=== PATIENT | male | born 1985 | race Caucasian/White ===

== ENCOUNTER 2025-01-14 17:12 | Emergency (ER) | payer OTHER, SELFPAY ==
--- NOTE | 2025-01-14 17:23 | ED.GENADULT ---
HPI - General Adult General Chief complaint: Abdominal Pain Stated complaint: abd pain Related Data Home Medications ?Medication ?Instructions ?Recorded ?Confirmed famotidine 20 mg tablet 20 mg PO BID 01/15/25 01/16/25 metoprolol succinate 50 mg 50 mg PO DAILY 01/15/25 01/16/25 tablet,extended release 24 hr pantoprazole 40 mg tablet,delayed 40 mg PO DAILY@0630 01/15/25 01/16/25 release allopurinol 300 mg tablet 300 mg PO DAILY 01/16/25 01/16/25 multivitamin 1 tab PO DAILY 01/16/25 01/16/25 Allergies Allergy/AdvReac Type Severity Reaction Status Date / Time cephalexin (From Keflex) Allergy Rash Verified 01/15/25 15:39 [facility] Social History Social History Household Members: None Housing: Apartment Do you presently have visiting nurse or other home services: No Patient Tobacco Use Status: Never used Tobacco service: No Physical Exam ED Vital Signs: BMI result Body Mass Index 24.0 Course Course Course Narrative: This is a rapid medical exam performed by Jazmine Jeffery NP: Additional HPI, ROS, PE not included below will be deferred to primary provider. Patient is a 39-year-old male pmhx alcohol use disorder, cardiomyopathy, pancreatitis, nephrolithiasis, and paroxysmal atrial fibrillation presenting to the ED with complaint of epigastric pain, nausea and vomiting since this morning. States this feels the same as prior episodes of pancreatitis. Denies hematemesis. Plan: Labs, EKG Patient left the emergency department before myself or any of the other clinicians could review or explain physical exam findings, test results, need or lack there of for additional testing, treatment options, or a treatment plan. Medical Decision Making Lab Data 01/14/25 17:47 01/14/25 17:47 Labs: Lab Results 01/14/25 01/14/25 Range/Units 17:47 17:49 WBC 4.9 (4.8-10.8) X10*3/uL RBC 4.56 L (4.60-5.80) X10*6/uL Hgb 14.2 (14.0-18.0) g/dl Hct 41.5 L (42.0-52.0) % MCV 91.0 (80.0-98.0) fL MCH 31.1 (27.0-33.0) pg MCHC 34.2 (31.0-36.0) g/dl RDW 15.9 (11.0-16.0) % Plt Count 197 (160-400) X10*3/uL MPV 10.2 (9.4-12.4) fL Immature Gran % (Auto) 0.2 (0.0-0.4) % Neut % (Auto) 59.5 (45-73) % Lymph % (Auto) 22.9 (20-40) % Clark % (Auto) 13.8 H (2-11) % Eos % (Auto) 1.0 (0-4) % Baso % (Auto) 2.6 H (0-2) % Lymph # (Auto) 1.1 L (1.2-4.9) X10*3/uL Clark # (Auto) 0.7 (0.1-1.2) X10*3/uL Eos # (Auto) 0.1 (0.0-0.4) X10*3/uL Baso # (Auto) 0.1 (0.0-0.2) X10*3/uL Abs Immat Gran (auto) 0.01 (0.00-0.03) X10*3/uL Absolute Neuts (auto) 2.9 (2.0-8.3) x10*3/uL Absolute Nucleated RBC 0.000 (0.0-0.012) X10*3/uL Nucleated RBC % (auto) 0.0 (0.0-0.2) /100WBC PT 9.8 L (10.9-12.4) SEC INR 0.9 (0.9-1.1) Sodium 140 (135-145) mmol/L Potassium 4.0 (3.3-5.1) mmol/L Chloride 101 (96-108) mmol/L Carbon Dioxide 21 L (22-29) mmol/L Anion Gap 22 H (12-20) BUN 11 (9-16) mg/dL Creatinine 0.97 (0.5-1.4) mg/dL Estim Creat Clear Calc 110.0 Estimated GFR > 60 Random Glucose 94 (60-115) mg/dL Lactic Acid 4.0 H* (0.5-2.0) mmol/L Calcium 9.3 (8.4-10.2) mg/dL Magnesium 2.0 (1.6-2.6) mg/dL Total Bilirubin 0.4 (0.0-1.0) mg/dL AST 270 H (5-37) U/L ALT 109 H (0-40) U/L Alkaline Phosphatase 90 (39-117) U/L Troponin I High Sens 5.4 (<3.5-35.0) ng/L Total Protein 7.8 (6.5-8.0) g/dL Albumin 5.1 H (3.5-5.0) g/dL Lipase 82 H (8-78) U/L Urine Color Yellow Urine Appearance Clear Urine pH 5.5 (5.0-9.0) Ur Specific [place] 1.020 (1.005-1.025) Urine Protein Trace (Neg-Trace) mg/dL Urine Glucose (UA) Negative (Negative) mg/dL Urine Ketones 15 (Negative) mg/dL Urine Blood Negative (Negative) Urine Nitrite Negative (Negative) Ur Leukocyte Esterase Negative (Negative) Ethyl Alcohol 219 mg/dL Discharge Plan Discharge Clinical Impression: Abdominal pain Patient Disposition: Left W/O Completing Treatment Prescriptions: No Action metoprolol succinate 50 mg tablet extended release 24 hr 50 mg PO DAILY famotidine 20 mg tablet 20 mg PO BID pantoprazole 40 mg tablet,delayed release (DR/EC) 40 mg PO DAILY@0630 multivitamin Tablet 1 tab PO DAILY allopurinol 300 mg tablet 300 mg PO DAILY Discharge Date/Time: 01/14/25 21:24
[2025-01-14 17:25] VITALS: BP 148/83; PULSE 101; RESP 18; TEMP 36.9; O2SAT 97; BMI 24.0
--- NOTE | 2025-01-14 17:26 | ECG_ITS ---
Test Reason : abd pain Blood Pressure : */* mmHG Vent. Rate : 99 BPM Atrial Rate : 99 BPM P-R Int : 124 ms QRS Dur : 88 ms QT Int : 352 ms P-R-T Axes : 50 -33 -42 degrees QTcB Int : 451 ms Normal sinus rhythm Left axis deviation Minimal voltage criteria for LVH, may be normal variant ( R in aVL ) T wave abnormality, consider lateral ischemia Abnormal ECG No previous ECGs available Referred By: Lyudmila Jeffery Electronically Signed By: Dario Munoz
[2025-01-14 17:56] LABS: MANUAL DIFF FLAG NO
[2025-01-14 17:59] LABS: Appearance Urine Clear; Glucose Urine UA Negative (Negative); PH 5.5 (5.0-9.0); Specific Gravity - Urine 1.020 (1.005-1.025)
[2025-01-14 18:05] LABS: Hematocrit 41.5 % (42.0-52.0); Hemoglobin 14.2 g/dl (14.0-18.0); Imm Gran Abs Auto 0.01 X10*3/uL (0.00-0.03); Imm Gran Pct Auto 0.2 % (0.0-0.4); Lymphocytes Absolute Auto 1.1 X10*3/uL (1.2-4.9); Mean Corpuscular HGB Conc 34.2 g/dl (31.0-36.0); Mean Corpuscular Hemoglobin 31.1 pg (27.0-33.0); Mean Corpuscular Volume 91.0 fL (80.0-98.0); NRBC Abs Auto 0.000 X10*3/uL (0.0-0.012); NRBC Pct Auto 0.0 /100WBC (0.0-0.2); Platelet Count 197 X10*3/uL (160-400); Red Blood Count 4.56 X10*6/uL (4.60-5.80); White Blood Count 4.9 X10*3/uL (4.8-10.8)
[2025-01-14 18:13] LABS: Alanine Aminotransferase 109 U/L (0-40); Albumin Level 5.1 g/dL (3.5-5.0); Alkaline Phosphatase 90 U/L (39-117); Anion Gap 22 (12-20); Aspartate Amino Transferase 270 U/L (5-37); Blood Urea Nitrogen 11 mg/dL (9-16); Calcium 9.3 mg/dL (8.4-10.2); Carbon Dioxide 21 mmol/L (22-29); Chloride 101 mmol/L (96-108); Creatinine Clr Calc Pharmacy 110.0; Estimated Glomerular Filt Rate > 60; INTERNATIONAL NORM RATIO 0.9 (0.9-1.1); Lipase 82 U/L (8-78); Magnesium 2.0 mg/dL (1.6-2.6); Potassium 4.0 mmol/L (3.3-5.1); Prothrombin Time 9.8 SEC (10.9-12.4); Sodium 140 mmol/L (135-145); Total Protein 7.8 g/dL (6.5-8.0)
[2025-01-14 18:20] LABS: Troponin-I High Sensitivity 5.4 ng/L (<3.5-35.0)
[2025-01-14 19:54] LABS: Reflex Lactate? Lactic Acid Added
--- OUTSIDE RECORDS SUMMARY | 2025-01-14 21:14 | XMS_ITS | Encounter Summary ---
Author Organization [facility] Address [address] [place] [address] Phone Care Team Providers Care Executive Director Contract Shop Name Role Phone Danilo Wilson MD Primary Care Provide r Encounter Details Date Type Department Care Team (Late st Contact Info) Description 12/09/2024 Procedure Pass [facility], Ct Scan - [facility] [address] [place] [address] Social History Tobacco Use Types Packs/Day Years Used Date Smoking Tobacco: Former Cigarettes Smokeless Tobacco: Never Alcohol Use Standard Drinks/Week Comments Not Currently 16 (1 standard drink = 0.6 oz pu re alcohol) 1 pint of rum daily Education Answer Date Recorded Are you interested in more education? Not on elie e 01/01/2024 Are you concerned about learning? Not on file 01/01/2024 No 01/01/2024 No 01/01/2024 Food Answer Date Recorded Within the past 6 months we worried whether our food would run out before we got money to buy more. Never True 12/09/2024 Within the past 6 months the food we bought just didn't last and we didn't have enough money to get more. Never True Residential Stability Answer Date Recor ded What is your housing situation today? I have annalee sing 12/09/2024 How many times have you move d in the past 12 months? Zero (I did not move) 12/09/2024 Paying for Meds Answer Date Recorded Do you have trouble paying for medicines? No 12/09/2024 Paying Utility Bills Answer Date Record ed Do you have trouble paying your heating or elect ricity bill? No 12/09/2024 Transportation Answer Date Recorded Has the lack of transportati on kept you from medical appointments or from getting medications? No 12/09/2024 Digital Access Answer Date Recorded No 12/09/2024 Yes 12/09/2024 Do you have reliable internet access at home? Ye s 12/09/2024 Do you have a device (e.g., phone, tablet, computer) with a working camera? Yes 12/09/2024 Intimate Partner Violence Answer Date R ecorded Are you denied basic needs s uch as food, clothing, or medical care? No 12/08/2024 In the past 12 months have y ou been in a relationship with a person who hurts, threatens, or tries to control you? No 12/08/2024 Are you denied basic needs s uch as food, clothing, or medical care? No 12/08/2024 In the past 12 months have y ou been in a relationship with a person who hurts, threatens, or tries to control you? No 12/08/2024 Sex and Gender Information Value Date Recorded Sex Assigned at Male 01/01/2024 1:50 AM EDT Legal Sex Male 10:57 PM EDT Gender Identity Male 01/01/2024 11:43 PM EDT Sexual Orientation Don't know 01/01/2024 12 :27 AM EDT documented as of this encounter Plan of Treatment Not on file documented as of this encounter Visit Diagnoses Not on filedocumented in this encounter Care Teams Executive Director Contract Shop Relationship Specialty Start Date End Date Danilo Wilson MD [address] [facility] [address] [place] [address] PCP - General Family Medicine 05/21/24 documented as of this encounter Additional Source Comments The information contained in this document represents components of the legal health record. It is not the complete legal health record.[facility]
--- OUTSIDE RECORDS SUMMARY | 2025-01-14 21:14 | XMS_ITS | Encounter Summary ---
Author Organization [facility] Address [address] [place] [address] Phone Care Team Providers Care Medium Cycle Salesperson Name Role Phone Danilo Wilson MD Primary Care Provide r Encounter Details Date Type Department Care Team (Late st Contact Info) Description 07/06/2024 Procedure Pass [facility], Ct Scan - [facility] [address] [place] [address] Social History Tobacco Use Types Packs/Day Years Used Date Smoking Tobacco: Former Cigarettes Smokeless Tobacco: Never Alcohol Use Standard Drinks/Week Comments Yes 16 (1 standard drink = 0.6 oz [...] got money to buy more. Never True 01/01/2024 Within the past 6 months the food we bought just didn't last and we didn't have enough money to get more. Never True Residential Stability Answer Date Recor ded What is your housing situation today? I have annalee sing 07/06/2024 How many times have you move d in the past 12 months? Zero (I did not move) 07/06/2024 Paying for Meds Answer Date Recorded Do you have trouble paying for medicines? No 07/06/2024 Paying Utility Bills Answer Date Record ed Do you have trouble paying your heating or elect ricity bill? No 07/06/2024 Transportation Answer Date Recorded Has the lack of transportati on kept you from medical appointments or from getting medications? Yes 01/01/2024 Digital Access Answer Date Recorded No 01/01/2024 Yes 01/01/2024 Do you have reliable internet access at home? Ye s 01/01/2024 Do you have a device (e.g., phone, tablet, computer) with a working camera? Yes 01/01/2024 Intimate Partner Violence Answer Date R ecorded Are you denied basic needs s uch as food, clothing, or medical care? No 07/05/2024 In the past 12 months have y ou been in a relationship with a person who hurts, threatens, or tries to control you? No 07/05/2024 Are you denied basic needs s uch as food, clothing, or medical care? No 07/05/2024 In the past 12 months have y ou been in a relationship with a person who hurts, threatens, or tries to control you? No 07/05/2024 Sex and Gender Information Value Date Recorded Sex Assigned at Male 01/01/2024 1:50 AM EDT Legal Sex Male 10:57 PM EDT Gender Identity Male 01/01/2024 11:43 PM EDT Sexual Orientation Don't know 01/01/2024 12 :27 AM EDT documented as of this encounter Plan of Treatment Not on file documented as of this encounter Visit Diagnoses Not on filedocumented in this encounter Care Teams Medium Cycle Salesperson Relationship Specialty Start Date End Date Danilo Wilson MD [address] [facility] [address] [place] [address] PCP - General Family Medicine 05/21/24 documented as of this encounter Additional Source Comments The information contained in this document represents components of the legal health record. It is not the complete legal health record.[facility]
--- OUTSIDE RECORDS SUMMARY | 2025-01-14 21:14 | XMS_ITS | Encounter Summary ---
Author Organization [facility] Address [address] [place] [address] Phone Care Team Providers Care Senior Tech Manufacturing Engineering Name Role Phone Danilo Wilson MD Primary Care Provide r Encounter Details Date Type Department Care Team (Late st Contact Info) Description 07/06/2024 Procedure Pass [facility], Ct Scan - [facility] [address] [place] [address] Social History Tobacco Use Types Packs/Day Years [...] on filedocumented in this encounter Care Teams Senior Tech Manufacturing Engineering Relationship Specialty Start Date End Date Danilo Wilson MD [address] [facility] [address] [place] [address] PCP - General Family Medicine 05/21/24 documented as of this encounter Additional Source Comments The information contained in this document represents components of the legal health record. It is not the complete legal health record.[facility]
--- OUTSIDE RECORDS SUMMARY | 2025-01-14 21:14 | XMS_ITS | Encounter Summary ---
Author Organization [facility] Address [address] [place] [address] Care Team Providers Care Harbor Tug Captain Name Role Phone Physician, No Pcp Primary Care Provider Unavaila ble Encounter Details Date Type Department Care Team (Late st Contact Info) Description 09/28/2024 Referral Triage [facility] Worker [address] [phone] Meenu Burden Social History Tobacco Use Types Packs/Day Years Used Date Smoking Tobacco: Former Smokeless Tobacco: Never Alcohol Use Standard Drinks/Week Comments Yes 0 (1 standard drink = 0.6 oz pur e alcohol) 1pint rum a day Housing Instability Answer Date Recorde d Are you worried that in the next 2 months you may not have stable housing? No 09/30/2024 Food Access & Nutrition Answer Date Rec orded Do you have access to a vari ety of food including fruits and vegetables? Yes 09/30/2024 Access to Healthcare Answer Date Record ed Within the last 3 months, christian snider many times did you visit the emergency department for your medical care? 1 09/30/2024 Health Literacy Answer Date Recorded How often do you need to hav e someone help you when you read instructions, pamphlets, or other written material from your doctor or pharmacy? Rarely 09/30/2024 Caregiver: How often do you need to have someone help you when you read instructions, pamphlets, or other written material from your doctor or pharmacy? Not on file 09/30/2024 Financial Risk Answer Date Recorded How hard is it for you to pa y for the very basics like food, housing, medical care, and air conditioning / heating? Not very hard 09/30/2024 Transportation Answer Date Recorded Has the lack of transportati on kept you from meetings, work, or from getting things needed for daily living? No Has the lack of transportati on kept you from medical appointments or from getting medications? No 09/30/2024 Social Isolation Answer Date Recorded How often do you feel lonely or isolated from th ose around you? Rarely 09/30/2024 Food Risk Answer Date Recorded Within the past 12 months we worried whether our food would run out before we got money to buy more. Never true 09/30/2024 Within the past 12 months th e food we bought just didn't last and we didn't have money to get more. Never true 09/30/2024 Dependent Care Answer Date Recorded Do you need help finding or paying for care for your loved ones. For example, child care group leader or elderly care for an older adult? No 09/30/2024 Education Answer Date Recorded Do you think completing more education or training, like finishing a GED, going to college, or learning a trade, would be helpful for you? No 09/30/2024 Employment and Income Answer Date Recor ded During the last four weeks, have you been actively looking for work? No 09/30/2024 Living Situation Answer Date Recorded What is your living situation? 0 09/30/2024 Interpersonal Safety Answer Date Record ed Physical Abuse 09/22/2024 Verbal Abuse 09/22/2024 Sex and Gender Information Value Date Recorded Sex Assigned at Not on file Legal Sex Male 7:13 PM EST Gender Identity Not on file Sexual Orientation Not on file documented as of this encounter Functional Status * Are you deaf or do you have serious difficulty hearing? Answer Date of Assessment Author No 09/22/2024 10:59 AM Marielena Kaufman RN * Are you blind or do you have serious difficulty seeing, even when wearing glasses? Answer Date of Assessment Author No 09/22/2024 10:59 AM Marielena Kaufman RN * Do you have serious difficulty walking or climbing stairs? Answer Date of Assessment Author No 09/22/2024 10:59 AM Marielena Kaufman RN * Do you have serious difficulty dressing or bathing? Answer Date of Assessment Author No 09/22/2024 10:59 AM Marielena Kaufman RN * Because of a physical, mental, or emotional condition, do you have serious difficulty doing errandsalone such as visiting the doctor? Answer Date of Assessment Author No 09/22/2024 10:59 AM EDT Marielena Brewer RN documented as of this encounter Mental Status * Because of a physical, mental, or emotional condition, do you have serious difficulty concentrating, remembering, or making decisions? (5 years old or older) Answer Entry Date Author No 09/22/2024 10:59 AM EDT Marielena Brewer RN documented in this encounter Progress Notes * Meenu Burden - 09/28/2024 4:36 PM EDT Referral triage: Assigned to Betty (W) reason for referral was support, unclear what kind of support. Error: Re-assigned to Thalia. Meenu Burden Community Health Worker (CHW) Psychiatric Nurse Practitioner/Regional documented in this encounter Plan of Treatment Not on file documented as of this encounter Visit Diagnoses Not on filedocumented in this encounter Care Teams Harbor Tug Captain Relationship Specialty Start Date End Date Physician, No Pcp PCP - General 09/22/24 documented as of this encounter
--- OUTSIDE RECORDS SUMMARY | 2025-01-14 21:14 | XMS_ITS | Encounter Summary ---
Author Organization [facility] Address [address] [place] [address] Phone Care Team Providers Care Industrial Diamond Polisher Name Role Phone Pcp, Unknown Primary Care Provider Unavailabl e Pcp, Unknown Primary Care Provider Unavailabl e Danilo Wilson MD Primary Care Provide r Encounter Details Date Type Department Care Team (Late st Contact Info) Description 01/01/2024 Procedure Pass [facility], Ct Scan - [facility] [address] [place] [address] Social History Tobacco Use Types Packs/Day Years Used Date Smoking Tobacco: Former Cigarettes Smokeless Tobacco: Never Alcohol Use Standard Drinks/Week Comments Yes 16 (1 standard drink = 0.6 oz pu re alcohol) 1 pt of ru daily Education Answer Date Recorded Are you [...] housing situation today? I have annalee sing 01/01/2024 How many times have you move d in the past 12 months? Zero (I did not move) 01/01/2024 Paying for Meds Answer Date Recorded Do you have trouble paying for medicines? No 01/01/2024 Paying Utility Bills Answer Date Record ed Do you have trouble paying your heating or elect ricity bill? No 01/01/2024 Transportation Answer Date Recorded Has the lack [...] as food, clothing, or medical care? No 01/01/2024 In the past 12 months have y ou been in a relationship with a person who hurts, threatens, or tries to control you? No 01/01/2024 Are you denied basic needs s uch as food, clothing, or medical care? No 01/01/2024 In the past 12 months have y ou been in a relationship with a person who hurts, threatens, or tries to control you? No 01/01/2024 Sex and Gender Information Value Date Recorded Sex Assigned at Male 01/01/2024 1:50 AM EDT Legal Sex Male 10:57 PM EDT Gender Identity Male 01/01/2024 11:43 PM EDT Sexual Orientation Don't know 01/01/2024 12 :27 AM EDT documented as of this encounter Functional Status * Calculated C-SSRS Risk Score (Lifetime/Recent) Answer Date of Assessment Author No Risk Indicated 01/01/2024 10:41 PM EDT Anna Tsang RN * [place] Suicide Severity Rating Scale (Screener/Recent Self-Report) Question Answer Date of Assessment Author 1. Wish to be (Past 1 Month) No 024 10:41 PM EDT Anna Tsang RN 2. Non-Specific Active Suici marisol Thoughts (Past 1 Month) No 01/01/2024 10:41 PM EDT Yeimi Tsang RN 6. Suicidal Behavior (Lifetime) No 10:41 PM EDT Anna Tsang RN documented as of this encounter Plan of Treatment Not on file documented as of this encounter Visit Diagnoses Not on filedocumented in this encounter Care Teams Industrial Diamond Polisher Relationship Specialty Start Date End Date Pcp, Unknown PCP - General 01/01/24 05/14/24 Pcp, Unknown PCP - General 05/15/24 05/20/24 Danilo Wilson MD [address] [address] PCP - General Family Medicine 05/21/24 documented as of this encounter Additional Source Comments The information contained in this document represents components of the legal health record. It is not the complete legal health record.[facility]
--- OUTSIDE RECORDS SUMMARY | 2025-01-14 21:14 | XMS_ITS | Encounter Summary ---
Author Organization [facility] Address [address] [place] [address] Phone Care Team Providers Care Test Puller Name Role Phone Danilo Wilson MD Primary Care Provide r Encounter Details Date Type Department Care Team (Late st Contact Info) Description 10/18/2024 Procedure Pass [facility], Ct Scan - [facility] [address] [place] [address] Social History Tobacco Use Types Packs/Day Years [...] got money to buy more. Never True 10/17/2024 Within the past 6 months the food we bought just didn't last and we didn't have enough money to get more. Never True Residential Stability Answer Date Recor ded What is your housing situation today? I have annalee sing 10/17/2024 How many times have you move d in the past 12 months? Zero (I did not move) 10/17/2024 Paying for Meds Answer Date Recorded Do you have trouble paying for medicines? No 10/17/2024 Paying Utility Bills Answer Date Record ed Do you have trouble paying your heating or elect ricity bill? No 10/17/2024 Transportation Answer Date Recorded Has the lack of transportati on kept you from medical appointments or from getting medications? No 10/17/2024 Digital Access Answer Date Recorded No 10/17/2024 Yes 10/17/2024 Do you have reliable internet access at home? Ye s 10/17/2024 Do you have a device (e.g., phone, tablet, computer) with a working camera? Yes 10/17/2024 Intimate Partner Violence Answer Date R ecorded Are you denied basic needs s uch as food, clothing, or medical care? No 10/17/2024 In the past 12 months have y ou been in a relationship with a person who hurts, threatens, or tries to control you? No 10/17/2024 Are you denied basic needs s uch as food, clothing, or medical care? No 10/17/2024 In the past 12 months have y ou been in a relationship with a person who hurts, threatens, or tries to control you? No 10/17/2024 Sex and Gender Information Value Date Recorded Sex Assigned at Male 01/01/2024 1:50 AM EDT Legal Sex Male 10:57 PM EDT Gender Identity Male 01/01/2024 11:43 PM EDT Sexual Orientation Don't know 01/01/2024 12 :27 AM EDT documented as of this encounter Plan of Treatment Not on file documented as of this encounter Visit Diagnoses Not on filedocumented in this encounter Care Teams Test Puller Relationship Specialty Start Date End Date Danilo Wilson MD [address] [facility] [address] [place] [address] PCP - General Family Medicine 05/21/24 documented as of this encounter Additional Source Comments The information contained in this document represents components of the legal health record. It is not the complete legal health record.[facility]
--- OUTSIDE RECORDS SUMMARY | 2025-01-14 21:14 | XMS_ITS | Encounter Summary ---
Author Organization [facility] Address [address] [place] [address] Phone Care Team Providers Care Metal Furniture Assembler Name Role Phone Danilo Wilson MD Primary Care Provide r Encounter Details Date Type Department Care Team (Late st Contact Info) Description 08/09/2024 Procedure Pass [facility], [facility] Scan - [facility] [address] [place] [address] Social History Tobacco Use Types Packs/Day Years [...] as food, clothing, or medical care? No 08/09/2024 In the past 12 months have y ou been in a relationship with a person who hurts, threatens, or tries to control you? No 08/09/2024 Are you denied basic needs s uch as food, clothing, or medical care? No 08/09/2024 In the past 12 months have y ou been in a relationship with a person who hurts, threatens, or tries to control you? No 08/09/2024 Sex and Gender Information Value Date Recorded Sex Assigned at Male 01/01/2024 1:50 AM EDT Legal Sex Male 10:57 PM EDT Gender Identity Male 01/01/2024 11:43 PM EDT Sexual Orientation Don't know 01/01/2024 12 :27 AM EDT documented as of this encounter Functional Status * Calculated C-SSRS Risk Score (Lifetime/Recent) Answer Date of Assessment Author No Risk Indicated 08/09/2024 8:37 PM EDT Darlene Gomez RN * [place] Suicide Severity Rating Scale (Screener/Recent Self-Report) Question Answer Date of Assessment Author 1. Wish to be (Past 1 Month) No 025 8:37 PM EDT Darlene Maldonado, RN 2. Non-Specific Active Suici marisol Thoughts (Past 1 Month) No 08/09/2024 8:37 PM EDT Darlene Maldonado, RN 6. Suicidal Behavior (Lifetime) No 8:37 PM EDT Darlene Maldonado, RN documented as of this encounter Plan of Treatment Not on file documented as of this encounter Visit Diagnoses Not on filedocumented in this encounter Care Teams Metal Furniture Assembler Relationship Specialty Start Date End Date Danilo Wilson MD [address] [address] PCP - General Family Medicine 05/21/24 documented as of this encounter Additional Source Comments The information contained in this document represents components of the legal health record. It is not the complete legal health record.[facility]
--- OUTSIDE RECORDS SUMMARY | 2025-01-14 21:14 | XMS_ITS | Clinical Summary ---
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 4 Active metoprolol succinate (TOPROL-XL) 50 MG 24 hr tablet Take 50 mg by mouth daily. 4 Active carBAMazepine (TEGRETOL) 200 mg IMMEDIATE release tablet Take 1 tablet (200 mg total) by mouth 2 (two) times a day. 180 tablet 5 03/11/20 25 Active sucralfate (CARAFATE) 1 gram tablet Take 1 tablet (1 g total) by mouth 3 (three) times a day before meals. 270 tablet 5 03/11/20 25 Active pantoprazole (PROTONIX) 40 MG tablet Take 1 tablet (40 mg total) by mouth daily. 90 tablet 5 03/11/20 25 Active oxyCODONE 5 MG immediate release tablet Take 1 tablet (5 mg total) by mouth every 12 (twelve) hours as needed for pain (specific location in comments). Partial fill ok 8 tablet 5 12/16/19 25 Active Problems Problem Noted Date Diagnosed Date Abdominal pain 12/09/2024 Assessment & Plan (12/10/2024 10:11 PM EDT): Patient complains of severe epigastric pain after seizure episode. Given his extensive history of alcohol use, suspect alcohol induced gastritis. Lipase was normal. CT abdomen without acute pathology. Abdominal exam without evidence of acute abdomen. - Advised alcohol cessation - Serial abdominal examination -Continue regular diet but with Carafate 3 times a day before meals -Adding on Maalox as needed -Continuing IV Dilaudid every 3 as needed for severe pain -Tolerating p.o. due to severe epigastric pain. Will change Pepcid to IV Protonix twice daily. N.p.o. overnight for a little bit of bowel rest and IV fluids to maintain hydration. Assessment & Plan (12/09/2024 6:54 AM EDT): Patient complains of severe epigastric pain after seizure episode. Given his extensive history of alcohol use, suspect alcohol induced gastritis. Lipase was normal. CT abdomen without acute pathology. Abdominal exam without evidence of acute abdomen. - Advised alcohol cessation - Serial abdominal examination -Continue regular diet but with Carafate 3 times a day before meals -Continue IV Pepcid 20 mg twice a day -Adding on Maalox as needed -Continuing IV Dilaudid every 3 as needed for severe pain Acute pancreatitis 07/09/2024 Assessment & Plan (07/09/2024 5:15 PM EST): CT imaging for acute pancreatitis - with fat stranding, lipase was only mildly elevated, known alcohol use as risk factor - 07/07 - off IVF, decrease IV opioid dose, cautiously advancing diet Some improvement in abdominal pain. KUB-nonobstructive bowel gas pattern. No acute cardiopulmonary process. - Transition from IV dilaudid to ppo dilaudid 4mg q4h prn. - advance to full liquid diet. -Hold on further IV fluids. Right foot infection 07/07/2024 Assessment & Plan (07/09/2024 5:15 PM EST): On admission patient found to have cellulitis of right foot recurrent. re- started doxycycline, Erythema and swelling markedly improved. Minimal redness with minimal swelling today. - Continue with doxycycline IV for now IV given concern for GI side effects, once he is advance his diet he can resume the oral form. Transition to p.o. Doxy in a.m. and continue for 2 days to complete a 5-day course of treatment. Assessment & Plan (07/08/2024 5:45 PM EST): - does appear there is cellulitis, re-started doxycycline, Erythema and swelling markedly improved. - Continue with doxycycline IV for now IV given concern for GI side effects, once he is advance his diet he can resume the oral form. Assessment & Plan (07/07/2024 1:17 PM EST): - does appear there is cellulitis, re-started doxycycline, for now IV given concern for GI side effects, once he is advance his diet he can resume the oral form Intussusception 07/06/2024 Assessment & Plan (07/09/2024 5:15 PM EST): Seen by the surgical service. repeat CT showed resolution of intussusception Diet was advanced to clear liquids, patient was able to tolerate however complain of some abdominal pain. - Dr. Casas recommends GI follow up outpatient Assessment & Plan (07/08/2024 5:45 PM EST): Seen by the surgical service. repeat CT showed resolution of intussusception Diet was advanced to clear liquids, patient was able to tolerate however complain of some abdominal pain. - Dr. Casas recommends GI follow up outpatient Acute pancreatitis/abdominal pain CT imaging for acute pancreatitis - with fat stranding, lipase was only mildly elevated, known alcohol use as risk factor - 07/07 - off IVF, decrease IV opioid dose, cautiously advancing diet - IVF hydration, IV opioid pain medication, will advance diet as tolerated -KUB ordered today for abdominal pain shows nonobstructive bowel gas pattern. Pain is likely due to mild pancreatitis as noted on CT and with slightly elevated LFTs. - Liquid diet overnight Assessment & Plan (07/07/2024 1:17 PM EST): Seen by the surgical service. repeat CT showed resolution of intussusception - advancing diet - Dr. Casas recommends GI follow up outpatient Assessment & Plan (07/06/2024 3:24 PM EST): Seen by the surgical service. repeat CT showed resolution of intussusception - surgery recommends diet advance but patient with severe nausea and several issues affecting diet tolerance (gastritis, possible pancreatitis, alcohol withdrawal) - cont clear diet - Dr. Casas recommends GI follow up outpatient Assessment & Plan (07/06/2024 5:35 AM EST): 38 y.o M with a hx of alcohol abuse with severe withdrawal and alcoholic cardiomyopathy previous admission in May for intussusception s/p exploratory laparoscopy with running of the small bowel with Dr. Liu, returning today with abdominal pain found once again to have recurrent small bowel intussusception. Abdominal exam at this time is relatively reassuring with only mild tenderness in LUQ. -Admit to medical service given active alcohol intoxication and high risk for withdrawals -Hold on emergent surgical intervention for now. -Repeat CT at 10a.m. Pending CT results and clinical exam will determine need for surgery -Keep NPO -Continue IV hydration and pain medication. -SCDs for DVT prophylaxis. Hold aspirin for now. -The plan has been directly discussed with the medical service. Assessment & Plan (07/06/2024 4:28 AM EST): Seen by the surgical service. Plan is for repeat CT scan later this morning at 10 AM. If the intussusception is failing to improve he may be brought to the OR at that time. We will keep him n.p.o. We will give IV pain medications and IV fluids. Paroxysmal atrial fibrillation 05/19/2024 Assessment & Plan (12/10/2024 10:11 PM EDT): Not on anticoagulation. Continue metoprolol succinate 50 mg daily holding parameters. Assessment & Plan (12/09/2024 6:54 AM EDT): Not on anticoagulation. Continue metoprolol succinate 50 mg daily holding parameters. Assessment & Plan (07/09/2024 5:15 PM EST): Sinus rhythm currently. On aspirin for stroke prophylaxis. Afib, RVR LAST admission Assessment & Plan (07/08/2024 5:45 PM EST): Sinus rhythm currently. On aspirin for stroke prophylaxis. Afib, RVR LAST admission Assessment & Plan (07/07/2024 1:17 PM EST): Sinus rhythm currently. On aspirin for stroke prophylaxis. Afib, RVR LAST admission Assessment & Plan (07/06/2024 3:24 PM EST): Sinus rhythm currently. On aspirin for stroke prophylaxis. Given acute withdrawal and recent RVR last admission and prolonged QTc on EKG and use to medications that can prolong QTc and several risk factors for electrolyte abnormalities - start cardiac monitoring Assessment & Plan (07/06/2024 4:28 AM EST): Sinus rhythm currently. On aspirin for stroke prophylaxis. 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 Patient appears to be euvolemic. 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 Patient appears to be euvolemic. Continue metoprolol Assessment & Plan (07/09/2024 5:15 PM EST): 05/17/24 ECHO LVEF 35% - close monitoring, off IVF now Assessment & Plan (07/08/2024 5:45 PM EST): 05/17/24 ECHO LVEF 35% - close monitoring, off IVF now Assessment & Plan (07/07/2024 1:17 PM EST): 05/17/24 ECHO LVEF 35% - close monitoring, off IVF now Assessment & Plan (07/06/2024 3:24 PM EST): 05/17/24 ECHO LVEF 35% - close monitoring on increased IVF, at risk for volume overload Assessment & Plan (07/06/2024 4:28 AM EST): Will monitor I's and O's. We will need to watch for volume overload. Seizures 05/19/2024 Assessment & Plan (12/10/2024 10:11 PM EDT): Suspect alcohol induced withdrawal seizure but Librium withdrawal may also be contributing. Patient was also taken off Keppra approximately 4 months ago given worsening headaches and was told may proceed with Tegretol instead. Per patient, workup with Dr. Sanders from [facility] neurology has otherwise been unremarkable. -Seizure precautions -Again discussed alcohol cessation -Patient was started on Tegretol in the ED and will continue 200 mg twice daily. Patient will need to make an appoint with Dr. Sanders for further titration and monitoring - EEG is negative for acute seizures. - patient should not operate any heavy machinery or driving until he seizure- free for greater than than 6 months. Assessment & Plan (12/09/2024 6:54 AM EDT): Suspect alcohol induced withdrawal seizure but Librium withdrawal may also be contributing. Patient was also taken off Keppra approximately 4 months ago given worsening headaches and was told may proceed with Tegretol instead. Per patient, workup with Dr. Sanders from [facility] neurology has otherwise been unremarkable. -Seizure precautions -Again discussed alcohol cessation -Patient was started on Tegretol in the ED and will continue 200 mg twice daily. Patient will need to make an appoint with Dr. Sanders for further titration and monitoring - Will obtain EEG - patient should not operate any heavy machinery or driving until he seizure- free for greater than than 6 months. Alcohol dependence with withdrawal 05/16/2024 Assessment & Plan (07/09/2024 5:15 PM EST): History of delirium tremens when he was admitted here in May. Has received about 17 mg/kg phenobarbital load. Patient continues with withdrawal symptoms this morning with CIWA 10. Phenobarbital level is 22.7 Startes on oral phenobarbital 60 mg twice daily with improved symptoms. - s/p IV magnesium -Decrease phenobarbital to 30 mg twice daily - cont vitamin supplementation - encouraging alcohol cessation, he is interested in treatment - consult Assessment & Plan (07/08/2024 5:45 PM EST): History of delirium tremens when he was admitted here in May. Has received about 17 mg/kg phenobarbital load. Patient continues with withdrawal symptoms this morning with CIWA 10. Phenobarbital level is 22.7 -Will start on oral phenobarbital 60 mg twice daily for 4 doses. - s/p IV magnesium - cont vitamin supplementation - encouraging alcohol cessation, he is interested in treatment - consult Assessment & Plan (07/07/2024 1:17 PM EST): History of delirium tremens when he was admitted here in May. Has received about 17 mg/kg phenobarbital load so far Adjunctive medication with antiemetics Acute gastritis - cont PPI CT imaging for acute pancreatitis - with fat stranding, lipase was only mildly elevated, known alcohol use as risk factor - 07/07 - off IVF, decrease IV opioid dose, cautiously advancing diet - IVF hydration, IV opioid pain medication, will advance diet as tolerated - supplement IV magnesium - cont vitamin supplementation - encouraging alcohol cessation, he is interested in treatment - consult Assessment & Plan (07/06/2024 3:24 PM EST): History of delirium tremens when he was admitted here in May. Has received about 15 mg/kg phenobarbital load so far Adjunctive medication with antiemetics Acute gastritis - add PPI CT imaging for acute pancreatitis - with fat stranding, lipase was only mildly elevated, known alcohol use as risk factor - IVF hydration, IV opioid pain medication, will advance diet as tolerated - check magnesium level - IVF - cont vitamin supplementation - encouraging alcohol cessation, he is interested in treatment - consult Assessment & Plan (07/06/2024 4:28 AM EST): Received 200 mg of oral phenobarbital. History of delirium tremens when he was admitted here in May. Will give IV phenobarbital and B vitamins. He expresses a strong desire for alcohol treatment. He is aware of his nonischemic cardiomyopathy and its relation to alcohol consumption. Will place consult to social work. Acute idiopathic gout involving toe of left foot 01/04/2024 Assessment & Plan (01/04/2024 12:20 PM EDT): Left great toe with mild edema, erythema. Consistent with gout, history of this. He was started on prednisone 20 mg to complete 3-day course with today being day 3, notes minimal improvement. We will provide higher dose of prednisone, initiate colchicine. -Colchicine 1.2 mg x 1, Toradol -Colchicine 0.6 mg daily until 48 hours following resolution -Continue allopurinol -Increase prednisone to 40 mg daily with taper -day 3 of course -Empiric PPI in setting of steroid, NSAID, alcohol history Alcohol dependence 01/01/2024 Assessment & Plan (01/04/2024 12:11 PM EDT): Improved symptoms, social work consulted, status post phenobarbital loading. Low CIWA score. -Currently reports being motivated to abstain drinking in future -Declines acamprosate, naltrexone -Social work consult appreciated -He reports he is receptive to AA meetings Nephrolithiasis 01/01/2024 Assessment & Plan (01/04/2024 12:17 PM EDT): CT noted nonobstructing intrarenal calculi without any collecting system dilation. Right greater than left stone burden. He has no hematuria. -Monitor Opioid use disorder 01/01/2024 Assessment & Plan (01/04/2024 12:17 PM EDT): No longer on Suboxone, continue analgesia for acute pancreatitis, tolerating Toradol and as needed narcotic. Resolved Problems Problem Noted Date Diagnosed Date Resolved Date Intussusception 05/16/2024 05/19/2024 Lactic acidosis 05/16/2024 05/19/2024 Alcohol withdrawal seizure w ithout complication 05/16/2024 05/19/2024 Alcohol-induced acute pancre atitis without infection or necrosis 01/01/2024 07/06/2024 Assessment & Plan (01/04/2024 12:16 PM EDT): Alcohol induced pancreatitis, history of 1 other episode in the past. Toxicology screen was positive for cocaine patient denies this, suspect false positive cross-reactivity. Overall his pain has improved, Reports ongoing epigastric pain with radiation across his left flank and to spine. He trialed low-fat diet today, only able to tolerate few bites of eggs before discontinuing. He had increased pain with meal. No nausea or vomiting. Labs are reassuring, previous elevated lipase had down trended. LFTs within normal limits today. He is without leukocytosis or fever. -Change diet back to full liquid for now -Increase IV fluids to 150/h -Scheduled Toradol -As needed oxycodone 5 to 10 mg -Discontinue IV opiates -Education to abstain from alcohol use in the future Encounters Date Type Department Care Team Description 12/09/2024 Procedure [facility], Ct Scan - [address] [address] 12/08/2024 10:41 PM EDT - 12/11/2024 12:49 PM EDT Hospital Encounter [facility] [address] [place] [id number] Toni Thomason, DO [place], MD Louis Mari Eli, MD Yau, Cyrus H, MD Discharge Disposition: Home or Self Care 10/18/2024 Procedure [facility], Ct Scan - [address] [address] 10/17/2024 10:00 PM EDT - 10/18/2024 5:27 AM EDT Emergency [facility] [address] [place] [id number] Toni Thomason DO Discharge Disposition: Home or Self Care from Last 3 Months Family History Medical History Relation Comments No Known Problems Father No Known Problems Mother No Known Problems Sister Relation Status Comments Brother Alive Father Alive Mother Alive Sister Alive Social History Tobacco Use Types Packs/Day Years Used Date Smoking Tobacco: Former Cigarettes Smokeless Tobacco: Never Tobacco Cessation:Counseling Given: Not Answered Alcohol Use Standard Drinks/Week Comments Not Currently [...] Don't know 01/01/2024 12 :27 AM EDT Last Filed Vital Signs Vital Sign Reading Time Taken Comments Blood Pressure 125/77 12/11/2024 9:03 AM EDT Pulse 89 12/11/2024 9:03 AM EDT Temperature 36.6 C (97.9 F) 12/11/2024 9:03 AM EDT Respiratory Rate 18 12/11/2024 9:03 AM EDT Oxygen Saturation 98% 12/11/2024 9:03 AM EDT Inhaled Oxygen Concentration - - Weight 85.4 kg (188 lb 4.8 oz) 12/10/2024 6:31 A M EDT Height 182.9 cm (6') 12/09/2024 6:47 AM EDT Body Mass Index 25.54 12/09/2024 6:47 AM EDT Plan of Treatment Health Maintenance Due Date Last Done Comments Adult Td,Tdap Booster 1983 CARBAMAZEPINE (TEGRETOL) LEVEL 1983 LIPID PANEL 1983 DEPRESSION SCREENING 1995 SMOKING Hx and SMOKELESS TOBACCO SCREENING 10/31/1996 HIV ONE-TIME SCREENING (18-65 YEARS) 10/31/2001 PNEUMOCOCCAL VACCINES (0-49 years) (1 of 2 - PCV) 10/31/2002 COVID-19 VACCINE ( - season) 2024 CREATININE LEVEL 12/11/2025 12/11/2024, 05/2024, 12/08/2024, Additional history exists SCREENING FOR DIABETES 12/12/2027 12/11/2024 HEPATITIS C SCREENING Completed 05/16/2024 HEPATITIS A VACCINES Aged Out No long er eligible based on patient's age to complete this topic HIB VACCINES Aged Out No longer eligi ble based on patient's age to complete this topic MENINGOCOCCAL VACCINES (ACWY) Aged Out No longer eligible based on patient's age to complete this topic MENINGOCOCCAL VACCINES (B) Aged Out N o longer eligible based on patient's age to complete this topic Medical Devices Not on file Procedures Procedure Name Priority Date/Time Associated Diagnosis Comments LFTS (HEPATIC PANEL) Routine 12/11/2024 6:14 AM EDT CBC Routine 12/11/2024 6:14 AM EDT BASIC METABOLIC PANEL Routine 12/11/2024 6:14 AM EDT LIPASE Routine 12/10/2024 5:23 AM EDT CBC Routine 12/10/2024 5:23 AM EDT COMPREHENSIVE METABOLIC PANEL Routine 12/10/2024 5:23 AM EDT EEG Routine 12/09/2024 11:34 AM EDT TROPONIN STAT 12/09/2024 4:04 AM EDT ECG 12-LEAD STAT 12/09/2024 3:[address] ABDOMEN/PELVIS WITH CONTRAST Routine 12/09/2024 2:24 AM EDT URINALYSIS W/REFLEX URINE CULTURE STAT 12/09/2024 12:31 AM EDT TROPONIN Routine 12/08/2024 10:55 PM EDT MAGNESIUM Routine 12/08/2024 10:55 PM EDT LIPASE STAT 12/08/2024 10:55 PM EDT LFTS (HEPATIC PANEL) STAT 12/08/2024 10:55 PM EDT BASIC METABOLIC PANEL STAT 12/08/2024 10:55 PM EDT CBC AND DIFFERENTIAL STAT 12/08/2024 10:[address] ABDOMEN/PELVIS WITH CONTRAST Routine 10/18/2024 1:41 AM EDT TROPONIN STAT 10/18/2024 12:17 AM EDT TROPONIN STAT 10/17/2024 11:21 PM EDT LACTIC ACID (LACTATE) STAT 10/17/2024 11:21 PM EDT LIPASE STAT 10/17/2024 11:21 PM EDT MAGNESIUM STAT 10/17/2024 11:21 PM EDT LFTS (HEPATIC PANEL) STAT 10/17/2024 11:21 PM EDT BASIC METABOLIC PANEL STAT 10/17/2024 11:21 PM EDT CBC AND DIFFERENTIAL STAT 10/17/2024 11:21 PM EDT ECG 12-LEAD STAT 10/17/2024 9:49 PM EDT HEPATITIS C ANTIBODY, QUALITATIVE Routine 05/16/2024 4:34 AM EST from Last 3 Months or Most Recently Relevant to Health Maintenance Results * LFTs (hepatic panel) (12/11/2024 6:14 AM EDT) Only the most recent of3 resultswithin the time period is included. ALKALINE PHOSPHATASE 86 39 - 117 U/L [facility] TOTAL BILIRUBIN 0.5 0.0 - 1.2 mg/dL [facility] DIRECT BILIRUBIN 0.1 0.0 - 0.2 mg/dL [facility] Bilirubin (Indirect) NOT CALCULATED 0 - 1.5 mg/dL [facility] AST 37 0 - 37 U/L [facility] ALT 21 0 - 40 U/L [facility] TOTAL PROTEIN 6.9 6.5 - 8.0 g/dL [facility] ALBUMIN 4.2 3.9 - 4.8 g/dL [facility] GLOBULIN 2.7 1 - 4.8 g/dL [facility] A/G Ratio 1.56 1.00 - 4.80 RATIO [facility] Blood 12/11/2024 6:14 AM EDT 12/11/2024 6:38 AM EDT us Toño Garcia MD LAB BLOOD ORDERABLES Final Resul t [facility] [address] [place] [address] * CBC (12/11/2024 6:14 AM EDT) Only the most recent of2 resultswithin the time period is included. WBC 5.73 4.00 - 11.00 K/uL [facility] RBC 4.73 4.50 - 5.90 M/uL [facility] HGB 14.4 13.5 - 17.5 g/dL [facility] HCT 43.9 41.0 - 53.0 % [facility] PLT 321 150 - 450 K/uL [facility] MCV 92.8 80.0 - 100.0 fL [facility] MCH 30.4 27.0 - 31.0 pg [facility] MCHC 32.8 32.0 - 36.0 g/dL [facility] RDW 13.7 11.5 - 14.5 % [facility] MPV 10.1 8.4 - 12.0 fL [facility] NRBC 0.00 0.00 /100 WBCs [facility] ABSOLUTE NRBC 0.00 0.00 K/uL [facility] Blood 12/11/2024 6:14 AM EDT 12/11/2024 6:38 AM EDT us Toño Garcia MD LAB BLOOD ORDERABLES Final Resul t [facility] [address] [place] [address] * (ABNORMAL) Basic metabolic panel (12/11/2024 6:14 AM EDT) Only the most recent of3 resultswithin the time period is included. SODIUM 138 133 - 146 mmol/L [facility] CHLORIDE 98 96 - 108 mmol/L [facility] POTASSIUM 3.7 3.3 - 5.1 mmol/L [facility] CO2 26 21 - 35 mmol/L [facility] BUN 7 6 - 19 mg/dL [facility] CREATININE 1.00 0.5 - 1.5 mg/dL [facility] GLUCOSE 100(H) 70 - 99 mg/dL [facility] CALCIUM 8.9 8.4 - 10.3 mg/dL [facility] EGFR 97 >59 mL/min/1.7 3m2 [facility] Comment:Estimated glomerular filtration rate calculated using the CKD-EPI refit equation. ANION GAP 18 10 - 20 mmol/L [facility] Blood 12/11/2024 6:14 AM EDT 12/11/2024 6:38 AM EDT us Toño Garcia MD LAB BLOOD ORDERABLES Final Resul t [facility] [address] [place], [place] [id number] * (ABNORMAL) Comprehensive metabolic panel (12/10/2024 5:23 AM EDT) SODIUM 137 133 - 146 mmol/L [facility] POTASSIUM 3.7 3.3 - 5.1 mmol/L [facility] CHLORIDE 98 96 - 108 mmol/L [facility] CO2 27 21 - 35 mmol/L [facility] BUN 13 6 - 19 mg/dL [facility] CREATININE 1.10 0.5 - 1.5 mg/dL [facility] GLUCOSE 80 70 - 99 mg/dL [facility] ALBUMIN 4.2 3.9 - 4.8 g/dL [facility] TOTAL PROTEIN 6.8 6.5 - 8.0 g/dL [facility] CALCIUM 9.1 8.4 - 10.3 mg/dL [facility] ALKALINE PHOSPHATASE 83 39 - 117 U/L [facility] TOTAL BILIRUBIN 0.8 0.0 - 1.2 mg/dL [facility] AST 40(H) 0 - 37 U/L [facility] ALT 23 0 - 40 U/L [facility] GLOBULIN 2.6 1 - 4.8 g/dL [facility] EGFR 86 >59 mL/min/1.[address] [place] [address] Comment:Estimated glomerular filtration rate calculated using the CKD-EPI refit equation. ANION GAP 16 10 - 20 mmol/L [facility] Blood 12/10/2024 5:23 AM EDT 12/10/2024 6:09 AM EDT us Logan [place] MD LAB BLOOD ORDERABLES Final Resu lt Performing Organization Address City/[facility]/ZIP Co de Phone Number [address] [address] * Lipase (12/10/2024 5:23 AM EDT) Only the most recent of3 resultswithin the time period is included. LIPASE 33 16 - 63 U/L [facility] 12/10/2024 5:23 AM EDT 12/10/2024 6:09 AM EDT us Logan [place] MD LAB BLOOD ORDERABLES Final Resu lt Performing Organization Address [facility] Co de Phone Number [address] [phone] * EEG (12/09/2024 11:34 AM EDT) Anatomical Region Laterality Modality EEG Impressions 12/16/2024 12:07 PM EDT This was a normal adult EEG in the awake, drowsy and asleep states. No epileptiform abnormalities were present. No seizures were captured. COMPARISON: EEG of 05/16/2024 reported as: a normal adult EEG in the awake, drowsy and asleep states. No epileptiform abnormalities were present. There was excessive, diffuse, overriding beta activity, consistent with known benzodiazepine and barbiturate use. INDICATION: 39 year old male with a past medical history for severe alcohol use disorder, gout, seizures (?provoked), and new cardiomyopathy EF of 40% (feb 2024) who presented with suspected alcohol induced seizure. EEG to further assess. PERTINENT MEDICATIONS: Carbamazepine and Phenobarbital. Benzodiazepines to cover alcohol withdrawal. METHOD: Standard 10-20 electrode placement, single lead EKG and continuous video. DETAIL: The background was continuous, symmetric, and demonstrated good AP organization. A 10-40 uV, 9-10 Hz, posterior dominant rhythm was detected. Drowsiness was characterized by relative paucity of eye blink artifact, decrease in muscle/motion artifact, vertex waves, and generalized theta/delta slowing. Stage II sleep was seen and characterized by K-complexes and vertex waves. No epileptiform abnormalities were observed. No seizures were captured. Photic stimulation was not performed. Hyperventilation was not performed. EKG: No dysrhythmia at a HR of 60 BPM. Riki HAMMER [facility] Epilepsy Fellow 12/09/24 I ([facility] ) have reviewed the study with the fellow and edited this report. Start Time: 12/09/2024 11:13 AM End Time: 12/09/2024 11:34 AM us Logan Staton MD NEUROLOGY ORDERABLES Final Resu lt * Troponin (12/09/2024 4:04 AM EDT) Only the most recent of4 resultswithin the time period is included. [facility] Troponin-T, HS Gen5 8 0 - 14 ng/L [facility] Blood 12/09/2024 4:04 AM EDT 12/09/2024 4:55 AM EDT us Toni Thomason DO LAB BLOOD ORDERABLES Final Re sult [address] [address] * ECG 12-LEAD (12/09/2024 3:50 AM EDT) Only the most recent of2 resultswithin the time period is included. Pathologist [facility] Ventricular Rate EKG/MIN 81 BPM [facility] Atrial Rate 81 BPM [facility] MA Interval 130 ms [facility] QRS Duration 90 ms [facility] QT Interval 408 ms [facility] QTC Interval 473 ms [facility] P [place] 26 degrees [facility] R Wave [place] -35 degrees [facility] T Wave [place] -24 degrees [facility] 12/09/2024 3:50 AM EDT 12/09/2024 8:59 AM EDT Narrative [facility] - 12/09/2024 8:59 AM EDT Normal sinus rhythm Left axis deviation Nonspecific T wave abnormality Abnormal ECG When compared with ECG of 17-Oct-2024 21:49, No significant change was found Confirmed by Marcos DUKE ([id number]) on 12/09/2024 8:59:39 AM us Toni Thomason DO ECG ORDERABLES Final Result [facility] * CT ABDOMEN/PELVIS WITH CONTRAST (12/09/2024 2:24 AM EDT) Anatomical Region Laterality Modality Abdomen, Pelvis Computed Tomogra phy 12/09/2024 5:22 AM EDT Impressions 12/09/2024 5:26 AM EDT 1. No acute abdominopelvic abnormality. 2. Fatty liver. Narrative 12/09/2024 5:[address] ABDOMEN/PELVIS WITH CONTRAST Reason for exam (per EHR order): * Abdominal pain, acute, nonlocalized TECHNIQUE: Multidetector-row CT of the abdomen and pelvis was performed after administration of intravenous contrast using tailored dose modulation techniques. Images were reconstructed in the axial, coronal, and sagittal planes. COMPARISON: CT ABDOMEN/PELVIS WITH CONTRAST FINDINGS: Lower Chest: Normal. Liver: Diffusely hypoattenuating. Biliary System: Normal. Pancreas: Normal. Spleen: Normal. Adrenal Glands: Normal. Kidneys: Bilateral renal stones. No hydronephrosis. Bowel: Small hiatal hernia. No bowel wall thickening or distention. Normal appendix. Mesentery, Omentum, and Peritoneum: Normal. Pelvic Organs: Normal. Lymph Nodes: Normal. Vasculature: Atherosclerotic calcifications. Retroaortic left renal vein. Bones and Soft Tissues: Multilevel degenerative changes. Procedure Note Jessica Manuel MD - 12/09/2024 CT ABDOMEN/PELVIS WITH CONTRAST Reason for exam (per EHR order): * Abdominal pain, acute, nonlocalized TECHNIQUE: Multidetector-row CT of the abdomen and pelvis was performed afteradministration of intravenous contrast using tailored dose modulationtechniques. Images were reconstructed in the axial, coronal, and sagittalplanes. COMPARISON: CT ABDOMEN/PELVIS WITH CONTRAST FINDINGS: Lower Chest: Normal. Liver: Diffusely hypoattenuating. Biliary System: Normal. Pancreas: Normal. Spleen: Normal. Adrenal Glands: Normal. Kidneys: Bilateral renal stones. No hydronephrosis. Bowel: Small hiatal hernia. No bowel wall thickening or distention. Normalappendix. Mesentery, Omentum, and Peritoneum: Normal. Pelvic Organs: Normal. Lymph Nodes: Normal. Vasculature: Atherosclerotic calcifications. Retroaortic left renalvein. Bones and Soft Tissues: Multilevel degenerative changes. IMPRESSION: 1. No acute abdominopelvic abnormality. 2. Fatty liver. us Toni Thomason DO IMG CT ABD/PELVIS Final Resul t * Urinalysis w/reflex Urine Culture (12/09/2024 12:31 AM EDT) COLOR Yellow Yellow [facility] CLARITY Clear [facility] GLUCOSE Negative Negative [facility] BILI Negative Negative [facility] KETONES Negative Negative [facility] SPECIFIC GRAVITY 1.015 1.005 - 1.030 [facility] BLOOD Negative Negative [facility] PH 6.0 5.0 - 8.0 [facility] Protein-UA Negative Negative [facility] NITRITE Negative Negative [facility] Leukocyte esterase, ur Negative Negative [facility] Urine (Urine) 12/09/2024 12: 31 AM EDT 12/09/2024 12:46 AM EDT us Toni Thomason DO URINE ORDERABLES Final Result [address] [address] * CBC and differential (12/08/2024 10:55 PM EDT) Only the most recent of2 resultswithin the time period is included. WBC 7.52 4.00 - 11.00 K/uL [facility] RBC 5.05 4.50 - 5.90 M/uL [facility] HGB 15.5 13.5 - 17.5 g/dL [facility] HCT 45.2 41.0 - 53.0 % [facility] PLT 418 150 - 450 K/uL [facility] MCV 89.5 80.0 - 100.0 fL [facility] MCH 30.7 27.0 - 31.0 pg [facility] MCHC 34.3 32.0 - 36.0 g/dL [facility] RDW 14.4 11.5 - 14.5 % [facility] MPV 10.0 8.4 - 12.0 fL [facility] NRBC 0.00 0.00 /100 WBCs [facility] ABSOLUTE NRBC 0.00 0.00 K/uL [facility] DIFF METHOD Auto [facility] NEUTS 52.3 48.0 - 76.0 % [facility] LYMPHS 34.6 18.0 - 41.0 % [facility] MONOS 7.0 4.0 - 11.0 % [facility] EOS 4.5 0.0 - 5.0 % [facility] BASOS 1.5 0.0 - 1.5 % [facility] Granulocytes, immature (%) 0.1 0.0 - 0.9 % [facility] ABSOLUTE NEUTS 3.93 1.92 - 7.60 K/uL [facility] ABSOLUTE LYMPHS 2.60 0.72 - 4.10 K/uL [facility] ABSOLUTE MONOS 0.53 0.16 - 1.10 K/uL [facility] ABSOLUTE EOS 0.34 0.00 - 0.50 K/uL [facility] ABSOLUTE BASOS 0.11 0.00 - 0.15 K/uL [facility] Granulocytes, immature 0.01 0.00 - 0.09 K/uL [facility] Blood 12/08/2024 10:5 5 PM EDT 12/08/2024 11:18 PM EDT us Toni Thomason DO LAB BLOOD ORDERABLES Final Re sult [facility] [address] [place] [address] * Magnesium (12/08/2024 10:55 PM EDT) Only the most recent of2 resultswithin the time period is included. MAGNESIUM 2.3 1.6 - 2.6 mg/dL [facility] 12/08/2024 10:5 5 PM EDT 12/08/2024 11:18 PM EDT us Toni Dina Paddy DO LAB BLOOD ORDERABLES Final Re sult [address] [address] * CT ABDOMEN/PELVIS WITH CONTRAST (10/18/2024 1:41 AM EDT) Anatomical Region Laterality Modality Abdomen, Pelvis Computed Tomogra phy 10/18/2024 4:24 AM EDT Impressions 10/18/2024 4:28 AM EDT 1. Hepatic steatosis, with cirrhotic morphology of the liver. 2. Multiple nonobstructing intrarenal calculi bilaterally. Narrative 10/18/2024 4:[address] ABDOMEN/PELVIS WITH CONTRAST Referring clinician's provided indication for this examination in Epic: * Epigastric pain Review of the Electronic Medical Record reveals an additional history of: Chest pain, found down, history of seizure. TECHNIQUE: Multidetector-row CT of the abdomen and pelvis was performed after administration of intravenous contrast using tailored dose modulation techniques. Images were reconstructed in the axial, coronal, and sagittal planes. COMPARISON: CT ABDOMEN/PELVIS WITH CONTRAST FINDINGS: Lower Chest: No consolidation or pleural effusions. Liver: No discrete mass. Hepatic steatosis, with relative enlargement of the left hepatic lobe suggestive of cirrhosis. Biliary: Normal gallbladder. No biliary ductal dilatation. Spleen: No splenomegaly or focal lesions. Pancreas: No masses or ductal dilatation. Adrenal Glands: No nodules. Kidneys/Ureters: No enhancing renal mass or collecting system dilatation. Multiple punctate nonobstructing intrarenal calculi bilaterally. Bowel: No bowel wall thickening or dilatation. Normal appendix. Peritoneum/Retroperitoneum: No pneumoperitoneum or ascites. Lymph Nodes: None enlarged. Pelvic Organs/Bladder: No significant abnormalities. Vessels: No abdominal aortic aneurysm or dissection. The major arterial branches are patent. Retroaortic left renal vein. Atherosclerosis. Bones/Soft Tissues: Degenerative changes of the spine. Procedure Note Lia Stapleton MD - 10/18/2024 CT ABDOMEN/PELVIS WITH CONTRAST Referring clinician's provided indication for this examination in Epic: *Epigastric pain Review of the Electronic Medical Record reveals an additional history of:Chest pain, found down, history of seizure. TECHNIQUE: Multidetector-row CT of the abdomen and pelvis was performedafter administration of intravenous contrast using tailored dosemodulation techniques. Images were reconstructed in the axial, coronal,and sagittal planes. COMPARISON: CT ABDOMEN/PELVIS WITH CONTRAST FINDINGS: Lower Chest: No consolidation or pleural effusions. Liver: No discrete mass. Hepatic steatosis, with relative enlargement ofthe left hepatic lobe suggestive of cirrhosis. Biliary: Normal gallbladder. No biliary ductal dilatation. Spleen: No splenomegaly or focal lesions. Pancreas: No masses or ductal dilatation. Adrenal Glands: No nodules. Kidneys/Ureters: No enhancing renal mass or collecting system dilatation.Multiple punctate nonobstructing intrarenal calculi bilaterally. Bowel: No bowel wall thickening or dilatation. Normal appendix. Peritoneum/Retroperitoneum: No pneumoperitoneum or ascites. Lymph Nodes: None enlarged. Pelvic Organs/Bladder: No significant abnormalities. Vessels: No abdominal aortic aneurysm or dissection. The major arterialbranches are patent. Retroaortic left renal vein. Atherosclerosis. Bones/Soft Tissues: Degenerative changes of the spine. IMPRESSION: 1. Hepatic steatosis, with cirrhotic morphology of the liver. 2. Multiple nonobstructing intrarenal calculi bilaterally. us Toni Thomason DO IMG CT ABD/PELVIS Final Resul t * Lactate (10/17/2024 11:21 PM EDT) LACTATE 2.06 0.50 - 2.20 mmol/L [facility] Blood 10/17/2024 11:2 1 PM EDT 10/17/2024 11:28 PM EDT us Toni Thomason DO LAB BLOOD ORDERABLES Final Re sult [address] [address] * Hepatitis C antibody, qualitative (05/16/2024 4:34 AM EST) HCV NON-REACTIV E NON-REACTI VE [facility] Blood 05/16/2024 4:34 AM EST 05/16/2024 4:41 AM EST us Ninfa Aponte PA-C, MPH LAB BLOOD ORDERABLE S Final Result Performing Organization Address [facility] Co de Phone Number [address] [address] from Last 3 Months or Most Recently Relevant to Health Maintenance Insurance [employer] Member Subscriber Plan / Payer (Ef fective 2023-Present) Name:Armando Mary Relation to Subscriber:Self Name:Armando Mary Payer ID:Not on file Type:Medicaid Address: [place] [id number] [employer] Member Subscriber Plan / Payer (Ef fective 2023-Present) Name:Armando Mary Relation to Subscriber:Self Name:Armando Mary Payer ID:Not on file Type:Medicaid Address: [place] [id number] [place] [address] [employer] Advance Directives For more information, please contact: [phone] (9AM - 5PM [facility], Friday-Friday) Documents on File Type Date Recorded 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 Healthcare Proxy 05/20/2024 3:20 PM Healthcare Proxy 05/19/2024 4:14 PM Health Care Proxy * Full Code (Latest Code Status on File) Date Activated Date Inactivated Comments 12/09/2024 6:26 AM Question Answer Comments Code Status Confirmed With: Patient Code Status Communicated To: Inpatient Attending * Full Code Date Activated Date Inactivated Comments 07/06/2024 4:06 AM 12/09/2024 6:26 AM Question Answer Comments Code Status Confirmed With: Patient * Full Code Date Activated Date Inactivated Comments 05/16/2024 5:09 AM 07/06/2024 4:06 AM Question Answer Comments Code Status Confirmed With: Other (specify below ) Code Discussion Comments: presumed * Full Code Date Activated Date Inactivated Comments 01/01/2024 8:50 AM 05/16/2024 5:09 AM Question Answer Comments Code Status Confirmed With: Patient Code Status Communicated To: Inpatient Attending Healthcare Agents on File Name Relationship Healthcare Agent [facility] Communication Teagan Landis Mother .Primary Health Care Agent (Proxy form on file) Care Teams [place] Trimmer Relationship Specialty Start Date End Date Danilo Wilson MD [address] [address] PCP - General Family Medicine 05/21/24 Additional Source Comments The information contained in this document represents components of the legal health record. It is not the complete legal health record.[facility]
--- OUTSIDE RECORDS SUMMARY | 2025-01-14 21:14 | XMS_ITS | Clinical Summary ---
Author Organization [facility] Address [address] [place] [address] Phone Care Team Providers Care Licensed Nuclear Control Room Operator Name Role Phone Physician, No Pcp Primary Care Provider Unavaila ble Allergies Active Allergy Reactions Criticality Noted Date Comments Cephalexin Rash 09/21/2024 Medications hydrOXYzine HCL (ATARAX) 10 mg tablet Take 1 tablet (10 mg total) by mouth 3 (three) times a day if needed for anxiety. 08/29/2024 Active metoprolol succinate (TOPROL-XL) 50 mg 24 hr tablet Take 1 tablet (50 mg total) by mouth 1 (one) time each day. Active allopurinoL (ZYLOPRIM) 100 mg tablet Take 1 tablet (100 mg total) by mouth 1 (one) time each day. Active topiramate (TOPAMAX) 50 mg tablet 100mg in the morning and 150 mg at night 50 each 09/25/2024 Active Active Problems No known active problems Resolved Problems Problem Noted Date Diagnosed Date Resolved Date Alcohol withdrawal ([facility] V24, [facility] V28) 09/23/19 25 09/25/2024 Surgical History Surgery Date Site/Laterality Comments OTHER SURGICAL HISTORY PROCEDURE: DENIES PREVIOUS SURGERY Medical History Medical History Date Comments Lumbar disc herniation with radiculopathy 2013 DX:Lumbar disc herniation wi th radiculopathy Alcohol abuse 2016 DX:Alcohol abuse Homeless 03/23/2018 DX:Homeless Cardiomyopathy ([facility] V24, [facility] V28) Family History Medical History Relation Name Comments No Known Problems Brother No Known Problems Daughter No Known Problems Father Other: anxiety Mother Autoimmune disease Neg Hx Breast cancer Neg Hx Colon cancer Neg Hx Coronary artery disease Neg Hx Diabetes Neg Hx Heart attack Neg Hx Heart failure Neg Hx Hyperlipidemia Neg Hx Hypertension Neg Hx Mental illness Neg Hx Prostate cancer Neg Hx Sleep apnea Neg Hx Thyroid disease Neg Hx Relation Name Status Comments Brother Alive Daughter Alive Father Alive Maternal Grandfather Alive healthy Maternal Grandmother Alive healthy Mother Alive Sister Alive severe anxiety/ depression, hx psych hospitalization Social History Tobacco Use Types Packs/Day Years [...] Record ed Within the last 3 months, ho w many times did you visit the emergency [...] your loved ones. For example, child care centre director or elderly care for an older adult? [...] on file Sexual Orientation Not on file Obstetrics History Last Filed Vital Signs Vital Sign Reading Time Taken Comments Blood Pressure 106/75 09/25/2024 11:38 AM EDT Pulse 97 09/25/2024 11:38 AM EDT Temperature 36.5 C (97.7 F) 09/25/2024 11:38 AM EDT Respiratory Rate 20 09/25/2024 11:38 AM EDT Oxygen Saturation 97% 09/25/2024 11:38 AM EDT Inhaled Oxygen Concentration - - Weight 81.6 kg (180 lb) 09/21/2024 7:29 PM EDT Height 182.9 cm (6') 09/21/2024 7:29 PM EDT Body Mass Index 24.41 09/21/2024 7:29 PM EDT Plan of Treatment Health Maintenance Due Date Last Done Comments DTaP,Tdap,and Td Vaccines (1 - Tdap) 10/31/2002 Hepatitis A Vaccines (1 of 2 - Risk 2-dose series) 10/31/2002 Hepatitis B Vaccines (1 of 3 - 19+ 3-dose series) 10/31/2002 Pneumococcal Vaccine: Pediatrics (0 to 5 Years) and At-Risk Patients (6 to 49 Years) (1 of 2 - PCV) 10/31/2002 Cholesterol Screening (Lipid Panel) 04/13/2022 HIV Screening 04/13/2022 Depression Screening 05/12/2024 COVID-19 Vaccine ( - season) 2025 Influenza Vaccine (#1) 2025 02/17/2014 Hypertension/CHF/CAD Annual BMP Blood Test 09/25/2025 09/25/2024, 09/23/2024, 09/22/2024, Additional history exists Social Influencers of Health Screening 09/30/2025 09/30/2024 Hepatitis C Screening Completed 05/16/2024 HIB Vaccines Aged Out No longer eligi ble based on patient's age to complete this topic HPV Vaccines Aged Out No longer eligi ble based on patient's age to complete this topic IPV Vaccines Aged Out No longer eligi ble based on patient's age to complete this topic MMR Vaccines Aged Out No longer eligi ble based on patient's age to complete this topic Meningococcal ACWY Vaccine Aged Out N o longer eligible based on patient's age to complete this topic Meningococcal B Vaccine Aged Out No l onger eligible based on patient's age to complete this topic RSV Immunization Patients Under 20 months Aged Out No longer eligible based on patient's age to complete this topic Varicella Vaccines Aged Out No longer eligible based on patient's age to complete this topic Procedures Procedure Name Priority Date/Time Associated Diagnosis Comments BASIC METABOLIC PANEL Routine 09/25/2024 8:35 AM EDT from Last 3 Months or Most Recently Relevant to Health Maintenance Results * (ABNORMAL) Basic metabolic panel (09/25/2024 8:35 AM EDT) Sodium 135 133 - 145 mmol/L LAB CHEMISTRY METHOD 09/25/2024 9:34 AM [facility] Potassium 4.5 3.5 - 5.5 mmol/L LAB CHEMISTRY METHOD 09/25/2024 9:34 AM [facility] Chloride 102 96 - 110 mmol/L LAB CHEMISTRY METHOD 09/25/2024 9:34 AM [facility] CO2 24 21 - 32 mmol/L LAB CHEMISTRY METHOD 09/25/2024 9:34 AM [facility] Anion Gap 9 3 - 11 LAB CHEMISTRY METHOD 09/25/2024 9:34 AM [facility] Glucose 121(H) 70 - 100 mg/dL LAB CHEMISTRY METHOD 09/25/2024 9:34 AM EDT [facility] BUN 9 5 - 25 mg/dL LAB CHEMISTRY METHOD 09/25/2024 9:34 AM EDT [facility] Creatinine 1.13 0.70 - 1.30 mg/dL LAB CHEMISTRY METHOD 09/25/2024 9:34 AM EDT [facility] eGFR 84 >=60 mL/min/1. 73m2 LAB CHEMISTRY METHOD 09/25/2024 9:34 AM EDT [facility] Comment:Calculation based on the Chronic Kidney Disease Epidemiology Collaboration (CKD-EPI) equation refit without adjustment for race. BUN/Creatinine Ratio 8.0 LAB CHEMISTRY METHOD 09/25/2024 9:34 AM EDT [facility] Calcium 9.4 8.5 - 10.5 mg/dL LAB CHEMISTRY METHOD 09/25/2024 9:34 AM [facility] Blood Venous blood specimen / Unknown Venipuncture / Unknown 09/25/2024 8:35 AM EDT 09/25/2024 8:41 AM EDT Gregory Klein MD LAB BLOOD ORDERABLES nal Result [facility] [address] [place] [address], from Last 3 Months or Most Recently Relevant to Health Maintenance Insurance [place] [employer] AD[place]ANTAGE Advance Directives * Full Code - Default (Latest Code Status on File) Date Activated Date Inactivated Comments 09/22/2024 12:02 PM 09/25/2024 4:11 PM This is ord er is used when code status has not been discussed with the patient, or code status is otherwise unknown/unconfirmed To update the patient's code status, place a code status order. Do not modify or discontinue any currently active code status orders. Care Teams Licensed Nuclear Control Room Operator Relationship Specialty Start Date End Date Physician, No Pcp PCP - General 09/22/24
--- OUTSIDE RECORDS SUMMARY | 2025-01-14 21:14 | XMS_ITS | Clinical Summary ---
Author Organization [facility] Address [address] [place] [address] Care Team Providers Care Academic Counselor Name Role Phone Adelaida Appiah MD Primary Care Provider Social History Tobacco Use Types Packs/Day Years Used Date Smoking Tobacco: Never Assessed Sex and Gender Information Value Date Recorded Sex Assigned at Not on file Gender Identity Not on file Sexual Orientation Not on file Plan of Treatment Health Maintenance Due Date Last Done Comments Hepatitis B Vaccines (1 of 3 - 3-dose series) 1983 Hepatitis C Screening 1983 COVID-19 Vaccine (#1) 05/02/1984 Depression Screening 1995 Preventative Health Evaluation 10/31/2001 DTap / Tdap / Td (1 - Tdap) 10/31/2002 Influenza Vaccine (#1) 2025 Pneumococcal Vaccine Aged Out No long er eligible based on patient's age to complete this topic RSV Ped < 20 months Aged Out No longe r eligible based on patient's age to complete this topic Care Teams Academic Counselor Relationship Specialty Start Date End Date Adelaida Appiah MD PCP - General Internal Medicine 10/20/18
--- OUTSIDE RECORDS SUMMARY | 2025-01-14 21:15 | XMS_ITS | Encounter Summary ---
Author Organization [facility] Address [address] [place] [address] Phone Care Team Providers Care Environmental Analyst Name Role Phone Pcp, Unknown Primary Care Provider Danilo Nolasco MD Primary Care Provide r Encounter Details Date Type Department Care Team (Late st Contact Info) Description 05/15/2024 Procedure Pass [facility], Ct Scan - [facility] [address] [place] [address] Social History Tobacco Use Types Packs/Day Years [...] as food, clothing, or medical care? No 05/15/2024 In the past 12 months have y ou been in a relationship with a person who hurts, threatens, or tries to control you? No 05/15/2024 Are you denied basic needs s uch as food, clothing, or medical care? No 05/15/2024 In the past 12 months have y ou been in a relationship with a person who hurts, threatens, or tries to control you? No 05/15/2024 Sex and Gender Information Value Date Recorded Sex Assigned at Male 01/01/2024 1:50 AM EDT Legal Sex Male 10:57 PM EDT Gender Identity Male 01/01/2024 11:43 PM EDT Sexual Orientation Don't know 01/01/2024 12 :27 AM EDT documented as of this encounter Functional Status * Calculated C-SSRS Risk Score (Lifetime/Recent) Answer Date of Assessment Author No Risk Indicated 05/15/2024 7:33 PM Helena Irwin, CHOCO * [place] Suicide Severity Rating Scale (Screener/Recent Self-Report) Question Answer Date of Assessment Author 1. Wish to be (Past 1 Month) No 05/15/2024 7:33 PM Scotty Irwin RN 2. Non-Specific Active Suici marisol Thoughts (Past 1 Month) No 05/15/2024 7:33 PM Dory Irwin, CHOCO 6. Suicidal Behavior (Lifetime) No 7:33 PM Helena Irwin, CHOCO documented as of this encounter Plan of Treatment Not on file documented as of this encounter Visit Diagnoses Not on filedocumented in this encounter Care Teams Environmental Analyst Relationship Specialty Start Date End Date Pcp, Unknown PCP - General 05/15/24 05/20/24 Danilo Wilson MD [address] [address] PCP - General Family Medicine 05/21/24 documented as of this encounter Additional Source Comments The information contained in this document represents components of the legal health record. It is not the complete legal health record.[facility]
--- OUTSIDE RECORDS SUMMARY | 2025-01-14 21:15 | XMS_ITS | Encounter Summary ---
Author Organization [facility] Address [address] [place] [address] Phone Care Team Providers Care Carving Machine Operator Name Role Phone Pcp, Unknown Primary Care Provider Patricia Wilson, Danilo Wisdom MD Primary Care Provide r Encounter Details Date Type Department Care Team (Late st Contact Info) Description 05/17/2024 Procedure Pass [facility] [address] [place] [address] Social History Tobacco Use Types Packs/Day Years [...] on filedocumented in this encounter Care Teams Carving Machine Operator Relationship Specialty Start Date End Date Pcp, Unknown PCP - General 05/15/24 05/20/24 Danilo Wilson MD [address] [facility] [address] [place] [address] PCP - General Family Medicine 05/21/24 documented as of this encounter Additional Source Comments The information contained in this document represents components of the legal health record. It is not the complete legal health record.[facility]
--- OUTSIDE RECORDS SUMMARY | 2025-01-14 21:15 | XMS_ITS | Encounter Summary ---
Author Organization [facility] Address [address] [place] [address] Phone Care Team Providers Care Ornamental Metal Erector Name Role Phone Pcp, Unknown Primary Care Provider Danilo Nolasco MD Primary Care Provide r Encounter Details Date Type Department Care Team (Late st Contact Info) Description 05/15/2024 Procedure Pass [facility], Ct Scan - [facility] [address] [place] [address] Social History Tobacco Use Types Packs/Day Years [...] 05/15/2024 7:33 PM Helena Irwin, CHOCO * [place] Suicide Severity Rating Scale (Screener/Recent Self-Report) Question [...] on filedocumented in this encounter Care Teams Ornamental Metal Erector Relationship Specialty Start Date End Date Pcp, Unknown PCP - General 05/15/24 05/20/24 Danilo Wilson MD [address] [address] PCP - General Family Medicine 05/21/24 documented as of this encounter Additional Source Comments The information contained in this document represents components of the legal health record. It is not the complete legal health record.[facility]
--- OUTSIDE RECORDS SUMMARY | 2025-01-14 21:15 | XMS_ITS | Encounter Summary ---
Author Organization [facility] Address [address] [place] [address] Phone Care Team Providers Care Business Travel Consultant Name Role Phone Pcp, Unknown Primary Care Provider Danilo Nolasco MD Primary Care Provide r Encounter Details Date Type Department Care Team (Late st Contact Info) Description 05/16/2024 Procedure Pass [place] Admitting Dept - Virtual Department [address] [place] [address] Social History Tobacco Use Types Packs/Day Years [...] on filedocumented in this encounter Care Teams Business Travel Consultant Relationship Specialty Start Date End Date Pcp, Unknown PCP - General 05/15/24 05/20/24 Danilo Wilson MD [address] [address] PCP - General Family Medicine 05/21/24 documented as of this encounter Additional Source Comments The information contained in this document represents components of the legal health record. It is not the complete legal health record.[facility]
== END 2025-01-14 21:24 | disposition left against medical advice (07) ==
PROVIDERS: Registered Nurse Emergency; Emergency Provider Emergency Medicine
DX: R10.9 Unspecified abdominal pain (principal)
CPT/HCPCS: 36415; 80053; 80307; 81003; 83605; 83690; 83735; 84484; 85025; 85610; 93005; 99283

== ENCOUNTER → 2025-01-14 17:26 | Outpatient (BNV) | payer OTHER, SELFPAY | PROVIDERS: Emergency Provider Emergency Medicine; Visit Provider Internal Medicine Cardiovascular Disease | DX: R94.31 Abnormal electrocardiogram [ECG] [EKG] (principal); R10.9 Unspecified abdominal pain | CPT/HCPCS: 93010 ==

== ENCOUNTER 2025-01-15 15:32 | Inpatient (IN) | payer OTHER, SELFPAY ==
[2025-01-15] VITALS (7 sets, daily range): BP systolic 108–134; BP diastolic 76–97; PULSE 77–109; RESP 12–20; TEMP 36.7–36.8; O2SAT 95–99; BMI 26.2
--- NOTE | ~2025-01-15 | CT_ITS ---
EXAMINATION: CT HEAD WITHOUT CONTRAST CLINICAL INFORMATION: Dizziness and vertiago COMPARISON: None available. TECHNIQUE: Contiguous axial imaging was performed from the skull base to vertex without intravenous administration of contrast. This CT examination was performed using dose optimization techniques as appropriate, variously including the following: *Automated exposure control *Adjustment of mA and/or kV according to patient size (this includes techniques or standardized protocols for targeted exams where dose is matched to indication/reason for exam; i.e. extremities or head) *Use of iterative reconstruction technique DLP: 776 mGy-cm FINDINGS: No acute intracranial hemorrhage, mass effect, midline shift, hydrocephalus or herniation. Sylvester-white matter differentiation is normal. Posterior cranial fossa contents demonstrated normal position of the cerebellar tonsils. No gross mass effect or acute hemorrhage. Sellar/suprasellar region demonstrated no gross masses. Calcified plaques in the cavernous supracavernous segments both ICAs. Mucosal thickening, paranasal sinuses. Tympanic cavities and mastoid cells are aerated.. CT/CT head/brain wo IV con IMPRESSION: No acute intracranial hemorrhage or acute brain abnormality by CT. Electronically signed by: Tim Diallo MD 01/18/2025 10:34 AM EDT
--- NOTE | ~2025-01-15 | CT_ITS ---
CLINICAL HISTORY: upper abdominal pain ? pancreatitis CT abdomen and pelvis with contrast Comparison: None provided Findings: The lung bases are clear. No gross evidence of pancreatic or peripancreatic edema. No pancreatic duct dilatation. No pseudocyst. The liver is enlarged and markedly hypodense. There are tiny nonobstructive calculi within the bilateral kidneys. Unremarkable spleen and adrenal glands. No calcified gallstones. No bowel obstruction, pneumoperitoneum, or pneumatosis. Pelvic contents unremarkable. Normal appendix. No acute fracture. IMPRESSION: 1. No obvious CT findings of pancreatitis. This does not exclude the possibility of pancreatitis. 2. Hepatomegaly with severe fatty infiltration of the liver. 3. Tiny nonobstructive calculi within the bilateral kidneys. This document has been electronically signed by: Nini Louise MD on 01/15/2025 17:54:17
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
--- NOTE | 2025-01-15 15:35 | ED.GENADULT ---
HPI - General Adult General Chief complaint: Abdominal Pain Stated complaint: abd pain/pancreatitis? here yesterday and left Time Seen by Provider: 01/15/25 16:38 Source: patient Limitations: no limitations History of Present Illness HPI narrative: This is a 39 years old the patient with a history of alcohol abuse presented to the emergency department complaining of upper abdominal pain he was seen yesterday but he did not wait for the provider because the wait was long. He drinks about 1 pt of Rum every day, he feels like he is also withdrawing from alcohol Onset (ago): day(s) Location: abdomen Radiation: non-radiation Severity: moderate Quality: burning Pain Consistency: constant Relieving factors: none Exacerbating factors: none Associated symptoms: denies other symptoms Related Data Allergies Allergy/AdvReac Type Severity Reaction Status Date / Time cephalexin (From Keflex) Allergy Rash Verified 01/15/25 15:39 Review of Systems Constitutional: Constitutional: Reports no additional constitutional complaints ENT: Reports system reviewed and no additional complaints, except as documented Cardiovascular: Cardiovascular: Reports no additional cardiovascular complaints Gastrointestinal: Gastrointestinal: Reports abdominal pain [facility] Past Medical History Attestation statement: The following information was validated with the patient. [facility] Narrative: Alcohol abuse, pancreatitis Social History Social History Advance Directives: No Advance Directives Information Provided: No Physical Exam ED Exam Exam: Mild distress a bit tachycardic heart rate is 109 Vital Signs: Vital Signs - 24 hr 01/15/25 15:35 01/15/25 17:09 01/15/25 18:02 Temperature 98.2 F 98.0 F Pulse Rate 109 H 80 Respiratory Rate 20 17 20 Blood Pressure 131/76 108/77 Pulse Oximetry 96 99 Oxygen Delivery Method Room Air Room Air BMI result Body Mass Index 26.2 Const General: cooperative Nutritional Appearance: average body habitus Orientation/consciousness: patient oriented x3 Limitations: no limitations HENMT Head: Yes normal to inspection General nose exam: Normal external nose present Face and sinus: Yes normal facial exam Mouth: Normal oral and palatal mucosa present Neck Neck: Yes normal visual inspection Chest Chest palpation & inspection: normal inspection of the chest Resp Effort & Inspection: normal respiratory effort Auscultation: clear to auscultation bilaterally Cardio Jugular venous distension: no JVD Rate: regular rate Rhythm: regular rhythm GI Inspection: Yes normal to inspection Palpation (GI): Soft to palpation and Tenderness to palpation present (GI) Auscultation: normal bowel sounds Skin General skin exam: no rashes or lesions noted, elasticity normal and turgor normal Lesions: no lesions Rashes: no rashes Neuro General: patient oriented x3 Course Course Course Narrative: This is a Rapid Medical Examination (RME) performed by Kathy Raymundo PA-C in triage. Full HPI, ROS, assessment and treatment plan per primary provider in the Main ED. Hx: 39-year-old male pmhx alcohol use disorder, cardiomyopathy, pancreatitis, nephrolithiasis, and paroxysmal atrial fibrillation presenting to the ED with complaint of epigastric pain, nausea and vomiting since this morning. States this feels the same as prior episodes of pancreatitis. here yesterday, LWCT d/t long wait times. daily etoh drinker, last drink this am, hx of withdrawal, no seizures. PE/ vitals: uncomfortable appearing Plan: repeat labs Reevaluation(s) Reevaluation #1: Lab reviewed he has a metabolic acidosis with anion gap he is lactic acid is 4.3 but this is a type B lactic acidosis secondary to liver disease Time: 18:15 Medications Administered Discontinued Medications Generic Name Dose Route Start Last Admin Trade Name Freq PRN Reason Stop Dose Admin Diazepam 5 mg 01/15/25 16:44 01/15/25 17:09 Diazepam 10 Mg/2 Ml Cartridge IVPUSH 01/15/25 16:45 5 mg STAT STA Administration Lactated Ringer's 1,000 mls @ 999 mls/hr 01/15/25 16:45 01/15/25 16:56 Lr IV 01/15/25 17:45 999 mls/hr .Q1H1M ROMMEL Administration Iohexol 85 ml 01/15/25 17:14 01/15/25 17:14 Iohexol 350 Mg/Ml 100 Ml Infus..Btl IV 01/15/25 17:15 85 ml ONCE ONE Administration Morphine Sulfate 4 mg 01/15/25 16:50 01/15/25 17:09 Morphine Sulfate 4 Mg/Ml Cartridge IVPUSH 01/15/25 16:51 4 mg ONCE ONE Administration Protocol Medical Decision Making Medical Decision Making MDM Narrative: Patient is here with the abdominal pain we will administer IV fluid we will do ct 18:16 CT shows not acute disease labs reviewed he has a metabolic acidosis with anion gap lactic acidosis this is a type B lactic acidosis, this is due to the liver, no clinical evidence of sepsis he has no fever Differential Diagnosis Differential Diagnoses: The differential diagnosis associated with the presentation includes Acute pancreatitis/gastritis/peptic ulcer disease/alcohol withdrawal Admission/Observation Consideration of admission/observation: Escalation of care including admission/observation considered Consult Healthcare Provider Management of the patient was discussed with: Hospitalist Lab Data MDM Lab Attestation statement: I reviewed the patient's lab results. 01/15/25 15:46 01/15/25 15:46 Labs: Lab Results 01/15/25 01/15/25 01/15/25 Range/Units 15:46 15:47 16:54 WBC 5.9 (4.8-10.8) X10*3/uL RBC 4.68 (4.60-5.80) X10*6/uL Hgb 14.7 (14.0-18.0) g/dl Hct 42.1 (42.0-52.0) % MCV 90.0 (80.0-98.0) fL MCH 31.4 (27.0-33.0) pg MCHC 34.9 (31.0-36.0) g/dl RDW 16.0 (11.0-16.0) % Plt Count 230 (160-400) X10*3/uL MPV 9.7 (9.4-12.4) fL Immature Gran % (Auto) 0.2 (0.0-0.4) % Neut % (Auto) 55.6 (45-73) % Lymph % (Auto) 25.5 (20-40) % [place] % (Auto) 12.3 H (2-11) % Eos % (Auto) 3.2 (0-4) % Baso % (Auto) 3.2 H (0-2) % Lymph # (Auto) 1.5 (1.2-4.9) X10*3/uL [place] # (Auto) 0.7 (0.1-1.2) X10*3/uL Eos # (Auto) 0.2 (0.0-0.4) X10*3/uL Baso # (Auto) 0.2 (0.0-0.2) X10*3/uL Abs Immat Gran (auto) 0.01 (0.00-0.03) X10*3/uL Absolute Neuts (auto) 3.3 (2.0-8.3) x10*3/uL Absolute Nucleated RBC 0.000 (0.0-0.012) X10*3/uL Nucleated RBC % (auto) 0.0 (0.0-0.2) /100WBC Smear Tech's Comments VERIFIED Sodium 140 (135-145) mmol/L Potassium 4.1 (3.3-5.1) mmol/L Chloride 102 (96-108) mmol/L Carbon Dioxide 19 L (22-29) mmol/L Anion Gap 23 H (12-20) BUN 11 (9-16) mg/dL Creatinine 1.09 (0.5-1.4) mg/dL Estim Creat Clear Calc 89.1 Estimated GFR > 60 Random Glucose 81 (60-115) mg/dL Lactic Acid 4.3 H* (0.5-2.0) mmol/L Calcium 9.5 (8.4-10.2) mg/dL Magnesium 2.1 (1.6-2.6) mg/dL Total Bilirubin 0.5 (0.0-1.0) mg/dL AST 260 H (5-37) U/L ALT 109 H (0-40) U/L Alkaline Phosphatase 94 (39-117) U/L Total Protein 8.0 (6.5-8.0) g/dL Albumin 5.3 H (3.5-5.0) g/dL Lipase 125 H (8-78) U/L Urine Color Yellow Urine Appearance Clear Urine pH 6.0 (5.0-9.0) Ur Specific [place] 1.025 (1.005-1.025) Urine Protein 100 (2+) H (Neg-Trace) mg/dL Urine Glucose (UA) Negative (Negative) mg/dL Urine Ketones 40 (Negative) mg/dL Urine Blood Small (1+) H (Negative) Urine Nitrite Negative (Negative) Ur Leukocyte Esterase Negative (Negative) Urine RBC 3-5 H (0-2) /HPF Urine WBC 0-5 (0-5) /HPF Ur Squamous Epith Cells 0-2 (0-2) /HPF Urine Bacteria None Seen (None Seen) Hyaline Casts 0-2 (0-2) /LPF Ethyl Alcohol 306 H* mg/dL Independent Interpretation I performed an independent interpretation of an: CT Scan Interpretation: Not acute disease Radiology Impression Radiologist Impression: eripancreatic edema. No pancreatic duct dilatation. No pseudocyst. The liver is enlarged and markedly hypodense. There are tiny nonobstructive calculi within the bilateral kidneys. Unremarkable spleen and adrenal glands. No calcified gallstones. No bowel obstruction, pneumoperitoneum, or pneumatosis. Pelvic contents unremarkable. Normal appendix. No acute fracture. IMPRESSION: 1. No obvious CT findings of pancreatitis. This does not exclude the possibility of pancreatitis. 2. Hepatomegaly with severe fatty infiltration of the liver. 3. Tiny nonobstructive calculi within the bilateral kidneys. This document has been electronically signed by: Nini Louise MD on 01/15/2025 17:54:17 Dictated By: Nini Louise MD Signed By: <Electronic Chronic Conditions Patient?s care impacted by: Other Alcohol abuse Critical Care Time Critical Care Time Critical Care Time: Yes Total Critical Care Time: 90 Attestation: Administration of IV diazepam also administration of phenobarbital for alcohol withdrawal Discharge Plan Discharge Clinical Impression: Lactic acid acidosis, Metabolic acidosis, increased anion gap, Alcoholism Pancreatitis Qualifiers: Chronicity: acute Pancreatitis type: alcohol induced Acute pancreatitis complication: no infection or necrosis Qualified Code(s): K85.20 - Alcohol induced acute pancreatitis without necrosis or infection Patient Disposition: Admitted As Inpatient Print Language: Wolof
[2025-01-15 15:54] LABS: Hematocrit 42.1 % (42.0-52.0); Hemoglobin 14.7 g/dl (14.0-18.0); Imm Gran Abs Auto 0.01 X10*3/uL (0.00-0.03); Imm Gran Pct Auto 0.2 % (0.0-0.4); Lymphocytes Absolute Auto 1.5 X10*3/uL (1.2-4.9); MANUAL DIFF FLAG SCAN; Mean Corpuscular HGB Conc 34.9 g/dl (31.0-36.0); Mean Corpuscular Hemoglobin 31.4 pg (27.0-33.0); Mean Corpuscular Volume 90.0 fL (80.0-98.0); NRBC Abs Auto 0.000 X10*3/uL (0.0-0.012); NRBC Pct Auto 0.0 /100WBC (0.0-0.2); Platelet Count 230 X10*3/uL (160-400); Red Blood Count 4.68 X10*6/uL (4.60-5.80); SCAN SMEAR FLAG 1; White Blood Count 5.9 X10*3/uL (4.8-10.8)
[2025-01-15 15:59] LABS: Appearance Urine Clear; Glucose Urine UA Negative (Negative); PH 6.0 (5.0-9.0); Specific Gravity - Urine 1.025 (1.005-1.025); UMIC TRIGGER UACC YES
[2025-01-15 16:11] LABS: Alanine Aminotransferase 109 U/L (0-40); Albumin Level 5.3 g/dL (3.5-5.0); Alkaline Phosphatase 94 U/L (39-117); Anion Gap 23 (12-20); Aspartate Amino Transferase 260 U/L (5-37); Blood Urea Nitrogen 11 mg/dL (9-16); Calcium 9.5 mg/dL (8.4-10.2); Carbon Dioxide 19 mmol/L (22-29); Chloride 102 mmol/L (96-108); Creatinine Clr Calc Pharmacy 89.1; Estimated Glomerular Filt Rate > 60; Lipase 125 U/L (8-78); Magnesium 2.1 mg/dL (1.6-2.6); Potassium 4.1 mmol/L (3.3-5.1); Sodium 140 mmol/L (135-145); Total Protein 8.0 g/dL (6.5-8.0)
[2025-01-15] MEDS: Lactated Ringers 1,000 ML 999 ML IV ×3 (16:56→23:30)
--- OUTSIDE RECORDS SUMMARY | 2025-01-15 16:59 | XMS_ITS | Encounter Summary ---
Author Organization [facility] Address [address] [place] [address] Care Team Providers Care Sustainability Officer Name Role Phone Physician, No Pcp Primary Care Provider Unavaila ble Encounter Details Date Type Department Care Team (Late st Contact Info) Description 09/28/2024 Referral Triage [facility] Worker [address] [phone] Meenu Burden Social History Tobacco Use Types [...] care for your loved ones. For example, child's nurse or elderly care for an older adult? [...] Thalia. Meenu Burden Community Health Worker (CHW) Precision Dancer/Regional documented in this encounter Plan of Treatment Not on file documented as of this encounter Visit Diagnoses Not on filedocumented in this encounter Care Teams Sustainability Officer Relationship Specialty Start Date End Date Physician, No Pcp PCP - General 09/22/24 documented as of this encounter
--- OUTSIDE RECORDS SUMMARY | 2025-01-15 16:59 | XMS_ITS | Encounter Summary ---
Author Organization [facility] Address [address] [place] [address] Phone Care Team Providers Care Morgue Librarian Name Role Phone Pcp, Unknown Primary Care Provider Patricia Wilson, Danilo Wisdom MD Primary Care Provide r Encounter Details Date Type Department Care Team (Late st Contact Info) Description 05/17/2024 Procedure Pass [facility] [address] [place] [address] Social History Tobacco Use Types Packs/Day Years [...] on filedocumented in this encounter Care Teams Morgue Librarian Relationship Specialty Start Date End Date Pcp, Unknown PCP - General 05/15/24 05/20/24 Danilo Wilson MD [address] [facility] [place] [address] [place] [address] PCP - General Family Medicine 05/21/24 documented as of this encounter Additional Source Comments The information contained in this document represents components of the legal health record. It is not the complete legal health record.[facility]
--- OUTSIDE RECORDS SUMMARY | 2025-01-15 16:59 | XMS_ITS | Encounter Summary ---
Author Organization [facility] Address [address] [place] [address] Phone Care Team Providers Care Housecalls Nurse Name Role Phone Danilo Wilson MD Primary Care Provide r Encounter Details Date Type Department Care Team (Late st Contact Info) Description 10/18/2024 Procedure Pass [facility], Ct Scan - [facility] [address] [place] [address] Social History Tobacco Use Types Packs/Day Years [...] on filedocumented in this encounter Care Teams Housecalls Nurse Relationship Specialty Start Date End Date Danilo Wilson MD [address] [facility] [address] [place] [address] PCP - General Family Medicine 05/21/24 documented as of this encounter Additional Source Comments The information contained in this document represents components of the legal health record. It is not the complete legal health record.[facility]
--- OUTSIDE RECORDS SUMMARY | 2025-01-15 16:59 | XMS_ITS | Encounter Summary ---
Author Organization [facility] Address [address] [place] [address] Phone Care Team Providers Care Industrial Gas Servicer Supervisor Name Role Phone Danilo Wilson MD Primary Care Provide r Encounter Details Date Type Department Care Team (Late st Contact Info) Description 07/06/2024 Procedure Pass [facility], Ct Scan - [facility] [address] [place] [address] Social History Tobacco Use Types Packs/Day Years [...] filedocumented in this encounter Care Teams Industrial Gas Servicer Supervisor Relationship Specialty Start Date End Date Danilo Wilson MD [address] [facility] [address] [place] [address] PCP - General Family Medicine 05/21/24 documented as of this encounter Additional Source Comments The information contained in this document represents components of the legal health record. It is not the complete legal health record.[facility]
--- OUTSIDE RECORDS SUMMARY | 2025-01-15 16:59 | XMS_ITS | Encounter Summary ---
Author Organization [facility] Address [address] [place] [address] Phone Care Team Providers Care Director Of Mechanical Engineering Name Role Phone Pcp, Unknown Primary Care Provider Danilo Nolasco MD Primary Care Provide r Encounter Details Date Type Department Care Team (Late st Contact Info) Description 05/16/2024 Procedure Pass [place] Admitting Dept - Virtual Department [address] [place] [address] Social History Tobacco Use Types Packs/Day Years [...] on filedocumented in this encounter Care Teams Director Of Mechanical Engineering Relationship Specialty Start Date End Date Pcp, Unknown PCP - General 05/15/24 05/20/24 Danilo Wilson MD [address] [address] PCP - General Family Medicine 05/21/24 documented as of this encounter Additional Source Comments The information contained in this document represents components of the legal health record. It is not the complete legal health record.[facility]
--- OUTSIDE RECORDS SUMMARY | 2025-01-15 16:59 | XMS_ITS | Encounter Summary ---
Author Organization [facility] Address [address] [place] [address] Phone Care Team Providers Care Forest Law And Policy Professor Name Role Phone Danilo Wilson MD Primary Care Provide r Encounter Details Date Type Department Care Team (Late st Contact Info) Description 08/09/2024 Procedure Pass [facility], Ct Scan - [facility] [address] [place] [address] Social History Tobacco Use Types Packs/Day Years [...] 8:37 PM EDT Darlene Gomez RN * [place] Suicide Severity Rating Scale (Screener/Recent Self-Report) Question [...] on filedocumented in this encounter Care Teams Forest Law And Policy Professor Relationship Specialty Start Date End Date Danilo Wilson MD [address] [address] PCP - General Family Medicine 05/21/24 documented as of this encounter Additional Source Comments The information contained in this document represents components of the legal health record. It is not the complete legal health record.[facility]
--- OUTSIDE RECORDS SUMMARY | 2025-01-15 16:59 | XMS_ITS | Encounter Summary ---
Author Organization [facility] Address [address] [place] [address] Phone Care Team Providers Care Health Promotion Manager Name Role Phone Danilo Wilson MD Primary Care Provide r Encounter Details Date Type Department Care Team (Late st Contact Info) Description 12/09/2024 Procedure Pass [facility], Ct Scan - [facility] [address] [place] [address] Social History Tobacco Use Types Packs/Day Years [...] on filedocumented in this encounter Care Teams Health Promotion Manager Relationship Specialty Start Date End Date Danilo Wilson MD [address] [facility] [address] [place] [address] PCP - General Family Medicine 05/21/24 documented as of this encounter Additional Source Comments The information contained in this document represents components of the legal health record. It is not the complete legal health record.[facility]
--- OUTSIDE RECORDS SUMMARY | 2025-01-15 16:59 | XMS_ITS | Clinical Summary ---
Author Organization [facility] Address [address] [place] [address] Phone Care Team Providers Care Sword Swallower Name Role Phone Physician, No Pcp Primary [...] Date Diagnosed Date Resolved Date Alcohol withdrawal ([facility] V24, [facility] V28) 09/23/19 25 09/25/2024 Surgical History Surgery Date Site/Laterality Comments OTHER SURGICAL HISTORY PROCEDURE: DENIES PREVIOUS SURGERY Medical History Medical History Date Comments Lumbar disc herniation with radiculopathy 2013 DX:Lumbar disc herniation wi th radiculopathy Alcohol abuse 2016 DX:Alcohol abuse Homeless 03/23/2018 DX:Homeless Cardiomyopathy ([facility] V24, [facility] V28) Family History Medical History Relation Name [...] for your loved ones. For example, child center assistant or elderly care for an older adult? [...] mmol/L LAB CHEMISTRY METHOD 09/25/2024 9:34 AM [facility] Potassium 4.5 3.5 - 5.5 mmol/L LAB CHEMISTRY METHOD 09/25/2024 9:34 AM [facility] Chloride 102 96 - 110 mmol/L LAB CHEMISTRY METHOD 09/25/2024 9:34 AM [facility] CO2 24 21 - 32 mmol/L LAB CHEMISTRY METHOD 09/25/2024 9:34 AM [facility] Anion Gap 9 3 - 11 LAB CHEMISTRY METHOD 09/25/2024 9:34 AM [facility] Glucose 121(H) 70 - 100 mg/dL LAB CHEMISTRY METHOD 09/25/2024 9:[address] [facility] BUN 9 5 - 25 mg/dL LAB CHEMISTRY METHOD 09/25/2024 9:[address] [facility] Creatinine 1.13 0.70 - 1.30 mg/dL LAB CHEMISTRY METHOD 09/25/2024 9:[address] [facility] eGFR 84 >=60 mL/min/1. 73m2 LAB CHEMISTRY METHOD 09/25/2024 9:[address] [facility] Comment:Calculation based on the Chronic Kidney Disease Epidemiology Collaboration (CKD-EPI) equation refit without adjustment for race. BUN/Creatinine Ratio 8.0 LAB CHEMISTRY METHOD 09/25/2024 9:[address] [facility] Calcium 9.4 8.5 - 10.5 mg/dL LAB CHEMISTRY METHOD 09/25/2024 9:34 AM [facility] Blood Venous blood specimen / Unknown Venipuncture / Unknown 09/25/2024 8:35 AM EDT 09/25/2024 8:41 AM EDT Gregory Klein MD LAB BLOOD ORDERABLES nal Result [facility] [address] [place] [address], from Last 3 Months or Most Recently [...] currently active code status orders. Care Teams Sword Swallower Relationship Specialty Start Date End Date Physician, No Pcp PCP - General 09/22/24
--- OUTSIDE RECORDS SUMMARY | 2025-01-15 16:59 | XMS_ITS | Clinical Summary ---
Author Organization [facility] Address [address] [place] [address] Phone Care Team Providers Care Vegetable Tier Name Role Phone Danilo Wilson MD Primary Care Provide r Allergies Active Allergy Reactions Criticality Noted Date Comments Cephalexin Rash Low 12/31/2023 Medications allopurinol (ZYLOPRIM) 100 MG tablet Take 100 mg by mouth daily. 11/10/2023 Active metoprolol succinate (TOPROL-XL) 50 MG 24 hr tablet Take 50 mg by mouth daily. 04/02/2024 Active carBAMazepine (TEGRETOL) 200 mg IMMEDIATE release tablet Take 1 tablet (200 mg total) by mouth 2 (two) times a day. 180 tablet 12/11/2024 Active sucralfate (CARAFATE) 1 gram tablet Take 1 tablet (1 g total) by mouth 3 (three) times a day before meals. 270 tablet 12/11/2024 Active pantoprazole (PROTONIX) 40 MG tablet Take 1 tablet (40 mg total) by mouth daily. 90 tablet 12/11/2024 5 Active Active Problems Problem Noted Date Diagnosed Date [...] Tegretol instead. Per patient, workup with Dr. aSnders from [facility] neurology has otherwise been unremarkable. -Seizure precautions [...] Per patient, workup with Dr. Sanders from [facility] neurology has otherwise been unremarkable. -Seizure precautions [...] cessation, he is interested in treatment - SW consult Assessment & Plan (07/08/2024 5:45 PM [...] Type Department Care Team Description 12/09/2024 Procedure [facility], Ct Scan - [address] [address] 12/08/2024 10:41 PM EDT - 12/11/2024 12:49 PM EDT Hospital Encounter [facility] [address] [place] [address] Toni Thomason, DO [place], MD Louis Mari Eli, MD Yau, Cyrus H, MD Discharge Disposition: Home or Self Care 10/18/2024 Procedure [facility], Ct Scan - [facility] [address] [place] [address] 10/17/2024 10:00 PM EDT - 10/18/2024 5:27 AM EDT Emergency [facility] [address] [place] [address] Toni Thomason DO Discharge Disposition: Home or [...] your housing situation today? I have annalee millan 12/09/2024 How many times have you move [...] years) (1 of 2 - PCV) 10/31/2002 INFLUENZA VACCINE (#1) 2024 COVID-19 VACCINE (1 - season) 2025 CREATININE LEVEL 12/11/2025 12/11/2024, 05/2024, 12/08/2024, Additional [...] ALKALINE PHOSPHATASE 86 39 - 117 U/L [facility] TOTAL BILIRUBIN 0.5 0.0 - 1.2 mg/dL [facility] DIRECT BILIRUBIN 0.1 0.0 - 0.2 mg/dL [facility] Bilirubin (Indirect) NOT CALCULATED 0 - 1.5 mg/dL [facility] AST 37 0 - 37 U/L [facility] ALT 21 0 - 40 U/L [facility] TOTAL PROTEIN 6.9 6.5 - 8.0 g/dL [facility] ALBUMIN 4.2 3.9 - 4.8 g/dL [facility] GLOBULIN 2.7 1 - 4.8 g/dL [facility] A/G Ratio 1.56 1.00 - 4.80 RATIO [facility] Blood 12/11/2024 6:14 AM EDT 12/11/2024 6:38 AM EDT us Toño Garcia MD LAB BLOOD ORDERABLES Final Resul t [facility] [address] [place] [address] * CBC (12/11/2024 6:14 AM EDT) Only the most recent of2 resultswithin the time period is included. WBC 5.73 4.00 - 11.00 K/uL [facility] RBC 4.73 4.50 - 5.90 M/uL [facility] HGB 14.4 13.5 - 17.5 g/dL [facility] HCT 43.9 41.0 - 53.0 % [facility] PLT 321 150 - 450 K/uL [facility] MCV 92.8 80.0 - 100.0 fL [facility] MCH 30.4 27.0 - 31.0 pg [facility] MCHC 32.8 32.0 - 36.0 g/dL [facility] RDW 13.7 11.5 - 14.5 % [facility] MPV 10.1 8.4 - 12.0 fL [facility] NRBC 0.00 0.00 /100 WBCs [facility] ABSOLUTE NRBC 0.00 0.00 K/uL [facility] Blood 12/11/2024 6:14 AM EDT 12/11/2024 6:38 AM EDT us Toño Garcia MD LAB BLOOD ORDERABLES Final Resul t Performing Organization Address City/State/[facility] Co de Phone Number [address] [address] * (ABNORMAL) Basic metabolic panel (12/11/2024 6:14 AM EDT) Only the most recent of3 resultswithin the time period is included. SODIUM 138 133 - 146 mmol/L [facility] CHLORIDE 98 96 - 108 mmol/L [facility] POTASSIUM 3.7 3.3 - 5.1 mmol/L [facility] CO2 26 21 - 35 mmol/L [facility] BUN 7 6 - 19 mg/dL [facility] CREATININE 1.00 0.5 - 1.5 mg/dL [facility] GLUCOSE 100(H) 70 - 99 mg/dL [facility] CALCIUM 8.9 8.4 - 10.3 mg/dL [facility] EGFR 97 >59 mL/min/1.7 3m2 [facility] Comment:Estimated glomerular filtration rate calculated using the CKD-EPI refit equation. ANION GAP 18 10 - 20 mmol/L [facility] Blood 12/11/2024 6:14 AM EDT 12/11/2024 6:38 AM EDT us Toño Garcia MD LAB BLOOD ORDERABLES Final Resul t [address] [address] * (ABNORMAL) Comprehensive metabolic panel (12/10/2024 5:23 AM EDT) SODIUM 137 133 - 146 mmol/L [facility] POTASSIUM 3.7 3.3 - 5.1 mmol/L [facility] CHLORIDE 98 96 - 108 mmol/L [facility] CO2 27 21 - 35 mmol/L [facility] BUN 13 6 - 19 mg/dL [facility] CREATININE 1.10 0.5 - 1.5 mg/dL [facility] GLUCOSE 80 70 - 99 mg/dL [facility] ALBUMIN 4.2 3.9 - 4.8 g/dL [facility] TOTAL PROTEIN 6.8 6.5 - 8.0 g/dL [facility] CALCIUM 9.1 8.4 - 10.3 mg/dL [facility] ALKALINE PHOSPHATASE 83 39 - 117 U/L [facility] TOTAL BILIRUBIN 0.8 0.0 - 1.2 mg/dL [facility] AST 40(H) 0 - 37 U/L [facility] ALT 23 0 - 40 U/L [facility] GLOBULIN 2.6 1 - 4.8 g/dL [facility] EGFR 86 >59 mL/min/1.7 3m2 [facility] Comment:Estimated glomerular filtration rate calculated using the CKD-EPI refit equation. ANION GAP 16 10 - 20 mmol/L [facility] Blood 12/10/2024 5:23 AM EDT 12/10/2024 6:09 AM EDT us Logan Staton MD LAB BLOOD ORDERABLES Final Resu lt [address] [address] * Lipase (12/10/2024 5:23 AM EDT) Only the most recent of3 resultswithin the time period is included. LIPASE 33 16 - 63 U/L [facility] 12/10/2024 5:23 AM EDT 12/10/2024 6:09 AM EDT Logan Staton MD LAB BLOOD ORDERABLES Final Resu lt [address] [address] * EEG (12/09/2024 11:34 AM EDT) Anatomical [...] a HR of 60 BPM. Riki HAMMER [facility] Epilepsy Fellow 12/09/24 I (AJ ) have reviewed the study with the fellow and edited this report. Start Time: 12/09/2024 11:13 AM End Time: 12/09/2024 11:34 AM us Logan Staton MD NEUROLOGY ORDERABLES Final Resu lt * Troponin (12/09/2024 4:04 AM EDT) Only the most recent of4 resultswithin the time period is included. Troponin-T, HS Gen5 8 0 - 14 ng/L [facility] Blood 12/09/2024 4:04 AM EDT 12/09/2024 4:55 AM EDT us Toni Thomason DO LAB BLOOD ORDERABLES Final Re sult [address] [address] * ECG 12-LEAD (12/09/2024 3:50 AM EDT) Only the most recent of2 resultswithin the time period is included. Ventricular Rate EKG/MIN 81 BPM [facility] Atrial Rate 81 BPM [facility] PA Interval 130 ms [facility] QRS Duration 90 ms [facility] QT Interval 408 ms [facility] QTC Interval 473 ms [facility] P [employer] 26 degrees [facility] R Wave [employer] -35 degrees [facility] T Wave [employer] -24 degrees [facility] 12/09/2024 3:50 AM EDT 12/09/2024 8:59 AM EDT Narrative [facility] - 12/09/2024 8:59 AM EDT Normal sinus rhythm Left axis deviation Nonspecific T wave abnormality Abnormal ECG When compared with ECG of 17-Oct-2024 21:49, No significant change was found Confirmed by Marcos DUKE ([id number]) on 12/09/2024 8:59:39 AM us Toni G Thomason DO ECG ORDERABLES Final Result [facility] [...] (12/09/2024 12:31 AM EDT) COLOR Yellow Yellow [facility] CLARITY Clear [facility] GLUCOSE Negative Negative [facility] BILI Negative Negative [facility] KETONES Negative Negative [facility] SPECIFIC GRAVITY 1.015 1.005 - 1.030 [facility] BLOOD Negative Negative [facility] PH 6.0 5.0 - 8.0 [facility] Protein-UA Negative Negative [facility] NITRITE Negative Negative [facility] Leukocyte esterase, ur Negative Negative [facility] Urine (Urine) 12/09/2024 12: 31 AM EDT 12/09/2024 12:46 AM EDT us Toni Thomason DO URINE ORDERABLES Final Result [address] [address] * CBC and differential (12/08/2024 10:55 PM EDT) Only the most recent of2 resultswithin the time period is included. WBC 7.52 4.00 - 11.00 K/uL [facility] RBC 5.05 4.50 - 5.90 M/uL [facility] HGB 15.5 13.5 - 17.5 g/dL [facility] HCT 45.2 41.0 - 53.0 % [facility] PLT 418 150 - 450 K/uL [facility] MCV 89.5 80.0 - 100.0 fL [facility] MCH 30.7 27.0 - 31.0 pg [facility] MCHC 34.3 32.0 - 36.0 g/dL [facility] RDW 14.4 11.5 - 14.5 % [facility] MPV 10.0 8.4 - 12.0 fL [facility] NRBC 0.00 0.00 /100 WBCs [facility] ABSOLUTE NRBC 0.00 0.00 K/uL [facility] DIFF METHOD Auto [facility] NEUTS 52.3 48.0 - 76.0 % [facility] LYMPHS 34.6 18.0 - 41.0 % [facility] MONOS 7.0 4.0 - 11.0 % [facility] EOS 4.5 0.0 - 5.0 % [facility] BASOS 1.5 0.0 - 1.5 % [facility] Granulocytes, immature (%) 0.1 0.0 - 0.9 % [facility] ABSOLUTE NEUTS 3.93 1.92 - 7.60 K/uL [facility] ABSOLUTE LYMPHS 2.60 0.72 - 4.10 K/uL [facility] ABSOLUTE MONOS 0.53 0.16 - 1.10 K/uL [facility] ABSOLUTE EOS 0.34 0.00 - 0.50 K/uL [facility] ABSOLUTE BASOS 0.11 0.00 - 0.15 K/uL [facility] Granulocytes, immature 0.01 0.00 - 0.09 K/uL [facility] Blood 12/08/2024 10:5 5 PM EDT 12/08/2024 11:18 PM EDT us Toni Thomason DO LAB BLOOD ORDERABLES Final Re sult [facility] [address] [place] [address] * Magnesium (12/08/2024 10:55 PM EDT) Only the most recent of2 resultswithin the time period is included. MAGNESIUM 2.3 1.6 - 2.6 mg/dL [facility] 12/08/2024 10:5 5 PM EDT 12/08/2024 11:18 PM EDT us Toni Thomason DO LAB BLOOD ORDERABLES Final Re sult [facility] [address] [place] [address] * CT ABDOMEN/PELVIS WITH CONTRAST (10/18/2024 1:41 [...] EDT) LACTATE 2.06 0.50 - 2.20 mmol/L [facility] Blood 10/17/2024 11:2 1 PM EDT 10/17/2024 11:28 PM EDT us Toni Thomason DO LAB BLOOD ORDERABLES Final Re sult [address] [address] * Hepatitis C antibody, qualitative (05/16/2024 4:34 AM EST) HCV NON-REACTIV E NON-REACTI VE [facility] Blood 05/16/2024 4:34 AM EST 05/16/2024 4:41 AM EST Ninfa Aponte PA-C, MPH LAB BLOOD ORDERABLE S Final Result [facility] [address] [place] [address] from Last 3 Months or Most Recently Relevant to Health Maintenance Insurance [employer] ACO PARTNERSHIP ACO [employer]IP ACO [facility] ACO PARTNERSHIP ACO HE[employer] PARTNER[employer]IP ACO Advance Directives For more information, please contact: [phone] (9AM - 5PM [place], Friday-Friday) Documents on File Type Date Recorded 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 It is not the complete legal health record.[facility]
--- OUTSIDE RECORDS SUMMARY | 2025-01-15 16:59 | XMS_ITS | Encounter Summary ---
Author Organization [facility] Address [address] [place] [address] Phone Care Team Providers Care Media Relations Associate Name Role Phone Pcp, Unknown Primary Care Provider Danilo Nolasco MD Primary Care Provide r Encounter Details Date Type Department Care Team (Late st Contact Info) Description 05/15/2024 Procedure [facility], Ct Scan - [facility] [address] [place] [address] Social History Tobacco Use Types Packs/Day Years [...] 05/15/2024 7:33 PM Helena Irwin, CHOCO * [place] Suicide Severity Rating Scale (Screener/Recent Self-Report) Question [...] on filedocumented in this encounter Care Teams Media Relations Associate Relationship Specialty Start Date End Date Pcp, Unknown PCP - General 05/15/24 05/20/24 Danilo Wilson MD [address] [address] PCP - General Family Medicine 05/21/24 documented as of this encounter Additional Source Comments The information contained in this document represents components of the legal health record. It is not the complete legal health record.[facility]
--- OUTSIDE RECORDS SUMMARY | 2025-01-15 16:59 | XMS_ITS | Encounter Summary ---
Author Organization [facility] Address [address] [place] [address] Phone Care Team Providers Care Customs Compliance Manager Name Role Phone Pcp, Unknown Primary Care Provider Danilo Nolasco MD Primary Care Provide r Encounter Details Date Type Department Care Team (Late st Contact Info) Description 05/15/2024 Procedure [facility], Ct Scan - [facility] [address] [place] [address] Social History Tobacco Use Types Packs/Day Years [...] 05/15/2024 7:33 PM Helena Irwin, CHOCO * [place] Suicide Severity Rating Scale (Screener/Recent Self-Report) Question [...] on filedocumented in this encounter Care Teams Customs Compliance Manager Relationship Specialty Start Date End Date Pcp, Unknown PCP - General 05/15/24 05/20/24 Danilo Wilson MD [address] [address] PCP - General Family Medicine 05/21/24 documented as of this encounter Additional Source Comments The information contained in this document represents components of the legal health record. It is not the complete legal health record.[facility]
--- OUTSIDE RECORDS SUMMARY | 2025-01-15 16:59 | XMS_ITS | Clinical Summary ---
Author Organization [facility] Address [address] [place] [address] Care Team Providers Care Methods Analyst Data Processing Name Role Phone Adelaida Appiah MD Primary [...] age to complete this topic Care Teams Methods Analyst Data Processing Relationship Specialty Start Date End Date Adelaida Appiah MD PCP - General Internal Medicine 10/20/18
--- OUTSIDE RECORDS SUMMARY | 2025-01-15 16:59 | XMS_ITS | Encounter Summary ---
Author Organization [facility] Address [address] [place] [address] Phone Care Team Providers Care Exhibition Organiser Name Role Phone Pcp, Unknown Primary Care Provider Unavailabl e Pcp, Unknown Primary Care Provider Unavailabl e Danilo Wilson MD Primary Care Provide r Encounter Details Date Type Department Care Team (Late st Contact Info) Description 01/01/2024 Procedure Pass [facility], Ct Scan - [facility] [address] [place] [address] Social History Tobacco Use Types Packs/Day Years [...] 10:41 PM EDT Anna Tsang RN * [place] Suicide Severity Rating Scale (Screener/Recent Self-Report) Question [...] on filedocumented in this encounter Care Teams Exhibition Organiser Relationship Specialty Start Date End Date Pcp, Unknown PCP - General 01/01/24 05/14/24 Pcp, Unknown PCP - General 05/15/24 05/20/24 Danilo Wilson MD [address] [address] PCP - General Family Medicine 05/21/24 documented as of this encounter Additional Source Comments The information contained in this document represents components of the legal health record. It is not the complete legal health record.[facility]
[2025-01-15] MEDS: diazePAM 10 MG/2 ML CARTRIDGE 5 MG IVPUSH (17:09)
[2025-01-15] MEDS: iohexoL 350 MG/ML 100 ML INFUS..BTL 85 ML IV (17:14)
[2025-01-15] MEDS: PHENobarbitaL sodium 130 MG/ML IM ONCE 282 MG IM (18:27)
--- NOTE | 2025-01-15 18:33 | PM.IMHP ---
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 Patient says he drinks a pint of alcohol specially rum every day, patient is tremulous, anxious. He says that he feels nauseous. Denies any new complaint of chest pain or shortness of breath or fever or chills or nausea or vomiting or cough or weakness or numbness. Lab imaging reviewed: CBC seems fine BMP also fine-accept as anion gap of 23, bicarb of 19, pH normal 7.33 CTA abdomen:1. No obvious CT findings of pancreatitis. This does not exclude the possibility of pancreatitis.2. Hepatomegaly with severe fatty infiltration of the liver. 3. Tiny nonobstructive calculi within the bilateral kidneys. ekg: nsr Review of Systems Review of Systems: As above. Yes all other systems are reviewed and are negative [facility] Social History Patient Tobacco Use Status: Tobacco use Unknown Advance Directives: No Advance Directives Information Provided: No Nutrition Risks: No Nutritional Risk Meds Allergies Allergy/AdvReac Type Severity Reaction Status Date / Time cephalexin (From Keflex) Allergy Rash Verified 01/15/25 15:39 Active Medications: Current Medications Acetaminophen (Acetaminophen 325 Mg Tablet) 650 mg PO Q6H PRN PRN Reason: Pain, Mild 1-3,fever,headache Calcium Carbonate (Calcium Carbonate 750 Mg Tab.Chew) 750 mg PO Q4H PRN PRN Reason: Heartburn Folic Acid (Folic Acid 1 Mg Tablet) 1 mg PO DAILY ROMMEL Lactated Ringer's (Lr) 1,000 mls @ 999 mls/hr IV .Q1H1M ROMMEL Stop: 01/15/25 19:15 Last Admin: 01/15/25 18:29 Dose: 999 mls/hr Magnesium Hydroxide (Milk Of Magnesia 30 Ml Oral.Susp) 30 ml PO DAILY PRN PRN Reason: Constipation Melatonin (Melatonin 3 Mg Tablet) 6 mg PO BEDTIME PRN PRN Reason: Insomnia Pharmacy Consult (Consult Rx Etoh Phenob Im/Po) 1 each MISCELLANE ONCE PRN; Protocol PRN Reason: Consult order Phenobarbital (Phenobarbital 15 Mg Tablet) 45 mg PO BID [facility] Stop: 01/17/25 21:01 Phenobarbital (Phenobarbital 30 Mg Tablet) 30 mg PO BID [facility] Stop: 01/19/25 21:01 Phenobarbital (Phenobarbital 15 Mg Tablet) 15 mg PO DAILY [facility] Stop: 01/21/25 09:01 Phenobarbital Sodium (Phenobarbital Sodium 130 Mg/Ml Vial Im Q3hx2) 212 mg IM Q3H [facility] Stop: 01/16/25 01:01 Sodium Chloride (0.9 % Sodium Chloride Flush 3 Ml Syringe) 3 ml IVFLUSH QSHIFT [facility] Thiamine HCl (Thiamine Hcl 100 Mg Tablet) 100 mg PO DAILY [facility] Home Medications ?Medication ?Instructions ?Recorded ?Confirmed ?Last Taken ?Type famotidine 20 mg tablet 20 mg PO BID 01/15/25 01/16/25 01/15/25 09:00 History metoprolol succinate 50 mg 50 mg PO DAILY 01/15/25 01/16/25 01/15/25 09:00 History tablet,extended release 24 hr pantoprazole 40 mg tablet,delayed 40 mg PO DAILY@0630 01/15/25 01/16/25 01/15/25 09:00 History release allopurinol 300 mg tablet 300 mg PO DAILY 01/16/25 01/16/25 01/15/25 09:00 History multivitamin 1 tab PO DAILY 01/16/25 01/16/25 01/15/25 09:00 History Physical Exam Vital Signs and Narrative: Vital Signs: Last Vital Signs Temp 98.0 F 01/15/25 18:02 Pulse 80 01/15/25 18:02 Resp 20 01/15/25 18:02 BP 108/77 01/15/25 18:02 Pulse Ox 99 01/15/25 18:02 O2 Del Method Room Air 01/15/25 18:02 BMI result Body Mass Index 26.2 Appearance: Alert.? Oriented X3.? cvs: rrr, [id number]. res: clear to auscultation ,no rhonchii or wheezing abd: no rebound or guarding ,epigastric discomfort, bs present. ext pulses present , no cyanosis . neuro: axo3 , nonfocal. Results Labs 01/15/25 15:46 01/16/25 04:49 Labs: Laboratory Results - last 24 hr 01/15/25 01/15/25 01/15/25 15:46 15:47 16:54 MCV 90.0 MCH 31.4 MCHC 34.9 RDW 16.0 Plt Count 230 MPV 9.7 Immature Gran % (Auto) 0.2 Neut % (Auto) 55.6 Lymph % (Auto) 25.5 Jenkins % (Auto) 12.3 H Eos % (Auto) 3.2 Baso % (Auto) 3.2 H Lymph # (Auto) 1.5 Jenkins # (Auto) 0.7 Eos # (Auto) 0.2 Baso # (Auto) 0.2 Abs Immat Gran (auto) 0.01 Absolute Neuts (auto) 3.3 Absolute Nucleated RBC 0.000 Nucleated RBC % (auto) 0.0 Smear Tech's Comments VERIFIED Anion Gap 23 H Estim Creat Clear Calc 89.1 Estimated GFR > 60 Random Glucose 81 Lactic Acid 4.3 H* Calcium 9.5 Magnesium 2.1 Total Bilirubin 0.5 AST 260 H ALT 109 H Alkaline Phosphatase 94 Total Protein 8.0 Albumin 5.3 H Lipase 125 H Urine Color Yellow Urine Appearance Clear Urine pH 6.0 Ur Specific [place] 1.025 Urine Protein 100 (2+) H Urine Glucose (UA) Negative Urine Ketones 40 Urine Blood Small (1+) H Urine Nitrite Negative Ur Leukocyte Esterase Negative Urine RBC 3-5 H Urine WBC 0-5 Ur Squamous Epith Cells 0-2 Urine Bacteria None Seen Hyaline Casts 0-2 Ethyl Alcohol 306 H* Imaging Radiologist's Impressions: abd ct: 1. No obvious CT findings of pancreatitis. This does not exclude the possibility of pancreatitis. 2. Hepatomegaly with severe fatty infiltration of the liver. 3. Tiny nonobstructive calculi within the bilateral kidneys. 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 Alcohol withdrawal: Monitor CIWA scale, thiamine folic acid, phenobarb Acute lactic acidosis: Continue to monitor lactic acid, IV fluids, repeat BMP Acute pancreatitis: Lipase somewhat elevated CTA abdomen can not exclude acute pancreatitis Continue IV fluid, IV Dilaudid, antiemetics. DVT prophylaxis subQ Lovenox Cardiomyopathy-start metoprolol once reconciled Gout: Start gout medication once medication reconciled Patient will benefit from 2 midnight stay considering alcohol withdrawal/acute pancreatitis/acute lactic acidosis-need renal function electrolyte monitoring as well as symptoms monitoring for alcohol withdrawal as well as acute pancreatitis. Above management discussed with the patient in detail length he understand and in agreement with the above plan, time spent 70 minute. Patient is full code. Quality Stroke Does the patient have a stroke diagnosis?: No VTE Prior VTE?: No VTE Risk Level:: Medical - moderate - high VTE Device Contraindication: N/A - Device Ordered VTE Drug Contraindication: N/A - Med Ordered
[2025-01-15 19:00] LABS: Reflex Lactate? Lactic Acid Added
[2025-01-15] MEDS: Lactated Ringers 1,000 ML 100 ML IVCONT (19:21)
[2025-01-15 19:22] LABS: VBG HCO3 21 mmol/L (22-26); VBG O2 % Saturation 69.0 %
[2025-01-15 19:29] LABS: Venous Blood Gas Refer to POC result
[2025-01-15 19:41] LABS: ~Lactic Acid-LAB USE ONLY 5.1 mmol/L (0.5-2.0)
[2025-01-15 20:48] LABS: Anion Gap 22 (12-20); Blood Urea Nitrogen 10 mg/dL (9-16); Calcium 8.8 mg/dL (8.4-10.2); Carbon Dioxide 18 mmol/L (22-29); Chloride 103 mmol/L (96-108); Creatinine Clr Calc Pharmacy 117.1; Estimated Glomerular Filt Rate > 60; Potassium 4.1 mmol/L (3.3-5.1); Sodium 139 mmol/L (135-145)
[2025-01-15 21:18] LABS: Reflex Lactate? 2 Y
[2025-01-15] MEDS: PHENobarbitaL sodium 130 MG/ML VIAL IM Q3Hx2 212 MG IM (22:12)
[2025-01-15 22:49] LABS: ~Lactic Acid-LAB USE ONLY 4.7 mmol/L (0.5-2.0)
[2025-01-16] VITALS (10 sets, daily range): BP systolic 111–139; BP diastolic 64–84; PULSE 63–87; RESP 10–20; TEMP 36.6–36.7; O2SAT 92–99; BMI 28.3
[2025-01-16] MEDS: PHENobarbitaL sodium 130 MG/ML VIAL IM Q3Hx2 212 MG IM (02:25)
[2025-01-16] MEDS: Lactated Ringers 1,000 ML 100 ML IVCONT ×3 (02:36→18:50)
[2025-01-16 05:25] LABS: Alanine Aminotransferase 79 U/L (0-40); Albumin Level 4.2 g/dL (3.5-5.0); Alkaline Phosphatase 71 U/L (39-117); Anion Gap 19 (12-20); Aspartate Amino Transferase 163 U/L (5-37); Blood Urea Nitrogen 8 mg/dL (9-16); Calcium 8.6 mg/dL (8.4-10.2); Carbon Dioxide 23 mmol/L (22-29); Chloride 101 mmol/L (96-108); Creatinine Clr Calc Pharmacy 131.3; Estimated Glomerular Filt Rate > 60; Potassium 3.9 mmol/L (3.3-5.1); Sodium 139 mmol/L (135-145); Total Protein 6.3 g/dL (6.5-8.0)
--- NOTE | 2025-01-16 07:47 | PHA.MEDREC ---
Pharmacy Consult ? Medication Reconciliation Pharmacy has completed the medication reconciliation. Spoke to patient at bedside, he states he is not on Carbamazepine or Sucralfate despite filling both last month. Verbally confirmed his other medications.
--- NOTE | 2025-01-16 09:09 | P.PNIM_ITS ---
Subjective Subjective Date of Service: 01/16/25 Interval History: Alcohol withdrawal Review of Systems Patient is still anxious and tremulous Has still nausea but epigastric pain somewhat improving Review of Systems: Yes all other systems are reviewed and are negative Physical Exam 2 Exam: Exam: Appearance: Alert.? Oriented X3.? cvs: rrr, [id number]. res: clear to auscultation ,no rhonchii or wheezing abd: no rebound or guarding ,epigastric discomfort, bs present. ext pulses present , no cyanosis . neuro: axo3 , nonfocal. Vital Signs: Vital Signs: Last Vital Signs Temp 97.9 F 01/16/25 08:05 Pulse 79 01/16/25 08:05 Resp 13 01/16/25 08:05 BP 120/66 01/16/25 08:05 Pulse Ox 98 01/16/25 08:05 O2 Del Method Room Air 01/16/25 08:05 BMI result Body Mass Index 26.2 Objective Data Active Medications Acetaminophen (Acetaminophen 325 Mg Tablet) 650 mg PO Q6H PRN PRN Reason: Pain, Mild 1-3,fever,headache Calcium Carbonate (Calcium Carbonate 750 Mg Tab.Chew) 750 mg PO Q4H PRN PRN Reason: Heartburn Folic Acid (Folic Acid 1 Mg Tablet) 1 mg PO DAILY [facility] Last Admin: 01/15/25 19:21 Dose: 1 mg Documented By: ANASTACIO Hydromorphone HCl (Hydromorphone Hcl 1 Mg/Ml Syringe) 1 mg IVPUSH Q4H [facility]; Protocol Last Admin: 01/16/25 07:17 Dose: 1 mg Documented By: SETH Lactated Ringer's (Lr) 1,000 mls @ 150 mls/hr IVCONT .Q6H40M [facility] Last Admin: 01/16/25 02:36 Dose: 100 mls/hr Documented By: ANASTACIO Magnesium Hydroxide (Milk Of Magnesia 30 Ml Oral.Susp) 30 ml PO DAILY PRN PRN Reason: Constipation Melatonin (Melatonin 3 Mg Tablet) 6 mg PO BEDTIME PRN PRN Reason: Insomnia Ondansetron HCl (Ondansetron Hcl 4 Mg/2 Ml Vial) 4 mg IVPUSH Q6H [facility] Last Admin: 01/16/25 07:17 Dose: 4 mg Documented By: SETH Pantoprazole Sodium (Pantoprazole Sodium 40 Mg/10 Ml Vial) 40 mg IVPUSH DAILY [facility] Last Admin: 01/15/25 18:56 Dose: 40 mg Documented By: ANTON Pharmacy Consult (Consult Rx Etoh Phenob Im/Po) 1 each MISCELLANE ONCE PRN; Protocol PRN Reason: Consult order Phenobarbital (Phenobarbital 15 Mg Tablet) 45 mg PO BID [facility] Stop: 01/17/25 21:01 Phenobarbital (Phenobarbital 30 Mg Tablet) 30 mg PO BID [facility] Stop: 01/19/25 21:01 Phenobarbital (Phenobarbital 15 Mg Tablet) 15 mg PO DAILY [facility] Stop: 01/21/25 09:01 Prochlorperazine Edisylate (Prochlorperazine Edisylate 10 Mg/2 Ml Vial) 5 mg IVPUSH Q6H PRN PRN Reason: Nausea and Vomiting Last Admin: 01/15/25 22:58 Dose: 5 mg Documented By: ANASTACIO Sodium Chloride (0.9 % Sodium Chloride Flush 3 Ml Syringe) 3 ml IVFLUSH QSHIFT [facility] Last Admin: 01/16/25 07:55 Dose: Not Given Documented By: SETH Non-Admin Reason: IV Running Thiamine HCl (Thiamine Hcl 100 Mg Tablet) 100 mg PO DAILY [facility] Last Admin: 01/15/25 19:21 Dose: 100 mg Documented By: ANASTACIO Labs 01/15/25 15:46 01/16/25 04:49 Labs: Laboratory Results - last 24 hr 01/15/25 01/15/25 01/15/25 15:46 15:47 16:54 MCV 90.0 MCH 31.4 MCHC 34.9 RDW 16.0 Plt Count 230 MPV 9.7 Immature Gran % (Auto) 0.2 Neut % (Auto) 55.6 Lymph % (Auto) 25.5 Arthur % (Auto) 12.3 H Eos % (Auto) 3.2 Baso % (Auto) 3.2 H Lymph # (Auto) 1.5 Arthur # (Auto) 0.7 Eos # (Auto) 0.2 Baso # (Auto) 0.2 Abs Immat Gran (auto) 0.01 Absolute Neuts (auto) 3.3 Absolute Nucleated RBC 0.000 Nucleated RBC % (auto) 0.0 Smear Tech's Comments VERIFIED Hold Purple Top VBG pH VBG pCO2 VBG pO2 VBG HCO3 VBG O2 Saturation VBG Base Excess Anion Gap 23 H Estim Creat Clear Calc 89.1 Estimated GFR > 60 Random Glucose 81 Lactic Acid 4.3 H* Lactic Acid F/U @ 2Hr Lactic Acid F/U @ 4Hr Calcium 9.5 Magnesium 2.1 Total Bilirubin 0.5 AST 260 H ALT 109 H Alkaline Phosphatase 94 Total Protein 8.0 Albumin 5.3 H Lipase 125 H Urine Color Yellow Urine Appearance Clear Urine pH 6.0 Ur Specific [place] 1.025 Urine Protein 100 (2+) H Urine Glucose (UA) Negative Urine Ketones 40 Urine Blood Small (1+) H Urine Nitrite Negative Ur Leukocyte Esterase Negative Urine RBC 3-5 H Urine WBC 0-5 Ur Squamous Epith Cells 0-2 Urine Bacteria None Seen Hyaline Casts 0-2 Ethyl Alcohol 306 H* 01/15/25 01/15/25 01/15/25 19:14 19:19 20:20 MCV MCH MCHC RDW Plt Count MPV Immature Gran % (Auto) Neut % (Auto) Lymph % (Auto) Arthur % (Auto) Eos % (Auto) Baso % (Auto) Lymph # (Auto) Arthur # (Auto) Eos # (Auto) Baso # (Auto) Abs Immat Gran (auto) Absolute Neuts (auto) Absolute Nucleated RBC Nucleated RBC % (auto) Smear Tech's Comments Hold Purple Top SEE NOTE VBG pH 7.33 VBG pCO2 40 VBG pO2 49 VBG HCO3 21 L VBG O2 Saturation 69.0 VBG Base Excess -3.7 Anion Gap 22 H Estim Creat Clear Calc 117.1 Estimated GFR > 60 Random Glucose 61 Lactic Acid Lactic Acid F/U @ 2Hr 5.1 H* Lactic Acid F/U @ 4Hr Calcium 8.8 D Magnesium Total Bilirubin AST ALT Alkaline Phosphatase Total Protein Albumin Lipase Urine Color Urine Appearance Urine pH Ur Specific [place] Urine Protein Urine Glucose (UA) Urine Ketones Urine Blood Urine Nitrite Ur Leukocyte Esterase Urine RBC Urine WBC Ur Squamous Epith Cells Urine Bacteria Hyaline Casts Ethyl Alcohol 01/15/25 01/16/25 22:22 04:49 MCV MCH MCHC RDW Plt Count MPV Immature Gran % (Auto) Neut % (Auto) Lymph % (Auto) Arthur % (Auto) Eos % (Auto) Baso % (Auto) Lymph # (Auto) Arthur # (Auto) Eos # (Auto) Baso # (Auto) Abs Immat Gran (auto) Absolute Neuts (auto) Absolute Nucleated RBC Nucleated RBC % (auto) Smear Tech's Comments Hold Purple Top VBG pH VBG pCO2 VBG pO2 VBG HCO3 VBG O2 Saturation VBG Base Excess Anion Gap 19 Estim Creat Clear Calc 131.3 Estimated GFR > 60 Random Glucose 76 Lactic Acid Lactic Acid F/U @ 2Hr Lactic Acid F/U @ 4Hr 4.7 H* Calcium 8.6 Magnesium Total Bilirubin 0.5 AST 163 H ALT 79 H Alkaline Phosphatase 71 Total Protein 6.3 L Albumin 4.2 Lipase Urine Color Urine Appearance Urine pH Ur Specific [place] Urine Protein Urine Glucose (UA) Urine Ketones Urine Blood Urine Nitrite Ur Leukocyte Esterase Urine RBC Urine WBC Ur Squamous Epith Cells Urine Bacteria Hyaline Casts Ethyl Alcohol Assessment and Plan (1) Alcohol abuse with withdrawal: Status: Acute Assessment and Plan: 39 years old the patient with a history of alcohol-cardiomyopathy he says probably due to alcohol on metoprolol, gout on allopurinol-came with alcohol withdrawal, nausea vomiting epigastric discomfort. Alcohol withdrawal: Monitor CIWA scale-last scale 4, thiamine folic acid, phenobarb Acute lactic acidosis: Lactic acid improving with IV fluids, encouraged for p.o. intake, no further trending of lactic acid unless clinically indicated. Acute pancreatitis: Lipase somewhat elevated CTA abdomen can not exclude acute pancreatitis Continue IV fluid, IV Dilaudid, antiemetics. DVT prophylaxis subQ Lovenox Cardiomyopathy-start metoprolol . Gout: Allopurinol. ongoing need for stay considering alcohol withdrawal/acute pancreatitis/acute lactic acidosis-need renal function electrolyte monitoring as well as symptoms monitoring for alcohol withdrawal as well as acute pancreatitis. Quality Stroke Does the patient have a stroke diagnosis?: No VTE Prior VTE?: No VTE Risk Level:: Medical - moderate - high VTE Device Contraindication: N/A - Device Ordered VTE Drug Contraindication: N/A - Med Ordered
[2025-01-16] MEDS: Metoprolol Succinate ER 50 MG TAB.ER.24H PO (11:13)
--- NOTE | 2025-01-16 16:05 | MHC.CM.PN ---
Patient lives in a home alone. Functionally independent. Denies use of DME or services. PCP @ [facility] Patient reports HCP is his mother. Copy requested. +AUD DP: Home self care vs recovery team intervention. Friend to transport. CM will continue to follow.
[2025-01-17] MEDS: Lactated Ringers 1,000 ML 150 ML IVCONT ×3 (01:58→16:09)
[2025-01-17 03:05] VITALS: BP 121/75; PULSE 67; RESP 18; TEMP 36.2; O2SAT 95
[2025-01-17 07:09] VITALS: BP 115/72; PULSE 75; RESP 18; TEMP 36.5; O2SAT 95
[2025-01-17] MEDS: Metoprolol Succinate ER 50 MG TAB.ER.24H PO (09:18)
--- NOTE | 2025-01-17 09:34 | HO.ADDICTCON ---
History of Present Illness Date of Service: 01/17/2025 Chief Complaint: alcohol withdrawals Reason for Consult: AUD Sources of Information: patient interviewed and chart reviewed HPI Narrative: Patient is a 39 year old male with medical history that includes AUD, alcohol related cardiomyopathy and gout. Currently medically admitted with acute alcohol withdrawal and pancreatitis. Seen by informatics scientist over the weekend, and today by t/w in follow up. Patient awake, alert, flat affect, however participating in interview. He reports withdrawal sx are much improved, very mild tremor felt, but not seen. Abdominal discomfort improving, however still on clears for diet. He appears comfortable, no diaphoresis or restlessness noted. Discussed goals in terms of alcohol use following discharge. Patient providing very limited responses. Asked about RADHA, he states he has trialed all 3 medications and did not find any to be effective, however he was also not engaged in any other kind of recovery supports at the time. He states he just sat at home and watched TV . He voiced interest in IOP to informatics scientist, so t/w inquired about potentially starting again since additional recovery supports/structure will be in place. Patient state she has several bottles at home and will start when he goes home. Declines to start while here. Medical Evaluation Reviewed: Yes Review of Systems Constitutional: Reports as per HPI Diagnostics Vital Signs (24Hr): Vital Signs - 24 hr 01/16/25 10:45 01/16/25 12:09 01/16/25 14:50 Temperature Pulse Rate 87 75 73 Respiratory Rate 20 15 12 Blood Pressure 130/84 129/81 111/65 Pulse Oximetry 98 97 94 Oxygen Delivery Method Room Air Room Air Room Air 01/16/25 16:10 01/16/25 17:51 01/16/25 19:21 Temperature 97.9 F 97.8 F Pulse Rate 69 66 69 Respiratory Rate 14 17 18 Blood Pressure 118/76 124/78 123/84 Pulse Oximetry 93 97 92 Oxygen Delivery Method Room Air Room Air Room Air 01/16/25 23:59 01/17/25 03:05 01/17/25 07:09 Temperature 97.9 F 97.1 F 97.7 F Pulse Rate 63 67 75 Respiratory Rate 18 18 18 Blood Pressure 139/73 121/75 115/72 Pulse Oximetry 96 95 95 Oxygen Delivery Method Room Air Room Air Room Air BMI result Body Mass Index 28.3 Labs 01/15/25 15:46 01/16/25 04:49 Labs: Laboratory Results - last 48 hr 01/15/25 01/15/25 01/15/25 15:46 15:47 16:54 WBC 5.9 RBC 4.68 Hgb 14.7 Hct 42.1 MCV 90.0 MCH 31.4 MCHC 34.9 RDW 16.0 Plt Count 230 MPV 9.7 Immature Gran % (Auto) 0.2 Neut % (Auto) 55.6 Lymph % (Auto) 25.5 Martin % (Auto) 12.3 H Eos % (Auto) 3.2 Baso % (Auto) 3.2 H Lymph # (Auto) 1.5 Martin # (Auto) 0.7 Eos # (Auto) 0.2 Baso # (Auto) 0.2 Abs Immat Gran (auto) 0.01 Absolute Neuts (auto) 3.3 Absolute Nucleated RBC 0.000 Nucleated RBC % (auto) 0.0 Smear Tech's Comments VERIFIED Hold Purple Top VBG pH VBG pCO2 VBG pO2 VBG HCO3 VBG O2 Saturation VBG Base Excess Sodium 140 Potassium 4.1 Chloride 102 Carbon Dioxide 19 L Anion Gap 23 H BUN 11 Creatinine 1.09 Estim Creat Clear Calc 89.1 Estimated GFR > 60 Random Glucose 81 Lactic Acid 4.3 H* Lactic Acid F/U @ 2Hr Lactic Acid F/U @ 4Hr Calcium 9.5 Magnesium 2.1 Total Bilirubin 0.5 AST 260 H ALT 109 H Alkaline Phosphatase 94 Total Protein 8.0 Albumin 5.3 H Lipase 125 H Urine Color Yellow Urine Appearance Clear Urine pH 6.0 Ur Specific [place] 1.025 Urine Protein 100 (2+) H Urine Glucose (UA) Negative Urine Ketones 40 Urine Blood Small (1+) H Urine Nitrite Negative Ur Leukocyte Esterase Negative Urine RBC 3-5 H Urine WBC 0-5 Ur Squamous Epith Cells 0-2 Urine Bacteria None Seen Hyaline Casts 0-2 Ethyl Alcohol 306 H* 01/15/25 01/15/25 01/15/25 19:14 19:19 20:20 WBC RBC Hgb Hct MCV MCH MCHC RDW Plt Count MPV Immature Gran % (Auto) Neut % (Auto) Lymph % (Auto) Martin % (Auto) Eos % (Auto) Baso % (Auto) Lymph # (Auto) [place] # (Auto) Eos # (Auto) Baso # (Auto) Abs Immat Gran (auto) Absolute Neuts (auto) Absolute Nucleated RBC Nucleated RBC % (auto) Smear Tech's Comments Hold Purple Top SEE NOTE VBG pH 7.33 VBG pCO2 40 VBG pO2 49 VBG HCO3 21 L VBG O2 Saturation 69.0 VBG Base Excess -3.7 Sodium 139 Potassium 4.1 Chloride 103 Carbon Dioxide 18 L Anion Gap 22 H BUN 10 Creatinine 0.83 Estim Creat Clear Calc 117.1 Estimated GFR > 60 Random Glucose 61 Lactic Acid Lactic Acid F/U @ 2Hr 5.1 H* Lactic Acid F/U @ 4Hr Calcium 8.8 D Magnesium Total Bilirubin AST ALT Alkaline Phosphatase Total Protein Albumin Lipase Urine Color Urine Appearance Urine pH Ur Specific [place] Urine Protein Urine Glucose (UA) Urine Ketones Urine Blood Urine Nitrite Ur Leukocyte Esterase Urine RBC Urine WBC Ur Squamous Epith Cells Urine Bacteria Hyaline Casts Ethyl Alcohol 01/15/25 01/16/25 22:22 04:49 WBC RBC Hgb Hct MCV MCH MCHC RDW Plt Count MPV Immature Gran % (Auto) Neut % (Auto) Lymph % (Auto) [place] % (Auto) Eos % (Auto) Baso % (Auto) Lymph # (Auto) [place] # (Auto) Eos # (Auto) Baso # (Auto) Abs Immat Gran (auto) Absolute Neuts (auto) Absolute Nucleated RBC Nucleated RBC % (auto) Smear Tech's Comments Hold Purple Top VBG pH VBG pCO2 VBG pO2 VBG HCO3 VBG O2 Saturation VBG Base Excess Sodium 139 Potassium 3.9 Chloride 101 Carbon Dioxide 23 Anion Gap 19 BUN 8 L Creatinine 0.74 Estim Creat Clear Calc 131.3 Estimated GFR > 60 Random Glucose 76 Lactic Acid Lactic Acid F/U @ 2Hr Lactic Acid F/U @ 4Hr 4.7 H* Calcium 8.6 Magnesium Total Bilirubin 0.5 AST 163 H ALT 79 H Alkaline Phosphatase 71 Total Protein 6.3 L Albumin 4.2 Lipase Urine Color Urine Appearance Urine pH Ur Specific [place] Urine Protein Urine Glucose (UA) Urine Ketones Urine Blood Urine Nitrite Ur Leukocyte Esterase Urine RBC Urine WBC Ur Squamous Epith Cells Urine Bacteria Hyaline Casts Ethyl Alcohol Mental Status Exam Mental Status Exam Level of Consciousness: Awake, Appropriate and Alert Patient Behavior: Appropriate and Guarded Affect Description: Blunted Speech Pattern: Clear Hallucinations: None Thought Process: Intact Thought Content: positive for Intact Judgement: Fair Medications Medications Current Medications Acetaminophen (Acetaminophen 325 Mg Tablet) 650 mg PO Q6H PRN PRN Reason: Pain, Mild 1-3,fever,headache Allopurinol (Allopurinol 300 Mg Tablet) 300 mg PO DAILY [facility] Last Admin: 01/17/25 09:18 Dose: 300 mg Calcium Carbonate (Calcium Carbonate 750 Mg Tab.Chew) 750 mg PO Q4H PRN PRN Reason: Heartburn Famotidine (Famotidine 20 Mg Tablet) 20 mg PO BID [facility] Last Admin: 01/17/25 09:18 Dose: 20 mg Folic Acid (Folic Acid 1 Mg Tablet) 1 mg PO DAILY [facility] Last Admin: 01/17/25 09:18 Dose: 1 mg Hydromorphone HCl (Hydromorphone Hcl 1 Mg/Ml Syringe) 1 mg IVPUSH Q4H [facility]; Protocol Last Admin: 01/17/25 06:15 Dose: 1 mg Lactated Ringer's (Lr) 1,000 mls @ 150 mls/hr IVCONT .Q6H40M [facility] Last Admin: 01/17/25 09:23 Dose: 150 mls/hr Magnesium Hydroxide (Milk Of Magnesia 30 Ml Oral.Susp) 30 ml PO DAILY PRN PRN Reason: Constipation Melatonin (Melatonin 3 Mg Tablet) 6 mg PO BEDTIME PRN PRN Reason: Insomnia Last Admin: 01/17/25 02:12 Dose: 6 mg Metoprolol Succinate (Metoprolol Succinate Er 50 Mg Tab.Er.24h) 50 mg PO DAILY [facility]; Protocol Last Admin: 01/17/25 09:18 Dose: 50 mg Multivitamins/Vitamin C (Multivitamin Tablet) 1 tab PO DAILY [facility] Last Admin: 01/17/25 09:18 Dose: 1 tab Ondansetron HCl (Ondansetron Hcl 4 Mg/2 Ml Vial) 4 mg IVPUSH Q6H [facility] Last Admin: 01/17/25 06:14 Dose: 4 mg Pantoprazole Sodium (Pantoprazole Sodium 40 Mg/10 Ml Vial) 40 mg IVPUSH DAILY [facility] Last Admin: 01/17/25 09:18 Dose: 40 mg Pharmacy Consult (Consult Rx Etoh Phenob Im/Po) 1 each MISCELLANE ONCE PRN; Protocol PRN Reason: Consult order Phenobarbital (Phenobarbital 15 Mg Tablet) 45 mg PO BID [facility] Stop: 01/17/25 21:01 Last Admin: 01/17/25 09:18 Dose: 45 mg Phenobarbital (Phenobarbital 30 Mg Tablet) 30 mg PO BID [facility] Stop: 01/19/25 21:01 Phenobarbital (Phenobarbital 15 Mg Tablet) 15 mg PO DAILY [facility] Stop: 01/21/25 09:01 Prochlorperazine Edisylate (Prochlorperazine Edisylate 10 Mg/2 Ml Vial) 5 mg IVPUSH Q6H PRN PRN Reason: Nausea and Vomiting Last Admin: 01/15/25 22:58 Dose: 5 mg Sodium Chloride (0.9 % Sodium Chloride Flush 3 Ml Syringe) 3 ml IVFLUSH QSHIFT [facility] Last Admin: 01/17/25 09:18 Dose: Not Given Thiamine HCl (Thiamine Hcl 100 Mg Tablet) 100 mg PO DAILY [facility] Last Admin: 01/17/25 09:18 Dose: 100 mg Allergies Allergies Allergy/AdvReac Type Severity Reaction Status Date / Time cephalexin (From Keflex) Allergy Rash Verified 01/15/25 15:39 Assessment & Plan Assessment & Plan (1) Alcohol use disorder, severe, dependence: Status: Acute Code(s): F10.20 - Alcohol dependence, uncomplicated Assessment and Plan: withdrawal well managed with phenobarbital taper. declined to start RADHA prior to discharge plans to follow up with IOP once home, declined to have informatics scientist assist with referral continue thiamine and folic acid at home no additional follow up indicated at this time Total time managing care of this patient today _25___ minutes. PMFSH Social History Social History Household Members: None Housing: Apartment Do you presently have visiting nurse or other home services: No Patient Tobacco Use Status: Never used Tobacco service: No
[2025-01-17 11:26] VITALS: BP 117/80; PULSE 71; RESP 16; TEMP 36.2; O2SAT 98
[2025-01-17 15:21] VITALS: BP 120/77; PULSE 86; RESP 16; TEMP 36.1; O2SAT 97
--- NOTE | 2025-01-17 15:28 | HO.PM.IMPN ---
Subjective Subjective Date of Service: 01/17/25 Interval History: Alcohol withdrawal, poor historian Review of Systems Says has dizziness/vertigo type symptoms,, blurry vision-unable to elaborate much. But feel blurry with walking, as well as somewhat spinning/stress tremulous Review of Systems: Yes all other systems are reviewed and are negative Physical Exam Exam: Exam: Appearance: Alert.? Oriented X3. cvs: rrr, [id number]. res: clear to auscultation ,no rhonchii or wheezing abd: no rebound or guarding ,nt, bs present. ext pulses present , no cyanosis . neuro:moves all ext , strength/sensation intact has dizziness ,? blurry vision /vertiago -mild nystagmus horizontal Vital Signs: Vital Signs: Last Vital Signs Temp 97.0 F 01/17/25 15:21 Pulse 86 01/17/25 15:21 Resp 16 01/17/25 15:21 BP 120/77 01/17/25 15:21 Pulse Ox 97 01/17/25 15:21 O2 Del Method Room Air 01/17/25 15:21 BMI result Body Mass Index 28.3 Objective Data Active Medications Acetaminophen (Acetaminophen 325 Mg Tablet) 650 mg PO Q6H PRN PRN Reason: Pain, Mild 1-3,fever,headache Allopurinol (Allopurinol 300 Mg Tablet) 300 mg PO DAILY [facility] Last Admin: 01/17/25 09:18 Dose: 300 mg Documented By: GUILLE Calcium Carbonate (Calcium Carbonate 750 Mg Tab.Chew) 750 mg PO Q4H PRN PRN Reason: Heartburn Famotidine (Famotidine 20 Mg Tablet) 20 mg PO BID [facility] Last Admin: 01/17/25 09:18 Dose: 20 mg Documented By: GUILLE Folic Acid (Folic Acid 1 Mg Tablet) 1 mg PO DAILY [facility] Last Admin: 01/17/25 09:18 Dose: 1 mg Documented By: GUILLE Hydromorphone HCl (Hydromorphone Hcl 1 Mg/Ml Syringe) 1 mg IVPUSH Q4H [facility]; Protocol Last Admin: 01/17/25 11:29 Dose: 1 mg Documented By: GUILLE Lactated Ringer's (Lr) 1,000 mls @ 150 mls/hr IVCONT .Q6H40M [facility] Last Admin: 01/17/25 09:23 Dose: 150 mls/hr Documented By: GUILLE Magnesium Hydroxide (Milk Of Magnesia 30 Ml Oral.Susp) 30 ml PO DAILY PRN PRN Reason: Constipation Melatonin (Melatonin 3 Mg Tablet) 6 mg PO BEDTIME PRN PRN Reason: Insomnia Last Admin: 01/17/25 02:12 Dose: 6 mg Documented By: PABLO Metoprolol Succinate (Metoprolol Succinate Er 50 Mg Tab.Er.24h) 50 mg PO DAILY [facility]; Protocol Last Admin: 01/17/25 09:18 Dose: 50 mg Documented By: GUILLE Multivitamins/Vitamin C (Multivitamin Tablet) 1 tab PO DAILY [facility] Last Admin: 01/17/25 09:18 Dose: 1 tab Documented By: GUILLE Ondansetron HCl (Ondansetron Hcl 4 Mg/2 Ml Vial) 4 mg IVPUSH Q6H [facility] Last Admin: 01/17/25 11:29 Dose: 4 mg Documented By: GUILLE Pantoprazole Sodium (Pantoprazole Sodium 40 Mg/10 Ml Vial) 40 mg IVPUSH DAILY [facility] Last Admin: 01/17/25 09:18 Dose: 40 mg Documented By: GUILLE Pharmacy Consult (Consult Rx Etoh Phenob Im/Po) 1 each MISCELLANE ONCE PRN; Protocol PRN Reason: Consult order Phenobarbital (Phenobarbital 15 Mg Tablet) 45 mg PO BID [facility] Stop: 01/17/25 21:01 Last Admin: 01/17/25 09:18 Dose: 45 mg Documented By: GUILLE Phenobarbital (Phenobarbital 30 Mg Tablet) 30 mg PO BID [facility] Stop: 01/19/25 21:01 Phenobarbital (Phenobarbital 15 Mg Tablet) 15 mg PO DAILY [facility] Stop: 01/21/25 09:01 Prochlorperazine Edisylate (Prochlorperazine Edisylate 10 Mg/2 Ml Vial) 5 mg IVPUSH Q6H PRN PRN Reason: Nausea and Vomiting Last Admin: 01/15/25 22:58 Dose: 5 mg Documented By: ANASTACIO Sodium Chloride (0.9 % Sodium Chloride Flush 3 Ml Syringe) 3 ml IVFLUSH QSHIFT [facility] Last Admin: 01/17/25 09:18 Dose: Not Given Documented By: GUILLE Non-Admin Reason: IV Running Thiamine HCl (Thiamine Hcl 100 Mg Tablet) 100 mg PO DAILY [facility] Last Admin: 01/17/25 09:18 Dose: 100 mg Documented By: GUILLE Labs 01/15/25 15:46 01/16/25 04:49 Assessment and Plan (1) Alcohol abuse with withdrawal: Status: Acute Plan 39 years old the patient with a history of alcohol-cardiomyopathy he says probably due to alcohol on metoprolol, gout on allopurinol-came with alcohol withdrawal, nausea vomiting epigastric discomfort. Blurred vistion/dizziness vertiago -unclear etiology (d/d post cericulation cva vs bppv vs orthostasis) will get mri brain, if positive then we need neurology eval. neurochecks check orthostasis moniter closely Alcohol withdrawal: Monitor CIWA scale-last scale 8, thiamine folic acid,added extra dose phenobarb im. Acute lactic acidosis: Lactic acid improving with IV fluids, encouraged for p.o. intake, no further trending of lactic acid unless clinically indicated. Acute pancreatitis: still unable to tolerate po Lipase somewhat elevated CTA abdomen can not exclude acute pancreatitis Continue IV fluid, IV Dilaudid, antiemetics. DVT prophylaxis subQ Lovenox Cardiomyopathy-start metoprolol . Gout: Allopurinol. ongoing need for stay considering alcohol withdrawal/acute pancreatitis/acute lactic acidosis-need renal function electrolyte monitoring as well as symptoms monitoring for alcohol withdrawal as well as acute pancreatitis. Quality Stroke Does the patient have a stroke diagnosis?: No VTE Prior VTE?: No VTE Risk Level:: Medical - moderate - high VTE Device Contraindication: N/A - Device Ordered VTE Drug Contraindication: N/A - Med Ordered
[2025-01-17] MEDS: 0.9 % Sodium Chloride Flush 3 ML SYRINGE IVFLUSH (15:33)
[2025-01-17 20:00] VITALS: BP 113/61; PULSE 98; RESP 18; TEMP 36.4; O2SAT 98
[2025-01-18] VITALS (10 sets, daily range): BP systolic 96–135; BP diastolic 60–79; PULSE 72–117; RESP 16–18; TEMP 36.1–37.2; O2SAT 96–97
[2025-01-18] MEDS: Milk of Magnesia 30 ML ORAL.SUSP PO (06:14)
[2025-01-18] MEDS: Metoprolol Succinate ER 50 MG TAB.ER.24H PO (08:59)
[2025-01-18] MEDS: 0.9 % Sodium Chloride Flush 3 ML SYRINGE IVFLUSH (09:00)
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
--- NOTE | 2025-01-18 11:41 | MHC.CM.PN ---
Addendum entered by Lyudmila Quarles 01/18/25 16:08: Discharge cancelled for today, per hospitalist. Original Note: Pt is medically cleared for discharge home self-care, pt will arrange his own transport home.
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
[2025-01-19] VITALS (7 sets, daily range): BP systolic 110–126; BP diastolic 69–84; PULSE 55–104; RESP 16–20; TEMP 35.8–36.6; O2SAT 93–99
[2025-01-19] MEDS: Metoprolol Succinate ER 50 MG TAB.ER.24H PO (08:06)
--- NOTE | 2025-01-19 13:11 | HO.PM.IMPN ---
Subjective Subjective Date of Service: 01/19/25 Interval History: still shaky Physical Exam Exam: Exam: General: AO X 3, no acute distress Resp: CTA bilateral, no accessory muscles used CVS: S1,S2,RRR GI: soft, non tender, non distended Neuro: motor grossly intact, alert. tremor Psych: appropriate affect, appropriate insight Vital Signs: Vital Signs: Last Vital Signs Temp 97.2 F 01/19/25 11:36 Pulse 95 01/19/25 11:36 Resp 20 01/19/25 11:36 BP 110/74 01/19/25 11:36 Pulse Ox 99 01/19/25 11:36 O2 Del Method Room Air 01/19/25 11:36 BMI result Body Mass Index 28.3 Objective Data Active Medications Acetaminophen (Acetaminophen 325 Mg Tablet) 650 mg PO Q6H PRN PRN Reason: Pain, Mild 1-3,fever,headache Last Admin: 01/18/25 21:10 Dose: 650 mg Documented By: TAYO Allopurinol (Allopurinol 300 Mg Tablet) 300 mg PO DAILY [facility] Last Admin: 01/19/25 08:06 Dose: 300 mg Documented By: APRIL Calcium Carbonate (Calcium Carbonate 750 Mg Tab.Chew) 750 mg PO Q4H PRN PRN Reason: Heartburn Docusate Sodium (Docusate Sodium 100 Mg Capsule) 100 mg PO BID [facility] Last Admin: 01/19/25 08:16 Dose: Not Given Documented By: APRIL Non-Admin Reason: Patient Refused Famotidine (Famotidine 20 Mg Tablet) 20 mg PO BID [facility] Last Admin: 01/19/25 08:06 Dose: 20 mg Documented By: APRIL Folic Acid (Folic Acid 1 Mg Tablet) 1 mg PO DAILY [facility] Last Admin: 01/19/25 08:06 Dose: 1 mg Documented By: APRIL Hydromorphone HCl (Hydromorphone Hcl 0.5 Mg/0.5 Ml Syringe) 0.5 mg IVPUSH Q4H PRN; Protocol PRN Reason: Pain, Severe (Pain Scale 7-10) Last Admin: 01/19/25 08:46 Dose: 0.5 mg Documented By: APRIL Sodium Chloride (Ns) 1,000 mls @ 100 mls/hr IVCONT .Q10H [facility] Last Admin: 01/19/25 08:06 Dose: 100 mls/hr Documented By: APRIL Magnesium Hydroxide (Milk Of Magnesia 30 Ml Oral.Susp) 30 ml PO DAILY PRN PRN Reason: Constipation Last Admin: 01/18/25 06:14 Dose: 30 ml Documented By: ANTELMO Melatonin (Melatonin 3 Mg Tablet) 6 mg PO BEDTIME PRN PRN Reason: Insomnia Last Admin: 01/17/25 02:12 Dose: 6 mg Documented By: PABLO Metoprolol Succinate (Metoprolol Succinate Er 50 Mg Tab.Er.24h) 50 mg PO DAILY [facility]; Protocol Last Admin: 01/19/25 08:06 Dose: 50 mg Documented By: APRIL Multivitamins/Vitamin C (Multivitamin Tablet) 1 tab PO DAILY [facility] Last Admin: 01/19/25 08:06 Dose: 1 tab Documented By: APRIL Pharmacy Consult (Consult Rx Etoh Phenob Im/Po) 1 each MISCELLANE ONCE PRN; Protocol PRN Reason: Consult order Phenobarbital (Phenobarbital 30 Mg Tablet) 30 mg PO BID [facility] Stop: 01/19/25 21:01 Last Admin: 01/19/25 08:07 Dose: 30 mg Documented By: APRIL Phenobarbital (Phenobarbital 15 Mg Tablet) 15 mg PO DAILY [facility] Stop: 01/21/25 09:01 Prochlorperazine Edisylate (Prochlorperazine Edisylate 10 Mg/2 Ml Vial) 5 mg IVPUSH Q6H PRN PRN Reason: Nausea and Vomiting Last Admin: 01/15/25 22:58 Dose: 5 mg Documented By: ANASTACIO Sodium Chloride (0.9 % Sodium Chloride Flush 3 Ml Syringe) 3 ml IVFLUSH QSHIFT [facility] Last Admin: 01/19/25 08:15 Dose: Not Given Documented By: APRIL Non-Admin Reason: IV Running Thiamine HCl (Thiamine Hcl 100 Mg Tablet) 100 mg PO DAILY [facility] Last Admin: 01/19/25 08:06 Dose: 100 mg Documented By: APRIL Labs 01/15/25 15:46 01/16/25 04:49 Assessment and Plan (1) Alcoholism: Status: Acute Plan 39M PMH alcohol dependence, alcohol-induced cardiomyopathy, gout presented with abdominal pain Acute alcoholic pancreatitis IV fluids, pain meds, advance diet as tolerated Alcohol dependence with withdrawal Phenobarbital History of alcohol-induced cardiomyopathy Continue Toprol DVT prophylaxis - lovenox full code reason for continued hospitalization:withdrawal Quality Stroke Does the patient have a stroke diagnosis?: No VTE Prior VTE?: No VTE Risk Level:: Medical - moderate - high VTE Device Contraindication: N/A - Device Ordered VTE Drug Contraindication: N/A - Med Ordered
--- NOTE | 2025-01-19 14:36 | PC.NURSE ---
Patient c/o pain 7 out of 10, provider notified, order for Dilaudid 0.5mg PRN received, medication administered with good affect, patient refused scheduled colace stating he did have bowel movement yesterday 01/18. Patient also c/o he did not get breakfast tray, kitchen was contacted and breakfast tray ordered.
--- NOTE | 2025-01-19 15:53 | MHC.CM.PN ---
EMR reviewed and per MD rounds, pt is not medically cleared for discharge due to management of ETOH withdrawal.
[2025-01-19] MEDS: 0.9 % Sodium Chloride Flush 3 ML SYRINGE IVFLUSH (16:02)
[2025-01-20 03:32] VITALS: BP 128/91; PULSE 80; RESP 18; TEMP 36.3; O2SAT 98
[2025-01-20 07:09] VITALS: BP 111/71; PULSE 80; RESP 20; TEMP 36.3; O2SAT 98
[2025-01-20 07:34] LABS: Hematocrit 41.6 % (42.0-52.0); Hemoglobin 14.1 g/dl (14.0-18.0); Mean Corpuscular HGB Conc 33.9 g/dl (31.0-36.0); Mean Corpuscular Hemoglobin 31.3 pg (27.0-33.0); Mean Corpuscular Volume 92.4 fL (80.0-98.0); NRBC Abs Auto 0.000 X10*3/uL (0.0-0.012); NRBC Pct Auto 0.0 /100WBC (0.0-0.2); Platelet Count 181 X10*3/uL (160-400); Red Blood Count 4.50 X10*6/uL (4.60-5.80); White Blood Count 5.6 X10*3/uL (4.8-10.8)
[2025-01-20] MEDS: Metoprolol Succinate ER 50 MG TAB.ER.24H PO (07:48)
[2025-01-20 07:52] LABS: Anion Gap 13 (12-20); Blood Urea Nitrogen 5 mg/dL (9-16); Calcium 9.0 mg/dL (8.4-10.2); Carbon Dioxide 24 mmol/L (22-29); Chloride 104 mmol/L (96-108); Creatinine Clr Calc Pharmacy 141.4; Estimated Glomerular Filt Rate > 60; Magnesium 2.0 mg/dL (1.6-2.6); Potassium 3.8 mmol/L (3.3-5.1); Sodium 137 mmol/L (135-145)
--- NOTE | 2025-01-20 11:06 | P.PNIM_ITS ---
Subjective Subjective Date of Service: 01/20/25 Interval History: still shaky Physical Exam 2 Exam: Exam: General: AO X 3, no acute distress Resp: CTA bilateral, no accessory muscles used CVS: S1,S2,RRR GI: soft, non tender, non distended Neuro: motor grossly intact, alert. tremor Psych: appropriate affect, appropriate insight Vital Signs: Vital Signs: Last Vital Signs Temp 97.4 F 01/20/25 07:09 Pulse 80 01/20/25 07:09 Resp 20 01/20/25 07:09 BP 111/71 01/20/25 07:09 Pulse Ox 98 01/20/25 07:09 O2 Del Method Room Air 01/20/25 07:09 BMI result Body Mass Index 28.3 Objective Data Active Medications Acetaminophen (Acetaminophen 325 Mg Tablet) 650 mg PO Q6H PRN PRN Reason: Pain, Mild 1-3,fever,headache Last Admin: 01/18/25 21:10 Dose: 650 mg Documented By: TAYO Allopurinol (Allopurinol 300 Mg Tablet) 300 mg PO DAILY [facility] Last Admin: 01/20/25 07:48 Dose: 300 mg Documented By: MIKE Calcium Carbonate (Calcium Carbonate 750 Mg Tab.Chew) 750 mg PO Q4H PRN PRN Reason: Heartburn Docusate Sodium (Docusate Sodium 100 Mg Capsule) 100 mg PO BID [facility] Last Admin: 01/20/25 07:44 Dose: Not Given Documented By: MIKE Non-Admin Reason: Patient Refused Enoxaparin Sodium (Enoxaparin Sodium 40 Mg/0.4 Ml Syringe) 40 mg SUBCUT Q24H [facility] Last Admin: 01/20/25 09:29 Dose: Not Given Documented By: MIKE Non-Admin Reason: Patient Refused Famotidine (Famotidine 20 Mg Tablet) 20 mg PO BID [facility] Last Admin: 01/20/25 07:48 Dose: 20 mg Documented By: MIKE Folic Acid (Folic Acid 1 Mg Tablet) 1 mg PO DAILY [facility] Last Admin: 01/20/25 07:49 Dose: 1 mg Documented By: MIKE Hydromorphone HCl (Hydromorphone Hcl 0.5 Mg/0.5 Ml Syringe) 0.5 mg IVPUSH Q4H PRN; Protocol PRN Reason: Pain, Severe (Pain Scale 7-10) Last Admin: 01/20/25 07:35 Dose: 0.5 mg Documented By: MIKE Sodium Chloride (Ns) 1,000 mls @ 100 mls/hr IVCONT .Q10H [facility] Last Admin: 01/20/25 02:20 Dose: 100 mls/hr Documented By: BRICE Magnesium Hydroxide (Milk Of Magnesia 30 Ml Oral.Susp) 30 ml PO DAILY PRN PRN Reason: Constipation Last Admin: 01/18/25 06:14 Dose: 30 ml Documented By: ANTELMO Melatonin (Melatonin 3 Mg Tablet) 6 mg PO BEDTIME PRN PRN Reason: Insomnia Last Admin: 01/17/25 02:12 Dose: 6 mg Documented By: PABLO Metoprolol Succinate (Metoprolol Succinate Er 50 Mg Tab.Er.24h) 50 mg PO DAILY [facility]; Protocol Last Admin: 01/20/25 07:48 Dose: 50 mg Documented By: MIKE Multivitamins/Vitamin C (Multivitamin Tablet) 1 tab PO DAILY [facility] Last Admin: 01/20/25 07:48 Dose: 1 tab Documented By: MIKE Pantoprazole Sodium (Pantoprazole Sodium 20 Mg Tablet.Dr) 40 mg PO DAILY@0630 [facility] Last Admin: 01/20/25 06:38 Dose: 40 mg Documented By: BRICE Pharmacy Consult (Consult Rx Etoh Phenob Im/Po) 1 each MISCELLANE ONCE PRN; Protocol PRN Reason: Consult order Phenobarbital (Phenobarbital 15 Mg Tablet) 15 mg PO DAILY [facility] Stop: 01/21/25 09:01 Last Admin: 01/20/25 07:48 Dose: 15 mg Documented By: MIKE Prochlorperazine Edisylate (Prochlorperazine Edisylate 10 Mg/2 Ml Vial) 5 mg IVPUSH Q6H PRN PRN Reason: Nausea and Vomiting Last Admin: 01/20/25 07:35 Dose: 5 mg Documented By: MIKE Sodium Chloride (0.9 % Sodium Chloride Flush 3 Ml Syringe) 3 ml IVFLUSH QSHIFT [facility] Last Admin: 01/20/25 07:43 Dose: Not Given Documented By: MIKE Non-Admin Reason: IV Running Thiamine HCl (Thiamine Hcl 100 Mg Tablet) 100 mg PO DAILY [facility] Last Admin: 01/20/25 07:48 Dose: 100 mg Documented By: MIKE Labs 01/20/25 06:42 01/20/25 06:42 Labs: Laboratory Results - last 24 hr 01/20/25 06:42 MCV 92.4 MCH 31.3 MCHC 33.9 RDW 14.9 Plt Count 181 MPV 10.6 Absolute Nucleated RBC 0.000 Nucleated RBC % (auto) 0.0 Anion Gap 13 Estim Creat Clear Calc 141.4 Estimated GFR > 60 Random Glucose 99 Calcium 9.0 Magnesium 2.0 Assessment and Plan (1) Alcoholism: Status: Acute Plan 39M PMH alcohol dependence, alcohol-induced cardiomyopathy, gout presented with abdominal pain Acute alcoholic pancreatitis IV fluids, pain meds, advance diet as tolerated Alcohol dependence with withdrawal Phenobarbital History of alcohol-induced cardiomyopathy Continue Toprol DVT prophylaxis - lovenox full code reason for continued hospitalization:withdrawal Quality Stroke Does the patient have a stroke diagnosis?: No VTE Prior VTE?: No VTE Risk Level:: Medical - moderate - high VTE Device Contraindication: N/A - Device Ordered VTE Drug Contraindication: N/A - Med Ordered
[2025-01-20 11:19] VITALS: BP 109/74; PULSE 84; RESP 20; TEMP 36.2; O2SAT 98
[2025-01-20 15:13] VITALS: BP 118/73; PULSE 82; RESP 20; TEMP 36.4; O2SAT 98
[2025-01-20 20:00] VITALS: BP 112/76; PULSE 73; RESP 17; TEMP 36.6; O2SAT 97
[2025-01-20 23:19] VITALS: BP 112/74; PULSE 69; RESP 16; TEMP 36.2; O2SAT 97
[2025-01-21 03:36] VITALS: BP 106/76; PULSE 65; RESP 16; TEMP 36.6; O2SAT 97
[2025-01-21 06:43] LABS: Hematocrit 43.2 % (42.0-52.0); Hemoglobin 14.4 g/dl (14.0-18.0); Mean Corpuscular HGB Conc 33.3 g/dl (31.0-36.0); Mean Corpuscular Hemoglobin 30.8 pg (27.0-33.0); Mean Corpuscular Volume 92.5 fL (80.0-98.0); NRBC Abs Auto 0.000 X10*3/uL (0.0-0.012); NRBC Pct Auto 0.0 /100WBC (0.0-0.2); Platelet Count 195 X10*3/uL (160-400); Red Blood Count 4.67 X10*6/uL (4.60-5.80); White Blood Count 4.7 X10*3/uL (4.8-10.8)
[2025-01-21 06:55] LABS: Anion Gap 14 (12-20); Blood Urea Nitrogen 4 mg/dL (9-16); Calcium 9.3 mg/dL (8.4-10.2); Carbon Dioxide 25 mmol/L (22-29); Chloride 104 mmol/L (96-108); Creatinine Clr Calc Pharmacy 147.3; Estimated Glomerular Filt Rate > 60; Potassium 3.9 mmol/L (3.3-5.1); Sodium 139 mmol/L (135-145)
[2025-01-21 07:55] VITALS: BP 126/83; PULSE 75; RESP 20; TEMP 36.7; O2SAT 99
[2025-01-21] MEDS: Metoprolol Succinate ER 50 MG TAB.ER.24H PO (08:36)
[2025-01-21] MEDS: 0.9 % Sodium Chloride Flush 3 ML SYRINGE IVFLUSH (08:41)
--- NOTE | 2025-01-21 10:20 | P.DS_ITS ---
DS: Providers Provider Date of Service: 01/21/25 Date of admission: 01/15/25 18:27 Date of discharge: 01/21/25 Primary care physician: Danilo Wilson MD Consults: 01/15/25 18:28 Addiction Medicine Provider Routine Consulting Provider: Addiction Covering Reason for consultation: Alcohol withdrawal Has provider been notified: No DS: Diagnosis Discharge Diagnosis (1) Alcoholism: Status: Acute DS: Summary Hospital Course Hospital Course: from initial hpi: 39 years old the patient with a history of alcohol-cardiomyopathy he says probably due to alcohol on metoprolol, gout on allopurinol, abuse presented to the ed: Because of nausea vomiting and epigastric discomfort. Patient says he drinks a pint of alcohol specially rum every day, patient is tremulous, anxious. He says that he feels nauseous. Denies any new complaint of chest pain or shortness of breath or fever or chills or nausea or vomiting or cough or weakness or numbness. Lab imaging reviewed: CBC seems fine BMP also fine-accept as anion gap of 23, bicarb of 19, pH normal 7.33 CTA abdomen:1. No obvious CT findings of pancreatitis. This does not exclude the possibility of pancreatitis.2. Hepatomegaly with severe fatty infiltration of the liver. 3. Tiny nonobstructive calculi within the bilateral kidneys. ekg: nsr hospital course: Patient was admitted for acute alcoholic pancreatitis. Was given IV fluids and pain meds and diet slowly advanced and is now tolerating solids. For alcohol dependence with withdrawal completed phenobarbital protocol and withdrawal symptoms resolved. For history of alcoholic induced cardiomyopathy was continued on metoprolol. Patient is feeling better and will be discharged home. Time Attestation Discharge Coordination Time (in mins): 35 Quality: Safe Use of Opioids Does Pt have an Active Cancer Diagnosis on the Problem List?: No Quality: Stroke Does the patient have a stroke diagnosis?: No Physical Exam Exam: Exam: General: AO X 3, no acute distress Resp: CTA bilateral, no accessory muscles used CVS: S1,S2,RRR GI: soft, non tender, non distended Neuro: motor grossly intact, alert Psych: appropriate affect, appropriate insight Vital Signs: Vital Signs: Last Vital Signs Temp 98.0 F 01/21/25 07:55 Pulse 75 01/21/25 07:55 Resp 20 01/21/25 07:55 BP 126/83 01/21/25 07:55 Pulse Ox 99 01/21/25 07:55 O2 Del Method Room Air 01/21/25 07:55 BMI result Body Mass Index 28.3 DS: Data Data Completed and Pending Labs on day of discharge: Laboratory Results - last 24 hr 01/21/25 06:19 WBC 4.7 L RBC 4.67 Hgb 14.4 Hct 43.2 MCV 92.5 MCH 30.8 MCHC 33.3 RDW 14.9 Plt Count 195 MPV 10.4 Absolute Nucleated RBC 0.000 Nucleated RBC % (auto) 0.0 Sodium 139 Potassium 3.9 Chloride 104 Carbon Dioxide 25 Anion Gap 14 BUN 4 L Creatinine 0.72 Estim Creat Clear Calc 147.3 Estimated GFR > 60 Random Glucose 100 Calcium 9.3 Discharge Plan Discharge Anticipated Discharge Date/Time: 01/17/25 11:55 Patient Disposition: Home, Self-Care Discharge Diagnosis: alcohol withdrawals Referrals: Physician,None [Physician, Medical] - 1 Week Discharge Medications: New folic acid 1 mg Tablet 1 mg PO DAILY Qty: 90 0RF thiamine mononitrate (vit B1) 100 mg Tablet 100 mg PO DAILY Qty: 90 0RF bisacodyl [Laxative (bisacodyl)] 5 mg tablet,delayed release (DR/EC) 10 mg PO BEDTIME 15 Days Qty: 30 0RF Continued metoprolol succinate 50 mg tablet extended release 24 hr 50 mg PO DAILY famotidine 20 mg tablet 20 mg PO BID pantoprazole 40 mg tablet,delayed release (DR/EC) 40 mg PO DAILY@0630 multivitamin Tablet 1 tab PO DAILY allopurinol 300 mg tablet 300 mg PO DAILY Discharge Orders: Discharge Order (Routine); Ordered 01/21/25 Ordered By: Errol Guzman Diet: Advance to usual diet Activity on Discharge: As tolerated Stand Alone Forms: Patient Portal Discharge page Print Language: Colombian Care Plan Goals: recovery Health Concerns: as above. Plan of Treatment: as above. Assessment: as above.
== END 2025-01-21 11:42 | disposition home or self-care (01) | DRG 282 ==
LOC: HO.ED 18:14 → HO.EDOVER 18:31 → HO.IMC 01-16 17:08
PROVIDERS: Physician Assistant Medical; Admitting Provider Internal Medicine; Emergency Provider Emergency Medicine; PCP Family Medicine; Visit Provider Internal Medicine
DX: K85.20 Alcohol induced acute pancreatitis without necrosis or infection (principal); E87.21 Acute metabolic acidosis; I42.6 Alcoholic cardiomyopathy; Y90.8 Blood alcohol level of 240 mg/100 ml or more; M10.9 Gout, unspecified; F10.239 Alcohol dependence with withdrawal, unspecified; E86.0 Dehydration; Z79.899 Other long term (current) drug therapy
CPT/HCPCS: 36415; 70450; 73130; 74177; 80048; 80053; 80307; 81001; 82803; 83605; 83690; 83735; 85025; 85027; 99285; J0737; J1171; J2270; J2405; J2470; J2560; J3360; J7120; Q9967; S9485

== ENCOUNTER → 2025-01-15 16:43 | Outpatient (BNV) | payer OTHER, SELFPAY | PROVIDERS: Emergency Provider Emergency Medicine; Visit Provider Radiology Diagnostic Radiology | DX: R16.0 Hepatomegaly, not elsewhere classified (principal) | CPT/HCPCS: 74177 ==

== ENCOUNTER 2025-01-15 18:27 | Outpatient (BNV) | payer OTHER, SELFPAY | END 2025-01-18 09:49 | PROVIDERS: Admitting Provider Internal Medicine; Emergency Provider Emergency Medicine; Visit Provider Radiology Diagnostic Radiology | DX: R42 Dizziness and giddiness (principal) | CPT/HCPCS: 70450 ==

== ENCOUNTER 2025-01-15 18:27 | Outpatient (BNV) | payer OTHER, SELFPAY | END 2025-01-17 18:12 | PROVIDERS: Admitting Provider Internal Medicine; Emergency Provider Emergency Medicine; Visit Provider Radiology Diagnostic Radiology | DX: M79.5 Residual foreign body in soft tissue (principal) | CPT/HCPCS: 73130 ==

== ENCOUNTER → 2025-01-15 18:27 | Outpatient (BNV) | payer OTHER, SELFPAY | PROVIDERS: Admitting Provider Internal Medicine; Emergency Provider Emergency Medicine; Visit Provider Nurse Practitioner Psychiatric/Mental Health | DX: F10.20 Alcohol dependence, uncomplicated (principal) | CPT/HCPCS: 99221 ==

== ENCOUNTER → 2025-01-15 18:27 | Outpatient (BNV) | payer OTHER, SELFPAY | PROVIDERS: Admitting Provider Internal Medicine; Emergency Provider Emergency Medicine; Visit Provider Internal Medicine | DX: F10.20 Alcohol dependence, uncomplicated (principal) | CPT/HCPCS: 99222; 99231; 99232 ==

== ENCOUNTER 2025-03-12 15:21 | Inpatient (IN) | payer OTHER, SELFPAY ==
--- OUTSIDE RECORDS SUMMARY | 2025-03-10 23:50 | XMS_ITS | Encounter Summary ---
Author Organization [facility] Address [address] [place] [address] Care Team Providers Care Bearingizer Name Role Phone Physician, Pcp Unknown Primary Care Provider Alice vailable Reason for Visit * Reason Comments Abdominal Pain Encounter Details Date Type Department Care Team (Late st Contact Info) Description 03/10/2025 11:50 PM EDT - 03/11/2025 10:04 AM EDT Emergency [facility] Emergency [address] [place] [address] Jazmín Jones MD [address] [place] [address] Mane Steiner MD [address] [place] [address] Acute alcoholic gastritis without hemorrhage (Primary Dx); Alcohol withdrawal syndrome without complication (CMS/HCC V24, CMS/HCC V28) Discharge Disposition: Home or Self Care Social History Tobacco Use Types Packs/Day Years [...] your loved ones. 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 [...] Date Recorded What is your living situation? Unrecognized valu e 09/30/2024 Interpersonal Safety Answer Date Record ed Physical Abuse Unrecognized value 09/22/2024 Verbal Abuse Unrecognized value 09/22/2024 Sex and Gender Information Value Date Recorded Sex Assigned at Not on file Legal Sex Male 7:13 PM EST Gender Identity Not on file Sexual Orientation Not on file documented as of this encounter Last Filed Vital Signs Vital Sign Reading Time Taken Comments Blood Pressure 138/99 03/11/2025 10:02 AM EDT Pulse 108 03/11/2025 10:02 AM EDT Temperature 36.7 C (98.1 F) 03/11/2025 9:57 AM EDT Respiratory Rate 17 03/11/2025 9:57 AM EDT Oxygen Saturation 91% 03/11/2025 9:57 AM EDT Inhaled Oxygen Concentration - - Weight 81.6 kg (180 lb) 03/11/2025 2:18 AM EDT Height 182.9 cm (6') 03/11/2025 2:18 AM EDT Body Mass Index 24.41 03/11/2025 2:18 AM EDT documented in this encounter Functional Status * Are you deaf or do you have serious difficulty hearing? Answer Date of Assessment Author No 03/11/2025 2:17 AM EDT Octavia Bean RN * Are you blind or do you have serious difficulty seeing, even when wearing glasses? Answer Date of Assessment Author No 03/11/2025 2:17 AM EDT Octavia Bean RN * Do you have serious difficulty walking or climbing stairs? Answer Date of Assessment Author No 03/11/2025 2:17 AM EDT Octavia Bean RN * Do you have serious difficulty dressing or bathing? Answer Date of Assessment Author No 03/11/2025 2:17 AM EDT Octavia Bean RN * Because of a physical, mental, or emotional condition, do you have serious difficulty doing errandsalone such as visiting the doctor? Answer Date of Assessment Author No 03/11/2025 2:17 AM EDT Octavia Bean RN * Calculated C-SSRS Risk Score (Lifetime/Recent) Answer Date of Assessment Author No Risk Indicated 03/10/2025 11:41 PM EDT Emelia Liu RN * Mayes Suicide Severity Rating Scale (Screener/Recent Self-Report) Question Answer Date of Assessment Author 1. Wish to be (Past 1 Month) No 11:41 PM EDT Emelia Arevalo RN documented as of this encounter Mental Status * Because of a physical, mental, or emotional condition, do you have serious difficulty concentrating, remembering, or making decisions? (5 years old or older) Answer Entry Date Author No 03/11/2025 2:17 AM EDT Octavia Bean RN documented in this encounter Discharge Instructions * Discharge Instructions* Mane Steiner MD - 03/11/2025 4:29 AM EDT DIAGNOSIS / RESULTS / PROCEDURES (what was done): You came to the ED for abdominal pain. Your blood work was normal other than an elevated alcohol level. A CAT scan showed inflammation in your stomach and intestines, most likely from your drinking. INSTRUCTIONS (what you need to do): Call your primary care doctor tomorrow to discuss when you should be seen next. Your doctor may want to arrange follow up for your visit today, or may ask to see you at your next scheduled visit. Askyour doctor about help with cutting back on your alcohol use. It is the cause of your symptoms. If you cannot eat or drink, or stop producing urine, return to the ED immediately. If your abdominal pain changes, radiates to the back, or is associated with chest pain or shortness of breath, return to the ED immediately. MEDICATIONS (what you need to take): Zofran ODT 4 mg every 8 hours as needed for nausea Famotidine twice daily * Attachments The following attachments cannot be sent through Care Everywhere. * Gastritis (Georgian) documented in this encounter Medications at Time of Discharge allopurinoL (ZYLOPRIM) 100 mg tablet Take 1 tablet (100 mg total) by mouth 1 (one) time each day. famotidine (PEPCID) 20 mg tablet Take 1 tablet (20 mg total) by mouth 2 (two) times a day for 15 days. 30 tablet 03/11/2025 03/26/2025 hydrOXYzine HCL (ATARAX) 10 mg tablet Take 1 tablet (10 mg total) by mouth 3 (three) times a day if needed for anxiety. 08/29/2024 metoprolol succinate (TOPROL-XL) 50 mg 24 hr tablet Take 1 tablet (50 mg total) by mouth 1 (one) time each day. ondansetron (ZOFRAN) 4 mg tablet Take 1 tablet (4 mg total) by mouth every 6 (six) hours for 3 days. 12 tablet 03/11/2025 03/14/2025 topiramate (TOPAMAX) 50 mg tablet 100mg in the morning and 150 mg at night 50 each 09/25/2024 documented as of this encounter Ordered Prescriptions Prescription Sig Dispense Quantity Refills Last Filled Start Date End Date famotidine (PEPCID) 20 mg tablet Take 1 tablet (20 mg total) by mouth 2 (two) times a day for 15 days. 30 tablet 03/11/2025 03/26/2025 ondansetron (ZOFRAN) 4 mg tablet Take 1 tablet (4 mg total) by mouth every 6 (six) hours for 3 days. 12 tablet 03/11/2025 03/14/2025 documented in this encounter Discharge Disposition Disposition Code Departure Means Destination Comment s Home or Self Care documented in this encounter Progress Notes * Ariel Pope RN - 03/11/2025 8:05 AM EDT Pt unable to maintain consciousness during conversation, continually falling asleep while sitting upright. Pt states it is from the medication. Pt's oxygen desatted to 88%, 2L NC applied to maintain saturation >92%. Currently at 95%. Pt resting with eyes closed. Fall risk band applied for pt safety. * Mane Steiner MD - 03/11/2025 7:51 AM EDT ED Course as of 03/11/25 0923 FriMar 11, 2025 0101 CBC and differential(!) No clinically significant abnormality. No leukocytosis leukopenia acute anemia platelet abnormality. [AW] 0116 Magnesium normal [AW] 0117 Comprehensive metabolic panel(!) No metabolic derangement, no acidemia, no evidence of hepatic or renal injury Mildly elevated AST at 63 [AW] 0117 Lipase(!) Mildly elevated. [AW] 0127 Ethanol(!) Elevated ethanol level [AW] 0749 I, Dr Dawood Steiner, have received signout for this patient from the off-going team. The pertinent portions of the history are this is a 39-year-old male with alcohol use disorder who presents for alcohol intoxication and abdominal pain. Patient treated for alcohol withdrawal, thought to have alcoholic gastritis. At this point the pending portions of the workup are follow-up CT abdomen.. At the time of my evaluation, the patient asleep in bed resting comfortably. [MG] 0922 CT with inflammatory changes consistent with gastroenteritis. Patient will be discharged. [MG] ED Course User Index [AW] DAVID Asencio [MG] Mane Steiner MD Clinical Impressions as of 03/11/25 0923 Acute alcoholic gastritis without hemorrhage Alcohol withdrawal syndrome without complication ([facility] V24, CMS/[facility] V28) Data Unavailable 1. Acute alcoholic gastritis without hemorrhage 2. Alcohol withdrawal syndrome without complication (CMS/[facility] V24, CMS/[facility] V28) Procedures Armando Mary * DAVID Asencio - 03/10/2025 11:52 PM EDT 39-year-old male history of alcohol dependence Daily drinker last drink 11:00 this morning presentsemergency department epigastric pain, nausea and vomiting episodes. Consistent with prior alcoholicpancreatitis. Patient went to [facility] waited in the lobby 3 hours, left there to come here. Limited physical exam performed in medical screening triage: Gen: Alert & Oriented Cardiac: Appears well perfused Lungs: No increased work of breathing, no accessory muscle use Ext: No gross deformity ------- PLAN ------- Plan: Additional evaluation needed to rule out an emergency medical condition. ED * Emelia Arevalo RN - 03/10/2025 11:40 PM EDT Pt states upper/left abd pain x1 day. + vomiting. Hx pancreatitis. * DAVID Asencio - 03/10/2025 11:39 PM EDT HPI Chief Complaint Patient presents with Abdominal Pain Patient 39-year-old homeless male past medical history of cardiomyopathy alcohol abuse Daily drinker presents emergency department for evaluation of abdominal pain with last drink 11 AM this morning,nausea and multiple episodes of vomiting. Patient with previous history of alcoholic pancreatitis. He denies fevers chills hematochezia hematemesis. No tearing abdominal pain. Chest pain shortness ofbreath. 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 Physical Exam ED Triage Vitals Temp Heart Rate Resp BP 03/11/25 0143 03/10/25 2350 03/10/25 23503/10/252349 36.7 ??C (98.1 ??F) (!) 111 16 (!) 124/108 SpO2 Temp Source Heart Rate Source Patient Position 03/10/25 2350 03/11/25 0143 03/10/25 2350 03/10/252349 94 % Oral Monitor Sitting BP Location FiO2 (%) 03/10/252349 -- Right arm Physical Exam Vitals and nursing note reviewed. Constitutional: Appearance: Normal appearance. HENT: Head: Normocephalic and atraumatic. Cardiovascular: Rate and Rhythm: Normal rate and regular rhythm. Pulses: Normal pulses. Heart sounds: Normal heart sounds. Pulmonary: Effort: Pulmonary effort is normal. Breath sounds: Normal breath sounds. Abdominal: Tenderness: There is abdominal tenderness in the epigastric area. There is no right CVA tenderness,left CVA tenderness, guarding or rebound. Musculoskeletal: General: Normal range of motion. Cervical back: Normal range of motion and neck supple. Skin: General: Skin is warm and dry. Capillary Refill: Capillary refill takes less than 2 seconds. Neurological: General: No focal deficit present. Mental Status: He is alert. ED Course & MDM ED Course as of 03/11/25 0436 FriMar 11, 2025 0101 CBC and differential(!) No clinically significant abnormality. No leukocytosis leukopenia acute anemia platelet abnormality. [AW] 0116 Magnesium normal [AW] 0117 Comprehensive metabolic panel(!) No metabolic derangement, no acidemia, no evidence of hepatic or renal injury Mildly elevated AST at 63 [AW] 0117 Lipase(!) Mildly elevated. [AW] 0127 Ethanol(!) Elevated ethanol level [AW] ED Course User Index [AW] DAVID Asencio Clinical Impressions as of 03/11/25 0436 Acute alcoholic gastritis without hemorrhage Alcohol withdrawal syndrome without complication ([facility] V24, [facility] V28) Medical Decision Making Differential diagnosis includes pancreatitis biliary tree pathology gastritis alcoholic gastritis. Patient with mild tachycardia hemodynamically stable he appears not to feel well. Lab work pursued including ethanol level. Overall clinical picture is elevated ethanol level with nausea and vomiting consistent with alcohol gastritis and mild withdrawal. His CIWA was 9 he was given IV Ativan doses, IV morphine for pain, IV antiemetics and IV phenobarb. Patient was given IV fluids. Patient tolerated oral fluids in department. Patient did express some anxiety about discharge home as he fears withdrawal. However he is clinically sober at arrival with mild withdrawal and he has been dosed for alcohol withdrawal in department. He did have a soft nontender abdomen on repeat examimaging considered not pursued as likely low yield. I believe he stable for outpatient trial at this time. Procedures DAVID Asencio 03/11/25 0208 [1] Past Medical History: Diagnosis Date Alcohol abuse 2015 DX:Alcohol abuse Cardiomyopathy ([facility]/HCC V24, CMS/HCC V28) Homeless 03/23/2018 DX:Homeless Lumbar disc herniation with radiculopathy 2013 DX:Lumbar disc herniation with radiculopathy [2] Past Surgical History: Procedure Laterality Date OTHER SURGICAL HISTORY PROCEDURE: DENIES PREVIOUS SURGERY [3] Family History Problem Relation Name Age of Onset Other (Other: anxiety) Mother No Known Problems Father No Known Problems Brother No Known Problems Daughter Hyperlipidemia Neg Hx Diabetes Neg Hx Autoimmune disease Neg Hx Breast cancer Neg Hx Colon cancer Neg Hx Prostate cancer Neg Hx Coronary artery disease Neg Hx Mental illness Neg Hx Heart attack Neg Hx Heart failure Neg Hx Sleep apnea Neg Hx Hypertension Neg Hx Thyroid disease Neg Hx DAVID Asencio 03/11/25 0436 Cosigned by Jazmín Jones MD at 03/11/2025 9:10 PM EDT * Jazmín Jones MD - 03/10/2025 11:39 PM EDT EMERGENCY DEPARTMENT Transition of Care Note Room: 15/ Patient: Armando Mary PCP: Pcp Unknown Physician Patient : 1985 Patient Department: [facility] EM[facility] [address] [facility] [address] Dept: [phone] This patient's care was signed out to me by the offgoing provider. Please see her/his note for further details regarding initial presentation, history of present illness, physical exam, and medical decision making. Sign out: Pt with alcohol intoxication and abdominal pain. Also has mild alcohol withdrawal. He received medications including Ativan, morphine, and phenobarb. Norman improved but prior to discharge hebegan having more abdominal pain. Will plan for further pain control and CT abdomen. See ED course for further care events. Vitals: 03/11/25 0623 BP: 116/82 Pulse: 102 Resp: Temp: SpO2: Jazmín Jones MD 03/11/25 0633 documented in this encounter Plan of Treatment Not on file documented as of this encounter Procedures Procedure Name Priority Date/Time Associated Diagnosis Comments CT ABDOMEN PELVIS W CONTRAST STAT 03/11/2025 8:33 AM EDT CBC WITH AUTO DIFFERENTIAL STAT 03/11/2025 12:14 AM EDT CBC AND DIFFERENTIAL STAT 03/11/2025 12:14 AM EDT MAGNESIUM STAT 03/11/2025 12:14 AM EDT LIPASE STAT 03/11/2025 12:14 AM EDT ETHANOL STAT 03/11/2025 12:14 AM EDT COMPREHENSIVE METABOLIC PANEL STAT 03/11/2025 12:14 AM EDT documented in this encounter Results * CT Abdomen Pelvis w Contrast (03/11/2025 8:33 AM EDT) Anatomical Region Laterality Modality Body Computed Tomogra phy 03/11/2025 9:11 AM EDT Impressions 03/11/2025 9:15 AM EDT Wall thickening at the duodenum and proximal small bowel compatible with an infectious or inflammatory duodenitis/enteritis. No abscess or free air. No CT evidence of pancreatitis. Hepatic steatosis with hepatomegaly. -------- FINAL REPORT -------- Dictated By: MARCELINO JEFFERS Dictated Date: 03/11/2025 09:11 ET Assigned Physician: MARCELINO JEFFERS Reviewed and Electronically Signed By: MARCELINO JEFFERS Signed Date: 03/11/2025 09:15 ET Workstation ID: [id number] Transcribed By: Self Edit Transcribed Date: 03/11/2025 09:11 ET Narrative 03/11/2025 9:15 AM EDT PROCEDURE: CT ABDOMEN/PELVIS INDICATION: Pain TECHNIQUE: CT of the abdomen and pelvis following the intravenous administration of 90cc Isovue 370. Multiplanar reformats. The examination was performed utilizing dose reduction techniques. Total DLP 952 COMPARISON: 09/22/2024 FINDINGS: LOWER THORAX: Bibasilar cysts HEPATOBILIARY: Hepatic steatosis with hepatomegaly. No focal liver lesions. Gallbladder and biliary tree are within normal limits. SPLEEN: No splenomegaly. PANCREAS: No focal mass or ductal dilatation. No peripancreatic edema or fluid collection. ADRENALS: No nodules. KIDNEYS/URETERS: Bilateral nonobstructive renal calculi measuring up to 4 mm. No ureteral calculi or hydronephrosis. No solid renal mass. PELVIC ORGANS/BLADDER: Prostate and bladder are normal PERITONEUM / RETROPERITONEUM: No ascites, fluid collection, or free air. No retroperitoneal lymphadenopathy. VESSELS: Portal vein is patent. Abdominal aorta is normal in size. GI TRACT: Appendix not visualized. No evidence of appendicitis around the cecum. No bowel obstruction. Wall thickening at the duodenum and proximal small bowel.. BONES AND SOFT TISSUES: Soft tissues and bones are within normal limits. Procedure Note Marcelino Jeffers MD - 03/11/2025 PROCEDURE: CT ABDOMEN/PELVIS INDICATION: Pain TECHNIQUE: CT of the abdomen and pelvis following the intravenousadministration of 90cc Isovue 370. Multiplanar reformats. The examinationwas performed utilizing dose reduction techniques. Total DLP 952 COMPARISON: 09/22/2024 FINDINGS: LOWER THORAX: Bibasilar cysts HEPATOBILIARY: Hepatic steatosis with hepatomegaly. No focal liverlesions. Gallbladder and biliary tree are within normal limits. SPLEEN: No splenomegaly. PANCREAS: No focal mass or ductal dilatation. No peripancreatic edema orfluid collection. ADRENALS: No nodules. KIDNEYS/URETERS: Bilateral nonobstructive renal calculi measuring up to 4mm. No ureteral calculi or hydronephrosis. No solid renal mass. PELVIC ORGANS/BLADDER: Prostate and bladder are normal PERITONEUM / RETROPERITONEUM: No ascites, fluid collection, or free air.No retroperitoneal lymphadenopathy. VESSELS: Portal vein is patent. Abdominal aorta is normal in size. GI TRACT: Appendix not visualized. No evidence of appendicitis around thececum. No bowel obstruction. Wall thickening at the duodenum andproximal small bowel.. BONES AND SOFT TISSUES: Soft tissues and bones are within normal limits. IMPRESSION: Wall thickening at the duodenum and proximal small bowel compatible withan infectious or inflammatory duodenitis/enteritis. No abscess or freeair. No CT evidence of pancreatitis. Hepatic steatosis with hepatomegaly. -------- FINAL REPORT -------- Dictated By: MARCELINO JEFFERS Dictated Date: 03/11/2025 09:11 ET Assigned Physician: MARCELINO JEFFERS Reviewed and Electronically Signed By: MARCELINO JEFFERS Signed Date: 03/11/2025 09:15 ET Workstation ID: [id number] Transcribed By: Self Edit Transcribed Date: 03/11/2025 09:11 ET Jazmín Jones MD IMG CT PROCEDURES Final Result * Magnesium (03/11/2025 12:14 AM EDT) [facility] Magnesium 2.1 1.9 - 2.6 mg/dL LAB CHEMISTRY METHOD 03/11/2025 1:[address] [facility] Blood Venous blood specimen / Unknown Venipuncture / Unknown 03/11/2025 12:14 AM EDT 03/11/2025 12:30 AM EDT Jenniffer HERNANDEZ LAB BLOOD ORDERABLES Fin al Result Performing Organization Address City/[facility]/ZIP Co de Phone Number [facility] [address] [place] [address], [place] [phone] * (ABNORMAL) Ethanol (03/11/2025 12:14 AM EDT) [facility] Ethanol Level 291(H) 0 - 10 mg/dL LAB CHEMISTRY METHOD 03/11/2025 1:[address] [facility] Blood Venous blood specimen / Unknown Venipuncture / Unknown 03/11/2025 12:14 AM EDT 03/11/2025 12:30 AM EDT Jenniffer HERNANDEZ LAB BLOOD ORDERABLES Fin al Result [facility] [address] [place] [address], [place] [phone] * (ABNORMAL) CBC auto differential (03/11/2025 12:14 AM EDT) Pathologist [facility] WBC 6.2 4.8 - 10.8 K/[facility] LAB HEMETOLOGY METHOD 03/11/2025 12:[address] [facility] RBC 5.00 4.50 - 5.50 M/[facility] LAB HEMETOLOGY METHOD 03/11/2025 12:58 AM [facility] Hemoglobin 14.9 13.5 - 17.5 g/dL LAB HEMETOLOGY METHOD 03/11/2025 12:58 AM [facility] Hematocrit 44.3 42.0 - 54.0 % LAB HEMETOLOGY METHOD 03/11/2025 12:58 AM [facility] MCV 89.5 79.0 - 98.0 FL LAB HEMETOLOGY METHOD 03/11/2025 12:58 AM [facility] MCH 30.1 27.0 - 32.0 pcg LAB HEMETOLOGY METHOD 03/11/2025 12:58 AM [facility] MCHC 33.6 32.0 - 37.0 g/dL LAB HEMETOLOGY METHOD 03/11/2025 12:58 AM [facility] RDW 15.3(H) 11.0 - 15.0 % LAB HEMETOLOGY METHOD 03/11/2025 12:58 AM [facility] Platelets 338 130 - 400 K/mcL LAB HEMETOLOGY METHOD 03/11/2025 12:58 AM [facility] MPV 9.6 7.0 - 11.0 FL LAB HEMETOLOGY METHOD 03/11/2025 12:58 AM [facility] NRBC 0.0 <1.0 % LAB HEMETOLOGY METHOD 03/11/2025 12:58 AM [facility] NRBC Absolute 0.00 <0.10 K/mcL LAB HEMETOLOGY METHOD 03/11/2025 12:58 AM [facility] Neutrophils Relative 53.9 % LAB HEMETOLOGY METHOD 03/11/2025 12:58 AM [facility] Lymphocytes Relative 30.4 % LAB HEMETOLOGY METHOD 03/11/2025 12:58 AM [facility] Monocytes Relative 5.9 % LAB HEMETOLOGY METHOD 03/11/2025 12:[address] [facility] Eosinophils Relative 7.4 % LAB HEMETOLOGY METHOD 03/11/2025 12:[address] [facility] Basophils Relative 2.2 % LAB HEMETOLOGY METHOD 03/11/2025 12:[address] [facility] Immature Granulocytes Relative 0.2 % LAB HEMETOLOGY METHOD 03/11/2025 12:[address] [facility] Neutrophils Absolute 3.36 1.50 - 7.00 K/mcL LAB HEMETOLOGY METHOD 03/11/2025 12:[address] [facility] Lymphocytes Absolute 1.90 1.00 - 5.00 K/mcL LAB HEMETOLOGY METHOD 03/11/2025 12:[address] [facility] Monocytes Absolute 0.37 0.20 - 1.00 K/mcL LAB HEMETOLOGY METHOD 03/11/2025 12:[address] [facility] Eosinophils Absolute 0.46 0.00 - 0.50 K/mcL LAB HEMETOLOGY METHOD 03/11/2025 12:[address] [facility] Basophils Absolute 0.14 0.00 - 0.20 K/mcL LAB HEMETOLOGY METHOD 03/11/2025 12:[address] [facility] Immature Granulocytes Absolute 0.01 0.00 - 0.03 K/mcL LAB HEMETOLOGY METHOD 03/11/2025 12:[address] [facility] Blood Venous blood specimen / Unknown Venipuncture / Unknown 03/11/2025 12:14 AM EDT 03/11/2025 12:30 AM EDT us Jazmín Jones MD LAB BLOOD ORDERABLES Final Res ult [facility] [address] [place] [address], [place] [phone] * (ABNORMAL) Lipase (03/11/2025 12:14 AM EDT) Pathologist [facility] Lipase 176(H) 13 - 75 unit/L LAB CHEMISTRY METHOD 03/11/2025 1:[address] [facility] Blood Venous blood specimen / Unknown Venipuncture / Unknown 03/11/2025 12:14 AM EDT 03/11/2025 12:30 AM EDT us Jazmín Jones MD LAB BLOOD ORDERABLES Final Res ult [facility] [address] [place] [address], [place] [phone] * (ABNORMAL) Comprehensive metabolic panel (03/11/2025 12:14 AM EDT) [facility] Sodium 141 133 - 145 mmol/L LAB CHEMISTRY METHOD 03/11/2025 1:12 AM [facility] Potassium 4.0 3.5 - 5.5 mmol/L LAB CHEMISTRY METHOD 03/11/2025 1:12 AM [facility] Chloride 102 96 - 110 mmol/L LAB CHEMISTRY METHOD 03/11/2025 1:12 AM [facility] CO2 28 21 - 32 mmol/L LAB CHEMISTRY METHOD 03/11/2025 1:12 AM [facility] Anion Gap 11 3 - 11 LAB CHEMISTRY METHOD 03/11/2025 1:12 AM [facility] Glucose 110(H) 70 - 100 mg/dL LAB CHEMISTRY METHOD 03/11/2025 1:12 AM [facility] BUN 16 5 - 25 mg/dL LAB CHEMISTRY METHOD 03/11/2025 1:12 AM [facility] Creatinine 1.02 0.70 - 1.30 mg/dL LAB CHEMISTRY METHOD 03/11/2025 1:12 AM [facility] eGFR 95 >=60 mL/min/1. 73m2 LAB CHEMISTRY METHOD 03/11/2025 1:12 AM [facility] Comment:Calculation based on the Chronic Kidney Disease Epidemiology Collaboration (CKD-EPI) equation refit without adjustment for race. BUN/Creatinine Ratio 15.7 LAB CHEMISTRY METHOD 03/11/2025 1:12 AM [facility] Calcium 8.9 8.5 - 10.5 mg/dL LAB CHEMISTRY METHOD 03/11/2025 1:12 AM [facility] AST (SGOT) 63(H) 10 - 42 unit/L LAB CHEMISTRY METHOD 03/11/2025 1:12 AM [facility] ALT (SGPT) 40 10 - 60 unit/L LAB CHEMISTRY METHOD 03/11/2025 1:12 AM [facility] Alkaline Phosphatase 102 42 - 121 unit/L LAB CHEMISTRY METHOD 03/11/2025 1:12 AM [facility] Total Protein 7.2 6.0 - 8.0 g/dL LAB CHEMISTRY METHOD 03/11/2025 1:12 AM [facility] Albumin 4.2 3.2 - 5.0 g/dL LAB CHEMISTRY METHOD 03/11/2025 1:12 AM [facility] Total Bilirubin 0.4 0.0 - 1.4 mg/dL LAB CHEMISTRY METHOD 03/11/2025 1:12 AM [facility] Blood Venous blood specimen / Unknown Venipuncture / Unknown 03/11/2025 12:14 AM EDT 03/11/2025 12:30 AM EDT us Jazmín Jones MD LAB BLOOD ORDERABLES Final Res ult [facility] [address] [place] [address], [place] [phone] documented in this encounter Visit Diagnoses Diagnosis Acute alcoholic gastritis without hemorrhage- Primary Alcohol withdrawal syndrome without complication (CMS/HCC V24, CMS/[facility] V28) documented in this encounter Administered Medications Inactive Administered Medications - up to 3 most recent administrations Medication Order MAR Action Action Date Dose Rate Site aluminum-magnesium hydroxide-simethicone (MAALOX) 200-200-20 mg/5 mL suspension 30 mL 30 mL, oral, Once, On Fri03/11/25 at 0941, For 1 dose Given 03/11/2025 9:48 AM EDT 30 mL chlordiazePOXIDE (LIBRIUM) capsule 25 mg 25 mg, oral, Once, On Fri03/11/25 at 0651, For 1 dose Given 03/11/2025 7:52 AM EDT 25 mg famotidine (PF) (PEPCID) injection 20 mg 20 mg, intravenous, Administer over 2 Minutes, Once, On Fri03/11/25 at 0150, For 1 dose Given 03/11/2025 2:08 AM EDT 20 mg HYDROmorphone (DILAUDID) injection 2 mg 2 mg, intravenous, Once, On Fri03/11/25 at 0650, For 1 dose Given 03/11/2025 7:07 AM EDT 2 mg iopamidoL (ISOVUE-370) 370 mg iodine /mL (76 %) injection 90 mL 90 mL, intravenous, Once in imaging, Starting on Fri03/11/25 at 0820, For 1 dose Given 03/11/2025 8:26 AM EDT 90 mL LORazepam (ATIVAN) injection 2 mg 2 mg, intravenous, Once, On Fri03/11/25 at 0150, For 1 dose, Prior to IV use, lorazepam injection should be DILUTED with an equal volume of compatible solution; Rate of administration should NOT exceed 2 mg/min. Given 03/11/2025 2:08 AM EDT 2 mg LORazepam (ATIVAN) injection 2 mg 2 mg, intravenous, Once, On Fri03/11/25 at 0345, For 1 dose, Prior to IV use, lorazepam injection should be DILUTED with an equal volume of compatible solution; Rate of administration should NOT exceed 2 mg/min. Given 03/11/2025 3:58 AM EDT 2 mg metoclopramide (REGLAN) injection 10 mg 10 mg, intravenous, Once, On Fri03/11/25 at 0346, For 1 dose, Doses LESS than or equal to 10 mg can be given IV push undiluted over 1 minute Given 03/11/2025 3:58 AM EDT 10 mg morphine injection 8 mg 8 mg, intravenous, Once, On Fri03/11/25 at 0216, For 1 dose Given 03/11/2025 2:21 AM EDT 8 mg ondansetron ODT (ZOFRAN-ODT) disintegrating tablet 4 mg 4 mg, oral, Once, On Randi 03/10/25 at 2352, For 1 dose Given 03/11/2025 2:09 AM EDT 4 mg PHENobarbital injection 130 mg 130 mg, intravenous, Once, On Fri03/11/25 at 0345, For 1 dose, Administer no faster than 1 mg/kg/minute, to a max of 60 mg/min in adults. Hold dose and notify provider for BP LESS than 90/60, RR LESS than 10 per minute, marked somnolence, pooling of secretions, intoxicated symptoms (ataxia, slurred speech). IV PHENobarbital should only be used in highly supervised settings (e.g. ICU or intermediate/step down etc., with telemetry and frequent vital sign monitoring). Given 03/11/2025 3:58 AM EDT 130 mg sodium chloride 0.9 % bolus 1,000 mL 1,000 mL, intravenous, at 1,000 mL/hr, Administer over 1 Hours, Once, On Fri03/11/25 at 0118, For 1 dose New Bag 03/11/2025 2:08 AM EDT 1,000 mL 1000 mL/hr sodium chloride 0.9 % bolus 1,000 mL 1,000 mL, intravenous, at 1,000 mL/hr, Administer over 1 Hours, Once, On Fri03/11/25 at 0405, For 1 dose New Bag 03/11/2025 4:49 AM EDT 1,000 mL 1000 mL/hr sodium chloride 0.9 % bolus 1,000 mL 1,000 mL, intravenous, at 1,000 mL/hr, Administer over 1 Hours, Once, On Fri03/11/25 at 0632, For 1 dose Rate/Dose Verify 03/11/2025 8:17 AM EDT 1000 mL/hr New Bag 03/11/2025 7:06 AM EDT 1,000 mL 1000 mL/hr sodium chloride 0.9 % flush 10 mL 10 mL, intravenous, Once, On Fri03/11/25 at 0821, For 1 dose Given 03/11/2025 8:26 AM EDT 10 mL sucralfate (CARAFATE) tablet 1 g 1 g, oral, 4 times daily before meals and nightly, First dose on Fri03/11/25 at 1130 documented in this encounter Active and Recently Administered Medications Times are shown in EDT. Scheduled Medication Order 03/09/2025 03/10/2025 03/11/2025 aluminum-magnesium hydroxide-simethicone (MAALOX) 200-200-20 mg/5 mL suspension 30 mL (COMPLETED) 30 mL, oral, Once, On Fri03/11/25 at 0941, For 1 dose 0948 (Given - Provid er: Ariel Pope RN) chlordiazePOXIDE (LIBRIUM) capsule 25 mg (COMPLETED) 25 mg, oral, Once, On Fri03/11/25 at 0651, For 1 dose 0752 (Given - Provid er: Ariel Pope RN - Comment: assumed care 0700) famotidine (PF) (PEPCID) injection 20 mg (COMPLETED) 20 mg, intravenous, Administer over 2 Minutes, Once, On Fri03/11/25 at 0150, For 1 dose 0208 (Given - Provid er: Octavia Bean RN) HYDROmorphone (DILAUDID) injection 2 mg (COMPLETED) 2 mg, intravenous, Once, On Fri03/11/25 at 0650, For 1 dose 0707 (Given - Provid er: Octavia Bean RN) iopamidoL (ISOVUE-370) 370 mg iodine /mL (76 %) injection 90 mL (COMPLETED) 90 mL, intravenous, Once in imaging, Starting on Fri03/11/25 at 0820, For 1 dose 0826 (Given - Provid er: Swati Whitfield) LORazepam (ATIVAN) injection 2 mg (COMPLETED) 2 mg, intravenous, Once, On Fri03/11/25 at 0150, For 1 dose, Prior to IV use, lorazepam injection should be DILUTED with an equal volume of compatible solution; Rate of administration should NOT exceed 2 mg/min. 0208 (Given - Provid er: Octavia Bean RN) LORazepam (ATIVAN) injection 2 mg (COMPLETED) 2 mg, intravenous, Once, On Fri03/11/25 at 0345, For 1 dose, Prior to IV use, lorazepam injection should be DILUTED with an equal volume of compatible solution; Rate of administration should NOT exceed 2 mg/min. 0358 (Given - Provid er: Octavia Bean RN) metoclopramide (REGLAN) injection 10 mg (COMPLETED) 10 mg, intravenous, Once, On Fri03/11/25 at 0346, For 1 dose, Doses LESS than or equal to 10 mg can be given IV push undiluted over 1 minute 0358 (Given - Provid er: Octavia Bean RN) morphine injection 8 mg (COMPLETED) 8 mg, intravenous, Once, On Fri03/11/25 at 0216, For 1 dose 022 (Given - Provid er: Octavia Bean RN) ondansetron ODT (ZOFRAN-ODT) disintegrating tablet 4 mg (COMPLETED) 4 mg, oral, Once, On Randi 03/10/25 at 2352, For 1 dose 020 (Given - Provid er: Octavia Bean RN - Comment: patient just got roomed) PHENobarbital injection 130 mg (COMPLETED) 130 mg, intravenous, Once, On Fri03/11/25 at 0345, For 1 dose, Administer no faster than 1 mg/kg/minute, to a max of 60 mg/min in adults. Hold dose and notify provider for BP LESS than 90/60, RR LESS than 10 per minute, marked somnolence, pooling of secretions, intoxicated symptoms (ataxia, slurred speech). IV PHENobarbital should only be used in highly supervised settings (e.g. ICU or intermediate/step down etc., with telemetry and frequent vital sign monitoring). 0358 (Given - Provid er: Octavia Bean RN) sodium chloride 0.9 % bolus 1,000 mL (COMPLETED) 1,000 mL, intravenous, at 1,000 mL/hr, Administer over 1 Hours, Once, On Fri03/11/25 at 0118, For 1 dose 0208 (New Bag - Prov ider: Octavia Bean RN)0447 (Stopped - Provider: Octavia Bean RN) sodium chloride 0.9 % bolus 1,000 mL (COMPLETED) 1,000 mL, intravenous, at 1,000 mL/hr, Administer over 1 Hours, Once, On Fri03/11/25 at 0405, For 1 dose 0449 (New Bag - Prov ider: Octavia Bean RN)0601 (Stopped - Provider: Octavia Bean RN) sodium chloride 0.9 % bolus 1,000 mL (COMPLETED) 1,000 mL, intravenous, at 1,000 mL/hr, Administer over 1 Hours, Once, On Fri03/11/25 at 0632, For 1 dose 0706 (New Bag - Prov ider: Octavia Bean RN)0817 (Rate/Dose Verify - Provider: Ariel Pope RN)0940 (Stopped - Provider: Ariel Pope RN) sodium chloride 0.9 % flush 10 mL (COMPLETED) 10 mL, intravenous, Once, On Fri03/11/25 at 0821, For 1 dose 0826 (Given - Provid er: Swati Whitfield) sucralfate (CARAFATE) tablet 1 g 1 g, oral, 4 times daily before meals and nightly, First dose on Fri03/11/25 at 1130 1130 (Canceled Entry - Provider: Automatic Discharge Provider - Comment: Automatically canceled at discontinue of medication order) documented in this encounter Orders Medications Ordered That William ht Not Have Been Administered Count Last Ordered Date First Ordered Date morphine injection 4 mg 1 03/11/2025 sucralfate (CARAFATE) tablet 1 g 1 03/11/20 famotidine (PEPCID) tablet 20 mg 1 03/10/20 Nursing Count Last Ordered Date First Orde red Date NURSING GENERAL ASSESSMENTS AND INTERVENTIONS 1 03/11/2025 IV Count Last Ordered Date First Orde red Date INSERT PERIPHERAL IV 1 03/11/2025 documented in this encounter Care Teams Bearingizer Relationship Specialty Start Date End Date Physician, Pcp Unknown PCP - General 03/11/25 documented as of this encounter
--- OUTSIDE RECORDS SUMMARY | 2025-03-11 08:50 | XMS_ITS | Continuity of Care Document ---
Author Organization [facility] ter Address [address] [place] [id number]- Care Team Providers Care Ice Bag Assembler Name Role Phone Danilo Wilson MD [id number] Date[facility]s): [facility] - 03/11/[address] [address]- Discharge Disposition: A-D/C Walkout Attending Physician: Not on Staff, Attending MD Admitting Physician: Not on Staff, Admitting MD Referring Physician: Not on Staff, Referring MD Encounter Type: Disch ES Allergies, Adverse Reactions, Alerts Substance Criticality Severity Reaction Reaction Severity Status cephalexin Rash Active Medications allopurinol 100 mg oral tablet 100 mg, 1, tablet, By Mouth, Daily, # 30 tablet, Refills 0, Maintenance, 10/22/24 11:40:00 PM EDT, Partial fill upon patient request if the prescription is for a schedule II opioid drug. Start Date: 10/22/24 Status: Ordered Medication Dispense Status: Completed Quantity: 30.0 Unit: tablet Total Allowed Fills: 1 Fills Dispensed: 0 famotidine 20 mg oral tablet 20 mg, 1, tablet, By Mouth, 2 times a day, # 60 tablet, Refills 0, Tot. Refills 0, Maintenance, 12/21/24 2:15:00 AM EDT, Route to Pharmacy Electronically, [facility]/pharmacy #[id number], Partial fill upon patientrequest if the prescription is for a schedule II opioid drug., 183, cm, 12/20/24 22:49:00 EDT, Height, 82, kg, 12/20/24 22:49:00 EDT, Dry Weight Start Date: 12/21/24 Stop Date: 01/20/25 Status: Ordered Medication Dispense Status: Completed Quantity: 60.0 Unit: tablet Total Allowed Fills: 1 Fills Dispensed: 0 HydrOXYzine HCL Tablet = 25 mg, By Mouth, 3 times a day, 0 Refills, Maintenance, 10/23/24 7:26:00 AM EDT, Partial fill uponpatient request if the prescription is for a schedule II opioid drug. Start Date: 10/23/24 Status: Ordered Medication Dispense Status: Completed Total Allowed Fills: 1 Fills Dispensed: 0 metoprolol 50 mg oral tablet, extended release 50 mg, 1, tablet, By Mouth, Daily, # 90 tablet, Refills 3, Tot. Refills 3, Maintenance, 04/02/24 4:14:00 PM EST, Route to Pharmacy Electronically, [facility]/pharmacy #[id number], Partial fill upon patient request if the prescription is for a schedule II opioid drug., 182, cm, 04/02/24 15:43:00 EST, Height, 77.8, kg, 03/19/24 23:01:00 EST, Dry Weight Start Date: 04/02/24 Status: Ordered Medication Dispense Status: Completed Quantity: 90.0 Unit: tablet Total Allowed Fills: 4 Fills Dispensed: 0 pantoprazole 40 mg oral delayed release tablet 1 tablet = 40 mg, By Mouth, Daily, # 30 tablet, 0 Refills, Maintenance, 02/03/25 11:14:00 PM EDT, ECTablet Start Date: 02/03/25 Status: Ordered Medication Dispense Status: Completed Quantity: 30.0 Unit: tablet Total Allowed Fills: 1 Fills Dispensed: 0 VITAMIN B1 100 MG TABS VITAMIN B1 100 MG TABS, 0 Refills, Maintenance, 02/03/25 11:14:00 PM EDT Start Date: 02/03/25 Status: Ordered Medication Dispense Status: Completed Total Allowed Fills: 1 Fills Dispensed: 0 Mental Status Mental Status Assessment Assessment Assessment Component Result Effecti ve Date Sofía coma score total 15 Body weight 91 03/10/25 Scale weight (physic al object) Patient/family stated 03/10/25 Body height 183 03/10/25 Mental Status Assessment Assessment Assessment Component Result Effecti ve Date [place] coma score total 15 Problem List Condition Confirmation Course Effective Dates Status H ealth Status Informant Cardiomyopathy Confirmed Active Gout Confirmed Active History of intussusception Confirmed Active History of pancreatitis Confirmed Active Hydronephrosis, right Confirmed Active Hypertension Confirmed Active Nephrolithiasis Confirmed Active Paroxysmal A-fib Confirmed Active Alcohol use disorder, severe, dependence Confirmed Active Vital Signs Most recent to oldest [Reference Range]: 1 2 Height 183 cm (03/10/25 10:37 PM) 183 cm (03/10/25 10:23 PM) Weight 91 kg (03/10/25 10:37 PM) 91 kg (03/10/25 10:23 PM) Oxygen Saturation [94-100 %] 95 % (03/10/25 10:23 PM) Pulse Rate [55-90 bpm] 111 bpm *H* (03/10/25 10:23 PM) Body Mass Index [18.5-24.99 kg/m2] 27.17 kg/m2 *H* (03/10/25 10:23 PM) Blood Pressure [90-138/55-84 mm Hg] 135/ 96mm Hg (03/10/25 10:23 PM) Respiratory Rate [16-30 br/min] 18 br/mi n (03/10/25 10:23 PM) Temperature [96.8-100.4 DegF] 98.3 DegF (03/10/25 10:23 PM) Mode of Delivery (Oxygen) Room air (03/10/25 10:23 PM) Blood pressure sites Arm, left (03/10/25 10:23 PM) Temperature Route Oral (03/10/25 10:23 PM) Weight Obtained Via Patient/family state d (03/10/25 10:37 PM) Social History Social History Type Response Smoking Status Former smoker, quit more than 30 days ago entered on: 02/03/25 Sex Male Sex Representation Male (finding) Status N/A EKG study * Event Display: ECG 12-Lead Authored Date: Please click on pdf link to open report * Event Display: ECG 12-Lead Authored Date: Ventricular Rate: 110 BPM Atrial Rate: 110 BPM P-R Interval: 128 ms QRS Duration: 88 ms Q-T Interval: 366 ms QTC Calculation(Bazett): 495 ms P [place]: 56 degrees R [place]: -42 degrees T [place]: 9 degrees Sinus tachycardia Left axis deviation QTcB > 480 msec Abnormal ECG When compared with ECG of 03-Feb-2025 15:01, No significant change was found Confirmed by YAMILET CHO MD ([id number]) on 03/11/2025 7:53:20 AM Leroy: YAMILET CHO MD Patient Care team information Care Team Personnel Name: Danilo Wilson MD Position: S Physician - Primary Care Member Role: PCP Address: [address] [place] [address] Telecom: Name: Yazmin RN, Gay Evans Position: S RN Member Role: Primary Care Nurse Name: Ruthy Alvarado RN Position: S RN Member Role: Primary Care Nurse Name: Gladys Morse RN Position: S RN Member Role: Primary Care Nurse Name: Daniel Crow RN Position: [facility] RN Member Role: Primary Care Nurse Name: Juliano Mace RN Position: S RN Member Role: Primary Care Nurse Name: Chelsi RNBalta Position: [facility] RN Member Role: Primary Care Nurse Name: Sun Lantigua RN Position: [facility] RN Member Role: Primary Care Nurse Name: Gloria Dueñas RN Position: [facility] ED RN W/OE and Tasks Member Role: Primary Care Nurse Name: Charles Martin RN Position: [facility] RN Member Role: Primary Care Nurse Name: Milady Robertson RN Position: [facility] RN Member Role: Primary Care Nurse Name: Katia Dasilva RN Position: [facility] RN Member Role: Primary Care Nurse Name: Mookie Aldridge RN Position: [facility] RN Member Role: Primary Care Nurse Name: Ashlee Darby RN Position: S RN Member Role: Primary Care Nurse Name: Demetrice Holt RN Position: S RN Member Role: Primary Care Nurse Name: Candace Dodge RN Position: [facility] RN Member Role: Primary Care Nurse Name: Gina Nicholson RN Position: S RN Member Role: Primary Care Nurse Name: Marcial Mccann RN Position: S RN Member Role: Primary Care Nurse Name: Brianda Baltazar RN Position: S RN Member Role: Primary Care Nurse Care Team Related Persons Name: VINCENT STEELE Name: LAURY FRIAS Insurance Providers Guarantor name: YAMILET DUPREE [facility] Plan Information #: 1 Payer: [employer] Payer Identifier: NA Member Number: [id number] Group Number: [id number] Subscriber Identifier: [id number] Relationship to Subscriber: self Coverage Type: Self-pay (Includes applicants for insurance and Medicaid applicants) Coverage Verification Date: NA Telecom: NA Address: NA
--- NOTE | ~2025-03-12 | CT_ITS ---
CLINICAL HISTORY: epigastric pain, ? pancreatitis CT abdomen and pelvis with contrast Comparison: CT - CT ABDOMEN PELVIS W IV CON - 03/12/25 19:[address]/SR - CT ABDOMEN PELVIS W IV CON - 01/15/25 16:57 EDT Findings: No consolidation or effusion. Gallbladder is within normal limits. Multiple nonobstructing bilateral renal calculi, less than 5 mm in diameter. Solid organs are otherwise normal in appearance. No bowel obstruction, pneumoperitoneum, or pneumatosis. Multiple mildly prominent subcentimeter mesenteric lymph nodes. Pelvic contents unremarkable. Appendix is not seen. The bones are intact. IMPRESSION: 1. Findings consistent with mesenteric adenitis in the appropriate clinical setting. 2. Hepatic steatosis. 3. Nonobstructing bilateral renal calculi. This document has been electronically signed by: Sage Vásquez MD on 03/12/2025 20:08:54
[2025-03-12 15:43] VITALS: BP 124/74; PULSE 113; RESP 18; TEMP 36.6; O2SAT 95; BMI 25.4
--- NOTE | 2025-03-12 15:44 | ED.ABDPAIN ---
HPI - Abdominal Pain General Chief Complaint: Abdominal Pain Stated Complaint: Abd pain/vomiting/headache Time Seen by Provider: 03/12/25 18:45 History of Present Illness ED Provider: Daniel KAT narrative: The patient is an alcoholic. 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 He was admitted to this hospital 2 months ago because of alcoholism and abdominal pain. There was a question of possible pancreatitis. His lipase level was 125. His CT scan did not show obvious findings of pancreatitis. Nevertheless he was in the hospital for 6 days. The patient says that after leaving the hospital he has returned to working alcohol. Two days ago he started to experience epigastric pain again that is similar to the pain that he had when he was hospitalized here in January. He also says he has had nausea and vomiting and he comes to the emergency room because of his abdominal pain, nausea, and vomiting and generally feeling unwell. No fevers. Related Data Home Medications ?Medication ?Instructions ?Recorded ?Confirmed famotidine 20 mg tablet 20 mg PO BID 01/15/25 01/16/25 metoprolol succinate 50 mg 50 mg PO DAILY 01/15/25 01/16/25 tablet,extended release 24 hr pantoprazole 40 mg tablet,delayed 40 mg PO DAILY@0630 01/15/25 01/16/25 release allopurinol 300 mg tablet 300 mg PO DAILY 01/16/25 01/16/25 multivitamin 1 tab PO DAILY 01/16/25 01/16/25 Previous Rx's ?Medication ?Instructions ?Recorded folic acid 1 mg tablet 1 mg PO DAILY #90 tabs 01/17/25 thiamine mononitrate (vit B1) 100 100 mg PO DAILY #90 tabs 01/17/25 mg tablet bisacodyl 5 mg tablet,delayed 10 mg (2 x 5 mg) PO BEDTIME 15 01/18/25 release (Laxative (bisacodyl)) days #30 tabs Allergies Allergy/AdvReac Type Severity Reaction Status Date / Time cephalexin (From Keflex) Allergy Rash Verified 03/12/25 15:44 Review of Systems Review of Systems Yes all other systems are reviewed and are negative [facility] Social History Social History Household Members: None Housing: Apartment Do you presently have visiting nurse or other home services: No Alcohol intake: current Alcohol intake frequency: 3 or more drinks per day Alcohol type: hard liquor Patient Tobacco Use Status: Never used Tobacco Smoked in Last 30 Days: No Use of substances other than those prescribed or required for medical reasons: No Advance Directives: No Advance Directives Information Provided: No Do you have a plan to hurt others: No Plan service: No Physical Exam ED Vital Signs: Vital Signs - 24 hr 03/12/25 15:43 03/12/25 19:15 03/12/25 20:47 Temperature 97.9 F 98 F Pulse Rate 113 H 94 79 Respiratory Rate 18 16 10 L Blood Pressure 124/74 124/87 108/66 Pulse Oximetry 95 98 98 Oxygen Delivery Method Room Air Room Air Room Air 03/12/25 22:34 03/13/25 01:05 EDT 03/13/25 06:34 Temperature 97.7 F 97.7 F Pulse Rate 79 88 98 Respiratory Rate 14 14 18 Blood Pressure 123/86 126/88 110/79 Pulse Oximetry 98 94 98 Oxygen Delivery Method Room Air Room Air Room Air BMI result Body Mass Index 25.4 Const Other: The patient is a somewhat unkempt looking, slightly pale looking 39-year-old. He was awake and alert. He did not appear in obvious distress although he looked fatigued. HENMT Other: The face is symmetrical. ?Mucous membranes moist. Eyes Other: Pupils are round equal, conjunctivae are clear, extraocular movements intact Neck Neck: Yes normal visual inspection and Yes full ROM Resp Effort & Inspection: normal respiratory effort Auscultation: clear to auscultation bilaterally Cardio Rate: regular rate Rhythm: regular rhythm Heart sounds: S1 normal heart sound present and S2 normal heart sound present GI Other: There is some epigastric tenderness. There was no rebound or guarding. Skin Other: Skin is pale and dry Neuro Other: When the patient is awake and alert. His mental status seems clear. He was not significantly tremulous. Cranial nerves 2 through 12 are intact. He moves his extremities symmetrically and appropriately. He has normal strength, sensation, and coordination in his extremities. Extrem Other: No peripheral edema Course Course Course Narrative: This is a Rapid Medical Exam performed in triage by Tamara Samano PA-C. Full HPI, ROS and PE to be performed by primary ED provider. 39 yo M w/PMHx ETOH use d/o, pancreatitis, presenting to the ED c/o upper abdominal pain, nausea & vomiting x today. Admits he is a daily drinker, last drink a few hours ago. Denies hx withdrawal seizures - but does experience hallucinations PE: abdomen soft w/epigastric tenderness Plan: Labs, UA, Recovery Medical Decision Making Medical Decision Making [facility] Narrative: The patient is a 39-year-old male with a history of alcoholism who apparently has a history of an alcohol-related cardiomyopathy. He was admitted to the hospital 2 months ago with a question of possible alcoholic pancreatitis although his lipase was never higher than [address] scan did not show any changes consistent with pancreatitis. Since that hospitalization he returned to alcohol use and comes to the emergency room complaining of 2 days of abdominal pain similar to the pain that he had when he was admitted here in January. He has primarily epigastric pain. Today his lipase is 93. He has an unremarkable CBC with a white count of 6.8 and an unremarkable differential. He is not anemic. A CT of his abdomen and pelvis today again does not demonstrate any radiographic evidence of pancreatitis. His amylase is normal today. The patient was treated with IV morphine for pain. Also IV droperidol. He was also given IV pantoprazole. Given that he really does not have a lot of significant evidence that he might have pancreatitis I suspect that he is probably more likely having alcoholic gastritis. His ethanol level today is 306. I do not feel he was showing any definite signs of alcohol withdrawal. The a care team/recovery team consult was placed and the patient was seen by a member of the care team. When the patient has spoke to the care steam shovel operator however the patient seemed to think that he will be medically admitted and therefore no further action was taken. Given that the patient is not showing any definite signs of pancreatitis and given that he is not showing significant tremulousness or vital signs consistent with significant alcohol withdrawal I do not feel there is an indication for medical hospitalization. I spoke to the patient about this. Given this development the patient is willing to consider possible inpatient detox. The patient will therefore be kept in the emergency room to speak with the recovery team in the morning. In the meantime he was given 100 mg of chlordiazepoxide and he was also given a dose of liquid sucralfate. The patient will be placed in physician observation for further recommendation by the care team in hopes of placing the patient in a detox facility later today. However if he does develop significant alcohol withdrawal he might require medical hospitalization tonight. I received patient as a sign-out from Dr. Sanchez. Pending cost recovery technician evaluation. Patient's on re-evaluation stated that he is in alcohol withdrawal. CIWA score of 9. We will plan to give patient IV Valium and started on phenobarbital protocol. Patient will be admitted to the hospital for alcohol withdrawal. He is interested in us assisting with his symptoms management from alcohol withdrawal. Differential Diagnosis Differential Diagnoses: The differential diagnosis associated with the presentation includes Alcohol withdrawal, pancreatitis, alcoholic gastritis Lab Data MDM Lab Attestation statement: I reviewed the patient's lab results. 03/12/25 16:05 03/12/25 16:05 Labs: Lab Results 03/12/25 03/12/25 Range/Units 16:05 22:34 WBC 6.8 (4.8-10.8) X10*3/uL RBC 4.99 (4.60-5.80) X10*6/uL Hgb 14.9 (14.0-18.0) g/dl Hct 44.7 (42.0-52.0) % MCV 89.6 (80.0-98.0) fL MCH 29.9 (27.0-33.0) pg MCHC 33.3 (31.0-36.0) g/dl RDW 15.4 (11.0-16.0) % Plt Count 265 D (160-400) X10*3/uL MPV 9.1 L (9.4-12.4) fL Immature Gran % (Auto) 0.1 (0.0-0.4) % Neut % (Auto) 67.8 (45-73) % Lymph % (Auto) 21.8 (20-40) % [place] % (Auto) 5.2 (2-11) % Eos % (Auto) 3.6 (0-4) % Baso % (Auto) 1.5 (0-2) % Lymph # (Auto) 1.5 (1.2-4.9) X10*3/uL [place] # (Auto) 0.4 (0.1-1.2) X10*3/uL Eos # (Auto) 0.2 (0.0-0.4) X10*3/uL Baso # (Auto) 0.1 (0.0-0.2) X10*3/uL Abs Immat Gran (auto) 0.01 (0.00-0.03) X10*3/uL Absolute Neuts (auto) 4.6 (2.0-8.3) x10*3/uL Absolute Nucleated RBC 0.000 (0.0-0.012) X10*3/uL Nucleated RBC % (auto) 0.0 (0.0-0.2) /100WBC Sodium 142 (135-145) mmol/L Potassium 3.9 (3.3-5.1) mmol/L Chloride 104 (96-108) mmol/L Carbon Dioxide 27 (22-29) mmol/L Anion Gap 15 (12-20) BUN 9 (9-16) mg/dL Creatinine 0.91 (0.5-1.4) mg/dL Estim Creat Clear Calc 117.2 Estimated GFR > 60 Random Glucose 124 H (60-115) mg/dL Calcium 9.0 (8.4-10.2) mg/dL Magnesium 2.2 (1.6-2.6) mg/dL Total Bilirubin 0.3 (0.0-1.0) mg/dL Direct Bilirubin 0.1 (0.0-0.5) mg/dL AST 126 H (5-37) U/L ALT 39 (0-40) U/L Alkaline Phosphatase 96 (39-117) U/L Total Protein 7.2 (6.5-8.0) g/dL Albumin 4.8 (3.5-5.0) g/dL Amylase 32 (28-100) U/L Lipase 93 H (8-78) U/L Urine Color Yellow Urine Appearance Clear Urine pH 7.0 (5.0-9.0) Ur Specific [place] 1.025 (1.005-1.025) Urine Protein Negative (Neg-Trace) mg/dL Urine Glucose (UA) Negative (Negative) mg/dL Urine Ketones Negative (Negative) mg/dL Urine Blood Negative (Negative) Urine Nitrite Negative (Negative) Ur Leukocyte Esterase Negative (Negative) Urine Opiates Screen POSITIVE H (Not Detect) Ur Buprenorphine Scrn Not Detected (Not Detect) ng/mL Ur Oxycodone Screen Not Detected (Not Detect) ng/mL Urine Methadone Screen Not Detected (Not Detect) ng/mL Urine Fentanyl Screen Not Detected (Not Detect) Ur Barbiturates Screen POSITIVE H (Not Detect) Ur Phencyclidine Scrn Not Detected (Not Detect) Ur Amphetamines Screen Not Detected (Not Detect) U Benzodiazepines Scrn POSITIVE H (Not Detect) Urine Cocaine Screen Not Detected (Not Detect) U Marijuana (THC) Screen Not Detected (Not Detect) Ethyl Alcohol 306 H* mg/dL Independent Interpretation I performed an independent interpretation of an: CT Scan Radiology Impression Discussion of test interpretation with radiology: I have reviewed the radiologist's reading. Medications Administered Discontinued Medications Generic Name Dose Route Start Last Admin Trade Name Freq PRN Reason Stop Dose Admin Chlordiazepoxide HCl 100 mg 03/13/25 00:57 03/13/25 01:03 EDT Chlordiazepoxide Hcl 25 Mg Capsule PO 03/13/25 00:58 100 mg ONCE ONE Administration Droperidol 1.25 mg 03/12/25 18:53 03/12/25 19:13 Droperidol 5 Mg/2 Ml Vial IVPUSH 03/12/25 18:54 1.25 mg ONCE ONE Administration Lactated Ringer's 1,000 mls @ 999 mls/hr 03/12/25 19:00 03/12/25 20:28 Lr IV 03/12/25 20:00 Infused .Q1H1M ROMMEL Infusion Lactated Ringer's 1,000 mls @ 999 mls/hr 03/12/25 20:45 03/12/25 22:05 Lr IV 03/12/25 21:45 Infused .Q1H1M ROMMEL Infusion Iohexol 100 ml 03/12/25 19:30 03/12/25 19:30 Iohexol 350 Mg/Ml 100 Ml Infus..Btl IV 03/12/25 19:31 85 ml ONCE ONE Administration Morphine Sulfate 5 mg 03/12/25 18:53 03/12/25 19:13 Morphine Sulfate 10 Mg/Ml Cartridge IVPUSH 03/12/25 18:54 5 mg ONCE ONE Administration Protocol Pantoprazole Sodium 40 mg 03/12/25 18:54 03/12/25 19:13 Pantoprazole Sodium 40 Mg/10 Ml Vial IVPUSH 03/12/25 18:55 40 mg ONCE ONE Administration Sucralfate 1 gm 03/13/25 00:59 03/13/25 01:43 EDT Sucralfate Oral Suspension 1 Gm/10 Ml Oral.Susp PO 03/13/25 01:00 EST 1 gm ONCE ONE Administration Discharge Plan Discharge Clinical Impression: Alcoholic gastritis, Alcohol intoxication, Alcohol use disorder, Alcohol withdrawal Patient Disposition: Admitted As Inpatient Print Language: Chilean
[2025-03-12 16:10] LABS: MANUAL DIFF FLAG NO
[2025-03-12 16:11] LABS: Hematocrit 44.7 % (42.0-52.0); Hemoglobin 14.9 g/dl (14.0-18.0); Imm Gran Abs Auto 0.01 X10*3/uL (0.00-0.03); Imm Gran Pct Auto 0.1 % (0.0-0.4); Lymphocytes Absolute Auto 1.5 X10*3/uL (1.2-4.9); Mean Corpuscular HGB Conc 33.3 g/dl (31.0-36.0); Mean Corpuscular Hemoglobin 29.9 pg (27.0-33.0); Mean Corpuscular Volume 89.6 fL (80.0-98.0); NRBC Abs Auto 0.000 X10*3/uL (0.0-0.012); NRBC Pct Auto 0.0 /100WBC (0.0-0.2); Platelet Count 265 X10*3/uL (160-400); Red Blood Count 4.99 X10*6/uL (4.60-5.80); White Blood Count 6.8 X10*3/uL (4.8-10.8)
[2025-03-12 16:29] LABS: Alanine Aminotransferase 39 U/L (0-40); Albumin Level 4.8 g/dL (3.5-5.0); Alkaline Phosphatase 96 U/L (39-117); Anion Gap 15 (12-20); Aspartate Amino Transferase 126 U/L (5-37); Blood Urea Nitrogen 9 mg/dL (9-16); Calcium 9.0 mg/dL (8.4-10.2); Carbon Dioxide 27 mmol/L (22-29); Chloride 104 mmol/L (96-108); Creatinine Clr Calc Pharmacy 117.2; Estimated Glomerular Filt Rate > 60; Lipase 93 U/L (8-78); Magnesium 2.2 mg/dL (1.6-2.6); Potassium 3.9 mmol/L (3.3-5.1); Sodium 142 mmol/L (135-145); Total Protein 7.2 g/dL (6.5-8.0)
--- OUTSIDE RECORDS SUMMARY | 2025-03-12 18:38 | XMS_ITS | Encounter Summary ---
Author Organization [facility] Address [address] [place] [address] Phone Care Team Providers Care Dairy Supplies Sales Representative Name Role Phone Pcp, Unknown Primary Care Provider Unavailabl e Pcp, Unknown Primary Care Provider Unavailabl e Danilo Wilson MD Primary Care Provide r Encounter Details Date Type Department Care Team (Late st Contact Info) Description 01/01/2024 Procedure Pass [facility], Ct Scan - [facility] [address] [place] [address] Social History Tobacco Use Types Packs/Day Years [...] 10:41 PM EDT Anna Tsang RN * Sullivan Suicide Severity Rating Scale (Screener/Recent Self-Report) Question [...] on filedocumented in this encounter Care Teams Dairy Supplies Sales Representative Relationship Specialty Start Date End Date Pcp, Unknown PCP - General 01/01/24 05/14/24 Pcp, Unknown PCP - General 05/15/24 05/20/24 Danilo Wilson MD [address] [address] PCP - General Family Medicine 05/21/24 documented as of this encounter Additional Source Comments The information contained in this document represents components of the legal health record. It is not the complete legal health record.[facility]
--- OUTSIDE RECORDS SUMMARY | 2025-03-12 18:38 | XMS_ITS | Clinical Summary ---
Author Organization [facility] Address [address] [place] [address] Care Team Providers Care Emergency Medical Technician Basic Name Role Phone Adelaida Appiah MD Primary [...] age to complete this topic Care Teams Emergency Medical Technician Basic Relationship Specialty Start Date End Date Adelaida Appiah MD PCP - General Internal Medicine 10/20/18
--- OUTSIDE RECORDS SUMMARY | 2025-03-12 18:39 | XMS_ITS | Encounter Summary ---
Author Organization [facility] Address [address] [place] [address] Phone Care Team Providers Care Farm Contractor Name Role Phone Danilo Wilson MD Primary Care Provide r Encounter Details Date Type Department Care Team (Late st Contact Info) Description 12/09/2024 Procedure Pass [facility], Ct Scan - [facility] [address] [place] [address] Social History Tobacco Use Types Packs/Day Years [...] on filedocumented in this encounter Care Teams Farm Contractor Relationship Specialty Start Date End Date Danilo Wilson MD [address] [facility] [address] [place] [address] PCP - General Family Medicine 05/21/24 documented as of this encounter Additional Source Comments The information contained in this document represents components of the legal health record. It is not the complete legal health record.[facility]
--- OUTSIDE RECORDS SUMMARY | 2025-03-12 18:39 | XMS_ITS | Clinical Summary ---
Author Organization [facility] Address [address] [place] [address] Phone Care Team Providers Care Video Technician Name Role Phone Danilo Wilson MD Primary [...] a day before meals. 270 tablet 12/11/2024 pantoprazole (PROTONIX) 40 MG tablet Take 1 tablet (40 mg total) by mouth daily. 90 tablet 12/11/2024 Active Problems Problem Noted Date Diagnosed Date [...] Tegretol instead. Per patient, workup with Dr. Sandesr from [facility] neurology has otherwise been unremarkable. -Seizure precautions [...] Per patient, workup with Dr. Sanders from [facility] neurology has otherwise been unremarkable. -Seizure precautions [...] Encounters Date Type Department Care Team Description 12/08/2024 10:41 PM EDT - 12/11/2024 12:49 PM EDT Hospital Encounter [facility] [address] [place] [address] Toni Thomason DO Wong, Sing Wai, MD McKenna-Weiss, Eli, MD Yau, Cyrus H, MD Discharge Disposition: Home or Self Care from [...] VACCINE (#1) 2024 COVID-19 VACCINE (1 - 2024- season) 2025 CREATININE LEVEL 12/11/2025 12/11/2024, 05/2024, [...] METABOLIC PANEL Routine 12/10/2024 5:23 AM EDT HEPATITIS C ANTIBODY, QUALITATIVE Routine 05/16/2024 4:34 AM EST from Last 3 Months or Most Recently Relevant to Health Maintenance Results * LFTs (hepatic panel) (12/11/2024 6:14 AM EDT) ALKALINE PHOSPHATASE 86 39 - 117 U/L [facility] TOTAL BILIRUBIN 0.5 0.0 - 1.2 mg/dL [facility] DIRECT BILIRUBIN 0.1 0.0 - 0.2 mg/dL [facility] Bilirubin (Indirect) NOT CALCULATED 0 - 1.5 mg/dL [facility] AST 37 0 - 37 U/L [facility] ALT 21 0 - 40 U/L [facility] TOTAL PROTEIN 6.9 6.5 - 8.0 g/dL [facility] ALBUMIN 4.2 3.9 - 4.8 g/dL [facility] GLOBULIN 2.7 1 - 4.8 g/dL [facility] A/G Ratio 1.56 1.00 - 4.80 RATIO [facility] Blood 12/11/2024 6:14 AM EDT 12/11/2024 6:38 AM EDT us Toño Garcia MD LAB BLOOD ORDERABLES Final Resul t [address] [address] * CBC (12/11/2024 6:14 AM EDT) Only the most recent of2 resultswithin the time period is included. WBC 5.73 4.00 - 11.00 K/uL [facility] RBC 4.73 4.50 - 5.90 M/uL [facility] HGB 14.4 13.5 - 17.5 g/dL [facility] HCT 43.9 41.0 - 53.0 % [facility] PLT 321 150 - 450 K/uL [facility] MCV 92.8 80.0 - 100.0 fL [facility] MCH 30.4 27.0 - 31.0 pg [facility] MCHC 32.8 32.0 - 36.0 g/dL [facility] RDW 13.7 11.5 - 14.5 % [facility] MPV 10.1 8.4 - 12.0 fL [facility] NRBC 0.00 0.00 /100 WBCs [facility] ABSOLUTE NRBC 0.00 0.00 K/uL [facility] Blood 12/11/2024 6:14 AM EDT 12/11/2024 6:38 AM EDT us Toño Garcia MD LAB BLOOD ORDERABLES Final Resul t [address] [address] * (ABNORMAL) Basic metabolic panel (12/11/2024 6:14 AM EDT) SODIUM 138 133 - 146 mmol/L [facility] CHLORIDE 98 96 - 108 mmol/L [facility] POTASSIUM 3.7 3.3 - 5.1 mmol/L [facility] CO2 26 21 - 35 mmol/L [facility] BUN 7 6 - 19 mg/dL [facility] CREATININE 1.00 0.5 - 1.5 mg/dL [facility] GLUCOSE 100(H) 70 - 99 mg/dL [facility] CALCIUM 8.9 8.4 - 10.3 mg/dL [facility] EGFR 97 >59 mL/min/1.7 3m2 [facility] Comment:Estimated glomerular filtration rate calculated using the CKD-EPI refit equation. ANION GAP 18 10 - 20 mmol/L [facility] Blood 12/11/2024 6:14 AM EDT 12/11/2024 6:38 AM EDT us Toño Garcia MD LAB BLOOD ORDERABLES Final Resul t Performing Organization Address City/[facility]/ZIP Co de Phone Number [address] [address] * (ABNORMAL) Comprehensive metabolic panel (12/10/2024 5:23 AM EDT) SODIUM 137 133 - 146 mmol/L [facility] POTASSIUM 3.7 3.3 - 5.1 mmol/L [facility] CHLORIDE 98 96 - 108 mmol/L [facility] CO2 27 21 - 35 mmol/L [facility] BUN 13 6 - 19 mg/dL [facility] CREATININE 1.10 0.5 - 1.5 mg/dL [facility] GLUCOSE 80 70 - 99 mg/dL [facility] ALBUMIN 4.2 3.9 - 4.8 g/dL [facility] TOTAL PROTEIN 6.8 6.5 - 8.0 g/dL [facility] CALCIUM 9.1 8.4 - 10.3 mg/dL [facility] ALKALINE PHOSPHATASE 83 39 - 117 U/L [facility] TOTAL BILIRUBIN 0.8 0.0 - 1.2 mg/dL [facility] AST 40(H) 0 - 37 U/L [facility] ALT 23 0 - 40 U/L [facility] GLOBULIN 2.6 1 - 4.8 g/dL [facility] EGFR 86 >59 mL/min/1.7 3m2 [facility] Comment:Estimated glomerular filtration rate calculated using the CKD-EPI refit equation. ANION GAP 16 10 - 20 mmol/L [facility] Blood 12/10/2024 5:23 AM EDT 12/10/2024 6:09 AM EDT us Logan Staton MD LAB BLOOD ORDERABLES Final Resu lt Performing Organization Address City/[facility]/ZIP Co de Phone Number [address] [address] * Lipase (12/10/2024 5:23 AM EDT) LIPASE 33 16 - 63 U/L [facility] 12/10/2024 5:23 AM EDT 12/10/2024 6:09 AM EDT us Logan Staton MD LAB BLOOD ORDERABLES Final Resu lt Performing Organization Address City/[facility]/ZIP Co de Phone Number [address] [address] * Hepatitis C antibody, qualitative (05/16/2024 4:34 AM EST) HCV NON-REACTIV E NON-REACTI VE [facility] Blood 05/16/2024 4:34 AM EST 05/16/2024 4:41 AM EST us Ninfa Aponte PA-C, MPH LAB BLOOD ORDERABLE S Final Result [address] [address] from Last 3 Months or Most Recently Relevant to Health Maintenance Insurance [employer] ACO Member Subscriber Plan / Payer (Ef fective 2023-Present) Name:Armando Mary Relation to Subscriber:Self Name:Armando Mary Payer ID:Not on file Type:Medicaid Address: [place] [id number] PARTNERSHIP ACO PARTNERSHIP ACO PARTNERSHIP ACO Advance Directives For more information, please contact: [phone] (9AM - 5PM [facility], Friday-Friday) Documents on File Type Date Recorded Patient Technology Infusion Specialist Expl anation Healthcare Proxy 05/20/2024 3:20 PM [...] Agents on File Name Relationship Healthcare Agent Relationshi p Communication Teaagn Landis Mother .Primary Health Care Agent (Proxy form on file) Care Teams Video Technician Relationship Specialty Start Date End Date Danilo Wilson [facility] [address] [address] PCP - General Family Medicine 05/21/24 Additional Source Comments The information contained in this document represents components of the legal health record. It is not the complete legal health record.[facility]
--- OUTSIDE RECORDS SUMMARY | 2025-03-12 18:39 | XMS_ITS | Encounter Summary ---
Author Organization [facility] [place] [address] Care Team Providers Care [facility] Name Role Phone Physician, Pcp Unknown Primary Care Provider Alice vailable Encounter Details Date Type Department Care Team ([facility] st Contact Info) Description 09/28/2024 Referral Triage [facility] Worker Program [address] [place] [phone] Meenu Burden Social History Tobacco Use Types [...] for your loved ones. For example, child caregiver private home or elderly care for an older adult? [...] 09/22/2024 10:59 AM EDT Marielena Brewer RN * Because of a physical, mental, [...] Thalia. Meenu Burden Community Health Worker (CHW) Weigher Bulker/Regional documented in this encounter Plan of Treatment Not on file documented as of this encounter Visit Diagnoses Not on filedocumented in this encounter Care Teams [facility] Relationship Specialty Start Date End Date Physician, Pcp Unknown PCP - General 03/11/25 documented as of this encounter
--- OUTSIDE RECORDS SUMMARY | 2025-03-12 18:39 | XMS_ITS | Encounter Summary ---
Author Organization Located [facility] Address [address] [place] [address] Phone Care Team Providers Care Converter Supervisor Name Role Phone Danilo Wilson MD Primary Care Provide r Encounter Details Date Type Department Care Team (Late st Contact Info) Description 10/18/2024 Procedure Pass [facility], Ct Scan - [facility] [address] [place] [address] Social History Tobacco Use Types Packs/Day Years [...] on filedocumented in this encounter Care Teams Converter Supervisor Relationship Specialty Start Date End Date Danilo Wilson MD [address] [facility] [address] [place] [address] PCP - General Family Medicine 05/21/24 documented as of this encounter Additional Source Comments The information contained in this document represents components of the legal health record. It is not the complete legal health record.[facility]
--- OUTSIDE RECORDS SUMMARY | 2025-03-12 18:39 | XMS_ITS | Encounter Summary ---
Author Organization [facility] Address [address] [place] [address] Phone Care Team Providers Care Cook Apprentice Name Role Phone Pcp, Unknown Primary Care Provider Danilo Nolasco MD Primary Care Provide r Encounter Details Date Type Department Care Team (Late st Contact Info) Description 05/15/2024 Procedure Pass [facility], Ct Scan - [facility] [address] [place] [address] Social History Tobacco Use Types Packs/Day Years [...] 05/15/2024 7:33 PM Helena Irwin, CHOCO * [place] Suicide Severity Rating Scale (Screener/Recent Self-Report) Question [...] on filedocumented in this encounter Care Teams Cook Apprentice Relationship Specialty Start Date End Date Pcp, Unknown PCP - General 05/15/24 05/20/24 Danilo Wilson MD [address] [address] PCP - General Family Medicine 05/21/24 documented as of this encounter Additional Source Comments The information contained in this document represents components of the legal health record. It is not the complete legal health record.[facility]
--- OUTSIDE RECORDS SUMMARY | 2025-03-12 18:39 | XMS_ITS | Clinical Summary ---
Author Organization [facility] Address [address] [place] [address] Phone Care Team Providers Care Protective Signal Operations Supervisor Name Role Phone Physician, Pcp Unknown Primary Care Provider Alice vailable Allergies Active Allergy Reactions Criticality Noted Date [...] mg at night 50 each 09/25/2024 Active ondansetron (ZOFRAN) 4 mg tablet Take 1 tablet (4 mg total) by mouth every 6 (six) hours for 3 days. 12 tablet 03/11/2025 5 Active famotidine (PEPCID) 20 mg tablet Take 1 tablet (20 mg total) by mouth 2 (two) times a day for 15 days. 30 tablet 03/11/2025 5 Active Active Problems No known active problems Resolved Problems Problem Noted Date Diagnosed Date Resolved Date Alcohol withdrawal (CMS/HCC V24, CMS/HCC V28) 09/23/19 25 09/25/2024 Encounters Date Type Department Care Team Description 03/10/2025 11:50 PM EDT - 03/11/2025 10:04 AM EDT Emergency [facility] Emergency [address] [place] [address] Jazmín Jones MD Goebel, Mathew, MD Acute alcoholic gastritis without hemorrhage (Primary Dx); Alcohol withdrawal syndrome without complication ([facility] V24, [facility] V28) Discharge Disposition: Home or Self Care from Last 3 Months Surgical History Surgery Date Site/Laterality Comments OTHER SURGICAL HISTORY PROCEDURE: DENIES PREVIOUS SURGERY Medical History Medical History Date Comments Lumbar disc herniation with radiculopathy 2013 DX:Lumbar disc herniation wi th radiculopathy Alcohol abuse 2015 DX:Alcohol abuse Homeless 03/23/2018 DX:Homeless Cardiomyopathy ([facility] V24, [facility] V28) Family History Medical History Relation Name [...] for your loved ones. For example, child protection specialist or elderly care for an older adult? [...] Mass Index 24.41 03/11/2025 2:18 AM EDT Plan of Treatment Health Maintenance Due Date Last Done Comments DTaP,Tdap,and Td Vaccines (1 - Tdap) 10/31/2002 Hepatitis A Vaccines (1 of 2 - Risk 2-dose series) 10/31/2002 Hepatitis B Vaccines (1 of 3 - 19+ 3-dose series) 10/31/2002 Pneumococcal Vaccine: Pediatrics (0 to 5 Years) and At-Risk Patients (6 to 49 Years) (1 of 2 - PCV) 10/31/2002 HPV Vaccines (1 - 3-dose SCDM series) 10/31/2010 Cholesterol Screening (Lipid Panel) 04/13/2022 HIV Screening 04/13/2022 Depression Screening 05/12/2024 COVID-19 Vaccine ( season) 2025 Influenza Vaccine (#1) 2025 02/17/2014 Social Influencers of Health Screening 09/30/2025 09/30/2024 Hypertension/CHF/CAD Annual BMP Blood Test 03/11/2026 03/11/2025, 12/10/2024, 09/25/2024, Additional history exists RSV Immunization Adult Patients (1 - 1-dose 75+ series) 10/31/2058 Hepatitis C Screening Completed 05/16/2024 HIB Vaccines [...] W CONTRAST STAT 03/11/2025 8:33 AM EDT MAGNESIUM STAT 03/11/2025 12:14 AM EDT ETHANOL STAT 03/11/2025 12:14 AM EDT CBC WITH AUTO DIFFERENTIAL STAT 03/11/2025 12:14 AM EDT LIPASE STAT 03/11/2025 12:14 AM EDT COMPREHENSIVE METABOLIC PANEL STAT 03/11/2025 12:14 AM EDT CBC AND DIFFERENTIAL STAT 03/11/2025 12:14 AM EDT from Last 3 Months Results * CT Abdomen Pelvis w Contrast [...] hepatomegaly. -------- FINAL REPORT -------- Dictated By: NOEL JEFFERS Dictated Date: 03/11/2025 09:11 ET Assigned Physician: NOEL JEFFERS Reviewed and Electronically Signed By: NOEL JEFFERS Signed Date: 03/11/2025 09:15 ET Workstation ID: [id number] Transcribed By: Self Edit Transcribed Date: 03/11/2025 [...] bones are within normal limits. Procedure Note Noel Jeffers MD - 03/11/2025 PROCEDURE: CT ABDOMEN/PELVIS [...] hepatomegaly. -------- FINAL REPORT -------- Dictated By: NOEL JEFFERS Dictated Date: 03/11/2025 09:11 ET Assigned Physician: NOEL JEFFERS Reviewed and Electronically Signed By: NOEL JEFFERS Signed Date: 03/11/2025 09:15 ET Workstation ID: [id number] Transcribed By: Self Edit Transcribed Date: 03/11/2025 09:11 ET Jazmín Jones MD IMG CT PROCEDURES Final Result * (ABNORMAL) CBC auto differential (03/11/2025 12:14 AM EDT) [facility] WBC 6.2 4.8 - 10.8 K/mcL LAB HEMETOLOGY METHOD 03/11/2025 12:58 AM EDT [facility] RBC 5.00 4.50 - 5.50 M/mcL LAB HEMETOLOGY METHOD 03/11/2025 12:58 [facility] Hemoglobin 14.9 13.5 - 17.5 g/dL LAB HEMETOLOGY METHOD 03/11/2025 12:58 AM [facility] Hematocrit 44.3 42.0 - 54.0 % LAB HEMETOLOGY METHOD 03/11/2025 12:58 AM [facility] MCV 89.5 79.0 - 98.0 FL LAB HEMETOLOGY METHOD 03/11/2025 12:58 AM [facility] MCH 30.1 27.0 - 32.0 pcg LAB HEMETOLOGY METHOD 03/11/2025 12:58 AM [facility] MCHC 33.6 32.0 - 37.0 g/dL LAB HEMETOLOGY METHOD 03/11/2025 12:58 AM [facility] RDW 15.3(H) 11.0 - 15.0 % LAB HEMETOLOGY METHOD 03/11/2025 12:58 AM [facility] Platelets 338 130 - 400 K/mcL LAB HEMETOLOGY METHOD 03/11/2025 12:58 AM [facility] MPV 9.6 7.0 - 11.0 FL LAB HEMETOLOGY METHOD 03/11/2025 12:58 AM [facility] NRBC 0.0 <1.0 % LAB HEMETOLOGY METHOD 03/11/2025 12:58 AM [facility] NRBC Absolute 0.00 <0.10 K/mcL LAB HEMETOLOGY METHOD 03/11/2025 12:58 AM [facility] Neutrophils Relative 53.9 % LAB HEMETOLOGY METHOD 03/11/2025 12:58 AM [facility] Lymphocytes Relative 30.4 % LAB HEMETOLOGY METHOD 03/11/2025 12:58 AM [facility] Monocytes Relative 5.9 % LAB HEMETOLOGY METHOD 03/11/2025 12:58 AM [facility] Eosinophils Relative 7.4 % LAB HEMETOLOGY METHOD 03/11/2025 12:58 AM [facility] Basophils Relative 2.2 % LAB HEMETOLOGY METHOD 03/11/2025 12:58 AM [facility] Immature Granulocytes Relative 0.2 % LAB HEMETOLOGY METHOD 03/11/2025 12:58 AM [facility] Neutrophils Absolute 3.36 1.50 - 7.00 K/mcL LAB HEMETOLOGY METHOD 03/11/2025 12:58 AM [facility] Lymphocytes Absolute 1.90 1.00 - 5.00 K/mcL LAB HEMETOLOGY METHOD 03/11/2025 12:58 AM [facility] Monocytes Absolute 0.37 0.20 - 1.00 K/mcL LAB HEMETOLOGY METHOD 03/11/2025 12:58 AM [facility] Eosinophils Absolute 0.46 0.00 - 0.50 K/mcL LAB HEMETOLOGY METHOD 03/11/2025 12:58 AM [facility] Basophils Absolute 0.14 0.00 - 0.20 K/[facility] LAB HEMETOLOGY METHOD 03/11/2025 12:58 AM EDT [facility] Immature Granulocytes Absolute 0.01 0.00 - 0.03 K/[facility] LAB HEMETOLOGY METHOD 03/11/2025 12:58 AM EDT [facility] Blood Venous blood specimen / Unknown Venipuncture / Unknown 03/11/2025 12:14 AM EDT 03/11/2025 12:30 AM EDT Jazmín Jones MD LAB BLOOD ORDERABLES Final Res ult Performing Organization Address [facility]/ZIP Co de Phone Number [facility] [address] [place] [address], [place] [phone] * Magnesium (03/11/2025 12:14 AM EDT) Magnesium 2.1 1.9 - 2.6 mg/dL LAB CHEMISTRY METHOD 03/11/2025 1:07 AM EDT [facility] Blood Venous blood specimen / Unknown Venipuncture / Unknown 03/11/2025 12:14 AM EDT 03/11/2025 12:30 AM EDT Jenniffer HERNANDEZ LAB BLOOD ORDERABLES Fin al Result Performing Organization Address [facility]/ZIP Co de Phone Number [facility] [address] [place] [address], [place] [phone] * (ABNORMAL) Lipase (03/11/2025 12:14 AM EDT) Lipase 176(H) 13 - 75 unit/L LAB CHEMISTRY METHOD 03/11/2025 1:12 AM EDT [facility] Blood Venous blood specimen / Unknown Venipuncture / Unknown 03/11/2025 12:14 AM EDT 03/11/2025 12:30 AM EDT Jazmín Jones MD LAB BLOOD ORDERABLES Final Res ult Performing Organization Address City/[facility]/ZIP Co de Phone Number [facility] [address] [place] [address], [place] [phone] * (ABNORMAL) Ethanol (03/11/2025 12:14 AM EDT) [facility] Ethanol Level 291(H) 0 - 10 mg/dL LAB CHEMISTRY METHOD 03/11/2025 1:26 AM EDT [facility] Blood Venous blood specimen / Unknown Venipuncture / Unknown 03/11/2025 12:14 AM EDT 03/11/2025 12:30 AM EDT Jenniffer HERNANDEZ LAB BLOOD ORDERABLES Fin al Result Performing Organization Address [facility]/ZIP Co de Phone Number [facility] [address] [place] [address], [place] [phone] * (ABNORMAL) Comprehensive metabolic panel (03/11/2025 12:14 AM EDT) [facility] Sodium 141 133 - 145 mmol/L LAB CHEMISTRY METHOD 03/11/2025 1:12 AM [facility] Potassium 4.0 3.5 - 5.5 mmol/L LAB CHEMISTRY METHOD 03/11/2025 1:12 AM [facility] Chloride 102 96 - 110 mmol/L LAB CHEMISTRY METHOD 03/11/2025 1:12 AM [facility] CO2 28 21 - 32 mmol/L LAB CHEMISTRY METHOD 03/11/2025 1:12 AM [facility] Anion Gap 11 3 - 11 LAB CHEMISTRY METHOD 03/11/2025 1:12 AM [facility] Glucose 110(H) 70 - 100 mg/dL LAB CHEMISTRY METHOD 03/11/2025 1:12 AM [facility] BUN 16 5 - 25 mg/dL LAB CHEMISTRY METHOD 03/11/2025 1:12 AM [facility] Creatinine 1.02 0.70 - 1.30 mg/dL LAB CHEMISTRY METHOD 03/11/2025 1:12 AM [facility] eGFR 95 >=60 mL/min/1. 73m2 LAB CHEMISTRY METHOD 03/11/2025 1:12 AM [facility] Comment:Calculation based on the Chronic Kidney Disease Epidemiology Collaboration (CKD-EPI) equation refit without adjustment for race. BUN/Creatinine Ratio 15.7 LAB CHEMISTRY METHOD 03/11/2025 1:12 AM [facility] Calcium 8.9 8.5 - 10.5 mg/dL LAB CHEMISTRY METHOD 03/11/2025 1:12 AM [facility] AST (SGOT) 63(H) 10 - 42 unit/L LAB CHEMISTRY METHOD 03/11/2025 1:12 AM [facility] ALT (SGPT) 40 10 - 60 unit/L LAB CHEMISTRY METHOD 03/11/2025 1:12 AM [facility] Alkaline Phosphatase 102 42 - 121 unit/L LAB CHEMISTRY METHOD 03/11/2025 1:12 AM [facility] Total Protein 7.2 6.0 - 8.0 g/dL LAB CHEMISTRY METHOD 03/11/2025 1:12 AM [facility] Albumin 4.2 3.2 - 5.0 g/dL LAB CHEMISTRY METHOD 03/11/2025 1:12 AM [facility] Total Bilirubin 0.4 0.0 - 1.4 mg/dL LAB CHEMISTRY METHOD 03/11/2025 1:12 AM [facility] Blood Venous blood specimen / Unknown Venipuncture / Unknown 03/11/2025 12:14 AM EDT 03/11/2025 12:30 AM EDT us Jazmín Jones MD LAB BLOOD ORDERABLES Final Res ult [facility] [address] [place] [address], from Last 3 Months Insurance [employer] [address] [place] [address] Advance Directives * Full Code - Default [...] currently active code status orders. Care Teams Protective Signal Operations Supervisor Relationship Specialty Start Date End Date Physician, Pcp Unknown PCP - General 03/11/25
--- OUTSIDE RECORDS SUMMARY | 2025-03-12 18:39 | XMS_ITS | Encounter Summary ---
Author Organization [facility] Address [address] [place] [address] Phone Care Team Providers Care Motorcycle Police Officer Name Role Phone Pcp, Unknown Primary Care Provider Danilo Nolasco MD Primary Care Provide r Encounter Details Date Type Department Care Team (Late st Contact Info) Description 05/15/2024 Procedure Pass [facility], Ct Scan - [facility] [address] [place] [address] Social History Tobacco Use Types Packs/Day Years [...] 05/15/2024 7:33 PM Helena Irwin, CHOCO * [place] Suicide Severity Rating Scale (Screener/Recent Self-Report) Question [...] on filedocumented in this encounter Care Teams Motorcycle Police Officer Relationship Specialty Start Date End Date Pcp, Unknown PCP - General 05/15/24 05/20/24 Danilo Wilson MD [address] [address] PCP - General Family Medicine 05/21/24 documented as of this encounter Additional Source Comments The information contained in this document represents components of the legal health record. It is not the complete legal health record.[facility]
--- OUTSIDE RECORDS SUMMARY | 2025-03-12 18:39 | XMS_ITS | Encounter Summary ---
Author Organization [facility] Address [address] [place] [address] Phone Care Team Providers Care Consular Officer Name Role Phone Danilo Wilson MD Primary Care Provide r Encounter Details Date Type Department Care Team (Late st Contact Info) Description 07/06/2024 Procedure Pass [facility], Ct Scan - [facility] [address] [place] [address] Social History Tobacco Use Types Packs/Day Years [...] on filedocumented in this encounter Care Teams Consular Officer Relationship Specialty Start Date End Date Danilo Wilson MD [address] [facility] [address] [place] [address] PCP - General Family Medicine 05/21/24 documented as of this encounter Additional Source Comments The information contained in this document represents components of the legal health record. It is not the complete legal health record.[facility]
--- OUTSIDE RECORDS SUMMARY | 2025-03-12 18:39 | XMS_ITS | Encounter Summary ---
Author Organization [facility] Address [address] [place] [address] Phone Care Team Providers Care Special Projects Coordinator Name Role Phone Pcp, Unknown Primary Care Provider Danilo Nolasco MD Primary Care Provide r Encounter Details Date Type Department Care Team (Late st Contact Info) Description 05/16/2024 Procedure Pass [place] Admitting Dept - Virtual Department [address] [place] [address] Social History Tobacco Use Types Packs/Day Years [...] on filedocumented in this encounter Care Teams Special Projects Coordinator Relationship Specialty Start Date End Date Pcp, Unknown PCP - General 05/15/24 05/20/24 Danilo Wilson MD [address] [address] PCP - General Family Medicine 05/21/24 documented as of this encounter Additional Source Comments The information contained in this document represents components of the legal health record. It is not the complete legal health record.[facility]
--- OUTSIDE RECORDS SUMMARY | 2025-03-12 18:39 | XMS_ITS | Encounter Summary ---
Author Organization [facility] Address [address] [place] [address] Phone Care Team Providers Care Commodities Trader Name Role Phone Danilo Wilson MD Primary Care Provide r Encounter Details Date Type Department Care Team (Late st Contact Info) Description 08/09/2024 Procedure Pass [facility], Ct Scan - [facility] [address] [place] [address] Social History Tobacco Use Types Packs/Day Years [...] 8:37 PM EDT Darlene Gomez RN * [place] Suicide Severity Rating Scale (Screener/Recent Self-Report) Question [...] on filedocumented in this encounter Care Teams Commodities Trader Relationship Specialty Start Date End Date Danilo Wilson MD [address] [address] PCP - General Family Medicine 05/21/24 documented as of this encounter Additional Source Comments The information contained in this document represents components of the legal health record. It is not the complete legal health record.[facility]
--- OUTSIDE RECORDS SUMMARY | 2025-03-12 18:39 | XMS_ITS | Encounter Summary ---
Author Organization [facility] Address [address] [place] [address] Phone Care Team Providers Care Lodging House Keeper Name Role Phone Danilo Wilson MD Primary Care Provide r Encounter Details Date Type Department Care Team (Late st Contact Info) Description 07/06/2024 Procedure Pass [facility], Ct Scan - [facility] [address] [place] [address] Social History Tobacco Use Types Packs/Day Years [...] on filedocumented in this encounter Care Teams Lodging House Keeper Relationship Specialty Start Date End Date Danilo Wilson MD [address] [facility] [address] [place] [address] PCP - General Family Medicine 05/21/24 documented as of this encounter Additional Source Comments The information contained in this document represents components of the legal health record. It is not the complete legal health record.[facility]
--- OUTSIDE RECORDS SUMMARY | 2025-03-12 18:39 | XMS_ITS | Encounter Summary ---
Author Organization [facility] Address [address] [place] [address] Phone Care Team Providers Care Machine Operator Slitter Technician Name Role Phone Pcp, Unknown Primary Care Provider Patricia Wilson, Danilo Wisdom MD Primary Care Provide r Encounter Details Date Type Department Care Team (Late st Contact Info) Description 05/17/2024 Procedure Pass [facility] [address] [place] [address] Social History Tobacco Use Types Packs/Day Years [...] on filedocumented in this encounter Care Teams Machine Operator Slitter Technician Relationship Specialty Start Date End Date Pcp, Unknown PCP - General 05/15/24 05/20/24 Danilo Wilson MD [address] [facility] [address] [place] [address] PCP - General Family Medicine 05/21/24 documented as of this encounter Additional Source Comments The information contained in this document represents components of the legal health record. It is not the complete legal health record.[facility]
[2025-03-12] MEDS: Lactated Ringers 1,000 ML 999 ML IV ×2 (19:14→20:46)
[2025-03-12 19:15] VITALS: BP 124/87; PULSE 94; RESP 16; TEMP 36.6; O2SAT 98
[2025-03-12] MEDS: iohexoL 350 MG/ML 100 ML INFUS..BTL IV (19:30)
[2025-03-12 20:33] LABS: Amylase 32 U/L (28-100)
[2025-03-12 20:47] VITALS: BP 108/66; PULSE 79; RESP 10; O2SAT 98
[2025-03-12 22:34] VITALS: BP 123/86; PULSE 79; RESP 14; O2SAT 98
[2025-03-12 22:43] LABS: Appearance Urine Clear; Glucose Urine UA Negative (Negative); PH 7.0 (5.0-9.0); Specific Gravity - Urine 1.025 (1.005-1.025)
[2025-03-12 22:53] LABS: Cannabinoid Screen Urine Not Detected (Not Detect)
--- NOTE | 2025-03-12 23:10 | PC.NURSE ---
Assumed care of this Pt at 2300.
[2025-03-13] VITALS (15 sets, daily range): BP systolic 110–141; BP diastolic 65–99; PULSE 67–108; RESP 11–22; TEMP 36.5–36.8; O2SAT 94–99
[2025-03-13] MEDS: Sucralfate Oral Suspension 1 GM/10 ML ORAL.SUSP PO (01:43)
--- NOTE | 2025-03-13 06:41 | PC.NURSE ---
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 Dr. Holley made aware. Pending verification for meds.
[2025-03-13] MEDS: diazePAM 10 MG/2 ML CARTRIDGE 5 MG IVPUSH (06:56)
[2025-03-13] MEDS: Lactated Ringers 1,000 ML 100 ML IVCONT ×2 (07:19→16:44)
[2025-03-13] MEDS: PHENobarbitaL sodium 130 MG/ML IM ONCE 310 MG IM (07:36)
--- NOTE | 2025-03-13 07:36 | P.HPHOSP_ITS ---
History of Present Illness Date of Service: 03/13/25 Chief Complaint: Alcohol withdrawal 39-year-old male with a history of alcohol abuse last admitted 01/15/2025 through 01/21/2025 presents with alcohol withdrawal symptoms and abdominal pain. Patient states he has been drinking 1 pt of rum a day sometimes more. Last drink was 24 hours ago. He also notes a history of cardiomyopathy related to his alcohol consumption. He states he follows with facility attendant at [facility] and takes metoprolol daily. He states he has been compliant with this medication. He also has a history of gout for which he takes allopurinol without issue. He was observed in the ER and set to be discharged however he began to withdrawal with a CIWA score of 9. Phenobarb protocol was instituted and admission requested Review of Systems 2 Review of Systems: Denies chest pain Denies shortness of breath Denies nausea vomiting diarrhea Denies fever chills PMFSH Social History Household Members: None Housing: Apartment Do you presently have visiting nurse or other home services: No Alcohol intake: current Alcohol intake frequency: 3 or more drinks per day Alcohol type: hard liquor Patient Tobacco Use Status: Never used Tobacco Smoked in Last 30 Days: No Use of substances other than those prescribed or required for medical reasons: No Advance Directives: No Advance Directives Information Provided: No Do you have a plan to hurt others: No Plan service: No Meds Allergies Allergy/AdvReac Type Severity Reaction Status Date / Time cephalexin (From Keflex) Allergy Rash Verified 03/12/25 15:44 Active Medications: Current Medications Acetaminophen (Acetaminophen 325 Mg Tablet) 650 mg PO Q6H PRN PRN Reason: Pain, Mild 1-3,fever,headache Calcium Carbonate (Calcium Carbonate 750 Mg Tab.Chew) 750 mg PO Q4H PRN PRN Reason: Heartburn Enoxaparin Sodium (Enoxaparin Sodium 40 Mg/0.4 Ml Syringe) 40 mg SUBCUT Q24H [facility] Lactated Ringer's (Lr) 1,000 mls @ 100 mls/hr IVCONT .Q10H [facility] Last Admin: 03/13/25 07:19 Dose: 100 mls/hr Magnesium Hydroxide (Milk Of Magnesia 30 Ml Oral.Susp) 30 ml PO DAILY PRN PRN Reason: Constipation Melatonin (Melatonin 3 Mg Tablet) 6 mg PO BEDTIME PRN PRN Reason: Insomnia Metoprolol Succinate (Metoprolol Succinate Er 25 Mg Tab.Er.24h) 25 mg PO DAILY [facility]; Protocol Morphine Sulfate (Morphine Sulfate 4 Mg/Ml Cartridge) 4 mg IVPUSH Q4H PRN; Protocol PRN Reason: Pain, Severe (Pain Scale 7-10) Ondansetron HCl (Ondansetron Hcl 4 Mg/2 Ml Vial) 4 mg IVPUSH Q8H PRN PRN Reason: Nausea and Vomiting Pantoprazole Sodium (Pantoprazole Sodium 40 Mg/10 Ml Vial) 40 mg IVPUSH BID@0630,1630 [facility] Pharmacy Consult (Consult Rx Etoh Phenob Im/Po) 1 each MISCELLANE ONCE PRN; Protocol PRN Reason: Consult order Phenobarbital (Phenobarbital 30 Mg Tablet) 60 mg PO BID [facility]; Protocol Stop: 03/15/25 09:01 Phenobarbital (Phenobarbital 30 Mg Tablet) 30 mg PO BID [facility]; Protocol Stop: 03/17/25 09:01 Phenobarbital (Phenobarbital 30 Mg Tablet) 30 mg PO DAILY [facility]; Protocol Stop: 03/19/25 09:01 Phenobarbital Sodium (Phenobarbital Sodium 130 Mg/Ml Im Once) 310 mg IM ONCE ONE; Protocol Stop: 03/13/25 08:01 Phenobarbital Sodium (Phenobarbital Sodium 130 Mg/Ml Vial Im Q3hx2) 233 mg IM Q3H [facility]; Protocol Stop: 03/13/25 14:01 Sodium Chloride (0.9 % Sodium Chloride Flush 3 Ml Syringe) 3 ml [facility]USH [facility] Home Medications ?Medication ?Instructions ?Recorded ?Confirmed ?Last Taken ?Type famotidine 20 mg tablet 20 mg PO BID 01/15/2501/15/25 09:00 History metoprolol succinate 50 mg 50 mg PO DAILY 01/15/2512/0301/15/25 09:00 History tablet,extended release 24 hr pantoprazole 40 mg tablet,delayed 40 mg PO DAILY@0630 01/15/25 01/16/25 01/15/25 09:00 History release allopurinol 300 mg tablet 300 mg PO DAILY 01/16/2512/0301/15/25 09:00 History multivitamin 1 tab PO DAILY 01/16/25 09/12/0301/15/25 09:00 History Physical Exam 2 Vital Signs and Narrative: Vital Signs: Last Vital Signs Temp 97.7 F 03/13/25 06:34 Pulse 98 03/13/25 06:34 Resp 18 03/13/25 06:34 BP 110/79 03/13/25 06:34 Pulse Ox 98 03/13/25 06:34 O2 Del Method Room Air 03/13/25 06:34 BMI result Body Mass Index 25.4 Const: Other: Awake alert tremulous Resp: Other: Clear to auscultation bilaterally no rales rhonchi or wheezes Cardio: Other: No S4; positive S1-S2; no S3 murmurs rubs or gallops GI: Other: Soft nontender nondistended normoactive bowel sounds Neuro: Other: Cranial nerves 2-12 grossly intact as tested. Motor is 5/5 all extremities. Sensation is intact. Cognition appropriate. Gait not observed Extrem: Other: No edema bilaterally Results Labs 03/12/25 16:05 03/12/25 16:05 Labs: Laboratory Results - last 24 hr 03/12/25 03/12/25 16:05 22:34 MCV 89.6 MCH 29.9 MCHC 33.3 RDW 15.4 Plt Count 265 D MPV 9.1 L Immature Gran % (Auto) 0.1 Neut % (Auto) 67.8 Lymph % (Auto) 21.8 [place] % (Auto) 5.2 Eos % (Auto) 3.6 Baso % (Auto) 1.5 Lymph # (Auto) 1.5 [place] # (Auto) 0.4 Eos # (Auto) 0.2 Baso # (Auto) 0.1 Abs Immat Gran (auto) 0.01 Absolute Neuts (auto) 4.6 Absolute Nucleated RBC 0.000 Nucleated RBC % (auto) 0.0 Anion Gap 15 Estim Creat Clear Calc 117.2 Estimated GFR > 60 Random Glucose 124 H Calcium 9.0 Magnesium 2.2 Total Bilirubin 0.3 Direct Bilirubin 0.1 AST 126 H ALT 39 Alkaline Phosphatase 96 Total Protein 7.2 Albumin 4.8 Amylase 32 Lipase 93 H Urine Color Yellow Urine Appearance Clear Urine pH 7.0 Ur Specific Beason 1.025 Urine Protein Negative Urine Glucose (UA) Negative Urine Ketones Negative Urine Blood Negative Urine Nitrite Negative Ur Leukocyte Esterase Negative Urine Opiates Screen POSITIVE H Ur Buprenorphine Scrn Not Detected Ur Oxycodone Screen Not Detected Urine Methadone Screen Not Detected Urine Fentanyl Screen Not Detected Ur Barbiturates Screen POSITIVE H Ur Phencyclidine Scrn Not Detected Ur Amphetamines Screen Not Detected U Benzodiazepines Scrn POSITIVE H Urine Cocaine Screen Not Detected U Marijuana (THC) Screen Not Detected Ethyl Alcohol 306 H* Assessment and Plan (1) Alcohol abuse with withdrawal: Status: Acute (2) Alcoholic gastritis: Qualifiers: Chronicity: acute Gastritis bleeding: without bleeding Qualified Code(s): K29.20 - Alcoholic gastritis without bleeding Status: Acute (3) Alcoholic cardiomyopathy: Status: Acute Plan 39-year-old male with longstanding history of alcohol abuse consuming 1 pt of liquor per day presents with a desire to detox. Admission alcohol was 306. Originally he was observed in the ER however began to feel poorly and CIWA score was counted at 9. Phenobarb protocol was initiated and admission requested 1. Alcohol withdrawal -phenobarb protocol as outlined -supplemental IV Valium as clinically indicated -observe on CIWA scale -addiction Medicine consult when appropriate 2. Alcoholic gastritis (minimal elevation in lipase) -IV pantoprazole -clear liquid diet; advance as tolerated -no CTA evidence of pancreatitis 3. Alcoholic cardiomyopathy -start metoprolol 25 mg daily -had recent echo at [facility] 3 months ago; we will attempt to recover results 4. Gout -no acute issues at this time -continue allopurinol Full code Lovenox Patient will require a minimum of 2 nights inpatient stay going forward to treat acute alcohol withdrawal with phenobarb and supplemental Valium IV. This can not be achieved in a lesser acute setting Quality Stroke Does the patient have a stroke diagnosis?: No VTE Prior VTE?: No VTE Risk Level:: Medical - moderate - high VTE Device Contraindication: Treatment Not Indicated VTE Drug Contraindication: N/A - Med Ordered
--- NOTE | 2025-03-13 08:34 | PHA.MEDREC ---
Pharmacy Consult ? Medication Reconciliation Pharmacy has completed the medication reconciliation. Spoke with patient, patient stated he is no longer on folic acid, carbamazepine, sucralfate or multivitamins. He also stated he takes his Vitamin B1 as needed .
[2025-03-13] MEDS: Metoprolol Succinate ER 25 MG TAB.ER.24H PO (09:03)
[2025-03-13] MEDS: PHENobarbitaL sodium 130 MG/ML VIAL IM Q3Hx2 233 MG IM ×2 (11:10→14:28)
[2025-03-13] MEDS: oxyCODONE HCl Immed Release 5 MG TABLET 10 MG PO ×3 (11:24→21:38)
--- NOTE | 2025-03-13 16:47 | HO.NURTONUR ---
PER MD: 39-year-old male with a history of alcohol abuse last admitted 01/15/2025 through 01/21/2025 presents with alcohol withdrawal symptoms and abdominal pain. Patient states he has been drinking 1 pt of rum a day sometimes more. Last drink was 24 hours ago. He also notes a history of cardiomyopathy related to his alcohol consumption. He states he follows with mold yard crane operator at [facility] and takes metoprolol daily. He states he has been compliant with this medication. He also has a history of gout for which he takes allopurinol without issue. He was observed in the ER and set to be discharged however he began to withdrawal with a CIWA score of 9. Phenobarb protocol was instituted and admission requested PER RN: Admit: alcohol withdrawals, acute gastritis Alert and oriented, independent, ambulatory IV: 20G in left AC Meds: LR 100mL/hr Pheno protocol PRN meds morphine and oxy for pain (ABD) CIWA Q 4 hours Clear liquid diet VSS No vomiting today
--- NOTE | 2025-03-13 18:23 | PC.NURSE ---
Provider notified in increase in CIWA, pt alert and oriented, VSS. Itching all over body with no rash, dry heaves/nausea, ABD pain, shaky. Awaiting orders
[2025-03-13] MEDS: diazePAM 10 MG/2 ML CARTRIDGE IVPUSH (18:32)
--- NOTE | 2025-03-13 21:43 | PC.NURSE ---
pt experiencing auditory hallucinations, hearing music playing in his room. this RN heard no music
[2025-03-14] VITALS (9 sets, daily range): BP systolic 102–126; BP diastolic 67–87; PULSE 65–78; RESP 10–20; TEMP 36.1–36.8; O2SAT 96–99; BMI 26.5
[2025-03-14] MEDS: Lactated Ringers 1,000 ML 100 ML IVCONT ×2 (02:56→15:29)
--- NOTE | 2025-03-14 02:56 | PC.NURSE ---
pt resting comfortably at this time w/ eyes closed. breathing even and unlabored. no apparent distress noted. call vila w/in reach
[2025-03-14 03:51] LABS: MANUAL DIFF FLAG NO
[2025-03-14 03:52] LABS: Hematocrit 36.5 % (42.0-52.0); Hemoglobin 12.2 g/dl (14.0-18.0); Imm Gran Abs Auto 0.02 X10*3/uL (0.00-0.03); Imm Gran Pct Auto 0.4 % (0.0-0.4); Lymphocytes Absolute Auto 0.9 X10*3/uL (1.2-4.9); Mean Corpuscular HGB Conc 33.4 g/dl (31.0-36.0); Mean Corpuscular Hemoglobin 30.3 pg (27.0-33.0); Mean Corpuscular Volume 90.8 fL (80.0-98.0); NRBC Abs Auto 0.000 X10*3/uL (0.0-0.012); NRBC Pct Auto 0.0 /100WBC (0.0-0.2); Platelet Count 149 X10*3/uL (160-400); Red Blood Count 4.02 X10*6/uL (4.60-5.80); White Blood Count 5.7 X10*3/uL (4.8-10.8)
[2025-03-14 04:12] LABS: Alanine Aminotransferase 27 U/L (0-40); Albumin Level 3.9 g/dL (3.5-5.0); Alkaline Phosphatase 68 U/L (39-117); Anion Gap 13 (12-20); Aspartate Amino Transferase 88 U/L (5-37); Blood Urea Nitrogen 7 mg/dL (9-16); Calcium 8.4 mg/dL (8.4-10.2); Carbon Dioxide 26 mmol/L (22-29); Chloride 100 mmol/L (96-108); Creatinine Clr Calc Pharmacy 140.3; Estimated Glomerular Filt Rate > 60; Potassium 3.1 mmol/L (3.3-5.1); Sodium 136 mmol/L (135-145); Total Protein 5.9 g/dL (6.5-8.0)
[2025-03-14] MEDS: Metoprolol Succinate ER 25 MG TAB.ER.24H PO (08:00)
--- NOTE | 2025-03-14 08:17 | PC.NURSE ---
Pt is caox4, he reports he feels generally unwell but is ok on the detox stuff he reports his ab discomfort is 3/10 and is tolerable right now. he has refused lovenox injection, this rn explained to him the risk of blot clot formation while he is in bed, he reports he refuses this in the past. He appears to be ambulatory and reporistions himself in bed freely, i will report this refusal to hospitalist.
--- NOTE | 2025-03-14 09:30 | MHC.CM.PN ---
Home self care vs Recovery Team intervention is a tentative plan; CM has initiated and will follow for dc planning. Patient lives alone and has a Friend who can transport at dc. Patient's Mother/Teagan is the HCP and PCP is Dr. Danilo Wilson.
[2025-03-14] MEDS: 0.9 % Sodium Chloride Flush 3 ML SYRINGE IVFLUSH ×2 (10:41→21:48)
--- NOTE | 2025-03-14 11:58 | P.PNIM_ITS ---
Subjective Subjective Date of Service: 03/14/25 Interval History: No acute issues overnight. No seizures Review of Systems Denies chest pain Denies shortness of breath Denies nausea vomiting diarrhea Denies fever chills Physical Exam 2 Vital Signs: Vital Signs: Last Vital Signs Temp 97.9 F 03/14/25 06:31 Pulse 78 03/14/25 08:00 Resp 13 03/14/25 08:00 BP 117/77 03/14/25 08:00 Pulse Ox 96 03/14/25 08:00 O2 Del Method Room Air 03/14/25 08:00 BMI result Body Mass Index 25.4 Const: Other: Awake alert tremulous Resp: Other: Clear to auscultation bilaterally no rales rhonchi or wheezes Cardio: Other: No S4; positive S1-S2; no S3 murmurs rubs or gallops GI: Other: Soft nontender nondistended normoactive bowel sounds Neuro: Other: Cranial nerves 2-12 grossly intact as tested. Motor is 5/5 all extremities. Sensation is intact. Cognition appropriate. Gait not observed Extrem: Other: No edema bilaterally Objective Data Active Medications Acetaminophen (Acetaminophen 325 Mg Tablet) 650 mg PO Q6H PRN PRN Reason: Pain, Mild 1-3,fever,headache Calcium Carbonate (Calcium Carbonate 750 Mg Tab.Chew) 750 mg PO Q4H PRN PRN Reason: Heartburn Last Admin: 03/13/25 09:03 Dose: 750 mg Documented By: RAGHAV Diazepam (Diazepam 10 Mg/2 Ml Cartridge) 10 mg IVPUSH Q8H PRN PRN Reason: anxiety/restlessness Last Admin: 03/13/25 18:32 Dose: 10 mg Documented By: KENDAL Diazepam (Diazepam 10 Mg/2 Ml Cartridge) 10 mg IVPUSH Q4H PRN PRN Reason: anxiety/restlessness Enoxaparin Sodium (Enoxaparin Sodium 40 Mg/0.4 Ml Syringe) 40 mg SUBCUT Q24H [facility] Last Admin: 03/14/25 08:01 Dose: Not Given Documented By: DAVID Non-Admin Reason: Patient Refused Lactated Ringer's (Lr) 1,000 mls @ 100 mls/hr IVCONT .Q10H [facility] Last Admin: 03/14/25 02:56 Dose: 100 mls/hr Documented By: ANA M Magnesium Hydroxide (Milk Of Magnesia 30 Ml Oral.Susp) 30 ml PO DAILY PRN PRN Reason: Constipation Melatonin (Melatonin 3 Mg Tablet) 6 mg PO BEDTIME PRN PRN Reason: Insomnia Metoprolol Succinate (Metoprolol Succinate Er 25 Mg Tab.Er.24h) 25 mg PO DAILY [facility]; Protocol Last Admin: 03/14/25 08:00 Dose: 25 mg Documented By: DAVID Morphine Sulfate (Morphine Sulfate 4 Mg/Ml Cartridge) 4 mg IVPUSH Q4H PRN; Protocol PRN Reason: Pain, Severe (Pain Scale 7-10) Last Admin: 03/14/25 10:40 Dose: 4 mg Documented By: DAVID Ondansetron HCl (Ondansetron Hcl 4 Mg/2 Ml Vial) 4 mg IVPUSH Q8H PRN PRN Reason: Nausea and Vomiting Last Admin: 03/14/25 06:36 Dose: 4 mg Documented By: ANA M Oxycodone HCl (Oxycodone Hcl Immed Release 5 Mg Tablet) 10 mg PO Q4H PRN PRN Reason: Pain, Moderate(Pain Scale 4-6) Last Admin: 03/13/25 21:38 Dose: 10 mg Documented By: ANA M Pantoprazole Sodium (Pantoprazole Sodium 40 Mg/10 Ml Vial) 40 mg IVPUSH BID@0630,1630 [facility] Last Admin: 03/14/25 06:42 Dose: 40 mg Documented By: ANA M Pharmacy Consult (Consult Rx Etoh Phenob Im/Po) 1 each MISCELLANE ONCE PRN; Protocol PRN Reason: Consult order Phenobarbital (Phenobarbital 30 Mg Tablet) 60 mg PO BID [facility]; Protocol Stop: 03/15/25 09:01 Last Admin: 03/14/25 08:01 Dose: 60 mg Documented By: DAVID Phenobarbital (Phenobarbital 30 Mg Tablet) 30 mg PO BID [facility]; Protocol Stop: 03/17/25 09:01 Phenobarbital (Phenobarbital 30 Mg Tablet) 30 mg PO DAILY [facility]; Protocol Stop: 03/19/25 09:01 Sodium Chloride (0.9 % Sodium Chloride Flush 3 Ml Syringe) 3 ml IVFLUSH [facility] Last Admin: 03/14/25 10:41 Dose: 3 ml Documented By: DAVID Labs 03/14/25 03:39 03/14/25 03:39 Labs: Laboratory Results - last 24 hr 03/14/25 03:39 MCV 90.8 MCH 30.3 MCHC 33.4 RDW 14.6 Plt Count 149 L D MPV 10.5 Immature Gran % (Auto) 0.4 Neut % (Auto) 68.8 Lymph % (Auto) 15.9 L [place] % (Auto) 9.3 Eos % (Auto) 4.9 H Baso % (Auto) 0.7 Lymph # (Auto) 0.9 L [place] # (Auto) 0.5 Eos # (Auto) 0.3 Baso # (Auto) 0.0 Abs Immat Gran (auto) 0.02 Absolute Neuts (auto) 3.9 Absolute Nucleated RBC 0.000 Nucleated RBC % (auto) 0.0 Anion Gap 13 Estim Creat Clear Calc 140.3 Estimated GFR > 60 Random Glucose 132 H Calcium 8.4 D Total Bilirubin 0.4 AST 88 H ALT 27 Alkaline Phosphatase 68 Total Protein 5.9 L Albumin 3.9 Assessment and Plan (1) Alcohol withdrawal: Status: Acute Plan 39-year-old male with longstanding history of alcohol abuse consuming 1 pt of liquor per day presents with a desire to detox. Admission alcohol was 306. Originally he was observed in the ER however began to feel poorly and CIWA score was counted at 9. Phenobarb protocol was initiated and admission requested 1. Alcohol withdrawal -phenobarb protocol as outlined -supplemental IV Valium as clinically indicated -observe on CIWA scale -addiction Medicine consult 2. Alcoholic gastritis (minimal elevation in lipase) -IV pantoprazole -clear liquid diet; advance as tolerated -no CTA evidence of pancreatitis 3. Alcoholic cardiomyopathy -start metoprolol 25 mg daily -had recent echo at [facility] 3 months ago; we will attempt to recover results 4. Gout -no acute issues at this time -continue allopurinol Full code Lovenox Patient will require a minimum of 2 nights inpatient stay going forward to treat acute alcohol withdrawal with phenobarb and supplemental Valium IV. This can not be achieved in a lesser acute setting Quality Stroke Does the patient have a stroke diagnosis?: No VTE Prior VTE?: No VTE Risk Level:: Medical - moderate - high VTE Device Contraindication: Treatment Not Indicated VTE Drug Contraindication: N/A - Med Ordered
[2025-03-14] MEDS: diazePAM 10 MG/2 ML CARTRIDGE IVPUSH (15:42)
--- NOTE | 2025-03-14 20:15 | PC.NURSE ---
Pt refusing bed alarm. Educated pt on protocol and withdrawing from ETOH, pt still reufsing at this time. Encouraged pt to ask for assistance
[2025-03-15] MEDS: Lactated Ringers 1,000 ML 100 ML IVCONT (00:57)
[2025-03-15 07:27] VITALS: BP 134/83; PULSE 66; RESP 18; TEMP 37; O2SAT 97
[2025-03-15] MEDS: Metoprolol Succinate ER 25 MG TAB.ER.24H PO (08:30)
[2025-03-15 10:32] LABS: Hematocrit 41.8 % (42.0-52.0); Hemoglobin 13.9 g/dl (14.0-18.0); Mean Corpuscular HGB Conc 33.3 g/dl (31.0-36.0); Mean Corpuscular Hemoglobin 30.2 pg (27.0-33.0); Mean Corpuscular Volume 90.7 fL (80.0-98.0); NRBC Abs Auto 0.000 X10*3/uL (0.0-0.012); NRBC Pct Auto 0.0 /100WBC (0.0-0.2); Platelet Count 163 X10*3/uL (160-400); Red Blood Count 4.61 X10*6/uL (4.60-5.80); White Blood Count 5.1 X10*3/uL (4.8-10.8)
[2025-03-15 10:55] LABS: Alanine Aminotransferase 34 U/L (0-40); Albumin Level 4.0 g/dL (3.5-5.0); Alkaline Phosphatase 83 U/L (39-117); Anion Gap 10 (12-20); Aspartate Amino Transferase 82 U/L (5-37); Blood Urea Nitrogen 5 mg/dL (9-16); Calcium 9.0 mg/dL (8.4-10.2); Carbon Dioxide 28 mmol/L (22-29); Chloride 103 mmol/L (96-108); Creatinine Clr Calc Pharmacy 125.5; Estimated Glomerular Filt Rate > 60; Potassium 4.0 mmol/L (3.3-5.1); Sodium 137 mmol/L (135-145); Total Protein 6.3 g/dL (6.5-8.0)
[2025-03-15] MEDS: Potassium Chloride Packet 20 MEQ PACKET 40 MEQ PO (11:01)
[2025-03-15 11:04] VITALS: BP 108/70; PULSE 85; RESP 18; TEMP 36.6; O2SAT 95
--- NOTE | 2025-03-15 13:16 | HO.ADDICTCON ---
History of Present Illness Date of Service: 03/15/2025 Chief Complaint: Alcohol withdrawal syndrome Reason for Consult: AUD-acute withdrawal Sources of Information: patient interviewed and chart reviewed HPI Narrative: Patient is a 39 year old male with medical history that includes AUD, alcohol related cardiomyopathy and gout. Currently medically admitted with acute alcohol withdrawal. Known to t/w and ACS via previous admission 01/2025. Seen by pattern data operator day prior. Notes reviewed He reports withdrawal much improved and he feels ready to go home. Discussed plan and goals related to drinking once discharged he reports that he wishes to abstain from aclohol and has already completed intake with IOP and has been accepted pending discharge from hospital He is engaged with a men's swim coach and says he speaks to her daily. He declines any RADHA. He appears comfortable. No tremor noted. no restlessness or diaphoresis. Mild gi sx-- still a little nauseous Medical Evaluation Reviewed: Yes Review of Systems Constitutional: Reports as per HPI and Reports no additional constitutional complaints Diagnostics Vital Signs (24Hr): Vital Signs - 24 hr 03/14/25 15:34 03/14/25 16:09 03/14/25 20:00 Temperature 98.1 F 98.2 F 97.5 F Pulse Rate 71 77 77 Respiratory Rate 16 12 20 Blood Pressure 119/80 119/80 126/87 Pulse Oximetry 99 98 96 Oxygen Delivery Method Room Air Room Air Room Air 03/14/25 23:44 03/15/25 07:27 03/15/25 11:04 Temperature 97.0 F 98.6 F 97.8 F Pulse Rate 65 66 85 Respiratory Rate 18 18 18 Blood Pressure 102/67 134/83 108/70 Pulse Oximetry 96 97 95 Oxygen Delivery Method Room Air Room Air Room Air BMI result Body Mass Index 26.5 Labs 03/15/25 10:15 03/15/25 10:15 Labs: Laboratory Results - last 48 hr 03/14/25 03/15/25 03:39 10:15 WBC 5.7 5.1 RBC 4.02 L 4.61 Hgb 12.2 L 13.9 L Hct 36.5 L 41.8 L MCV 90.8 90.7 MCH 30.3 30.2 MCHC 33.4 33.3 RDW 14.6 14.4 Plt Count 149 L D 163 MPV 10.5 9.8 Immature Gran % (Auto) 0.4 Neut % (Auto) 68.8 Lymph % (Auto) 15.9 L [place] % (Auto) 9.3 Eos % (Auto) 4.9 H Baso % (Auto) 0.7 Lymph # (Auto) 0.9 L [place] # (Auto) 0.5 Eos # (Auto) 0.3 Baso # (Auto) 0.0 Abs Immat Gran (auto) 0.02 Absolute Neuts (auto) 3.9 Absolute Nucleated RBC 0.000 0.000 Nucleated RBC % (auto) 0.0 0.0 Sodium 136 137 Potassium 3.1 L D 4.0 D Chloride 100 103 Carbon Dioxide 26 28 Anion Gap 13 10 L BUN 7 L 5 L Creatinine 0.76 0.85 Estim Creat Clear Calc 140.3 125.5 Estimated GFR > 60 > 60 Random Glucose 132 H 150 H Calcium 8.4 D 9.0 D Total Bilirubin 0.4 0.4 AST 88 H 82 H ALT 27 34 Alkaline Phosphatase 68 83 Total Protein 5.9 L 6.3 L Albumin 3.9 4.0 Mental Status Exam Mental Status Exam Level of Consciousness: Awake, Appropriate and Alert Patient Behavior: Appropriate and Cooperative Affect Description: Flat Speech Pattern: Clear Thought Process: Intact Thought Content: positive for Intact Judgement: Good Medications Medications Current Medications Acetaminophen (Acetaminophen 325 Mg Tablet) 650 mg PO Q6H PRN PRN Reason: Pain, Mild 1-3,fever,headache Last Admin: 03/15/25 05:28 Dose: 650 mg Allopurinol (Allopurinol 300 Mg Tablet) 300 mg PO DAILY [facility] Last Admin: 03/15/25 11:02 Dose: 300 mg Calcium Carbonate (Calcium Carbonate 750 Mg Tab.Chew) 750 mg PO Q4H PRN PRN Reason: Heartburn Last Admin: 03/13/25 09:03 Dose: 750 mg Diazepam (Diazepam 10 Mg/2 Ml Cartridge) 10 mg IVPUSH Q4H PRN PRN Reason: anxiety/restlessness Last Admin: 03/14/25 15:42 Dose: 10 mg Enoxaparin Sodium (Enoxaparin Sodium 40 Mg/0.4 Ml Syringe) 40 mg SUBCUT Q24H [facility] Last Admin: 03/15/25 08:30 Dose: Not Given Folic Acid (Folic Acid 1 Mg Tablet) 1 mg PO DAILY [facility] Last Admin: 03/15/25 11:02 Dose: 1 mg Magnesium Hydroxide (Milk Of Magnesia 30 Ml Oral.Susp) 30 ml PO DAILY PRN PRN Reason: Constipation Melatonin (Melatonin 3 Mg Tablet) 6 mg PO BEDTIME PRN PRN Reason: Insomnia Metoprolol Succinate (Metoprolol Succinate Er 25 Mg Tab.Er.24h) 25 mg PO DAILY [facility]; Protocol Last Admin: 03/15/25 08:30 Dose: 25 mg Olanzapine (Olanzapine 5 Mg Tablet) 5 mg PO BID PRN PRN Reason: agitation Omeprazole (Omeprazole 20 Mg Capsule.Dr) 20 mg PO DAILY@0630 [facility] Ondansetron HCl (Ondansetron Hcl 4 Mg/2 Ml Vial) 4 mg IVPUSH Q8H PRN PRN Reason: Nausea and Vomiting Last Admin: 03/15/25 08:36 Dose: 4 mg Pharmacy Consult (Consult Rx Etoh Phenob Im/Po) 1 each MISCELLANE ONCE PRN; Protocol PRN Reason: Consult order Phenobarbital (Phenobarbital 30 Mg Tablet) 30 mg PO BID [facility]; Protocol Stop: 03/17/25 09:01 Phenobarbital (Phenobarbital 30 Mg Tablet) 30 mg PO DAILY [facility]; Protocol Stop: 03/19/25 09:01 Pyridoxine HCl (Pyridoxine Hcl (Vitamin B6) 50 Mg Tablet) 50 mg PO DAILY [facility] Last Admin: 03/15/25 11:02 Dose: 50 mg Sodium Chloride (0.9 % Sodium Chloride Flush 3 Ml Syringe) 3 ml IVFLUSH QSHIFT [facility] Last Admin: 03/15/25 08:30 Dose: Not Given Thiamine HCl (Thiamine Hcl 100 Mg Tablet) 100 mg PO DAILY [facility] Last Admin: 03/15/25 11:02 Dose: 100 mg Allergies Allergies Allergy/AdvReac Type Severity Reaction Status Date / Time cephalexin (From Keflex) Allergy Rash Verified 03/12/25 15:44 Assessment & Plan Assessment & Plan (1) Alcohol use disorder, severe, dependence: Status: Acute Code(s): F10.20 - Alcohol dependence, uncomplicated Assessment and Plan: withdrawal sx much improved. mild tremor noted. continue thiamine and folic acid at home discussed plan following discharge--patient has completed intake with [facility], also in contact with Inspector And Clipper t/w helped patient download meeting finder joseph on his phone, and showed him how to use it and find both in person and zoom meetings for AA declined RADHA or follow up AUD provider appt--plans to attend IOP no additional follow up indicated at this time Total time managing care of this patient today __30__ minutes. [facility] Social History Social History Household Members: None Housing: Apartment Do you presently have visiting nurse or other home services: No Alcohol intake: current Alcohol intake frequency: 3 or more drinks per day Alcohol type: hard liquor Patient Tobacco Use Status: Never used Tobacco service: No
--- NOTE | 2025-03-15 14:43 | MHC.CM.PN ---
Addendum entered by Kiya Bradley 03/15/25 14:52: A [employer] has been set up for 3PM to transport Patient to home, per RN's request. Original Note: Patient has been medically cleared for dc to home today, self care.
--- NOTE | 2025-03-15 14:44 | PM.DS ---
DS: Providers Provider Date of Service: 03/15/25 Date of admission: 03/13/25 06:45 Date of discharge: 03/15/25 Primary care physician: Danilo Wilson MD Consults: 03/12/25 15:44 ED Recovery Team Consult Stat Comment: Reason for consultation: etoh abuse, wants detox 03/14/25 11:57 Addiction Medicine Provider Routine Consulting Provider: Addiction Covering Reason for consultation: etoh DS: Diagnosis Discharge Diagnosis (1) Alcohol use disorder, severe, dependence: Status: Acute DS: Summary Hospital Course Hospital Course: 39-year-old male with longstanding history of alcohol abuse consuming 1 pt of liquor per day presents with a desire to detox. Admission alcohol was 306. Originally he was observed in the ER however began to feel poorly and CIWA score was counted at 9. Phenobarb protocol was initiated and admission requested 1. Alcohol withdrawal -phenobarb protocol ciwa low no withdrawal sx addiction consulted, no RADHA per pt as he refused discharged on supplements 2. Alcoholic gastritis (minimal elevation in lipase) CT abdomen -ve for pancreatitis showed mesenteric adenitis likely reactive in the absence of leucocytosis and fever cont protonix diet as tolerated 3. 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 Gout -no acute issues at this time -continue allopurinol Time Attestation Discharge Coordination Time (in mins): 40 mins Quality: Safe Use of Opioids Does Pt have an Active Cancer Diagnosis on the Problem List?: No Quality: Stroke Does the patient have a stroke diagnosis?: No Physical Exam Vital Signs: Vital Signs: Last Vital Signs Temp 97.8 F 03/15/25 11:04 Pulse 85 03/15/25 11:04 Resp 18 03/15/25 11:04 BP 108/70 03/15/25 11:04 Pulse Ox 95 03/15/25 11:04 O2 Del Method Room Air 03/15/25 11:04 BMI result Body Mass Index 26.5 DS: Data Data Completed and Pending Completed studies during hospitalization [Text1]: Procedures Detoxification Services for Substance Abuse Treatment (01/15/25) Labs on day of discharge: Laboratory Results - last 24 hr 03/15/25 10:15 WBC 5.1 RBC 4.61 Hgb 13.9 L Hct 41.8 L MCV 90.7 MCH 30.2 MCHC 33.3 RDW 14.4 Plt Count 163 MPV 9.8 Absolute Nucleated RBC 0.000 Nucleated RBC % (auto) 0.0 Sodium 137 Potassium 4.0 D Chloride 103 Carbon Dioxide 28 Anion Gap 10 L BUN 5 L Creatinine 0.85 Estim Creat Clear Calc 125.5 Estimated GFR > 60 Random Glucose 150 H Calcium 9.0 D Total Bilirubin 0.4 AST 82 H ALT 34 Alkaline Phosphatase 83 Total Protein 6.3 L Albumin 4.0 Discharge Plan Discharge Anticipated Discharge Date/Time: 03/15/25 14:28 Patient Disposition: Home, Self-Care Discharge Diagnosis: alcohol withdrawal alcoholic gastritis Gout Referrals: Danilo Wilson MD [Primary Care Provider, Medical] - 1 Week Discharge Medications: New pyridoxine (vitamin B6) 50 mg Tablet 50 mg PO DAILY 30 Days Qty: 30 0RF folic acid 1 mg Tablet 1 mg PO DAILY 30 Days Qty: 30 0RF Continued metoprolol succinate 50 mg tablet extended release 24 hr 50 mg PO DAILY famotidine 20 mg tablet 20 mg PO BID pantoprazole 40 mg tablet,delayed release (DR/EC) 40 mg PO DAILY@0630 allopurinol 300 mg tablet 300 mg PO DAILY ondansetron HCl 4 mg tablet 4 mg PO Q6H PRN (Reason: Nausea And Vomiting) olanzapine 5 mg tablet 5 mg PO BID PRN (Reason: agitation) thiamine mononitrate (vit B1) 100 mg tablet 100 mg PO DAILY Discharge Orders: Discharge Order (Routine); Ordered 03/15/25 Ordered By: Celia Rodriguez Activity on Discharge: As tolerated Stand Alone Forms: Patient Portal Discharge page Print Language: [place] Care Plan Goals: Pt was admitted with alcohol withdrawal sx and abdominal pain. He was placed on phenobarb ciwa. At the time of dc pt did not have withdrawal sx. He also had epigastric pain likely due to gartritis. He was seen by addiction. Health Concerns: see above Plan of Treatment: see above Assessment: see above
== END 2025-03-15 14:52 | disposition home or self-care (01) | DRG 241 ==
LOC: HO.ED 03-13 06:47 → HO.EDOVER 03-13 06:54 → HO.IMC 03-14 17:48
PROVIDERS: Emergency Medicine; Hospitalist; Physician Assistant; Admitting Provider Internal Medicine; Emergency Provider Student in an Organized Health Care Education/Training Program; PCP Family Medicine; Visit Provider Hospitalist
DX: K29.20 Alcoholic gastritis without bleeding (principal); I42.6 Alcoholic cardiomyopathy; M10.9 Gout, unspecified; F10.239 Alcohol dependence with withdrawal, unspecified; F10.229 Alcohol dependence with intoxication, unspecified; Y90.8 Blood alcohol level of 240 mg/100 ml or more; Z79.899 Other long term (current) drug therapy
CPT/HCPCS: 36415; 74177; 80048; 80053; 80076; 80307; 81003; 82150; 83690; 83735; 85025; 85027; 99285; J1790; J2270; J2405; J2470; J2560; J3360; J7120; Q9967; S9485

== ENCOUNTER → 2025-03-12 18:54 | Outpatient (BNV) | payer OTHER, SELFPAY | PROVIDERS: Emergency Provider Emergency Medicine; PCP Family Medicine; Visit Provider Radiology Diagnostic Radiology | DX: K76.0 Fatty (change of) liver, not elsewhere classified (principal); N20.0 Calculus of kidney | CPT/HCPCS: 74177 ==

== ENCOUNTER → 2025-03-13 06:45 | Outpatient (BNV) | payer OTHER, SELFPAY | PROVIDERS: Admitting Provider Internal Medicine; Emergency Provider Student in an Organized Health Care Education/Training Program; PCP Family Medicine; Visit Provider Nurse Practitioner Psychiatric/Mental Health | DX: F10.20 Alcohol dependence, uncomplicated (principal) | CPT/HCPCS: 99221 ==

== ENCOUNTER → 2025-03-13 06:45 | Outpatient (BNV) | payer OTHER, SELFPAY | PROVIDERS: Admitting Provider Internal Medicine; Emergency Provider Student in an Organized Health Care Education/Training Program; PCP Family Medicine; Visit Provider Hospitalist | DX: F10.930 Alcohol use, unspecified with withdrawal, uncomplicated (principal) | CPT/HCPCS: 99223; 99233; 99239 ==

== ENCOUNTER 2025-04-03 17:31 | Inpatient (IN) | payer OTHER, SELFPAY ==
--- NOTE | ~2025-04-03 | CT_ITS ---
CLINICAL HISTORY: ? pancreatitis CT abdomen and pelvis without contrast Comparison: CT/REG/SR - CT ABDOMEN PELVIS W IV CON - 03/12/25 19:25 EDT Findings: The lung bases are clear. Hepatic steatosis. Left renal interpolar region 1mm, right renal lower pole 1 mm, 2mm, 3mm, interpolar region 4mm, upper pole 4mm non obstruction nephroliths. No bowel obstruction, pneumoperitoneum, or pneumatosis. Mild calcified atheresclerotic disease of the abdominal aorta. Pelvic contents unremarkable. Normal appendix. The bones are intact. Mild osteopenia. IMPRESSION: 1. Hepatic steatosis. 2. Multiple small non-obstructing nephroliths in both kidneys, largest 4 mm. 3. Mild calcified atherosclerotic disease of the abdominal aorta. 4. No acute intraabdominal or pelvic findings. 5. No CT evidence of acute pancreatitis. Clinical correlation suggested. This document has been electronically signed by: Zhou Starr MD on 04/04/2025 19:01:14
[2025-04-03 17:36] VITALS: BP 133/100; PULSE 119; RESP 18; TEMP 36.7; O2SAT 95; BMI 27.5
--- NOTE | 2025-04-03 17:40 | ED_ITS ---
HPI - General Adult General Chief complaint: Psychiatric Symptoms Stated complaint: SI Time Seen by Provider: 04/03/25 17:52 Source: patient Mode of arrival: ambulatory Limitations: no limitations History of Present Illness ED Provider: Winnie Diego APRN HPI narrative: 39-year-old male with a past medical history of cardiomyopathy, chronic pancreatitis, gout, anxiety, depression and alcohol use who presents the ER with complaints of several weeks of feeling depressed and suicidal with no plan. No homicidal ideations. No auditory or visual hallucinations. Patient reports he has a lot of family drama going on. He denies drug use. He does not smoke. He does drink alcohol daily. He drinks 1 pt of rum daily. His last drink was today at 17:00. He has had alcohol withdrawal before requiring admission. He denies any history of alcoholic seizures. He has also had abdominal pain central stabbing and tight for the last 2 days with nausea no vomiting. He denies diarrhea or constipation. No urinary complaints. No fevers or chills. Feels similar to his previous episodes of pancreatitis. Patient reports that he had been on Zoloft which is prescribed by Adelaida Appiah which he stopped 1 year ago. He does not currently have a psychiatrist or a therapist Related Data Home Medications ?Medication ?Instructions ?Recorded ?Confirmed famotidine 20 mg tablet 20 mg PO BID 01/15/25 metoprolol succinate 50 mg 50 mg PO DAILY 01/15/2507/06 tablet,extended release 24 hr pantoprazole 40 mg tablet,delayed 40 mg PO DAILY@0630 01/15/25 03/13/25 release allopurinol 300 mg tablet 300 mg PO DAILY 01/16/2507/06 olanzapine 5 mg tablet 5 mg PO BID PRN agitation 03/13/25 ondansetron HCl 4 mg tablet 4 mg PO Q6H PRN Nausea And Vomiting 03/13/25 03/13/25 thiamine mononitrate (vit B1) 100 100 mg PO DAILY 07/0603/13/25 mg tablet Previous Rx's ?Medication ?Instructions ?Recorded folic acid 1 mg tablet 1 mg PO DAILY 30 days #30 ta bs 03/15/25 pyridoxine (vitamin B6) 50 mg 50 mg PO DAILY 30 days # 30 tabs 03/15/25 tablet Allergies Allergy/AdvReac Type Severity Reaction Status Date / Time cephalexin (From Keflex) Allergy Rash Verified 04/03/25 17:37 Review of Systems 2 Review of Systems: Yes all other systems are reviewed and are negative Constitutional: Constitutional: Reports no additional constitutional complaints, Denies body ache(s), Denies chills, Denies fever(s), Denies headache(s) and Denies weakness Eyes: Eyes: Reports no additional eye complaints and Denies change in vision ENT: Reports system reviewed and no additional complaints, except as documented, Denies dizziness, Denies headache(s), Denies nasal congestion, Denies nasal discharge and Denies neck pain Cardiovascular: Cardiovascular: Reports no additional cardiovascular complaints, Denies chest pain, Denies leg edema and Denies dyspnea Respiratory: Respiratory: Reports no additional respiratory complaints, Denies cough and Denies dyspnea Gastrointestinal: Gastrointestinal: Reports no additional gastrointestinal complaints, Denies abdominal pain, Denies diarrhea, Denies nausea and Denies vomiting Genitourinary: Genitourinary: Denies urinary incontinence Musculoskeletal: Musculoskeletal: Reports no additional musculoskeletal complaints, Denies back pain, Denies arthralgias, Denies joint swelling, Denies neck pain, Denies numbness and Denies tingling Integumentary/Breasts: Skin/Breast: Reports system reviewed and no additional complaints, except as docu and Denies rash Neurologic: Reports system reviewed and no additional complaints, except as documented, Denies Abnormal speech present, Denies dizziness, Denies headache(s), Denies numbness, Denies tingling and Denies weakness Psychiatric: Psychiatric: Reports anxiety, Reports depression, Denies visual hallucinations, Denies hallucinations, Denies tactile hallucinations, Denies homicidal ideation and Reports suicidal ideation [facility] Past Medical History Attestation statement: The following information was validated with the patient. Source: old records reviewed and nursing notes reviewed Medical History Alcoholic cardiomyopathy Social History Social History Household Members: None Housing: Apartment Do you presently have visiting nurse or other home services: No Alcohol intake: current Alcohol intake frequency: 3 or more drinks per day Alcohol type: hard liquor Patient Tobacco Use Status: Never used Tobacco Advance Directives: No Advance Directives Information Provided: No service: No Physical Exam ED Vital Signs: Vital Signs - 24 hr 04/03/25 17:36 04/03/25 22:36 04/04/25 00:00 Temperature 98.1 F 98.3 F 97.9 F Pulse Rate 119 H 111 H 97 Respiratory Rate 18 20 20 Blood Pressure 133/100 H 129/86 119/86 Pulse Oximetry 95 96 95 Oxygen Delivery Method Nasal Cannula Room Air Room Air 04/04/25 02:00 04/04/25 04:00 04/04/25 06:00 Temperature 98.1 F Pulse Rate 95 Respiratory Rate 18 18 20 Blood Pressure 141/92 H Pulse Oximetry 95 Oxygen Delivery Method Room Air BMI result Body Mass Index 27.5 Const General: cooperative, healthy appearing, comfortable and no acute distress Orientation/consciousness: patient oriented x3 Limitations: no limitations HENMT Head: Yes normal to inspection Ears: hearing grossly normal bilaterally General nose exam: Normal external nose present Face and sinus: Yes normal facial exam Mouth: Normal oral and palatal mucosa present Throat: Yes posterior oropharynx normal Eyes General: appearance normal, both eyes and all related structures Pupils: Equal, round and reactive pupils present Neck Neck: Yes normal visual inspection Chest Chest palpation & inspection: normal inspection of the chest Resp Effort & Inspection: normal respiratory effort Auscultation: clear to auscultation bilaterally Cardio Rate: regular rate Rhythm: regular rhythm Peripheral pulses: Peripheral pulses 2+ throughout GI Inspection: Yes normal to inspection Palpation (GI): Soft to palpation, Tenderness to palpation present (GI) (mild diffuse) with no rebound tenderness and no guarding Auscultation: normal bowel sounds Back/Spine/Pelvis Thoracic/Lumbar Spine: thoracic and lumbar spine normal to inspection Skin General skin exam: no rashes or lesions noted Neuro General: patient oriented x3, no focal motor deficits and normal sensation to monofilament Cranial nerves: Yes CN's II-XII intact bilaterally and Yes Equal, round and reactive pupils present Cognition (Neuro): normal cognition Speech: No Abnormal speech present Gait exam (Neuro): Normal gait present Motor exam (neuro): 5/5 motor strength present throughout Extrem General: Yes normal to inspection Course Course Course Narrative: Rapid medical examination performed in triage by Florida Pereira PA-C: Patient is a 39 year old assigned male at presenting to the emergency department with suicidal ideation. Detailed physical exam and review of systems are deferred to the bottle inspector. EKG and labs ordered. veterinary epidemiologist made aware. Reevaluation(s) Reevaluation #1: 2014-Labs are unremarkable with the exception of elevated ethanol level. Doubt acute pancreatitis with normal lipase. patient can be seen when he is clinically sober. Placed in physician obs pending crisis consultation. Reevaluation #2: Pt was signed out to me at [address] Calderón seen by crisis cleared by crisis. On reexam still very shaky Time: 08:13 Medications Administered Discontinued Medications Generic Name Dose Route Start Last Admin Trade Name Freq PRN Reason Stop Dose Admin Hydroxyzine HCl 25 mg 04/03/25 20:42 04/03/25 20:46 Hydroxyzine Hcl 25 Mg Tablet PO 04/03/25 20:43 25 mg ONCE ONE Administration Phenobarbital Sodium 283 mg 04/03/25 19:00 04/03/25 19:24 Phenobarbital Sodium 130 Mg/Ml Im Once IM 04/03/25 19:01 283 mg ONCE ONE Administration Phenobarbital Sodium 210 mg 04/03/25 22:00 04/04/25 00:49 Phenobarbital Sodium 130 Mg/Ml Vial Im Q3hx2 IM 04/04/25 01:01 210 mg Q3H ROMMEL Administration Medical Decision Making Medical Decision Making [facility] Narrative: 39-year-old male with a past medical history of cardiomyopathy, chronic pancreatitis, gout, anxiety, depression and alcohol use who presents the ER with complaints of several weeks of feeling depressed and suicidal with no plan. No homicidal ideations. No auditory or visual hallucinations. Patient reports he has a lot of family drama going on. He denies drug use. He does not smoke. He does drink alcohol daily. He drinks 1 pt of rum daily. His last drink was today at 17:00. He has had alcohol withdrawal before requiring admission. He denies any history of alcoholic seizures. He has also had abdominal pain central stabbing and tight for the last 2 days with nausea no vomiting. He denies diarrhea or constipation. No urinary complaints. No fevers or chills. Feels similar to his previous episodes of pancreatitis. Patient reports that he had been on Zoloft which is prescribed by Adelaida Appiah which he stopped 1 year ago. He does not currently have a psychiatrist or a therapist no concern for acute ingestion or trauma. Vitals are stable. Patient does have some mild diffuse abdominal tenderness with no rebound or guarding. Will obtain labs including MARK. Patient will have see was scheduled and I will order phenobarbital protocol for him will need a care team consult once he is medically clear Differential Diagnosis Differential Diagnoses: The differential diagnosis associated with the presentation includes depression, alcohol abuse Admission/Observation Consideration of admission/observation: Escalation of care including admission/observation considered Lab Data MDM Lab Attestation statement: I reviewed the patient's lab results. 04/03/25 18:29 04/03/25 18:29 Labs: Lab Results 04/03/25 Range/Units 18:29 WBC 4.7 L (4.8-10.8) X10*3/uL RBC 4.62 (4.60-5.80) X10*6/uL Hgb 14.1 (14.0-18.0) g/dl Hct 41.1 L (42.0-52.0) % MCV 89.0 (80.0-98.0) fL MCH 30.5 (27.0-33.0) pg MCHC 34.3 (31.0-36.0) g/dl RDW 14.5 (11.0-16.0) % Plt Count 366 D (160-400) X10*3/uL MPV 9.0 L (9.4-12.4) fL Immature Gran % (Auto) 0.2 (0.0-0.4) % Neut % (Auto) 47.3 (45-73) % Lymph % (Auto) 36.0 (20-40) % Kings % (Auto) 10.1 (2-11) % Eos % (Auto) 3.6 (0-4) % Baso % (Auto) 2.8 H (0-2) % Lymph # (Auto) 1.7 (1.2-4.9) X10*3/uL Kings # (Auto) 0.5 (0.1-1.2) X10*3/uL Eos # (Auto) 0.2 (0.0-0.4) X10*3/uL Baso # (Auto) 0.1 (0.0-0.2) X10*3/uL Abs Immat Gran (auto) 0.01 (0.00-0.03) X10*3/uL Absolute Neuts (auto) 2.2 (2.0-8.3) x10*3/uL Absolute Nucleated RBC 0.000 (0.0-0.012) X10*3/uL Nucleated RBC % (auto) 0.0 (0.0-0.2) /100WBC Sodium 144 (135-145) mmol/L Potassium 4.2 (3.3-5.1) mmol/L Chloride 104 (96-108) mmol/L Carbon Dioxide 26 (22-29) mmol/L Anion Gap 18 (12-20) BUN 9 (9-16) mg/dL Creatinine 1.12 (0.5-1.4) mg/dL Estim Creat Clear Calc 86.7 Estimated GFR > 60 Random Glucose 107 (60-115) mg/dL Calcium 8.9 (8.4-10.2) mg/dL Total Bilirubin 0.2 (0.0-1.0) mg/dL AST 71 H (5-37) U/L ALT 32 (0-40) U/L Alkaline Phosphatase 89 (39-117) U/L Total Protein 7.3 (6.5-8.0) g/dL Albumin 4.7 (3.5-5.0) g/dL Lipase 66 (8-78) U/L Urine Color Yellow Urine Appearance Clear Urine pH 6.5 (5.0-9.0) Ur Specific [place] 1.020 (1.005-1.025) Urine Protein 30 (1+) H (Neg-Trace) mg/dL Urine Glucose (UA) Negative (Negative) mg/dL Urine Ketones 15 (Negative) mg/dL Urine Blood Negative (Negative) Urine Nitrite Negative (Negative) Ur Leukocyte Esterase Negative (Negative) Urine RBC 3-5 H (0-2) /HPF Urine WBC 0-5 (0-5) /HPF Ur Squamous Epith Cells 0-2 (0-2) /HPF Urine Bacteria None Seen (None Seen) Hyaline Casts 0-2 (0-2) /LPF Salicylates < 5.0 L (15-30) mg/dL Urine Opiates Screen Not Detected (Not Detect) Ur Buprenorphine Scrn Not Detected (Not Detect) ng/mL Ur Oxycodone Screen Not Detected (Not Detect) ng/mL Urine Methadone Screen Not Detected (Not Detect) ng/mL Urine Fentanyl Screen Not Detected (Not Detect) Acetaminophen < 3 (<30) mcg/mL Ur Barbiturates Screen POSITIVE H (Not Detect) Ur Phencyclidine Scrn Not Detected (Not Detect) Ur Amphetamines Screen Not Detected (Not Detect) U Benzodiazepines Scrn POSITIVE H (Not Detect) Urine Cocaine Screen Not Detected (Not Detect) U Marijuana (THC) Screen Not Detected (Not Detect) Ethyl Alcohol 392 H* mg/dL COVID-19 (CANDACE) Negative (Negative) COVID-19 Clin Com See Note Independent Historian Clinical information obtained from an independent historian. History obtained from or confirmed by: Friend Discharge Plan Discharge Clinical Impression: Depression, Alcohol use disorder Prescriptions: No Action metoprolol succinate 50 mg tablet extended release 24 hr 50 mg PO DAILY famotidine 20 mg tablet 20 mg PO BID pantoprazole 40 mg tablet,delayed release (DR/EC) 40 mg PO DAILY@0630 allopurinol 300 mg tablet 300 mg PO DAILY ondansetron HCl 4 mg tablet 4 mg PO Q6H PRN (Reason: Nausea And Vomiting) olanzapine 5 mg tablet 5 mg PO BID PRN (Reason: agitation) thiamine mononitrate (vit B1) 100 mg tablet 100 mg PO DAILY pyridoxine (vitamin B6) 50 mg Tablet 50 mg PO DAILY 30 Days Qty: 30 0RF folic acid 1 mg Tablet 1 mg PO DAILY 30 Days Qty: 30 0RF Interventions: [place]-Suicide Risk Severity Scale Last Done: 04/03/25 18:12 Print Language: Lithuanian
--- NOTE | 2025-04-03 17:41 | ECG_ITS ---
Test Reason : MEDICAL CLEARANCE Blood Pressure : */* mmHG Vent. Rate : 105 BPM Atrial Rate : 105 BPM P-R Int : 142 ms QRS Dur : 92 ms QT Int : 364 ms P-R-T Axes : 55 -42 -17 degrees QTcB Int : 481 ms Sinus tachycardia Left axis deviation Abnormal ECG When compared with ECG of 14-Jan-2025 17:42, No significant change was found Referred By: [place] Pereira Electronically Signed By: Dario Munoz
[2025-04-03 18:39] LABS: MANUAL DIFF FLAG NO
--- OUTSIDE RECORDS SUMMARY | 2025-04-03 18:40 | XMS_ITS | Encounter Summary ---
Author Organization [facility] Address [address] [place] [address] Phone Care Team Providers Care Wood Cabinet Finisher Name Role Phone Pcp, Unknown Primary Care Provider Patricia Wilson, Danilo Wisdom MD Primary Care Provide r Encounter Details Date Type Department Care Team (Late st Contact Info) Description 05/15/2024 Procedure [facility], Ct Scan - [facility] [address] [place] [address] Social History Tobacco Use Types Packs/Day Years [...] 05/15/2024 7:33 PM Helena Irwin, CHOCO * [facility] [facility] Suicide Severity Rating Scale (Screener/Recent Self-Report) Question Answer Date of Assessment Author 1. Wish to be (Past 1 Month) No 025 7:33 PM Helena Irwin, CHOCO 2. Non-Specific Active Suici marisol Thoughts (Past 1 Month) No 05/15/2024 7:33 PM Dory Irwin, CHOCO 6. Suicidal Behavior (Lifetime) No 7:33 PM Helena Irwin, CHOCO documented as of this encounter Plan of Treatment Not on file documented as of this encounter Visit Diagnoses Not on filedocumented in this encounter Care Teams Wood Cabinet Finisher Relationship Specialty Start Date End Date Pcp, Unknown PCP - General 05/15/24 05/20/24 Danilo Wilson MD [address] [address] PCP - General Family Medicine 05/21/24 documented as of this encounter Additional Source Comments The information contained in this document represents components of the legal health record. It is not the complete legal health record.[facility]
--- OUTSIDE RECORDS SUMMARY | 2025-04-03 18:40 | XMS_ITS | Encounter Summary ---
Author Organization [facility] Address [address] [place] [address] Phone Care Team Providers Care Aluminum Pourer Name Role Phone Danilo Wilson MD Primary Care Provide r Encounter Details Date Type Department Care Team (Late st Contact Info) Description 07/06/2024 Procedure Pass [facility], Ct Scan - [facility] [address] [place] [address] Social History Tobacco Use Types Packs/Day Years [...] on filedocumented in this encounter Care Teams Aluminum Pourer Relationship Specialty Start Date End Date Danilo Wilson MD [address] [facility] [address] [place] [address] PCP - General Family Medicine 05/21/24 documented as of this encounter Additional Source Comments The information contained in this document represents components of the legal health record. It is not the complete legal health record.[facility]
--- OUTSIDE RECORDS SUMMARY | 2025-04-03 18:40 | XMS_ITS | Encounter Summary ---
Author Organization [facility] [place] [address] Care Team Providers Care Hand Ii Tube Bender Name Role Phone Physician, Pcp Unknown Primary Care Provider Alice vailable Encounter Details Date Type Department Care Team ([facility] st Contact Info) Description 09/28/2024 Referral Triage [facility] [address] [place] [phone] Meenu Burden Social History Tobacco Use Types [...] for your loved ones. For example, child and youth program assistant or elderly care for an older [...] Thalia. Meenu Burden Community Health Worker (CHW) Steel Turner/Regional documented in this encounter Plan of Treatment Not on file documented as of this encounter Visit Diagnoses Not on filedocumented in this encounter Care Teams Hand Ii Tube Bender Relationship Specialty Start Date End Date Physician, Pcp Unknown PCP - General 03/11/25 documented as of this encounter
--- OUTSIDE RECORDS SUMMARY | 2025-04-03 18:40 | XMS_ITS | Encounter Summary ---
Author Organization [facility] Address [address] [place] [address] Phone Care Team Providers Care Head Start Director Name Role Phone Danilo Wilson MD Primary Care Provide r Encounter Details Date Type Department Care Team (Late st Contact Info) Description 08/09/2024 Procedure Pass [facility], Ct Scan - [facility] [address] [place] [address] Social History Tobacco Use Types Packs/Day Years [...] 8:37 PM EDT Darlene Gomez RN * [place] Suicide Severity Rating Scale (Screener/Recent Self-Report) Question [...] on filedocumented in this encounter Care Teams Head Start Director Relationship Specialty Start Date End Date Danilo Wilson MD [address] [address] PCP - General Family Medicine 05/21/24 documented as of this encounter Additional Source Comments The information contained in this document represents components of the legal health record. It is not the complete legal health record.[facility]
--- OUTSIDE RECORDS SUMMARY | 2025-04-03 18:40 | XMS_ITS | Encounter Summary ---
Author Organization [facility] Address [address] [place] [address] Phone Care Team Providers Care Bit Tripoler Name Role Phone Danilo Wilson MD Primary Care Provide r Encounter Details Date Type Department Care Team (Late st Contact Info) Description 10/18/2024 Procedure Pass [facility], Ct Scan - [facility] [address] [place] [address] Social History Tobacco Use Types Packs/Day Years [...] on filedocumented in this encounter Care Teams Bit Tripoler Relationship Specialty Start Date End Date Danilo Wilson MD [address] [facility] [address] [place] [address] PCP - General Family Medicine 05/21/24 documented as of this encounter Additional Source Comments The information contained in this document represents components of the legal health record. It is not the complete legal health record.[facility]
--- OUTSIDE RECORDS SUMMARY | 2025-04-03 18:40 | XMS_ITS | Encounter Summary ---
Author Organization [facility] Address [address] [place] [address] Phone Care Team Providers Care Infantry Officer Name Role Phone Pcp, Unknown Primary Care Provider Patricia Wilson, Danilo Wisdom MD Primary Care Provide r Encounter Details Date Type Department Care Team (Late st Contact Info) Description 05/15/2024 Procedure Pass [facility], [facility] [address] [place] [address] Social History Tobacco Use Types Packs/Day Years [...] 05/15/2024 7:33 PM Helena Irwin, CHOCO * [place] Suicide Severity Rating Scale (Screener/Recent Self-Report) Question [...] on filedocumented in this encounter Care Teams Infantry Officer Relationship Specialty Start Date End Date Pcp, Unknown PCP - General 05/15/24 05/20/24 Danilo Wilson MD [address] [address] PCP - General Family Medicine 05/21/24 documented as of this encounter Additional Source Comments The information contained in this document represents components of the legal health record. It is not the complete legal health record.[facility]
--- OUTSIDE RECORDS SUMMARY | 2025-04-03 18:40 | XMS_ITS | Encounter Summary ---
Author Organization [facility] Address [address] [place] [address] Phone Care Team Providers Care Block Press Operator Name Role Phone Danilo Wilson MD Primary Care Provide r Encounter Details Date Type Department Care Team (Late st Contact Info) Description 12/09/2024 Procedure Pass [facility], Ct Scan - [facility] [address] [place] [address] Social History Tobacco Use Types Packs/Day Years [...] on filedocumented in this encounter Care Teams Block Press Operator Relationship Specialty Start Date End Date Danilo Wilson MD [address] [facility] [address] [place] [address] PCP - General Family Medicine 05/21/24 documented as of this encounter Additional Source Comments The information contained in this document represents components of the legal health record. It is not the complete legal health record.[facility]
--- OUTSIDE RECORDS SUMMARY | 2025-04-03 18:40 | XMS_ITS | Encounter Summary ---
Author Organization [facility] Address [address] [place] [address] Phone Care Team Providers Care Bean Sprout Laborer Name Role Phone Pcp, Unknown Primary Care Provider Danilo Nolasco MD Primary Care Provide r Encounter Details Date Type Department Care Team (Late st Contact Info) Description 05/16/2024 Procedure Pass [place] Admitting Dept - Virtual Department [address] [place] [address] Social History Tobacco Use Types Packs/Day Years [...] on filedocumented in this encounter Care Teams Bean Sprout Laborer Relationship Specialty Start Date End Date Pcp, Unknown PCP - General 05/15/24 05/20/24 Danilo Wilson MD [address] [address] PCP - General Family Medicine 05/21/24 documented as of this encounter Additional Source Comments The information contained in this document represents components of the legal health record. It is not the complete legal health record.[facility]
--- OUTSIDE RECORDS SUMMARY | 2025-04-03 18:40 | XMS_ITS | Encounter Summary ---
Author Organization [facility] Address [address] [place] [address] Phone Care Team Providers Care Fleet Driver Name Role Phone Pcp, Unknown Primary Care Provider Patricia Wilson, Danilo Wisdom MD Primary Care Provide r Encounter Details Date Type Department Care Team (Late st Contact Info) Description 05/17/2024 Procedure Pass [facility] [address] [place] [address] Social History Tobacco Use Types Packs/Day Years [...] on filedocumented in this encounter Care Teams Fleet Driver Relationship Specialty Start Date End Date Pcp, Unknown PCP - General 05/15/24 05/20/24 Danilo Wilson MD [address] [facility] [address] [place] [address] PCP - General Family Medicine 05/21/24 documented as of this encounter Additional Source Comments The information contained in this document represents components of the legal health record. It is not the complete legal health record.[facility]
--- OUTSIDE RECORDS SUMMARY | 2025-04-03 18:40 | XMS_ITS | Encounter Summary ---
Author Organization [facility] Address [address] [place] [address] Phone Care Team Providers Care Cableway Operator Name Role Phone Danilo Wilson MD Primary Care Provide r Encounter Details Date Type Department Care Team (Late st Contact Info) Description 07/06/2024 Procedure Pass [facility], Ct Scan - [facility] [address] [place] [address] Social History Tobacco Use Types Packs/Day Years [...] on filedocumented in this encounter Care Teams Cableway Operator Relationship Specialty Start Date End Date Danilo Wilson MD [address] [facility] [address] [place] [address] PCP - General Family Medicine 05/21/24 documented as of this encounter Additional Source Comments The information contained in this document represents components of the legal health record. It is not the complete legal health record.[facility]
--- OUTSIDE RECORDS SUMMARY | 2025-04-03 18:40 | XMS_ITS | Clinical Summary ---
Author Organization [facility] Address [address] [place] [address] Phone Care Team Providers Care Floor Press Operator Name Role Phone Danilo Wilson [...] Per patient, workup with Dr. Sanders from [facility] neurology has otherwise been unremarkable. -Seizure [...] Per patient, workup with Dr. Sanders from [facility] neurology has otherwise been unremarkable. -Seizure [...] abstain from alcohol use in the future Family History Medical History Relation Comments No [...] Last Done Comments Adult Td,Tdap Booster 1983 LIPID PANEL 1983 DEPRESSION SCREENING 1995 SMOKING Hx and SMOKELESS TOBACCO SCREENING 10/31/1996 HIV ONE-TIME SCREENING (18-65 YEARS) 10/31/2001 PNEUMOCOCCAL VACCINES (0-49 years) (1 of 2 - PCV) 10/31/2002 INFLUENZA VACCINE (#1) 2024 COVID-19 VACCINE (1 - 2024- season) 2025 CREATININE LEVEL 12/11/2025 12/11/2024, 05/2024, 12/08/2024, Additional history exists SCREENING FOR DIABETES 12/12/2027 12/11/2024 HEPATITIS C SCREENING Completed 05/16/2024, 025 HEPATITIS A VACCINES Aged Out No long [...] Date/Time Associated Diagnosis Comments BASIC METABOLIC PANEL (BMP) Routine 12/11/2024 6:14 AM EDT HEPATITIS C ANTIBODY, QUALITATIVE Routine 05/16/2024 4:34 AM EST from Last 3 Months or Most Recently Relevant to Health Maintenance Results * (ABNORMAL) Basic metabolic panel (12/11/2024 6:14 AM EDT) SODIUM 138 133 - 146 mmol/L [facility] CHLORIDE 98 96 - 108 mmol/L [facility] POTASSIUM 3.7 3.3 - 5.1 mmol/L [facility] CO2 26 21 - 35 mmol/L [facility] BUN 7 6 - 19 mg/dL [facility] CREATININE 1.00 0.5 - 1.5 mg/dL [facility] GLUCOSE 100(H) 70 - 99 mg/dL [facility] CALCIUM 8.9 8.4 - 10.3 mg/dL [facility] EGFR 97 >59 mL/min/1.7 3m2 [facility] Comment:Estimated glomerular filtration rate calculated using the CKD-EPI refit equation. ANION GAP 18 10 - 20 mmol/L [facility] Blood 12/11/2024 6:14 AM EDT 12/11/2024 6:38 AM EDT us Toño Garcia MD LAB BLOOD BKR ORDERABLES Final R esult [facility] [address] [place] [address] * Hepatitis C antibody, qualitative (05/16/2024 4:34 AM EST) HCV NON-REACTIV E NON-REACTI VE [facility] Blood 05/16/2024 4:34 AM EST 05/16/2024 4:41 AM EST Ninfa Aponte PA-C, MPH LAB BLOOD BKR ORDER [place] Final Result [address] [address] from Last 3 Months or Most Recently Relevant to Health Maintenance Insurance [employer] PARTNER[employer]IP ACO ACO ACO Advance Directives For more information, please contact: [phone] (9AM - 5PM [place], Friday-Friday) Documents on File Type Date Recorded Patient Project Specialist Expl anation Healthcare Proxy 05/20/2024 3:20 [...] Agents on File Name Relationship Healthcare Agent [facility] p Communication Teagan Landis Mother .Primary Health Care Agent (Proxy form on file) Care Teams Floor Press Operator Relationship Specialty Start Date End Date Danilo Wilson MD [address] [facility] [address] [place] [address] PCP - General Family Medicine 05/21/24 Additional Source Comments The information contained in this document represents components of the legal health record. It is not the complete legal health record.[facility]
--- OUTSIDE RECORDS SUMMARY | 2025-04-03 18:40 | XMS_ITS | Clinical Summary ---
Author Organization [facility] Address [address] [place] [address] Phone Care Team Providers Care Career Specialist Name Role Phone Physician, Pcp Unknown Primary [...] hours for 3 days. 12 tablet 03/11/2025 03/14/20 25 famotidine (PEPCID) 20 mg tablet Take 1 tablet (20 mg total) by mouth 2 (two) times a day for 15 days. 30 tablet 03/11/2025 03/26/20 25 Active Problems No known active problems Resolved Problems Problem Noted Date Diagnosed Date Resolved Date Alcohol withdrawal (CMS/HCC V24, CMS/HCC V28) 09/23/19 25 09/25/2024 Encounters Date Type Department Care Team Description 03/10/2025 11:50 PM EDT - 03/11/2025 10:04 AM EDT Emergency [facility] Emergency [address] [place] [address] Jazmín Jones MD Goebel, Mathew, MD Acute alcoholic gastritis without hemorrhage (Primary Dx); Alcohol withdrawal syndrome without complication [place] [place] [facility] [place] Discharge Disposition: Home or Self Care from Last 3 Months Surgical History Surgery Date Site/Laterality Comments OTHER SURGICAL HISTORY PROCEDURE: DENIES PREVIOUS SURGERY Medical History Medical History Date Comments Lumbar disc herniation with radiculopathy 2013 DX:Lumbar disc herniation wi th radiculopathy Alcohol abuse 2015 DX:Alcohol abuse Homeless 03/23/2018 DX:Homeless Cardiomyopathy [place] [place] [facility] [place] Family History Medical History Relation Name [...] for your loved ones. For example, child development teacher or elderly care for an older adult? [...] Signed Date: 03/11/2025 09:15 ET Workstation ID: [id number] Transcribed By: Self Edit Transcribed Date: 03/11/2025 [...] Signed Date: 03/11/2025 09:15 ET Workstation ID: [id number] Transcribed By: Self Edit Transcribed Date: 03/11/2025 09:11 ET Jazmín Jones MD IMG CT PROCEDURES Final Result * (ABNORMAL) CBC auto differential (03/11/2025 12:14 AM EDT) [facility] WBC 6.2 4.8 - 10.8 K/mcL LAB HEMETOLOGY METHOD 03/11/2025 12:58 AM EDT [facility] RBC 5.00 4.50 - 5.50 M/mcL LAB HEMETOLOGY METHOD 03/11/2025 12:58 [facility] Hemoglobin 14.9 13.5 - 17.5 g/dL LAB HEMETOLOGY METHOD 03/11/2025 12:58 AM [facility] Hematocrit 44.3 42.0 - 54.0 % LAB HEMETOLOGY METHOD 03/11/2025 12:58 AM [facility] MCV 89.5 79.0 - 98.0 FL LAB HEMETOLOGY METHOD 03/11/2025 12:58 AM [facility] MCH 30.1 27.0 - 32.0 pcg LAB HEMETOLOGY METHOD 03/11/2025 12:58 AM [facility] MCHC 33.6 32.0 - 37.0 g/dL LAB HEMETOLOGY METHOD 03/11/2025 12:58 AM [facility] RDW 15.3(H) 11.0 - 15.0 % LAB HEMETOLOGY METHOD 03/11/2025 12:58 AM [facility] Platelets 338 130 - 400 K/mcL LAB HEMETOLOGY METHOD 03/11/2025 12:58 AM EDT [facility] MPV 9.6 7.0 - 11.0 FL LAB HEMETOLOGY METHOD 03/11/2025 12:58 AM [facility] NRBC 0.0 <1.0 % LAB HEMETOLOGY METHOD 03/11/2025 12:58 AM [facility] NRBC Absolute 0.00 <0.10 K/mcL LAB HEMETOLOGY METHOD 03/11/2025 12:58 AM [facility] Neutrophils Relative 53.9 % LAB HEMETOLOGY METHOD 03/11/2025 12:58 AM [facility] Lymphocytes Relative 30.4 % LAB HEMETOLOGY METHOD 03/11/2025 12:58 AM [facility] Monocytes Relative 5.9 % LAB HEMETOLOGY METHOD 03/11/2025 12:58 AM [facility] Eosinophils Relative 7.4 % LAB HEMETOLOGY METHOD 03/11/2025 12:58 AM [facility] Basophils Relative 2.2 % LAB HEMETOLOGY METHOD 03/11/2025 12:58 AM [facility] Immature Granulocytes Relative 0.2 % LAB HEMETOLOGY METHOD 03/11/2025 12:58 AM [facility] Neutrophils Absolute 3.36 1.50 - 7.00 K/mcL LAB HEMETOLOGY METHOD 03/11/2025 12:58 AM [facility] Lymphocytes Absolute 1.90 1.00 - 5.00 K/mcL LAB HEMETOLOGY METHOD 03/11/2025 12:58 AM [facility] Monocytes Absolute 0.37 0.20 - 1.00 K/mcL LAB HEMETOLOGY METHOD 03/11/2025 12:58 AM [facility] Eosinophils Absolute 0.46 0.00 - 0.50 K/mcL LAB HEMETOLOGY METHOD 03/11/2025 12:58 AM [facility] Basophils Absolute 0.14 0.00 - 0.20 K/[facility] LAB HEMETOLOGY METHOD 03/11/2025 12:58 AM EDT [facility] Immature Granulocytes Absolute 0.01 0.00 - 0.03 K/[facility] LAB HEMETOLOGY METHOD 03/11/2025 12:58 AM EDT [facility] Blood Venous blood specimen / Unknown Venipuncture / Unknown 03/11/2025 12:14 AM EDT 03/11/2025 12:30 AM EDT Jazmín Jones MD LAB BLOOD ORDERABLES Final Res ult Performing Organization Address [facility]/ZIP Co de Phone Number [facility] [address] [place] [address], [place] [phone] * Magnesium (03/11/2025 12:14 AM EDT) Magnesium 2.1 1.9 - 2.6 mg/dL LAB CHEMISTRY METHOD 03/11/2025 1:07 AM EDT [facility] Blood Venous blood specimen / Unknown Venipuncture / Unknown 03/11/2025 12:14 AM EDT 03/11/2025 12:30 AM EDT Jenniffer HERNANDEZ LAB BLOOD ORDERABLES Fin al Result Performing Organization Address [facility]/ZIP Co de Phone Number [facility] [address] [place] [address], [place] [phone] * (ABNORMAL) Lipase (03/11/2025 12:14 AM EDT) Lipase 176(H) 13 - 75 unit/L LAB CHEMISTRY METHOD 03/11/2025 1:12 AM EDT [facility] Blood Venous blood specimen / Unknown Venipuncture / Unknown 03/11/2025 12:14 AM EDT 03/11/2025 12:30 AM EDT us Jazmín Jones MD LAB BLOOD ORDERABLES Final Res ult [facility] [address] [place] [address], [place] [phone] * (ABNORMAL) Ethanol (03/11/2025 12:14 AM EDT) Pathologist [facility] Ethanol Level 291(H) 0 - 10 mg/dL LAB CHEMISTRY METHOD 03/11/2025 1:26 AM EDT [facility] Blood Venous blood specimen / Unknown Venipuncture / Unknown 03/11/2025 12:14 AM EDT 03/11/2025 12:30 AM EDT Jenniffer HERNANDEZ LAB BLOOD ORDERABLES Fin al Result Performing Organization Address [facility]/ZIP Co de Phone Number [facility] [address] [place] [address], [place] [phone] * (ABNORMAL) Comprehensive metabolic panel (03/11/2025 12:14 AM EDT) [facility] Sodium 141 133 - 145 mmol/L LAB CHEMISTRY METHOD 03/11/2025 1:12 AM T [facility] Potassium 4.0 3.5 - 5.5 mmol/L LAB CHEMISTRY METHOD 03/11/2025 1:12 AM T [facility] Chloride 102 96 - 110 mmol/L LAB CHEMISTRY METHOD 03/11/2025 1:12 AM [facility] CO2 28 21 - 32 mmol/L LAB CHEMISTRY METHOD 03/11/2025 1:12 AM [facility] Anion Gap 11 3 - 11 LAB CHEMISTRY METHOD 03/11/2025 1:12 AM [facility] Glucose 110(H) 70 - 100 mg/dL LAB CHEMISTRY METHOD 03/11/2025 1:12 AM [facility] BUN 16 5 - 25 mg/dL LAB CHEMISTRY METHOD 03/11/2025 1:12 AM [facility] Creatinine 1.02 0.70 - 1.30 mg/dL LAB CHEMISTRY METHOD 03/11/2025 1:12 AM [facility] eGFR 95 >=60 mL/min/1. 73m2 LAB CHEMISTRY METHOD 03/11/2025 1:12 AM [facility] Comment:Calculation based on the Chronic Kidney Disease Epidemiology Collaboration (CKD-EPI) equation refit without adjustment for race. BUN/Creatinine Ratio 15.7 LAB CHEMISTRY METHOD 03/11/2025 1:12 AM [facility] Calcium 8.9 8.5 - 10.5 mg/dL LAB CHEMISTRY METHOD 03/11/2025 1:12 AM [facility] AST (SGOT) 63(H) 10 - 42 unit/L LAB CHEMISTRY METHOD 03/11/2025 1:12 AM [facility] ALT (SGPT) 40 10 - 60 unit/L LAB CHEMISTRY METHOD 03/11/2025 1:12 AM [facility] Alkaline Phosphatase 102 42 - 121 unit/L LAB CHEMISTRY METHOD 03/11/2025 1:12 AM [facility] Total Protein 7.2 6.0 - 8.0 g/dL LAB CHEMISTRY METHOD 03/11/2025 1:12 AM [facility] Albumin 4.2 3.2 - 5.0 g/dL LAB CHEMISTRY METHOD 03/11/2025 1:12 AM [facility] Total Bilirubin 0.4 0.0 - 1.4 mg/dL LAB CHEMISTRY METHOD 03/11/2025 1:12 AM [facility] Blood Venous blood specimen / Unknown Venipuncture / Unknown 03/11/2025 12:14 AM EDT 03/11/2025 12:30 AM EDT us Jazmín Jones MD LAB BLOOD ORDERABLES Final Res ult [facility] [address] [place] [address], [place] [phone] from Last 3 Months Insurance [employer] [place] [employer] [address] [place] [address] Advance Directives * Full Code - Default [...] currently active code status orders. Care Teams Career Specialist Relationship Specialty Start Date End Date Physician, Pcp Unknown PCP - General 03/11/25
--- OUTSIDE RECORDS SUMMARY | 2025-04-03 18:40 | XMS_ITS | Encounter Summary ---
Author Organization [facility] Address [address] [place] [address] Phone Care Team Providers Care Bridge Game Director Name Role Phone Pcp, Unknown Primary Care Provider Unavailabl e Pcp, Unknown Primary Care Provider Unavailabl e Danilo Wilson MD Primary Care Provide r Encounter Details Date Type Department Care Team (Late st Contact Info) Description 01/01/2024 Procedure Pass [facility], Ct Scan - [facility] [address] [place] [address] Social History Tobacco Use Types Packs/Day Years [...] 10:41 PM EDT Anna Tsang RN * [place] Suicide Severity Rating Scale (Screener/Recent Self-Report) Question [...] on filedocumented in this encounter Care Teams Bridge Game Director Relationship Specialty Start Date End Date Pcp, Unknown PCP - General 01/01/24 05/14/24 Pcp, Unknown PCP - General 05/15/24 05/20/24 Danilo Wilson MD [address] [address] PCP - General Family Medicine 05/21/24 documented as of this encounter Additional Source Comments The information contained in this document represents components of the legal health record. It is not the complete legal health record.[facility]
--- OUTSIDE RECORDS SUMMARY | 2025-04-03 18:40 | XMS_ITS | Clinical Summary ---
Author Organization [facility] Address [address] [place] [address] Care Team Providers Care Director Translational Name Role Phone Adelaida Appiah MD Primary [...] age to complete this topic Care Teams Director Translational Relationship Specialty Start Date End Date Adelaida Appiah MD PCP - General Internal Medicine 10/20/18
[2025-04-03 18:42] LABS: Hematocrit 41.1 % (42.0-52.0); Hemoglobin 14.1 g/dl (14.0-18.0); Imm Gran Abs Auto 0.01 X10*3/uL (0.00-0.03); Imm Gran Pct Auto 0.2 % (0.0-0.4); Lymphocytes Absolute Auto 1.7 X10*3/uL (1.2-4.9); Mean Corpuscular HGB Conc 34.3 g/dl (31.0-36.0); Mean Corpuscular Hemoglobin 30.5 pg (27.0-33.0); Mean Corpuscular Volume 89.0 fL (80.0-98.0); NRBC Abs Auto 0.000 X10*3/uL (0.0-0.012); NRBC Pct Auto 0.0 /100WBC (0.0-0.2); Platelet Count 366 X10*3/uL (160-400); Red Blood Count 4.62 X10*6/uL (4.60-5.80); White Blood Count 4.7 X10*3/uL (4.8-10.8)
[2025-04-03 18:43] LABS: Appearance Urine Clear; Glucose Urine UA Negative (Negative); PH 6.5 (5.0-9.0); Specific Gravity - Urine 1.020 (1.005-1.025); UMIC TRIGGER UA YES
[2025-04-03 18:51] LABS: Cannabinoid Screen Urine Not Detected (Not Detect)
[2025-04-03 18:57] LABS: COVID-19 Test Negative (Negative); IDNOW Serial# 55D5AD1C
[2025-04-03 19:01] LABS: Alanine Aminotransferase 32 U/L (0-40); Albumin Level 4.7 g/dL (3.5-5.0); Alkaline Phosphatase 89 U/L (39-117); Anion Gap 18 (12-20); Aspartate Amino Transferase 71 U/L (5-37); Blood Urea Nitrogen 9 mg/dL (9-16); Calcium 8.9 mg/dL (8.4-10.2); Carbon Dioxide 26 mmol/L (22-29); Chloride 104 mmol/L (96-108); Creatinine Clr Calc Pharmacy 86.7; Estimated Glomerular Filt Rate > 60; Lipase 66 U/L (8-78); Potassium 4.2 mmol/L (3.3-5.1); Sodium 144 mmol/L (135-145); Total Protein 7.3 g/dL (6.5-8.0)
[2025-04-03 19:03] LABS: Acetaminophen LAB < 3 mcg/mL (<30); Salicylate < 5.0 mg/dL (15-30)
--- NOTE | 2025-04-03 19:15 | PC.NURSE ---
@approximately this time, pt noted to be increasingly anxious, requesting medication for anxiety. Provider Nicole Diego made aware, order for loading phenobarb dose IM and updated CIWA given
[2025-04-03] MEDS: PHENobarbitaL sodium 130 MG/ML IM ONCE 283 MG IM (19:24)
--- NOTE | 2025-04-03 19:30 | PC.NURSE ---
@approximately this time pt medicated per MAR, pt states he is still increasingly anxious, CIWA complete and provider Nicole Diego made aware
--- NOTE | 2025-04-03 20:35 | PC.NURSE ---
@this time pt noted to still be anxious post loading dose of phenobarb IM given, provider Nicole Diego made aware, order for Atarax PO given
[2025-04-03] MEDS: PHENobarbitaL sodium 130 MG/ML VIAL IM Q3Hx2 210 MG IM (21:43)
--- NOTE | 2025-04-03 21:50 | PC.NURSE ---
pt medicated per JUL, pt coinues to state he is anxious, stating I feel very anxious like I am ready to run out of here pt educated that he has gotten PO anxiety medication in combination w/ phenobarbital IM, pt stated Valium works best for his anxiety, provider Tio Saldaña made aware
[2025-04-03 22:36] VITALS: BP 129/86; PULSE 111; RESP 20; TEMP 36.8; O2SAT 96
--- NOTE | 2025-04-03 22:37 | PC.NURSE ---
at this time pt stated to driver service technician that he is still increasingly anxious and noted to be tearful, provider Tio Saldaña made aware
[2025-04-04] VITALS: BP 119/86; PULSE 97; RESP 20; TEMP 36.6; O2SAT 95
[2025-04-04] MEDS: PHENobarbitaL sodium 130 MG/ML VIAL IM Q3Hx2 210 MG IM (00:49)
--- NOTE | 2025-04-04 00:49 | PC.NURSE ---
pt noted to be laying supine, eyes closed, respirations even and unlabored, medicated per MAR at this time
[2025-04-04 02:00] VITALS: RESP 18
[2025-04-04 04:00] VITALS: RESP 18
[2025-04-04 06:00] VITALS: BP 141/92; PULSE 95; RESP 20; TEMP 36.7; O2SAT 95
--- NOTE | 2025-04-04 07:20 | PC.NURSE ---
pt currently sleeping, rr equal/non labored, vitals previously stable, 1:1 sitter, pt awaiting to see care team, call vila within reach, plan of care ongoing
--- NOTE | 2025-04-04 08:27 | MHC.CARE ---
Pt does not meet the criteria for a higher level of care or present as an imminent risk. He is declining detox and all substance use resources at this time. Pt will D/C. ED provider in agreement.
--- NOTE | 2025-04-04 08:35 | PC.NURSE ---
this nurse took over patient care at 7am- patient a&ox3, rr equal/non labored, vss, pt ciwa 8- provider notified, pt medicated with scheduled med per order, per request of provider IV inserted pt started on fluids, was then medicated for nausea, headache/abd pain and withdrawal symptoms. pt has had 1:1 sitter through the night- the care team did an eval pt denying si/hi and states he is having withdrawals not SI/HI- provider aware, charge nurse notified and sitter has been dc'd. call vila within reach, plan of care ongoing
--- NOTE | 2025-04-04 10:16 | PM.IMHP ---
History of Present Illness Date of Service: 04/04/25 Chief Complaint: Alcohol withdrawal 39-year-old man presented to the ER with complaints of alcohol withdrawal. He reports depression and feeling suicidal. He reports that when he goes through detox he has hallucinations but has never had a seizure. He reports increased stress in the family more recently. He drinks about a pt of rum every day. He did report some central abdominal pain, lipase 66. He denied fever, chills, nausea, vomiting, diarrhea. Patient was started on phenobarbital protocol, given Librium, Zofran, Valium in the ER. He will be admitted for further management and treatment of acute alcohol withdrawal and likely pancreatitis. Review of Systems Review of Systems: Denies any recent fever chills or decrease in appetite respiratory denies any shortness of breath or cough cardiovascular denied chest pain gastrointestinal denies any dysphagia abdominal pain nausea vomiting or diarrhea genitourinary denies any dysuria frequency or hematuria musculoskeletal denies any joint pain or swelling neuropsych denies any weakness or seizures all other systems reviewed are negative [facility] Medical History (Updated 04/04/25 @ 10:20 by Glenny Loyola NP) Alcoholic gastritis Depression Gout Alcoholic cardiomyopathy Social History Household Members: None Housing: Apartment Do you presently have visiting nurse or other home services: No Alcohol intake: current Alcohol intake frequency: 3 or more drinks per day Alcohol type: hard liquor Patient Tobacco Use Status: Former Tobacco user Currently Displaying Signs/Symptoms of Drug Intoxication Withdrawal: No Have you been hit, kicked, punched, or otherwise hurt by someone within the past year? If so, by whom?: No Do you feel safe in your current relationship?: No Current Relationship Is there a partner from a previous relationship who is making you feel unsafe now?: No Are you made to feel afraid or neglected: No Advance Directives: No Advance Directives Information Provided: No Do you have a plan to hurt others: No Plan Recently lost weight without trying: No Nutrition Risks: No Nutritional Risk service: No Meds Allergies Allergy/AdvReac Type Severity Reaction Status Date / Time cephalexin (From Keflex) Allergy Rash Verified 04/03/25 17:37 Active Medications: Current Medications Acetaminophen (Acetaminophen 325 Mg Tablet) 650 mg PO Q6H PRN PRN Reason: Pain, Mild 1-3,fever,headache Calcium Carbonate (Calcium Carbonate 750 Mg Tab.Chew) 750 mg PO Q4H PRN PRN Reason: Heartburn Enoxaparin Sodium (Enoxaparin Sodium 40 Mg/0.4 Ml Syringe) 40 mg SUBCUT Q24H [facility] Folic Acid (Folic Acid 1 Mg Tablet) 1 mg PO DAILY [facility] Lactated Ringer's (Lr) 1,000 mls @ 125 mls/hr IVCONT .Q8H [facility] Thiamine HCl 100 mg/ Sodium (Chloride) 101 mls @ 202 mls/hr IV DAILY [facility] Magnesium Hydroxide (Milk Of Magnesia 30 Ml Oral.Susp) 30 ml PO DAILY PRN PRN Reason: Constipation Melatonin (Melatonin 3 Mg Tablet) 6 mg PO BEDTIME PRN PRN Reason: Insomnia Multivitamins/Vitamin C (Multivitamin Tablet) 1 tab PO DAILY [facility] Ondansetron HCl (Ondansetron Hcl 4 Mg/2 Ml Vial) 4 mg IVPUSH Q8H PRN PRN Reason: Nausea and Vomiting Pharmacy Consult (Consult Rx Etoh Phenob Im/Po) 1 each MISCELLANE ONCE PRN; Protocol PRN Reason: Consult order Phenobarbital (Phenobarbital 15 Mg Tablet) 45 mg PO BID [facility] Stop: 04/05/25 21:01 Last Admin: 04/04/25 08:13 Dose: 45 mg Phenobarbital (Phenobarbital 30 Mg Tablet) 30 mg PO BID [facility] Stop: 04/07/25 21:01 Phenobarbital (Phenobarbital 30 Mg Tablet) 30 mg PO DAILY [facility] Stop: 04/09/25 09:01 Sodium Chloride (0.9 % Sodium Chloride Flush 3 Ml Syringe) 3 ml IVFLUSH QSHIFT [facility] Home Medications ?Medication ?Instructions ?Recorded ?Confirmed ?Last Taken ?Type metoprolol succinate 50 mg 50 mg PO DAILY 01/15/25 04/04/25 04/03/25 History tablet,extended release 24 hr pantoprazole 40 mg tablet,delayed 40 mg PO DAILY@0630 01/15/25 04/04/25 04/03/25 History release allopurinol 300 mg tablet 300 mg PO DAILY 01/16/25 04/04/25 04/03/25 History ondansetron HCl 4 mg tablet 4 mg PO Q6H PRN Nausea And Vomiting 03/13/25 04/04/25 Unknown History famotidine 20 mg tablet 20 mg PO BID 04/04/25 04/04/25 04/03/25 History Physical Exam Vital Signs and Narrative: Vital Signs: Last Vital Signs Temp 98.1 F 04/04/25 06:00 Pulse 95 04/04/25 06:00 Resp 20 04/04/25 06:00 BP 141/92 H 04/04/25 06:00 Pulse Ox 95 04/04/25 06:00 O2 Del Method Room Air 04/04/25 06:00 BMI result Body Mass Index 27.5 Appearing in no acute distress head is normocephalic atraumatic eyes pupils are PERRLA sclera is anicteric mouth throat mucous membranes are intact and moist neck is supple no lymphadenopathy, no JVD noted lung sounds are clear to auscultation heart regular rate rhythm, clear S1, S2 positive bowel sounds, abdomen is soft, nontender neuro patient is alert x3, no focal deficits, tremulous Results Labs 04/03/25 18:29 04/03/25 18:29 Labs: Laboratory Results - last 24 hr 04/03/25 18:29 MCV 89.0 MCH 30.5 MCHC 34.3 RDW 14.5 Plt Count 366 D MPV 9.0 L Immature Gran % (Auto) 0.2 Neut % (Auto) 47.3 Lymph % (Auto) 36.0 Elbert % (Auto) 10.1 Eos % (Auto) 3.6 Baso % (Auto) 2.8 H Lymph # (Auto) 1.7 Elbert # (Auto) 0.5 Eos # (Auto) 0.2 Baso # (Auto) 0.1 Abs Immat Gran (auto) 0.01 Absolute Neuts (auto) 2.2 Absolute Nucleated RBC 0.000 Nucleated RBC % (auto) 0.0 Anion Gap 18 Estim Creat Clear Calc 86.7 Estimated GFR > 60 Random Glucose 107 Calcium 8.9 Total Bilirubin 0.2 AST 71 H ALT 32 Alkaline Phosphatase 89 Total Protein 7.3 Albumin 4.7 Lipase 66 Urine Color Yellow Urine Appearance Clear Urine pH 6.5 Ur Specific Mckittrick 1.020 Urine Protein 30 (1+) H Urine Glucose (UA) Negative Urine Ketones 15 Urine Blood Negative Urine Nitrite Negative Ur Leukocyte Esterase Negative Urine RBC 3-5 H Urine WBC 0-5 Ur Squamous Epith Cells 0-2 Urine Bacteria None Seen Hyaline Casts 0-2 Salicylates < 5.0 L Urine Opiates Screen Not Detected Ur Buprenorphine Scrn Not Detected Ur Oxycodone Screen Not Detected Urine Methadone Screen Not Detected Urine Fentanyl Screen Not Detected Acetaminophen < 3 Ur Barbiturates Screen POSITIVE H Ur Phencyclidine Scrn Not Detected Ur Amphetamines Screen Not Detected U Benzodiazepines Scrn POSITIVE H Urine Cocaine Screen Not Detected U Marijuana (THC) Screen Not Detected Ethyl Alcohol 392 H* COVID-19 ([facility]) Negative COVID-19 Clin Com See Note Assessment and Plan (1) Alcoholism: Status: Acute Plan 39-year-old man admitted for alcohol intoxication and withdrawal Alcohol intoxication and withdrawal Elevated CIWA scale, started on phenobarbital with high risk for withdrawal History of hallucinations and encephalopathy, started on IV thiamine IV fluids Addiction Medicine consultation Multivitamin, folic acid Add protein to diet, encourage oral intake Abdominal pain, likely pancreatitis Lipase 66 Patient reports abdominal pain similar to previous episodes of pancreatitis Abdominal CT ordered Pain management IV fluids History of alcoholic cardiomyopathy Continue beta-fede History of alcoholic gastritis Continue PPI DVT prophylaxis Lovenox Full code Quality Stroke Does the patient have a stroke diagnosis?: No VTE Prior VTE?: No VTE Risk Level:: Medical - moderate - high VTE Device Contraindication: Treatment Not Indicated VTE Drug Contraindication: N/A - Med Ordered
--- NOTE | 2025-04-04 10:35 | PHA.MEDREC ---
Pharmacy Consult ? Medication Reconciliation Pharmacy has completed the medication reconciliation. Spoke with pt and he confirmed his medications. 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
[2025-04-04] MEDS: Thiamine HCL 100 MG in 0.9 % Sodium Chloride 100 ML 202 MG IV (10:49)
[2025-04-04] MEDS: Lactated Ringers 1,000 ML 125 ML IVCONT ×2 (10:49→19:57)
--- NOTE | 2025-04-04 10:51 | PHA.MEDREC ---
Addendum entered by Stephen Goyal RPh 04/04/25 11:01: MED REC REVIEWED BY [facility] Original Note: Pharmacy Consult ? Medication Reconciliation Pharmacy has completed the medication reconciliation. 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
--- NOTE | 2025-04-04 10:51 | PC.NURSE ---
patient a&ox3, radiographer cardiac catheterization nsr to sinus tach when he wakes, ivf started per order, pt medicated per order- pt refused lovenox as he dislikes needles and didnt want another one. pt stating he continues to feel shakey and also has c/o 8/10 abdominal pain, will notify hospitalist, call vila within reach, plan of care ongoing
[2025-04-04 12:39] VITALS: BMI 27.5
--- NOTE | 2025-04-04 12:51 | HO.NURTONUR ---
patient came in from home for anxiety/depression with ETOH, has been cleared by care team- no sitter needed he is being admitted for ETOH withdrawal- etoh was 392 upon arrival to the ED., rr equal/non labored, pt has c/o 8-9/10 abd pain- workup benign. CIWAs have been 7, 8 mostly for tremors, nausea, headache. He has had phenobarb protocol with an extra IM dose this morning, Librium 50mg and IV fluids. pt ambulates with stby assist due to his tremors.
[2025-04-04 15:49] VITALS: BP 123/88; PULSE 78; RESP 14; TEMP 36.8; O2SAT 95
[2025-04-04] MEDS: diazePAM 10 MG/2 ML CARTRIDGE 5 MG IVPUSH (15:52)
[2025-04-04] MEDS: Metoprolol Succinate ER 50 MG TAB.ER.24H PO (16:42)
[2025-04-04 19:55] VITALS: BP 134/88; PULSE 116; RESP 17; TEMP 36.7; O2SAT 96
--- NOTE | 2025-04-05 | ECG_ITS ---
Test Reason : abd pain, ? chest pain Blood Pressure : */* mmHG Vent. Rate : 71 BPM Atrial Rate : 71 BPM P-R Int : 136 ms QRS Dur : 80 ms QT Int : 436 ms P-R-T Axes : 45 -39 -45 degrees QTcB Int : 473 ms Normal sinus rhythm Left axis deviation Minimal voltage criteria for LVH, may be normal variant ( R in aVL ) ST & T wave abnormality, consider inferior ischemia ST & T wave abnormality, consider anterolateral ischemia Prolonged QT Abnormal ECG When compared with ECG of 03-Apr-2025 18:40, T wave inversion now evident in Anterior leads Referred By: Radha Díaz Electronically Signed By: Dario Munoz
[2025-04-05 00:10] VITALS: PULSE 87
[2025-04-05 03:42] VITALS: BP 119/75; PULSE 70; RESP 16; TEMP 36.1; O2SAT 95
[2025-04-05] MEDS: Lactated Ringers 1,000 ML 125 ML IVCONT ×3 (03:42→21:17)
[2025-04-05 06:05] LABS: Hematocrit 38.3 % (42.0-52.0); Hemoglobin 13.0 g/dl (14.0-18.0); Mean Corpuscular HGB Conc 33.9 g/dl (31.0-36.0); Mean Corpuscular Hemoglobin 30.5 pg (27.0-33.0); Mean Corpuscular Volume 89.9 fL (80.0-98.0); NRBC Abs Auto 0.000 X10*3/uL (0.0-0.012); NRBC Pct Auto 0.0 /100WBC (0.0-0.2); Platelet Count 303 X10*3/uL (160-400); Red Blood Count 4.26 X10*6/uL (4.60-5.80); White Blood Count 6.7 X10*3/uL (4.8-10.8)
[2025-04-05 06:31] LABS: Anion Gap 13 (12-20); Blood Urea Nitrogen 5 mg/dL (9-16); Calcium 9.6 mg/dL (8.4-10.2); Carbon Dioxide 28 mmol/L (22-29); Chloride 101 mmol/L (96-108); Creatinine Clr Calc Pharmacy 111.7; Estimated Glomerular Filt Rate > 60; Magnesium 1.7 mg/dL (1.6-2.6); Potassium 3.3 mmol/L (3.3-5.1); Sodium 139 mmol/L (135-145)
[2025-04-05] MEDS: Thiamine HCL 100 MG in 0.9 % Sodium Chloride 100 ML 202 MG IV (07:17)
[2025-04-05] MEDS: Metoprolol Succinate ER 50 MG TAB.ER.24H PO (07:35)
[2025-04-05 07:36] VITALS: BP 131/80; PULSE 88; RESP 16; TEMP 36.4; O2SAT 95
--- NOTE | 2025-04-05 09:49 | MHC.CM.PN ---
[place] at the [facility] where she will return pt may need help with tranaportaion
--- NOTE | 2025-04-05 09:56 | MHC.CM.PN ---
pt lives alone has no services may need transpport home pt to see addction medicine
--- NOTE | 2025-04-05 12:20 | MHC.RECOVRN ---
Consult received by Addiction Medicine for pt with alcohol use. Intention was to offer recovery education, support, and resources. On approach pt was resting with eyes closed. In no apparent distress, respirations even and unlabored. No diaphoresis or restlessness noted. Pt was allowed to continue to rest. ACS team to revisit pt this afternoon to complete recovery/Bh assessment.
--- NOTE | 2025-04-05 13:30 | P.PNIM_ITS ---
Subjective Subjective Date of Service: 04/05/25 Interval History: Patient reports suffering with poor sleep last night Eating and drinking well. Reports suffering with headaches, some tremulousness, diaphoresis. No visual or auditory hallucinations Review of Systems Review of Systems: Yes all other systems are reviewed and are negative Physical Exam 2 Exam: Exam: General: A&O x3, oriented to time place person and situation, comfortable, no pain Cardiac: S1, S2 auscultated with no S3/4, no MRG. Well perfused. Respiratory: Normal breath sounds auscultated throughout all lung zones, without wheezing, rales. Normal rate. GI/ : No abdominal pain on palpation, no masses or distentions. MSK: Normal ambulation without pain at bony prominences or musculature Neurological: Normal neurological examination on overview, without obvious CN II-XII abnormalities. Vital Signs: Vital Signs: Last Vital Signs Temp 97.5 F 04/05/25 07:36 Pulse 88 04/05/25 07:36 Resp 16 04/05/25 07:36 BP 131/80 04/05/25 07:36 Pulse Ox 95 04/05/25 07:36 O2 Del Method Room Air 04/05/25 07:36 BMI result Body Mass Index 27.5 Objective Data Active Medications Acetaminophen (Acetaminophen 325 Mg Tablet) 650 mg PO Q6H PRN PRN Reason: Pain, Mild 1-3,fever,headache Calcium Carbonate (Calcium Carbonate 750 Mg Tab.Chew) 750 mg PO Q4H PRN PRN Reason: Heartburn Enoxaparin Sodium (Enoxaparin Sodium 40 Mg/0.4 Ml Syringe) 40 mg SUBCUT Q24H [facility] Last Admin: 04/05/25 10:11 Dose: Not Given Documented By: JACQUE Non-Admin Reason: Patient Refused Folic Acid (Folic Acid 1 Mg Tablet) 1 mg PO DAILY [facility] Last Admin: 04/05/25 07:16 Dose: 1 mg Documented By: JACQUE Hydromorphone HCl (Hydromorphone Hcl 1 Mg/Ml Syringe) 0.5 mg IVPUSH Q3H PRN; Protocol PRN Reason: Pain, Severe (Pain Scale 7-10) Last Admin: 04/05/25 07:35 Dose: 0.5 mg Documented By: JACQUE Lactated Ringer's (Lr) 1,000 mls @ 125 mls/hr IVCONT .Q8H [facility] Last Admin: 04/05/25 03:42 Dose: 125 mls/hr Documented By: ELIECER Thiamine HCl 100 mg/ Sodium (Chloride) 101 mls @ 202 mls/hr IV DAILY [facility] Last Infusion: 04/05/25 08:52 Dose: Infused Documented By: JACQUE Magnesium Hydroxide (Milk Of Magnesia 30 Ml Oral.Susp) 30 ml PO DAILY PRN PRN Reason: Constipation Melatonin (Melatonin 3 Mg Tablet) 6 mg PO BEDTIME PRN PRN Reason: Insomnia Metoprolol Succinate (Metoprolol Succinate Er 50 Mg Tab.Er.24h) 50 mg PO DAILY [facility]; Protocol Last Admin: 04/05/25 07:35 Dose: 50 mg Documented By: JACQUE Multivitamins/Vitamin C (Multivitamin Tablet) 1 tab PO DAILY [facility] Last Admin: 04/05/25 07:16 Dose: 1 tab Documented By: JACQUE Omeprazole (Omeprazole 20 Mg Capsule.Dr) 20 mg PO DAILY@0630 [facility] Last Admin: 04/05/25 06:15 Dose: 20 mg Documented By: ELIECER Ondansetron HCl (Ondansetron Hcl 4 Mg/2 Ml Vial) 4 mg IVPUSH Q8H PRN PRN Reason: Nausea and Vomiting Last Admin: 04/05/25 03:51 Dose: 4 mg Documented By: ELIECER Pharmacy Consult (Consult Rx Etoh Phenob Im/Po) 1 each MISCELLANE ONCE PRN; Protocol PRN Reason: Consult order Phenobarbital (Phenobarbital 15 Mg Tablet) 45 mg PO BID [facility] Stop: 04/05/25 21:01 Last Admin: 04/05/25 07:16 Dose: 45 mg Documented By: JACQUE Phenobarbital (Phenobarbital 30 Mg Tablet) 30 mg PO BID [facility] Stop: 04/07/25 21:01 Phenobarbital (Phenobarbital 30 Mg Tablet) 30 mg PO DAILY [facility] Stop: 04/09/25 09:01 Sodium Chloride (0.9 % Sodium Chloride Flush 3 Ml Syringe) 3 ml IVFLUSH QSHIFT [facility] Last Admin: 04/05/25 07:22 Dose: Not Given Documented By: JACQUE Non-Admin Reason: IV Running Labs 04/05/25 05:10 04/05/25 05:10 Labs: Laboratory Results - last 24 hr 04/05/25 05:10 MCV 89.9 MCH 30.5 MCHC 33.9 RDW 13.8 Plt Count 303 MPV 9.6 Absolute Nucleated RBC 0.000 Nucleated RBC % (auto) 0.0 Anion Gap 13 Estim Creat Clear Calc 111.7 Estimated GFR > 60 Random Glucose 94 Calcium 9.6 D Magnesium 1.7 Assessment and Plan (1) Alcoholism: Status: Acute (2) Alcohol use disorder, severe, dependence: Status: Acute (3) Alcohol withdrawal: Status: Acute (4) Lactic acid acidosis: Status: Acute (5) Metabolic acidosis, increased anion gap: Status: Acute (6) Pancreatitis: Status: Acute Plan 39-year-old male with a background history of ETOH abuse, alcoholic gastritis, depression, gout, 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 ETOH abuse ETOH intoxication ETOH withdrawal Elevated CIWA scale, started on phenobarbital with high risk for withdrawal History of hallucinations and encephalopathy, started on IV thiamine IV fluids Addiction Medicine consultation Multivitamin, folic acid Add protein to diet, encourage oral intake Acute interstitial alcoholic pancreatitis without necrosis Lipase 66 Patient reports abdominal pain similar to previous episodes of pancreatitis Abdominal CT ordered Pain management IV fluids History of alcoholic gastritis Continue PPI History of alcoholic cardiomyopathy Continue beta-fede Continue IV thiamine [employer] - VTE: Enoxaparin - CODE STATUS: Full code - DIET: Regular Total time managing care of this patient today: 35 minutes. Quality Stroke Does the patient have a stroke diagnosis?: No VTE Prior VTE?: No VTE Risk Level:: Medical - moderate - high VTE Device Contraindication: Treatment Not Indicated VTE Drug Contraindication: N/A - Med Ordered
[2025-04-05 15:27] VITALS: BP 123/81; PULSE 79; RESP 18; TEMP 36.4; O2SAT 97
--- NOTE | 2025-04-05 17:11 | MHC.RECOVRN ---
Consult received by Addiction Medicine for pt admitted with depression, SI, alcohol intoxication, and pancreatitis.? On approach pt is extremely guarded w/ poor eye contact. He denies current withdrawal symptoms and reports minimal abdominal pain at this time.? Pt reports attending numerous ATS [facility] facilities, trialing several medications for AUD, and is currently utilizing a investment recovery technician, all with little reported effect.? Provided pt with education and written resources including information on inpatient and outpatient treatment, RADHA, harm reduction, recovery coaching, and pathways to recovery which he declined, despite his goal to remain abstinent from alcohol, because nothing has worked Pt was encouraged to pursue sobriety and to reach out to Recovery Team for any additional support and was provided TWs contact information. ACS team available as needed.
[2025-04-05 19:35] VITALS: BP 134/83; PULSE 71; RESP 18; TEMP 36.2; O2SAT 97
--- NOTE | 2025-04-05 20:48 | PC.NURSE ---
Patient complains of upper middle abdominal 9/10 pain that is unrelieved by his prn dilaudid. Patient says it is sharp pain. [facility] notified. Orders received for labs to be drawn, ECG, and a one time dose of dilaudid.
[2025-04-05 21:25] LABS: Alanine Aminotransferase 35 U/L (0-40); Albumin Level 4.3 g/dL (3.5-5.0); Alkaline Phosphatase 80 U/L (39-117); Anion Gap 13 (12-20); Aspartate Amino Transferase 91 U/L (5-37); Blood Urea Nitrogen 3 mg/dL (9-16); Calcium 9.4 mg/dL (8.4-10.2); Carbon Dioxide 25 mmol/L (22-29); Chloride 102 mmol/L (96-108); Creatinine Clr Calc Pharmacy 124.6; Estimated Glomerular Filt Rate > 60; Lipase 45 U/L (8-78); Potassium 3.9 mmol/L (3.3-5.1); Sodium 136 mmol/L (135-145); Total Protein 6.6 g/dL (6.5-8.0)
[2025-04-05 21:32] LABS: Troponin-I High Sensitivity < 2.7 ng/L (<3.5-35.0)
--- NOTE | 2025-04-05 21:37 | PM.EVENT ---
Event Note Date of Service: 04/05/25 Event Note: Nursing notified this technical document writer that patient was experiencing severe abdominal pain in the midepigastric area. Patient is here for alcohol withdrawal with no evidence of pancreatitis and lipase is currently normal. Patient had received Dilaudid earlier with minimal effect. EKG and labs have been ordered. Patient will now be NPO and IV fluids are running. Dilaudid 1 mg IV x1. Soon after this report patient started experiencing severe withdrawal symptoms with a CIWA score of 15. Patient will receive 1 dose of IM phenobarbital 130 mg. This plan was reviewed with pharmacist as appropriate. EKG unchanged from previous EKGs and troponin less than 2.7. Electrolytes stable and lipase is 45. Time Spent With Patient Time: Total time managing care of this patient today ____ minutes.
[2025-04-06 03:05] VITALS: BP 118/79; PULSE 66; RESP 14; TEMP 36.2; O2SAT 95
[2025-04-06] MEDS: Lactated Ringers 1,000 ML 125 ML IVCONT (05:17)
[2025-04-06 07:45] VITALS: BP 128/76; PULSE 76; RESP 16; TEMP 36.6; O2SAT 97
[2025-04-06] MEDS: Metoprolol Succinate ER 50 MG TAB.ER.24H PO (08:32)
[2025-04-06] MEDS: Thiamine HCL 100 MG in 0.9 % Sodium Chloride 100 ML 202 MG IV (08:33)
--- NOTE | 2025-04-06 11:50 | HO.ADDICT_ITS ---
History of Present Illness Date of Service: 04/06/2025 Chief Complaint: alcohol intoxication and withdrawal Reason for Consult: AUD Sources of Information: patient interviewed and chart reviewed HPI Narrative: Patient is a 39 year old male with AUD, admitted with acute alcohol withdrawal. Reported drinking approx a pint of rum daily. ETOH level in ED 392. He presented to the ED reporting worsening depression and passive suicidal ideation, however declined referrals to ATS, or outpatient services. Known to t/w via previous admissions. Patient seen in room 358. He is awake, alert, engaged in interview. Flat affect. He reports that he continues to drink daily. He verbalizes not wanting to continue going through this anymore , however also hesitant to seek additional supports. Provided supportive listening and gently challenged patient when appropriate- such as I took all the meds, but I still drank with them . Reminded patient that medications can be more beneficial when paired with additional recovery supports, especially in very early recovery. In terms of withdrawal-patient still slightly tremulous, reporting abdominal pain, denies n/v Required extra dose phenobarbital last evening due to elevated CIWA score Labs reviewed Medical Evaluation Reviewed: Yes Review of Systems Constitutional: Reports as per HPI Psychiatric: Reports anxiety, Reports depression, Reports hopelessness, Reports anhedonia and Denies suicidal ideation Diagnostics Vital Signs (24Hr): Vital Signs - 24 hr 04/05/25 15:27 04/05/25 19:35 04/06/25 03:05 Temperature 97.5 F 97.1 F 97.2 F Pulse Rate 79 71 66 Respiratory Rate 18 18 14 Blood Pressure 123/81 134/83 118/79 Pulse Oximetry 97 97 95 Oxygen Delivery Method Room Air Room Air Room Air 04/06/25 07:45 Temperature 97.9 F Pulse Rate 76 Respiratory Rate 16 Blood Pressure 128/76 Pulse Oximetry 97 Oxygen Delivery Method Room Air BMI result Body Mass Index 27.5 Labs 04/05/25 05:10 04/05/25 21:04 Labs: Laboratory Results - last 48 hr 04/05/25 04/05/25 05:10 21:04 WBC 6.7 RBC 4.26 L Hgb 13.0 L Hct 38.3 L MCV 89.9 MCH 30.5 MCHC 33.9 RDW 13.8 Plt Count 303 MPV 9.6 Absolute Nucleated RBC 0.000 Nucleated RBC % (auto) 0.0 Hold Purple Top SEE NOTE Sodium 139 136 Potassium 3.3 D 3.9 Chloride 101 102 Carbon Dioxide 28 25 Anion Gap 13 13 BUN 5 L 3 L Creatinine 0.87 0.78 Estim Creat Clear Calc 111.7 124.6 Estimated GFR > 60 > 60 Random Glucose 94 89 Lactic Acid 0.7 Calcium 9.6 D 9.4 Magnesium 1.7 Total Bilirubin 0.5 AST 91 H ALT 35 Alkaline Phosphatase 80 Troponin I High Sens < 2.7 D Total Protein 6.6 Albumin 4.3 Lipase 45 Mental Status Exam Mental Status Exam Level of Consciousness: Awake and Alert Patient Behavior: Appropriate and Cooperative Affect Description: Flat Speech Pattern: Clear Thought Process: Intact Thought Content: positive for Intact and positive for [place] Depressive Symptoms: Isolating-Friends/Family Judgement: Fair Medications Medications Current Medications Acetaminophen (Acetaminophen 325 Mg Tablet) 650 mg PO Q6H PRN PRN Reason: Pain, Mild 1-3,fever,headache Calcium Carbonate (Calcium Carbonate 750 Mg Tab.Chew) 750 mg PO Q4H PRN PRN Reason: Heartburn Enoxaparin Sodium (Enoxaparin Sodium 40 Mg/0.4 Ml Syringe) 40 mg SUBCUT Q24H [facility] Last Admin: 04/06/25 10:34 Dose: Not Given Folic Acid (Folic Acid 1 Mg Tablet) 1 mg PO DAILY [facility] Last Admin: 04/06/25 08:31 Dose: 1 mg Hydromorphone HCl (Hydromorphone Hcl 1 Mg/Ml Syringe) 0.5 mg IVPUSH Q3H PRN; Protocol PRN Reason: Pain, Severe (Pain Scale 7-10) Last Admin: 04/06/25 08:31 Dose: 0.5 mg Thiamine HCl 100 mg/ Sodium (Chloride) 101 mls @ 202 mls/hr IV DAILY [facility] Last Infusion: 04/06/25 09:04 Dose: Infused Magnesium Hydroxide (Milk Of Magnesia 30 Ml Oral.Susp) 30 ml PO DAILY PRN PRN Reason: Constipation Melatonin (Melatonin 3 Mg Tablet) 6 mg PO BEDTIME PRN PRN Reason: Insomnia Metoprolol Succinate (Metoprolol Succinate Er 50 Mg Tab.Er.24h) 50 mg PO DAILY [facility]; Protocol Last Admin: 04/06/25 08:32 Dose: 50 mg Multivitamins/Vitamin C (Multivitamin Tablet) 1 tab PO DAILY [facility] Last Admin: 04/06/25 08:32 Dose: 1 tab Omeprazole (Omeprazole 20 Mg Capsule.Dr) 20 mg PO DAILY@0630 [facility] Last Admin: 04/06/25 05:51 Dose: 20 mg Ondansetron HCl (Ondansetron Hcl 4 Mg/2 Ml Vial) 4 mg IVPUSH Q8H PRN PRN Reason: Nausea and Vomiting Last Admin: 04/05/25 03:51 Dose: 4 mg Pharmacy Consult (Consult Rx Etoh Phenob Im/Po) 1 each MISCELLANE ONCE PRN; Protocol PRN Reason: Consult order Phenobarbital (Phenobarbital 30 Mg Tablet) 30 mg PO BID [facility] Stop: 04/07/25 21:01 Last Admin: 04/06/25 08:31 Dose: 30 mg Phenobarbital (Phenobarbital 30 Mg Tablet) 30 mg PO DAILY [facility] Stop: 04/09/25 09:01 Sodium Chloride (0.9 % Sodium Chloride Flush 3 Ml Syringe) 3 ml IVFLUSH QSHIFT [facility] Last Admin: 04/06/25 08:32 Dose: Not Given Allergies Allergies Allergy/AdvReac Type Severity Reaction Status Date / Time cephalexin (From Keflex) Allergy Rash Verified 04/03/25 17:37 Assessment & Plan Assessment & Plan (1) Alcohol use disorder, severe, dependence: Status: Acute Code(s): F10.20 - Alcohol dependence, uncomplicated Assessment and Plan: * acute withdrawal--phenobarbital taper in place * discussed plan following discharge--including restarting RADHA, PHP and engaging more with recovery supports * may benfit from restarting zoloft--he mentioned at admission previously being prescribed this medication. --will check in about this * access rn to follow up and provide additional support and resources as requested by patient Total time managing care of this patient today __40__ minutes. [facility] Past Medical History Medical History (Updated 04/04/25 @ 10:20 by Glenny Loyola NP) Alcoholic gastritis Depression Gout Alcoholic cardiomyopathy Social History Social History Household Members: None Housing: Apartment Do you presently have visiting nurse or other home services: No Alcohol intake: current Alcohol intake frequency: 3 or more drinks per day Alcohol type: hard liquor Patient Tobacco Use Status: Former Tobacco user Currently Displaying Signs/Symptoms of Drug Intoxication Withdrawal: No Have you been hit, kicked, punched, or otherwise hurt by someone within the past year? If so, by whom?: No Do you feel safe in your current relationship?: No Current Relationship Is there a partner from a previous relationship who is making you feel unsafe now?: No Are you made to feel afraid or neglected: No Advance Directives: No Advance Directives Information Provided: No Do you have a plan to hurt others: No Plan Recently lost weight without trying: No Nutrition Risks: No Nutritional Risk service: No
--- NOTE | 2025-04-06 12:37 | P.PNIM_ITS ---
Subjective Subjective Date of Service: 04/06/25 Interval History: Overnight events reviewed - required 1 extra dose of IM phenobarbital 130mg Reporting some mental fogginess, fatigability and intermittent tremulousness with movement and picking up objects. No visual or auditory hallucinations reported by patient. Persistent abdominal pain, however improved as compared to yesterday Review of Systems Review of Systems: Yes all other systems are reviewed and are negative Physical Exam 2 Exam: Exam: General: A&O x3, oriented to time place person and situation, comfortable, no pain Cardiac: S1, S2 auscultated with no S3/4, no MRG. Well perfused. Respiratory: Normal breath sounds auscultated throughout all lung zones, without wheezing, rales. Normal rate. GI/ : Tenderness to palpation of the epigastrium and umbilical region on light and deep palpation, without hepatosplenomegaly, no ecchymosis, normal bowel sounds throughout without abdominal bruits. No jaundice or scleral icterus MSK: Normal ambulation without pain at bony prominences or musculature Neurological: Normal neurological examination on overview, without obvious CN II-XII abnormalities. Vital Signs: Vital Signs: Last Vital Signs Temp 97.9 F 04/06/25 07:45 Pulse 76 04/06/25 07:45 Resp 16 04/06/25 07:45 BP 128/76 04/06/25 07:45 Pulse Ox 97 04/06/25 07:45 O2 Del Method Room Air 04/06/25 07:45 BMI result Body Mass Index 27.5 Objective Data Active Medications Acetaminophen (Acetaminophen 325 Mg Tablet) 650 mg PO Q6H PRN PRN Reason: Pain, Mild 1-3,fever,headache Calcium Carbonate (Calcium Carbonate 750 Mg Tab.Chew) 750 mg PO Q4H PRN PRN Reason: Heartburn Enoxaparin Sodium (Enoxaparin Sodium 40 Mg/0.4 Ml Syringe) 40 mg SUBCUT Q24H [facility] Last Admin: 04/06/25 10:34 Dose: Not Given Documented By: JACEK Non-Admin Reason: Patient Refused Folic Acid (Folic Acid 1 Mg Tablet) 1 mg PO DAILY [facility] Last Admin: 04/06/25 08:31 Dose: 1 mg Documented By: JACEK Hydromorphone HCl (Hydromorphone Hcl 1 Mg/Ml Syringe) 0.5 mg IVPUSH Q3H PRN; Protocol PRN Reason: Pain, Severe (Pain Scale 7-10) Last Admin: 04/06/25 08:31 Dose: 0.5 mg Documented By: JACEK Thiamine HCl 100 mg/ Sodium (Chloride) 101 mls @ 202 mls/hr IV DAILY [facility] Last Infusion: 04/06/25 09:04 Dose: Infused Documented By: JACEK Magnesium Hydroxide (Milk Of Magnesia 30 Ml Oral.Susp) 30 ml PO DAILY PRN PRN Reason: Constipation Melatonin (Melatonin 3 Mg Tablet) 6 mg PO BEDTIME PRN PRN Reason: Insomnia Metoprolol Succinate (Metoprolol Succinate Er 50 Mg Tab.Er.24h) 50 mg PO DAILY [facility]; Protocol Last Admin: 04/06/25 08:32 Dose: 50 mg Documented By: JACEK Multivitamins/Vitamin C (Multivitamin Tablet) 1 tab PO DAILY [facility] Last Admin: 04/06/25 08:32 Dose: 1 tab Documented By: JACEK Omeprazole (Omeprazole 20 Mg Capsule.) 20 mg PO DAILY@0630 [facility] Last Admin: 04/06/25 05:51 Dose: 20 mg Documented By: MANUELITO Ondansetron HCl (Ondansetron Hcl 4 Mg/2 Ml Vial) 4 mg IVPUSH Q8H PRN PRN Reason: Nausea and Vomiting Last Admin: 04/05/25 03:51 Dose: 4 mg Documented By: ELIECER Pharmacy Consult (Consult Rx Etoh Phenob Im/Po) 1 each MISCELLANE ONCE PRN; Protocol PRN Reason: Consult order Phenobarbital (Phenobarbital 30 Mg Tablet) 30 mg PO BID [facility] Stop: 04/07/25 21:01 Last Admin: 04/06/25 08:31 Dose: 30 mg Documented By: JACEK Phenobarbital (Phenobarbital 30 Mg Tablet) 30 mg PO DAILY [facility] Stop: 04/09/25 09:01 Sodium Chloride (0.9 % Sodium Chloride Flush 3 Ml Syringe) 3 ml IVFLUSH QSHIFT [facility] Last Admin: 04/06/25 08:32 Dose: Not Given Documented By: JACEK Non-Admin Reason: IV Running Labs 04/05/25 05:10 04/05/25 21:04 Labs: Laboratory Results - last 24 hr 04/05/25 21:04 Hold Purple Top SEE NOTE Anion Gap 13 Estim Creat Clear Calc 124.6 Estimated GFR > 60 Random Glucose 89 Lactic Acid 0.7 Calcium 9.4 Total Bilirubin 0.5 AST 91 H ALT 35 Alkaline Phosphatase 80 Troponin I High Sens < 2.7 D Total Protein 6.6 Albumin 4.3 Lipase 45 Assessment and Plan (1) Alcoholism: Status: Acute (2) Alcohol use disorder, severe, dependence: Status: Acute (3) Alcohol withdrawal: Status: Acute (4) Pancreatitis: Status: Acute (5) Lactic acid acidosis: Status: Acute (6) Metabolic acidosis, increased anion gap: Status: Acute Plan 39-year-old male with a background history of ETOH abuse, alcoholic gastritis, depression, gout, 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 ETOH abuse ETOH intoxication ETOH withdrawal Elevated CIWA scale, started on phenobarbital with high risk for withdrawal History of hallucinations and encephalopathy, started on IV thiamine IV fluids Addiction Medicine consultation Multivitamin, folic acid Add protein to diet, encourage oral intake Acute interstitial alcoholic pancreatitis without necrosis Lipase 66 Patient reports abdominal pain similar to previous episodes of pancreatitis Abdominal CT ordered Pain management IV fluids History of alcoholic gastritis Continue PPI History of alcoholic cardiomyopathy Continue beta-fede Continue IV thiamine QUALITY METRICS - VTE: Enoxaparin - CODE STATUS: Full code - DIET: Regular Total time managing care of this patient today: 35 minutes. Quality Stroke Does the patient have a stroke diagnosis?: No VTE Prior VTE?: No VTE Risk Level:: Medical - moderate - high VTE Device Contraindication: Treatment Not Indicated VTE Drug Contraindication: N/A - Med Ordered
--- NOTE | 2025-04-06 14:34 | MHC.CM.PN ---
per rounds pt not ready for dc dc expected in 1 to 2 days
--- NOTE | 2025-04-06 15:32 | MHC.RECOVRN ---
Met with pt in 358- to offer continued support related to AUD. On approach pt is sitting in bed, watching TV. He remained flat and guarded through out interview and reports mild abdominal pain. He denies withdrawal symptoms and none observed. Pt states he wants to remain abstinent from alcohol, however, he remains ambivalent about pursing recovery as nothing has worked before. 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 Pt also reports he stopped taking sertraline due to sedation but feels it was helpful and is agreeable to restarting. Pt was instructed it may be more helpful to take the medication at night. Information relayed to Addiction Medicine Provider. ACS team available as needed for ongoing support.
[2025-04-06 15:35] VITALS: BP 119/80; PULSE 103; RESP 18; TEMP 36.7; O2SAT 96
[2025-04-06 18:56] VITALS: BP 134/86; PULSE 85; RESP 18; TEMP 36.6; O2SAT 97
[2025-04-06] MEDS: 0.9 % Sodium Chloride Flush 3 ML SYRINGE IVFLUSH (19:54)
[2025-04-07 03:47] VITALS: BP 116/74; PULSE 72; RESP 14; TEMP 36; O2SAT 96
[2025-04-07 07:32] VITALS: BP 118/74; PULSE 105; RESP 16; TEMP 36.2; O2SAT 96
[2025-04-07] MEDS: oxyCODONE HCl Immed Release 5 MG TABLET PO (08:05)
[2025-04-07] MEDS: Metoprolol Succinate ER 50 MG TAB.ER.24H PO (08:05)
[2025-04-07] MEDS: Thiamine HCL 100 MG in 0.9 % Sodium Chloride 100 ML 202 MG IV (08:07)
[2025-04-07 09:45] LABS: Anion Gap 16 (12-20); Blood Urea Nitrogen < 3 mg/dL (9-16); Calcium 9.6 mg/dL (8.4-10.2); Carbon Dioxide 24 mmol/L (22-29); Chloride 101 mmol/L (96-108); Creatinine Clr Calc Pharmacy 135.0; Estimated Glomerular Filt Rate > 60; Potassium 3.5 mmol/L (3.3-5.1); Sodium 137 mmol/L (135-145)
--- NOTE | 2025-04-07 11:40 | HO.PM.IMPN ---
Subjective Subjective Date of Service: 04/07/25 Interval History: Reporting pain at the rpigastrium postprandially Patient eager to be dischargd, however understands that he can not eat p.o.. Discussed in depth with the patient, and agreeable to remain inpatient and complete treatment. Review of Systems Review of Systems: Yes all other systems are reviewed and are negative Physical Exam Exam: Exam: General: A&O x3, oriented to time place person and situation, comfortable, no pain Cardiac: S1, S2 auscultated with no S3/4, no MRG. Well perfused. Respiratory: Normal breath sounds auscultated throughout all lung zones, without wheezing, rales. Normal rate. GI/ : Tenderness to palpation of the epigastrium and umbilical region on light and deep palpation, without hepatosplenomegaly, no ecchymosis, normal bowel sounds throughout without abdominal bruits. No jaundice or scleral icterus MSK: Normal ambulation without pain at bony prominences or musculature Neurological: Normal neurological examination on overview, without obvious CN II-XII abnormalities. Vital Signs: Vital Signs: Last Vital Signs Temp 97.1 F 04/07/25 07:32 Pulse 105 H 04/07/25 07:32 Resp 16 04/07/25 07:32 BP 118/74 04/07/25 07:32 Pulse Ox 96 04/07/25 07:32 O2 Del Method Room Air 04/07/25 07:32 BMI result Body Mass Index 27.5 Objective Data Active Medications Acetaminophen (Acetaminophen 325 Mg Tablet) 650 mg PO Q6H PRN PRN Reason: Pain, Mild 1-3,fever,headache Calcium Carbonate (Calcium Carbonate 750 Mg Tab.Chew) 750 mg PO Q4H PRN PRN Reason: Heartburn Enoxaparin Sodium (Enoxaparin Sodium 40 Mg/0.4 Ml Syringe) 40 mg SUBCUT Q24H [facility] Last Admin: 04/07/25 09:14 Dose: Not Given Documented By: JACEK Non-Admin Reason: Patient Refused Folic Acid (Folic Acid 1 Mg Tablet) 1 mg PO DAILY [facility] Last Admin: 04/07/25 08:05 Dose: 1 mg Documented By: JACEK Hydromorphone HCl (Hydromorphone Hcl 1 Mg/Ml Syringe) 0.5 mg IVPUSH Q3H PRN; Protocol PRN Reason: Pain, Severe (Pain Scale 7-10) Last Admin: 04/06/25 23:53 Dose: 0.5 mg Documented By: MANUELITO Thiamine HCl 100 mg/ Sodium (Chloride) 101 mls @ 202 mls/hr IV DAILY [facility] Last Infusion: 04/07/25 08:42 Dose: Infused Documented By: JACEK Magnesium Hydroxide (Milk Of Magnesia 30 Ml Oral.Susp) 30 ml PO DAILY PRN PRN Reason: Constipation Melatonin (Melatonin 3 Mg Tablet) 6 mg PO BEDTIME PRN PRN Reason: Insomnia Metoprolol Succinate (Metoprolol Succinate Er 50 Mg Tab.Er.24h) 50 mg PO DAILY [facility]; Protocol Last Admin: 04/07/25 08:05 Dose: 50 mg Documented By: JACEK Multivitamins/Vitamin C (Multivitamin Tablet) 1 tab PO DAILY [facility] Last Admin: 04/07/25 08:05 Dose: 1 tab Documented By: JACEK Omeprazole (Omeprazole 20 Mg Capsule.Dr) 20 mg PO DAILY@0630 [facility] Last Admin: 04/07/25 06:08 Dose: 20 mg Documented By: MANUELITO Ondansetron HCl (Ondansetron Hcl 4 Mg/2 Ml Vial) 4 mg IVPUSH Q8H PRN PRN Reason: Nausea and Vomiting Last Admin: 04/05/25 03:51 Dose: 4 mg Documented By: ELIECER Oxycodone HCl (Oxycodone Hcl Immed Release 5 Mg Tablet) 5 mg PO Q4H PRN PRN Reason: Pain, Severe (Pain Scale 7-10) Last Admin: 04/07/25 08:05 Dose: 5 mg Documented By: JACEK Pharmacy Consult (Consult Rx Etoh Phenob Im/Po) 1 each MISCELLANE ONCE PRN; Protocol PRN Reason: Consult order Phenobarbital (Phenobarbital 30 Mg Tablet) 30 mg PO BID [facility] Stop: 04/07/25 21:01 Last Admin: 04/07/25 08:05 Dose: 30 mg Documented By: JACEK Phenobarbital (Phenobarbital 30 Mg Tablet) 30 mg PO DAILY [facility] Stop: 04/09/25 09:01 Sodium Chloride (0.9 % Sodium Chloride Flush 3 Ml Syringe) [facility] Last Admin: 04/07/25 08:45 Dose: Not Given Documented By: JACEK Non-Admin Reason: IV Running Labs 04/05/25 05:10 04/07/25 08:52 Labs: Laboratory Results - last 24 hr 04/07/25 08:52 Hold Purple Top SEE NOTE Anion Gap 16 Estim Creat Clear Calc 135.0 Estimated GFR > 60 Random Glucose 111 Calcium 9.6 Assessment and Plan (1) Alcoholism: Status: Acute (2) Alcohol use disorder, severe, dependence: Status: Acute (3) Alcohol withdrawal: Status: Acute (4) Pancreatitis: Status: Acute (5) Lactic acid acidosis: Status: Acute (6) Metabolic acidosis, increased anion gap: Status: Acute Plan 39-year-old male with a background history of ETOH abuse, alcoholic gastritis, depression, gout, 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 ETOH abuse ETOH intoxication ETOH withdrawal Elevated CIWA scale, started on phenobarbital with high risk for withdrawal History of hallucinations and encephalopathy, started on IV thiamine IV fluids Addiction Medicine consultation Multivitamin, folic acid Add protein to diet, encourage oral intake Acute interstitial alcoholic pancreatitis without necrosis Lipase mildly elevated Patient reports abdominal pain similar to previous episodes of pancreatitis Abdominal CT ordered Pain management IV fluids History of alcoholic gastritis Continue PPI History of alcoholic cardiomyopathy Continue beta-fede Continue IV thiamine [facility] - VTE: Enoxaparin - CODE STATUS: Full code - DIET: Regular Total time managing care of this patient today: 35 minutes. Quality Stroke Does the patient have a stroke diagnosis?: No VTE Prior VTE?: No VTE Risk Level:: Medical - moderate - high VTE Device Contraindication: Treatment Not Indicated VTE Drug Contraindication: N/A - Med Ordered
[2025-04-07 15:34] VITALS: BP 113/82; PULSE 80; RESP 18; TEMP 36.3; O2SAT 96
[2025-04-07 19:56] VITALS: BP 122/80; PULSE 98; RESP 18; TEMP 36.6; O2SAT 97
[2025-04-07] MEDS: 0.9 % Sodium Chloride Flush 3 ML SYRINGE IVFLUSH (20:52)
[2025-04-08 03:34] VITALS: BP 117/71; PULSE 88; RESP 16; TEMP 36.2; O2SAT 95
[2025-04-08 06:34] LABS: Anion Gap 15 (12-20); Blood Urea Nitrogen 3 mg/dL (9-16); Calcium 9.5 mg/dL (8.4-10.2); Carbon Dioxide 25 mmol/L (22-29); Chloride 103 mmol/L (96-108); Creatinine Clr Calc Pharmacy 127.9; Estimated Glomerular Filt Rate > 60; Potassium 3.3 mmol/L (3.3-5.1); Sodium 140 mmol/L (135-145)
[2025-04-08 07:40] VITALS: BP 103/73; PULSE 88; RESP 16; TEMP 36.2; O2SAT 97
[2025-04-08] MEDS: Thiamine HCL 100 MG in 0.9 % Sodium Chloride 100 ML 202 MG IV (08:15)
[2025-04-08] MEDS: 0.9 % Sodium Chloride Flush 3 ML SYRINGE IVFLUSH (08:20)
[2025-04-08 09:01] VITALS: BP 112/71; PULSE 112
[2025-04-08] MEDS: Metoprolol Succinate ER 50 MG TAB.ER.24H PO (09:01)
--- NOTE | 2025-04-08 11:41 | HO.PM.IMPN ---
Subjective Subjective Date of Service: 04/08/25 Interval History: Some abdominal pain. Attempting to intake p.o., with some limitations 2/2 pancreatitis Able to tolerate some of the clear liquid diet-encouraged to not excessively eat. Collaborating with the patient for optimal route for discharge home. Planning possible DC tomorrow if can tolerate at least 25% of meals. Review of Systems Review of Systems: Yes all other systems are reviewed and are negative Physical Exam Exam: Exam: General: A&O x3, oriented to time place person and situation, comfortable, no pain Cardiac: S1, S2 auscultated with no S3/4, no MRG. Well perfused. Respiratory: Normal breath sounds auscultated throughout all lung zones, without wheezing, rales. Normal rate. GI/ : Tenderness to palpation of the epigastrium and umbilical region on light and deep palpation, without hepatosplenomegaly, no ecchymosis, normal bowel sounds throughout without abdominal bruits. No jaundice or scleral icterus MSK: Normal ambulation without pain at bony prominences or musculature Neurological: Normal neurological examination on overview, without obvious CN II-XII abnormalities. Vital Signs: Vital Signs: Last Vital Signs Temp 97.1 F 04/08/25 07:40 Pulse 112 H 04/08/25 09:01 Resp 16 04/08/25 07:40 BP 112/71 04/08/25 09:01 Pulse Ox 97 04/08/25 07:40 O2 Del Method Room Air 04/08/25 07:40 BMI result Body Mass Index 27.5 Objective Data Active Medications Acetaminophen (Acetaminophen 325 Mg Tablet) 650 mg PO Q6H PRN PRN Reason: Pain, Mild 1-3,fever,headache Calcium Carbonate (Calcium Carbonate 750 Mg Tab.Chew) 750 mg PO Q4H PRN PRN Reason: Heartburn Enoxaparin Sodium (Enoxaparin Sodium 40 Mg/0.4 Ml Syringe) 40 mg SUBCUT Q24H [facility] Last Admin: 04/08/25 10:22 Dose: Not Given Documented By: CARLA Non-Admin Reason: Patient Refused Folic Acid (Folic Acid 1 Mg Tablet) 1 mg PO DAILY [facility] Last Admin: 04/08/25 08:15 Dose: 1 mg Documented By: CARLA Hydromorphone HCl (Hydromorphone Hcl 1 Mg/Ml Syringe) 0.5 mg IVPUSH Q3H PRN; Protocol PRN Reason: Pain, Severe (Pain Scale 7-10) Last Admin: 04/08/25 08:15 Dose: 0.5 mg Documented By: CARLA Thiamine HCl 100 mg/ Sodium (Chloride) 101 mls @ 202 mls/hr IV DAILY [facility] Last Infusion: 04/08/25 09:14 Dose: Infused Documented By: CARLA Magnesium Hydroxide (Milk Of Magnesia 30 Ml Oral.Susp) 30 ml PO DAILY PRN PRN Reason: Constipation Melatonin (Melatonin 3 Mg Tablet) 6 mg PO BEDTIME PRN PRN Reason: Insomnia Metoprolol Succinate (Metoprolol Succinate Er 50 Mg Tab.Er.24h) 50 mg PO DAILY [facility]; Protocol Last Admin: 04/08/25 09:01 Dose: 50 mg Documented By: CARLA Multivitamins/Vitamin C (Multivitamin Tablet) 1 tab PO DAILY [facility] Last Admin: 04/08/25 09:01 Dose: 1 tab Documented By: CARLA Omeprazole (Omeprazole 20 Mg Capsule.Dr) 20 mg PO DAILY@0630 [facility] Last Admin: 04/08/25 05:58 Dose: 20 mg Documented By: GIFTY Ondansetron HCl (Ondansetron Hcl 4 Mg/2 Ml Vial) 4 mg IVPUSH Q8H PRN PRN Reason: Nausea and Vomiting Last Admin: 04/05/25 03:51 Dose: 4 mg Documented By: ELIECER Oxycodone HCl (Oxycodone Hcl Immed Release 5 Mg Tablet) 5 mg PO Q4H PRN PRN Reason: Pain, Severe (Pain Scale 7-10) Last Admin: 04/07/25 08:05 Dose: 5 mg Documented By: JACEK Pharmacy Consult (Consult Rx Etoh Phenob Im/Po) 1 each MISCELLANE ONCE PRN; Protocol PRN Reason: Consult order Phenobarbital (Phenobarbital 30 Mg Tablet) 30 mg PO DAILY [facility] Stop: 04/09/25 09:01 Last Admin: 04/08/25 09:02 Dose: 30 mg Documented By: CARLA Sodium Chloride (0.9 % Sodium Chloride Flush 3 Ml Syringe) [facility] Last Admin: 04/08/25 08:20 Dose: 3 ml Documented By: CARLA Labs 04/05/25 05:10 04/08/25 05:16 Labs: Laboratory Results - last 24 hr 04/08/25 05:16 Hold Purple Top SEE NOTE Anion Gap 15 Estim Creat Clear Calc 127.9 Estimated GFR > 60 Random Glucose 83 Calcium 9.5 Assessment and Plan (1) Alcoholism: Status: Acute (2) Alcohol use disorder, severe, dependence: Status: Acute (3) Alcohol withdrawal: Status: Acute (4) Pancreatitis: Status: Acute (5) Lactic acid acidosis: Status: Acute (6) Metabolic acidosis, increased anion gap: Status: Acute Plan 39-year-old male with a background history of ETOH abuse, alcoholic gastritis, depression, gout, 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 ETOH abuse ETOH intoxication ETOH withdrawal Elevated CIWA scale, started on phenobarbital with high risk for withdrawal History of hallucinations and encephalopathy, started on IV thiamine IV fluids Addiction Medicine consultation Multivitamin, folic acid Add protein to diet, encourage oral intake Acute interstitial alcoholic pancreatitis without necrosis Lipase mildly elevated Patient reports abdominal pain similar to previous episodes of pancreatitis Abdominal CT ordered; negative for concerning features. Pain management IV fluids if cannot tolerate PO History of alcoholic gastritis Continue PPI History of alcoholic cardiomyopathy Continue beta-fede Continue IV thiamine QUALITY [employer] - VTE: Enoxaparin - CODE STATUS: Full code - DIET: Regular Quality Stroke Does the patient have a stroke diagnosis?: No VTE Prior VTE?: No VTE Risk Level:: Medical - moderate - high VTE Device Contraindication: Treatment Not Indicated VTE Drug Contraindication: N/A - Med Ordered
[2025-04-08 15:22] VITALS: BP 108/71; PULSE 81; RESP 18; TEMP 36.4; O2SAT 98
--- NOTE | 2025-04-08 16:02 | MHC.CM.PN ---
Addendum entered by Soumya Solo 04/09/25 10:59: CORRECTION: PT LIKELY TO DC OVER THE WEEKEND Original Note: PER MD ROUNDS, PT LIKELY TO REMAIN THROUGH WEEKEND
[2025-04-08 19:12] VITALS: BP 116/76; PULSE 94; RESP 18; TEMP 36.4; O2SAT 98
[2025-04-09] VITALS (7 sets, daily range): BP systolic 107–122; BP diastolic 69–79; PULSE 64–114; RESP 16–18; TEMP 36.4–36.7; O2SAT 97–99
[2025-04-09 06:57] LABS: Anion Gap 14 (12-20); Blood Urea Nitrogen 3 mg/dL (9-16); Calcium 9.5 mg/dL (8.4-10.2); Carbon Dioxide 24 mmol/L (22-29); Chloride 104 mmol/L (96-108); Creatinine Clr Calc Pharmacy 124.6; Estimated Glomerular Filt Rate > 60; Potassium 3.7 mmol/L (3.3-5.1); Sodium 138 mmol/L (135-145)
[2025-04-09] MEDS: Thiamine HCL 100 MG in 0.9 % Sodium Chloride 100 ML 202 MG IV (09:23)
[2025-04-09] MEDS: Metoprolol Succinate ER 50 MG TAB.ER.24H PO (09:24)
--- NOTE | 2025-04-09 10:32 | PM.DS ---
DS: Providers Provider Date of Service: 04/09/25 Date of admission: 04/04/25 10:13 Date of discharge: 04/09/25 Primary care physician: Danilo Wilson MD Consults: 04/03/25 17:41 ED CARE Team Crisis Consult Stat Comment: Reason for consultation: SI, alcohol abuse 04/04/25 10:15 Addiction Medicine Provider Routine Consulting Provider: Addiction Covering Reason for consultation: etoh DS: Diagnosis Discharge Diagnosis (1) Alcoholism: Status: Acute (2) Alcohol use disorder, severe, dependence: Status: Acute (3) Alcohol withdrawal: Status: Acute (4) Pancreatitis: Status: Acute (5) Lactic acid acidosis: Status: Acute (6) Metabolic acidosis, increased anion gap: Status: Acute DS: Summary Hospital Course Hospital Course: 39-year-old male with a background history of ETOH abuse, alcoholic gastritis, depression, gout, 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 PRESENTATION 39-year-old man presented to the ER with complaints of alcohol withdrawal. He reports depression and feeling suicidal. He reports that when he goes through detox he has hallucinations but has never had a seizure. He reports increased stress in the family more recently. He drinks about a pt of rum every day. He did report some central abdominal pain, lipase 66. He denied fever, chills, nausea, vomiting, diarrhea. Patient was started on phenobarbital protocol, given Librium, Zofran, Valium in the ER. He will be admitted for further management and treatment of acute alcohol withdrawal and likely pancreatitis. PROBLEM LIST ETOH abuse ETOH intoxication ETOH withdrawal Elevated CIWA scale, started on phenobarbital with high risk for withdrawal History of hallucinations and encephalopathy, started on IV thiamine IV fluids were administered Addiction Medicine consultation Multivitamin, folic acid Add protein to diet, encourage oral intake Acute interstitial alcoholic pancreatitis without necrosis Lipase mildly elevated Patient reports abdominal pain similar to previous episodes of pancreatitis Abdominal CT ordered; negative for concerning features. Pain management IV fluids were administered and the patient could not tolerate p.o. Able to tolerate clear liquid and full liquid diet today Patient feels comfortable with his dietary intake History of alcoholic gastritis Continue PPI History of alcoholic cardiomyopathy Continue beta-fede Continue IV thiamine Status at Discharge Cognitive/behavioral status at discharge: Alert and oriented to person place time and situation Functional status at discharge: independent ambulation Overall status at discharge: patient is back to baseline Time Attestation Total time managing care of this patient today: 45 mintues. Discharge Coordination Time (in mins): 35 Quality: Safe Use of Opioids Does Pt have an Active Cancer Diagnosis on the Problem List?: No Quality: Stroke Does the patient have a stroke diagnosis?: No Physical Exam Exam: Exam: General: A&O x3, oriented to time place person and situation, comfortable, no pain Cardiac: S1, S2 auscultated with no S3/4, no MRG. Well perfused. Respiratory: Normal breath sounds auscultated throughout all lung zones, without wheezing, rales. Normal rate. GI/ : No tenderness to palpation of the epigastrium and umbilical region on light and deep palpation, without hepatosplenomegaly, no ecchymosis, normal bowel sounds throughout without abdominal bruits. No jaundice or scleral icterus MSK: Normal ambulation without pain at bony prominences or musculature Neurological: Normal neurological examination on overview, without obvious CN II-XII abnormalities. PSYCH: Normal thought process, organized, good insight and judgment. No suicidal/homicidal intent or ideation. Vital Signs: Vital Signs: Last Vital Signs Temp 98.1 F 04/09/25 07:30 Pulse 114 H 04/09/25 09:33 Resp 18 04/09/25 07:30 BP 122/74 04/09/25 09:33 Pulse Ox 99 04/09/25 09:33 O2 Del Method Room Air 04/09/25 09:33 BMI result Body Mass Index 27.5 DS: Data Data Completed and Pending Completed studies during hospitalization [Text1]: Procedures Detoxification Services for Substance Abuse Treatment (03/13/25) Labs on day of discharge: Laboratory Results - last 24 hr 04/09/25 04/09/25 05:44 06:38 Hold Purple Top SEE NOTE Sodium 138 Potassium 3.7 Chloride 104 Carbon Dioxide 24 Anion Gap 14 BUN 3 L Creatinine 0.78 Estim Creat Clear Calc 124.6 Estimated GFR > 60 Random Glucose 90 Calcium 9.5 Discharge Plan Discharge Anticipated Discharge Date/Time: 04/09/25 10:34 Patient Disposition: Home, Self-Care Discharge Diagnosis: Alcohol intoxication with withdrawal and delirium tremens, with superimposed acute interstitial pancreatitis Referrals: Danilo Wilson MD [Primary Care Provider, Medical] - 1 Week Discharge Medications: New oxycodone 5 mg Tablet 5 mg PO Q4H PRN (Reason: Pain, Severe (Pain Scale 7-10)) 2 Days Qty: 12 0RF Rx Instructions: Partial Fill upon patient request. folic acid 1 mg Tablet 1 mg PO DAILY 30 Days Qty: 30 0RF thiamine HCl (vitamin B1) 100 mg tablet 100 mg PO DAILY Qty: 30 0RF Continued metoprolol succinate 50 mg tablet extended release 24 hr 50 mg PO DAILY pantoprazole 40 mg tablet,delayed release (DR/EC) 40 mg PO DAILY@0630 allopurinol 300 mg tablet 300 mg PO DAILY ondansetron HCl 4 mg tablet 4 mg PO Q6H PRN (Reason: Nausea And Vomiting) pyridoxine (vitamin B6) 50 mg Tablet 50 mg PO DAILY 30 Days Qty: 30 0RF famotidine 20 mg tablet 20 mg PO BID Discharge Orders: Discharge Order (Routine); Ordered 04/09/25 Ordered By: Jluis Hess Diet: Advance to usual diet Activity on Discharge: As tolerated Stand Alone Forms: Patient Portal Discharge page Print Language: Setswana Care Plan Goals: As above Health Concerns: As above Plan of Treatment: Remain abstinent from alcohol Follow up with PCP within 1 week of discharge Continue thiamine, folic acid, omeprazole after discharge Maintain low-fat diet Assessment: Hemodynamically stable, ready for discharge. No endorsement of suicidal or homicidal ideation or intent; psychologically back to baseline and recovered from DT. Patient able to intake sufficient dietary nutrition
--- NOTE | 2025-04-09 11:01 | MHC.CM.PN ---
PT CLEARED TO DC HOME TODAY WITH NO SERVICES
--- NOTE | 2025-04-09 11:15 | PC.NURSE ---
Discharge ordered placed by provider, Provider informed via [employer] that patient was anxious, complaining of being sweaty, nausea and complain of abdominal pain requiring IV Dilaudid. Provider also notified of patient being tachycardic. Patient expressing that he wants to go home today. Provider came to bedside and talked to patient. Discharge order discontinued.
--- NOTE | 2025-04-09 13:13 | PC.NURSE ---
Patient pacing around in room, seems withdrawn from conversation, asked for paperwork to leave . Reached out to [facility] via [facility] and informed provider patient wants to leave, patient would be leaving AMA, patient educated regarding that.
--- NOTE | 2025-04-09 17:27 | PC.NURSE ---
Patient pacing around in room with fist clenched, expressing being angry regarding canceled discharge and full liquid diet. Reached out to Jimena via [employer] to see about changing his diet, awaiting response. Reached out to Provider Jay via [employer], informed provider of patient pacing in room, angry, feeling anxious; patient stating he takes hydroxyzine at home as needed; new order placed for hydroxyzine.
[2025-04-09] MEDS: 0.9 % Sodium Chloride Flush 3 ML SYRINGE IVFLUSH (19:30)
[2025-04-10 03:23] VITALS: BP 125/72; PULSE 63; RESP 16; TEMP 36.9; O2SAT 99
[2025-04-10 07:36] VITALS: BP 128/66; PULSE 77; RESP 16; TEMP 36.4; O2SAT 99
--- NOTE | 2025-04-10 07:44 | PM.DS ---
DS: Providers Provider Date of Service: 04/10/25 Date of admission: 04/04/25 10:13 Date of discharge: 04/10/25 Primary care physician: Danilo Wilson MD Consults: 04/03/25 17:41 ED CARE Team Crisis Consult Stat Comment: Reason for consultation: SI, alcohol abuse 04/04/25 10:15 Addiction Medicine Provider Routine Consulting Provider: Addiction Covering Reason for consultation: etoh DS: Diagnosis Discharge Diagnosis (1) Alcoholism: Status: Acute (2) Alcohol use disorder, severe, dependence: Status: Acute (3) Alcohol withdrawal: Status: Acute (4) Pancreatitis: Status: Acute (5) Lactic acid acidosis: Status: Acute (6) Metabolic acidosis, increased anion gap: Status: Acute DS: Summary Hospital Course Hospital Course: 39-year-old male with a background history of ETOH abuse, alcoholic gastritis, depression, gout, 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 PRESENTATION 39-year-old man presented to the ER with complaints of alcohol withdrawal. He reports depression and feeling suicidal. He reports that when he goes through detox he has hallucinations but has never had a seizure. He reports increased stress in the family more recently. He drinks about a pt of rum every day. He did report some central abdominal pain, lipase 66. He denied fever, chills, nausea, vomiting, diarrhea. Patient was started on phenobarbital protocol, given Librium, Zofran, Valium in the ER. He will be admitted for further management and treatment of acute alcohol withdrawal and likely pancreatitis. PROBLEM LIST ETOH abuse ETOH intoxication ETOH withdrawal Elevated CIWA scale, started on phenobarbital with high risk for withdrawal History of hallucinations and encephalopathy, started on IV thiamine IV fluids were administered Addiction Medicine consultation Multivitamin, folic acid Add protein to diet, encourage oral intake Acute interstitial alcoholic pancreatitis without necrosis Lipase mildly elevated Patient reports abdominal pain similar to previous episodes of pancreatitis Abdominal CT ordered; negative for concerning features. Pain management IV fluids were administered and the patient could not tolerate p.o. Able to tolerate clear liquid and full liquid diet --> regular diet by date of discharge Dietary intake is sufficient and safe for DC (consuming >50% all meals TID) History of alcoholic gastritis Continue PPI History of alcoholic cardiomyopathy Continue beta-fede outpatient Continue PO thiamine Status at Discharge Functional status at discharge: independent ambulation Overall status at discharge: patient is back to baseline Time Attestation Total time managing care of this patient today: 45 mintues. Discharge Coordination Time (in mins): 35 Quality: Safe Use of Opioids Does Pt have an Active Cancer Diagnosis on the Problem List?: No Quality: Stroke Does the patient have a stroke diagnosis?: No Physical Exam Exam: Exam: General: A&O x3, oriented to time place person and situation, comfortable, no pain Cardiac: S1, S2 auscultated with no S3/4, no MRG. Well perfused. Respiratory: Normal breath sounds auscultated throughout all lung zones, without wheezing, rales. Normal rate. GI/ : No tenderness to palpation of the epigastrium and umbilical region on light and deep palpation, without hepatosplenomegaly, no ecchymosis, normal bowel sounds throughout without abdominal bruits. No jaundice or scleral icterus MSK: Normal ambulation without pain at bony prominences or musculature Neurological: Normal neurological examination on overview, without obvious CN II-XII abnormalities. PSYCH: Normal thought process, organized, good insight and judgment. No suicidal/homicidal intent or ideation. Vital Signs: Vital Signs: Last Vital Signs Temp 97.5 F 04/10/25 07:36 Pulse 77 04/10/25 07:36 Resp 16 04/10/25 07:36 BP 128/66 04/10/25 07:36 Pulse Ox 99 04/10/25 07:36 O2 Del Method Room Air 04/10/25 07:36 BMI result Body Mass Index 27.5 DS: Data Data Completed and Pending Completed studies during hospitalization [Text1]: Procedures Detoxification Services for Substance Abuse Treatment (03/13/25) Discharge Plan Discharge Anticipated Discharge Date/Time: 04/09/25 10:34 Patient Disposition: Home, Self-Care Discharge Diagnosis: Alcohol intoxication with withdrawal and delirium tremens, with superimposed acute interstitial pancreatitis Referrals: Danilo Wilson MD [Primary Care Provider, Medical] - 1 Week Discharge Medications: New folic acid 1 mg Tablet 1 mg PO DAILY 30 Days Qty: 30 0RF oxycodone 5 mg Tablet 5 mg PO Q4H PRN (Reason: Pain, Severe (Pain Scale 7-10)) 2 Days Qty: 12 0RF Rx Instructions: Partial Fill upon patient request. thiamine HCl (vitamin B1) 100 mg tablet 100 mg PO DAILY Qty: 30 0RF Continued metoprolol succinate 50 mg tablet extended release 24 hr 50 mg PO DAILY pantoprazole 40 mg tablet,delayed release (DR/EC) 40 mg PO DAILY@0630 allopurinol 300 mg tablet 300 mg PO DAILY ondansetron HCl 4 mg tablet 4 mg PO Q6H PRN (Reason: Nausea And Vomiting) pyridoxine (vitamin B6) 50 mg Tablet 50 mg PO DAILY 30 Days Qty: 30 0RF famotidine 20 mg tablet 20 mg PO BID Discharge Orders: Discharge Order (Routine); Ordered 04/10/25 Ordered By: lJuis Hess Diet: Advance to usual diet Activity on Discharge: As tolerated Stand Alone Forms: Patient Portal Discharge page Print Language: Slovenian Care Plan Goals: As above Health Concerns: As above Plan of Treatment: Remain abstinent from alcohol Follow up with PCP within 1 week of discharge Continue thiamine, folic acid, omeprazole after discharge Maintain low-fat diet Assessment: Hemodynamically stable, ready for discharge. No endorsement of suicidal or homicidal ideation or intent; psychologically back to baseline and recovered from DT. Patient able to intake sufficient dietary nutrition
[2025-04-10 07:46] LABS: Anion Gap 14 (12-20); Blood Urea Nitrogen 4 mg/dL (9-16); Calcium 9.7 mg/dL (8.4-10.2); Carbon Dioxide 25 mmol/L (22-29); Chloride 106 mmol/L (96-108); Creatinine Clr Calc Pharmacy 123.0; Estimated Glomerular Filt Rate > 60; Potassium 3.8 mmol/L (3.3-5.1); Sodium 141 mmol/L (135-145)
[2025-04-10] MEDS: Metoprolol Succinate ER 50 MG TAB.ER.24H PO (08:05)
--- NOTE | 2025-04-10 08:19 | PC.NURSE ---
Patient withdrawn, answering questions with minimal response. Patient upset about not leaving yesterday and ready to leave today. Discharge instructions reviewed with patient, patient asked about contact information for Gastroenterology office, contact information provided to patient. Patient had no other questions, he verbalized is had the follow up information for alcohol addiction. Patient ambulated off unit with friend for ride.
== END 2025-04-10 08:21 | disposition home or self-care (01) | DRG 775 ==
LOC: HO.ED 04-04 09:00 → HO.EDOVER 04-04 10:16 → HO.S3 04-04 12:41
PROVIDERS: Nurse Practitioner Family; Physician Assistant Medical; Admitting Provider Nurse Practitioner Acute Care; Emergency Provider Emergency Medicine; PCP Family Medicine; Visit Provider Hospitalist
DX: F10.131 Alcohol abuse with withdrawal delirium (principal); K85.20 Alcohol induced acute pancreatitis without necrosis or infection; I42.6 Alcoholic cardiomyopathy; R45.851 Suicidal ideations; F10.129 Alcohol abuse with intoxication, unspecified; Y90.8 Blood alcohol level of 240 mg/100 ml or more; K29.20 Alcoholic gastritis without bleeding; Z20.822 Contact with and (suspected) exposure to COVID-19; Z87.891 Personal history of nicotine dependence; Z79.899 Other long term (current) drug therapy
CPT/HCPCS: 36415; 74176; 80048; 80053; 80143; 80179; 80307; 81001; 81003; 83605; 83690; 83735; 84484; 85025; 85027; 87635; 93005; 99285; J0131; J1171; J2270; J2405; J2560; J3360; J3411; J7120; S9485

== ENCOUNTER → 2025-04-03 17:41 | Outpatient (BNV) | payer OTHER, SELFPAY | PROVIDERS: Admitting Provider Nurse Practitioner Acute Care; Emergency Provider Emergency Medicine; PCP Family Medicine; Visit Provider Internal Medicine Cardiovascular Disease | DX: R00.0 Tachycardia, unspecified (principal) | CPT/HCPCS: 93010 ==

== ENCOUNTER 2025-04-04 10:13 | Outpatient (BNV) | payer OTHER, SELFPAY | END 2025-04-04 18:32 | PROVIDERS: Admitting Provider Nurse Practitioner Acute Care; Emergency Provider Emergency Medicine; PCP Family Medicine; Visit Provider Radiology Diagnostic Radiology | DX: K76.0 Fatty (change of) liver, not elsewhere classified (principal); N20.0 Calculus of kidney; I70.0 Atherosclerosis of aorta | CPT/HCPCS: 74176 ==

== ENCOUNTER 2025-04-04 10:13 | Outpatient (BNV) | payer OTHER, SELFPAY | END 2025-04-05 20:53 | PROVIDERS: Admitting Provider Nurse Practitioner Acute Care; Emergency Provider Emergency Medicine; PCP Family Medicine; Visit Provider Internal Medicine Cardiovascular Disease | DX: R94.31 Abnormal electrocardiogram [ECG] [EKG] (principal); R10.9 Unspecified abdominal pain | CPT/HCPCS: 93010 ==

== ENCOUNTER → 2025-04-04 10:13 | Outpatient (BNV) | payer OTHER, SELFPAY | PROVIDERS: Admitting Provider Nurse Practitioner Acute Care; Emergency Provider Emergency Medicine; PCP Family Medicine; Visit Provider Nurse Practitioner Psychiatric/Mental Health | DX: F10.20 Alcohol dependence, uncomplicated (principal) | CPT/HCPCS: 99222 ==

== ENCOUNTER → 2025-04-04 10:13 | Outpatient (BNV) | payer OTHER, SELFPAY | PROVIDERS: Admitting Provider Nurse Practitioner Acute Care; Emergency Provider Emergency Medicine; PCP Family Medicine; Visit Provider Nurse Practitioner Acute Care | DX: F10.20 Alcohol dependence, uncomplicated (principal); F10.930 Alcohol use, unspecified with withdrawal, uncomplicated; E87.20 Acidosis, unspecified; E87.29 Other acidosis; K85.20 Alcohol induced acute pancreatitis without necrosis or infection | CPT/HCPCS: 99223; 99232; 99499 ==